=== PATIENT | female | born 1950 | race Caucasian/White ===

== ENCOUNTER → 2018-05-02 14:56 | Outpatient (CLI) | payer MEDICARE, OTHER, SELFPAY ==
--- NOTE | 2018-05-02 | OV.WND_ITS ---
Progress Note Details Patient Name: Jane Melchor Patient Number: [id number] PatientPatientDate: 05/02/2018 Clinician: Danielle Matt Physician / Ditch Rider: Gomez Villegas SUBJECTIVE Chief Complaint This information was obtained from the patient Ulcers on right lateral ankle and calf. Allergies codeine (Reaction: Breathing slows), Bactrim (Reaction: Pancreatitis), scallops (Reaction: vomiting ), cat dander (Reaction: itchy eyes) HPI This information was obtained from the patient 05/02/18. Seen by Dr. Villegas. The patient's new to our clinic and presents with a chronic and recurrent right lateral lower leg non-pressure ulcer that's been deteriorating over the past 2 weeks and is moderately painful. She had one at this site previously that took a year to heal and responded to compression therapy at the time. She also has a non-healing, non-pressure ulcer over the proximal left lower leg. She has a history of PAD with stenting to the right leg but was seen by Dr. Anedrson recently who felt intervention to the left leg was unnecessary. She also has not been on antibiotics recently and does not have a history of diabetes. 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, Tobacco Use - Former smoker Past Medical History This information was obtained from the patient Patient has a medical history of: Breast cancer Hypertension Peripheral Vascular Disease High Cholesterol Surgical History This information was obtained from the patient Patient has a surgical history of: Breast mastectomy (Right side) Stent Placement (Left lower extremity) Complaints and Symptoms This information was obtained from the patient Patient complains of: General Notes: I have reviewed and concur with the Review of Systems and Past Family Social History documents completed by the clinician, I have reviewed and concur with the Wound Assessment document completed by the clinician Cardiovascular (Central/Peripheral): Lower extremity (leg) swelling Integumentary (Hair/Skin/Nails): Hemosiderin Staining, Open Sore Prior Wound History: Drainage, Erythema, Pain Patient denies complaints or symptoms related to: Cardiovascular (Central/Peripheral): Intermittent Claudication, Lower extremity (leg) resting pain Constitutional Symptoms (General Health): Chills, Fever Ear/Nose/Mouth/Throat: Hearing Loss / Aid Hematologic/Lymphatic: Bleeding / Clotting Disorders, Bleeding Tendency Neurological: Loss of Protective Sensation Psychiatric: Memory Loss Respiratory: Shortness of Breath General Notes: Up to date. Medications Children's Tylenol 160 mg/5 mL oral suspension oral 3 3 suspension oral every 4- 6 hours as needed (patient uses liquid - has difficulty swallowing pills) atenolol 25 mg tablet oral 1 1 tablet oral once daily Viactiv 500 mg-500 unit-40 mcg chewable tablet oral 1 1 tablet,chewable oral twice daily Tricor 48 mg tablet oral 3 3 tablet oral once daily multivitamin tablet oral 1 1 tablet oral once daily Plavix 75 mg tablet oral 1 1 tablet oral once daily potassium chloride ER 10 mEq capsule,extended release oral 1 1 capsule, extended release oral once daily Prilosec 10 mg oral suspension,delayed release oral 2 2 susp,delayed release for recon oral once daily doxycycline hyclate 100 mg capsule oral capsule oral twice daily for 7 days for infected ulcer doxycycline hyclate 100 mg capsule oral capsule oral twice daily for 7 days for infected ulcer gentamicin 0.1 % topical ointment topical ointment topical once daily for 7 days for infected ulcer gentamicin 0.1 % topical ointment topical ointment topical once daily for 7 days for infected ulcer Vitamin C 1,000 mg tablet oral 1 1 tablet oral once daily OBJECTIVE Constitutional BP elevated; Afebrile; Alert and in no distress. Well developed. Alert. Clean appearing.. Height/Length: 63 in (160.02 cm), Weight: 155.2 lbs (70.55 kgs), BMI: 27.5, Temperature: 98.1 ?F (36.72 ?C), Pulse: 66 bpm, Respiratory Rate: 18 breaths/min, Blood Pressure: 150/90 mmHg, Pulse Oximetry: 97 %. Ears, Nose, Mouth, and Throat: No clinically significant hearing loss on informal examination. Respiratory: No respiratory distress. Even respirations and without use of accessory muscles.. Cardiovascular: monophasic pedal pulses on the right. 1+ right lower extremity edema. Integumentary (Hair, Skin) Mild periwound erythema with warmth. Refer to appropriate clinician wound documentation for this visit; right lower leg ulcers extend to subcut with bases minimally covered with pink granulation, remainder fibrin and wet slough. Wound #1 Right, Lateral Ankle is an acute Venous Ulcer and has received a status of Not Healed. Initial wound encounter measurements are 2.5cm length x 1.3cm width x 0.3cm depth, with an area of 3.25 sq cm and a volume of 0.975 cubic cm. No tunneling has been noted. No sinus tract has been noted. No undermining has been noted. There is a moderate amount of sero-sanguineous drainage noted which has no odor. The patient reports a wound pain of level 4/10. The wound margin is attached. Wound bed has No epithelialization, No eschar, Yes slough, No granulation. The periwound skin moisture is normal. The periwound skin exhibited: Edema, Atrophie [place], Erythema, Hemosiderosis. The periwound skin did not exhibit: Brawny Induration, Excoriation, Induration, Callus, Crepitus, Fluctuance, Friable, Rash, Cyanosis, Ecchymosis, Pallor, Rubor. The temperature of the periwound skin is Warm. Periwound skin does not exhibit signs or symptoms of infection. Local Pulse is Doppler. Wound #2 Right, Lateral Calf is a chronic Venous Ulcer and has received a status of Not Healed. Initial wound encounter measurements are 0.8cm length x 0.5cm width x 0.3cm depth, with an area of 0.4 sq cm and a volume of 0.12 cubic cm. No tunneling has been noted. No sinus tract has been noted. No undermining has been noted. There is a moderate amount of sero-sanguineous drainage noted which has no odor. The patient reports a wound pain of level 4/10. The wound margin is attached. Wound bed has No epithelialization, No eschar, Yes slough, No granulation. The periwound skin moisture is normal. The periwound skin exhibited: Edema, Induration, Erythema, Hemosiderosis. The periwound skin did not exhibit: Brawny Induration, Excoriation, Callus, Crepitus, Fluctuance, Friable, Rash, Atrophie [place], Cyanosis, Ecchymosis, Pallor, Rubor. The temperature of the periwound skin is Warm. Periwound skin presents with s/s of infection. Confirmation Description and Treatment Plan is: Signs and Symptoms Present. Local Pulse is Doppler. Neurological: Cranial nerves grossly intact with symmetric function normal by informal observation.. ASSESSMENT Active Problems ICD-10 (Encounter Diagnosis) L97.812 - Non-pressure chronic ulcer of other part of right lower leg with fat layer exposed (Encounter Diagnosis) I87.311 - Chronic venous hypertension (idiopathic) with ulcer of right lower extremity (Encounter Diagnosis) I70.238 - Atherosclerosis of [place] arteries of right leg with ulceration of other part of lower right leg (Encounter Diagnosis) L03.115 - Cellulitis of right lower limb PROCEDURES Wound #1 Wound #1 (Vascular) is located on the right, lateral ankle. A skin/subcutaneous tissue level surgical debridement with a total area debrided of 3.25 sq cm was performed by Gomez Villegas MD. Subcutaneous was removed along with devitalized tissue: exudate and slough. The following instrument(s) were used: curette and forceps. Pain control was achieved using 4% Lido. A time out was conducted prior to the start of the procedure. A minimal amount of bleeding was controlled with pressure. The procedure was tolerated well with a pain level of 3 throughout and a pain level of 0 following the procedure. Post Debridement Measurements: 2.5cm length x 1.3cm width x 0.4cm depth; with an area of 3.25 sq cm and a volume of 1.3 cubic cm; Wound #2 Wound #2 (Vascular) is located on the right, lateral calf. A skin/subcutaneous tissue level surgical debridement with a total area debrided of 0.4 sq cm was performed by Gomez Villegas MD. Adipose and Subcutaneous were removed along with devitalized tissue: exudate and slough. The following instrument(s) were used: curette and forceps. Pain control was achieved using 4% Lido. A time out was conducted prior to the start of the procedure. A minimal amount of bleeding was controlled with pressure. The procedure was tolerated well with a pain level of 3 throughout and a pain level of 0 following the procedure. Post Debridement Measurements: 0.8cm length x 0.5cm width x 0.4cm depth; with an area of 0.4 sq cm and a volume of 0.16 cubic cm; Additional Information Muscle fascia or bone removed and sent to pathology?: No Muscle fascia or bone removed and sent to pathology?: No PLAN Wound Orders: Wound #1 Right, Lateral Ankle Anesthetic Topical Xylocaine to wound bed. - In clinic only. Cleanser Cleanse Wound: - Normal saline and gauze, may use distilled water at home. May Shower. - Please cover with cast protector when showering. Topical Treatments Antibiotic/Antimicrobial Ointment/Cream. - Gentamicin ointment to wound bed. Dressings Cover and secure with: - Foam secured with tape. Change Dressing: - Daily. Wound #2 Right, Lateral Calf Anesthetic Topical Xylocaine to wound bed. - In clinic only. Cleanser Cleanse Wound: - Normal saline and gauze, may use distilled water at home. May Shower. - Please cover with cast protector when showering. Topical Treatments Antibiotic/Antimicrobial Ointment/Cream. - Gentamicin ointment to wound bed. Dressings Cover and secure with: - Foam secured with tape. Change Dressing: - Daily. Additional Orders: Follow-Up Appointments Return Appointment: - - One week. Other information: If you develop fever, chills, increased pain, drainage, redness or swelling please call our office. If after hours, respond to the ER. Should you experience any significant changes in your wound(s) or have any questions regarding your home care instructions please contact the wound center @ [phone]. If after hours, contact your primary care physician or go to the hospital emergency room. Scribing Attestation I attest, as the nurse, that I scribed these orders for the physician. Laboratory: Bacteria identified in Wound by Culture - #1, Bacteria identified in Wound by Culture - #2 General Notes: Please vegetable picker prescriptions for gentamicin ointment and oral doxycycline. Will call with culture results if any changes in antibiotics are needed. I've reviewed the clinician's documentation and agree with the evaluation and plan as written. In addition the patient's ulcers demonstrate evidence of non-viable devitalized tissue and they will continue to benefit from sharp debridement to help promote granulation and expedite healing. Also, I've taken wound cultures and started the patient empirically on doxycycline to treat cellulitis associated with the right lower leg ulcers. If they deteriorate despite appropriate treatment we'll need to refer back to Dr. Anderson for consideration of intervention to treat the right leg PAD. Electronic Signature(s) Signed By: Date: Gomez Villegas MD 05/04/2018 08:46:21 Entered By: Gomez Villegas on 05/04/2018 08:36:12
== END ==
PROVIDERS: Visit Provider Internal Medicine
DX: I87.311 Chronic venous hypertension (idiopathic) with ulcer of right lower extremity (principal); L97.312 Non-pressure chronic ulcer of right ankle with fat layer exposed; L97.212 Non-pressure chronic ulcer of right calf with fat layer exposed; L03.115 Cellulitis of right lower limb; I70.238 Atherosclerosis of native arteries of right leg with ulceration of other part of lower leg
CPT/HCPCS: 11042; 87070; 87075; 87077; 87147; 87186; 87205; 99214

== ENCOUNTER → 2018-05-09 09:09 | Outpatient (CLI) | payer MEDICARE, OTHER, SELFPAY ==
--- NOTE | 2018-05-09 | OV.WND_ITS ---
Progress Note Details Patient Name: Jane Melchor Patient Number: [id number] PatientPatientDate: 05/09/2018 Clinician: Danielle Matt Clinician Cosigner: Corrie Diaz Physician / Assistant Womens Volleyball Coach: Gomez Villegas SUBJECTIVE Chief Complaint This information was obtained from the patient Ulcers on right lateral ankle and calf. Allergies codeine (Reaction: Breathing slows), Bactrim (Reaction: Pancreatitis), scallops (Reaction: vomiting ), cat dander (Reaction: itchy eyes) HPI This information was obtained from the patient 05/09/18. Seen by Dr. Villegas. The patient continues to report some pain associated with the right lower leg venous ulcers despite taking doxycycline for the recent MRSA and E. coli positive wound culture. She does not report fevers or adverse side effects and is applying topical gentamicin to the ulcers as well. 05/02/18. Seen by Dr. Villegas. The patient's new to our clinic and presents with a chronic and recurrent right lateral lower leg non-pressure ulcer that's been deteriorating over the past 2 weeks and is moderately painful. She had one at this site previously that took a year to heal and responded to compression therapy at the time. She also has a non-healing, non-pressure ulcer over the proximal left lower leg. She has a history of PAD with stenting to the right leg but was seen by Dr. Anderson recently who felt intervention to the left leg was unnecessary. She also has not been on antibiotics recently and does not have a history of diabetes. Past Medical History This information was obtained from the patient Patient has a medical history of: Breast cancer Hypertension Peripheral Vascular Disease High Cholesterol Complaints and Symptoms This information was obtained from the patient Patient complains of: General Notes: I have reviewed and concur with the Review of Systems and Past Family Social History documents completed by the clinician, I have reviewed and concur with the Wound Assessment document completed by the clinician Cardiovascular (Central/Peripheral): Lower extremity (leg) swelling Integumentary (Hair/Skin/Nails): Hemosiderin Staining, Open Sore Prior Wound History: Drainage, Erythema, Pain Patient denies complaints or symptoms related to: Cardiovascular (Central/Peripheral): Intermittent Claudication, Lower extremity (leg) resting pain Constitutional Symptoms (General Health): Chills, Fever Ear/Nose/Mouth/Throat: Hearing Loss / Aid Hematologic/Lymphatic: Bleeding / Clotting Disorders, Bleeding Tendency Neurological: Loss of Protective Sensation Psychiatric: Memory Loss Respiratory: Shortness of Breath OBJECTIVE Constitutional Vital signs reviewed and noted. Well developed. Alert. Clean appearing.. Height/ Length: 63 in (160.02 cm), Weight: 155.5 lbs (70.68 kgs), BMI: 27.5, Temperature: 98.3 ?F ( 36.83 ?C), Pulse: 64 bpm, Respiratory Rate: 18 breaths/min, Pulse Oximetry: 95 %. Ears, Nose, Mouth, and Throat: No clinically significant hearing loss on informal examination. Respiratory: No respiratory distress. Even respirations and without use of accessory muscles.. Cardiovascular: 1+ right lower extremity edema. Integumentary (Hair, Skin) Mild periwound erythema without warmth. Refer to appropriate clinician wound documentation for this visit; right lower leg ulcers extend to subcut with bases partially covered with pink granulation, remainder fibrin and slough; tender to debridement. Wound #1 Right, Lateral Ankle is an acute Full Thickness Venous Ulcer and has received a status of Not Healed. Subsequent wound encounter measurements are 2.2cm length x 1.4cm width x 0.4cm depth, with an area of 3.08 sq cm and a volume of 1.232 cubic cm. No tunneling has been noted. No sinus tract has been noted. No undermining has been noted. There is a moderate amount of sero-sanguineous drainage noted which has no odor. The patient reports a wound pain of level 4/10. The wound margin is attached. Wound bed has No epithelialization, No eschar, Yes slough, No granulation. The periwound skin moisture is normal. The periwound skin exhibited: Edema, Induration, Atrophie [place], Erythema, Hemosiderosis. The periwound skin did not exhibit: Brawny Induration, Excoriation, Callus, Crepitus, Fluctuance, Friable, Rash, Cyanosis, Ecchymosis, Pallor, Rubor. The temperature of the periwound skin is Warm. Periwound skin does not exhibit signs or symptoms of infection. Local Pulse is Doppler. Wound #2 Right, Lateral Calf is a chronic Full Thickness Venous Ulcer and has received a status of Not Healed. Subsequent wound encounter measurements are 0.7cm length x 0.6cm width x 0.2cm depth, with an area of 0.42 sq cm and a volume of 0.084 cubic cm. No tunneling has been noted. No sinus tract has been noted. Undermining has been noted at 8:00 and ends at 6:00 with a maximum distance of 0.3cm. There is a moderate amount of sero- sanguineous drainage noted which has no odor. The patient reports a wound pain of level 4/10. The wound margin is attached. Wound bed has No epithelialization, No eschar, Yes slough, Yes bright red, pink, firm granulation. The periwound skin moisture is normal. The periwound skin exhibited: Edema, Induration, Erythema, Hemosiderosis. The periwound skin did not exhibit: Brawny Induration, Excoriation, Callus, Crepitus, Fluctuance, Friable, Rash, Atrophie [place], Cyanosis, Ecchymosis, Pallor, Rubor. The temperature of the periwound skin is Warm. Periwound skin presents with s/s of infection. Confirmation Description and Treatment Plan is: Signs and Symptoms Present, Confirmed Local. Local Pulse is Doppler. Neurological: Cranial nerves grossly intact with symmetric function normal by informal observation.. ASSESSMENT Active Problems ICD-10 (Encounter Diagnosis) L97.812 - Non-pressure chronic ulcer of other part of right lower leg with fat layer exposed (Encounter Diagnosis) I87.311 - Chronic venous hypertension (idiopathic) with ulcer of right lower extremity (Encounter Diagnosis) B95.62 - Methicillin resistant Staphylococcus aureus infection as the cause of diseases classified elsewhere (Encounter Diagnosis) B96.29 - Other Escherichia coli [E. coli] as the cause of diseases classified elsewhere PROCEDURES Wound #1 Wound #1 (Venous Ulcer) is located on the right, lateral ankle. A skin/ subcutaneous tissue level surgical debridement with a total area debrided of 3.08 sq cm was performed by Gomez Villegas MD. Subcutaneous was removed along with devitalized tissue: exudate and slough. The following instrument(s) were used: curette. Pain control was achieved using 4% Lido. A time out was conducted prior to the start of the procedure. A minimal amount of bleeding was controlled with n/a. The procedure was tolerated well with a pain level of 4 throughout and a pain level of 2 following the procedure. Post Debridement Measurements: 2.2cm length x 1.4cm width x 0.5cm depth; with an area of 3.08 sq cm and a volume of 1.54 cubic cm; Wound #2 Wound #2 (Venous Ulcer) is located on the right, lateral calf. A skin/ subcutaneous tissue level surgical debridement with a total area debrided of 0.42 sq cm was performed by Gomez Villegas MD. Subcutaneous was removed along with devitalized tissue: exudate and slough. The following instrument(s) were used: curette. Pain control was achieved using 4% Lido. A time out was conducted prior to the start of the procedure. A minimal amount of bleeding was controlled with n/a. The procedure was tolerated well with a pain level of 4 throughout and a pain level of 2 following the procedure. Post Debridement Measurements: 0.7cm length x 0.6cm width x 0.3cm depth; with an area of 0.42 sq cm and a volume of 0.126 cubic cm; Additional Information Muscle fascia or bone removed and sent to pathology?: No Muscle fascia or bone removed and sent to pathology?: No PLAN Wound Orders: Wound #1 Right, Lateral Ankle Anesthetic Topical Xylocaine to wound bed. - In clinic only. Cleanser Cleanse Wound: - Normal saline and gauze, may use distilled water at home. May Shower. - Please cover with cast protector when showering. Topical Treatments Antibiotic/Antimicrobial Ointment/Cream. - Gentamicin ointment to wound bed. Dressings Cover and secure with: - Foam secured with tape. Change Dressing: - Daily. Wound #2 Right, Lateral Calf Anesthetic Topical Xylocaine to wound bed. - In clinic only. Cleanser Cleanse Wound: - Normal saline and gauze, may use distilled water at home. May Shower. - Please cover with cast protector when showering. Topical Treatments Antibiotic/Antimicrobial Ointment/Cream. - Gentamicin ointment to wound bed. Dressings Cover and secure with: - Foam secured with tape. Change Dressing: - Daily. Additional Orders: Follow-Up Appointments Return Appointment: - - One week. Other information: If you develop fever, chills, increased pain, drainage, redness or swelling please call our office. If after hours, respond to the ER. Should you experience any significant changes in your wound(s) or have any questions regarding your home care instructions please contact the wound center @ [phone]. If after hours, contact your primary care physician or go to the hospital emergency room. Scribing Attestation I attest, as the nurse, that I scribed these orders for the physician. Medications prescribed: clindamycin HCl - oral 300 mg capsule three times daily for 7 days for infected ulcer starting 05/09/2018 General Notes: Please pickler helper new prescription for clindamycin, please continue taking doxycycline UNTIL you pickler helper the clindamycin prescription. Then you may discontinue the doxycycline. I've reviewed the clinician's documentation and agree with the evaluation and plan as written. In addition the patient's ulcers demonstrate evidence of non-viable devitalized tissue and they will continue to benefit from sharp debridement to help promote granulation and expedite healing. Also, I've changed the patient to clindamycin from doxycycline due to the continued pain and we'll consider placing a REYES wound vac early next week. Electronic Signature(s) Signed By: Date: Gomez Villegas MD 05/10/2018 06:43:39 Entered By: Gomez Villegas on 05/09/2018 15:54:35
== END ==
PROVIDERS: PCP Family Medicine; Visit Provider Internal Medicine
DX: I87.311 Chronic venous hypertension (idiopathic) with ulcer of right lower extremity (principal); L97.812 Non-pressure chronic ulcer of other part of right lower leg with fat layer exposed; B95.62 Methicillin resistant Staphylococcus aureus infection as the cause of diseases classified elsewhere; B96.29 Other Escherichia coli [E. coli] as the cause of diseases classified elsewhere
CPT/HCPCS: 11042

== ENCOUNTER → 2018-05-09 14:23 | Outpatient (CLI) | payer MEDICARE, OTHER, SELFPAY | PROVIDERS: PCP Family Medicine; Visit Provider Internal Medicine | DX: I87.311 Chronic venous hypertension (idiopathic) with ulcer of right lower extremity (principal); L97.812 Non-pressure chronic ulcer of other part of right lower leg with fat layer exposed; B95.62 Methicillin resistant Staphylococcus aureus infection as the cause of diseases classified elsewhere; B96.29 Other Escherichia coli [E. coli] as the cause of diseases classified elsewhere ==

== ENCOUNTER → 2018-05-16 13:22 | Outpatient (CLI) | payer MEDICARE, OTHER, SELFPAY ==
--- NOTE | 2018-05-16 | OV.WND_ITS ---
Progress Note Details Patient Name: Jane Melchor Patient Number: [id number] PatientPatientDate: 05/16/2018 Clinician: Danielle Matt Physician / Burnisher: Gomez Villegas SUBJECTIVE Chief Complaint This information was obtained from the patient Ulcers on right lateral ankle and calf. Allergies codeine (Reaction: Breathing slows), Bactrim (Reaction: Pancreatitis), scallops (Reaction: vomiting ), cat dander (Reaction: itchy eyes) HPI This information was obtained from the patient 05/16/18. Seen by Dr. Villegas. The patient continues to report some pain associated with the right lower leg venous ulcers however feels there's been modest improvement since starting on clindamycin for the recent MRSA and E. coli positive wound culture. She has a history of PAD in the right leg with a stent and states that at her last visit with Dr. Anderson it was felt repeat intervention was nor warranted at that time. 05/09/18. Seen by Dr. Villegas. The patient continues to report some pain associated with the right lower leg venous ulcers despite taking doxycycline for the recent MRSA and E. coli positive wound culture. She does not report fevers or adverse side effects and is applying topical gentamicin to the ulcers as well. 05/02/18. Seen by Dr. Villegas. The patient's new to our clinic and presents with a chronic and recurrent right lateral lower leg non-pressure ulcer that's been deteriorating over the past 2 weeks and is moderately painful. She had one at this site previously that took a year to heal and responded to compression therapy at the time. She also has a non-healing, non-pressure ulcer over the proximal left lower leg. She has a history of PAD with stenting to the right leg but was seen by Dr. Anderson recently who felt intervention to the left leg was unnecessary. She also has not been on antibiotics recently and does not have a history of diabetes. Past Medical History This information was obtained from the patient Patient has a medical history of: Breast cancer Hypertension Peripheral Vascular Disease (right leg stent) High Cholesterol Complaints and Symptoms This information was obtained from the patient Patient complains of: General Notes: I have reviewed and concur with the Review of Systems and Past Family Social History documents completed by the clinician, I have reviewed and concur with the Wound Assessment document completed by the clinician Cardiovascular (Central/Peripheral): Lower extremity (leg) swelling Integumentary (Hair/Skin/Nails): Hemosiderin Staining, Open Sore Prior Wound History: Drainage, Erythema, Pain Patient denies complaints or symptoms related to: Cardiovascular (Central/Peripheral): Intermittent Claudication, Lower extremity (leg) resting pain Constitutional Symptoms (General Health): Chills, Fever Ear/Nose/Mouth/Throat: Hearing Loss / Aid Hematologic/Lymphatic: Bleeding / Clotting Disorders, Bleeding Tendency Neurological: Loss of Protective Sensation Psychiatric: Memory Loss Respiratory: Shortness of Breath OBJECTIVE Constitutional BP elevated; Afebrile; Alert and in no distress. Well developed. Alert. Clean appearing.. Height/Length: 63 in (160.02 cm), Weight: 155.5 lbs (70.68 kgs), BMI: 27.5, Temperature: 97.1 ?F (36.17 ?C), Pulse: 61 bpm, Respiratory Rate: 16 breaths/min, Blood Pressure: 172/77 mmHg, Pulse Oximetry: 99 %. Ears, Nose, Mouth, and Throat: No clinically significant hearing loss on informal examination. Respiratory: No respiratory distress. Even respirations and without use of accessory muscles.. Cardiovascular: 1+ dorsalis pedis and posterior tibial on the right. Affected extremity exhibits no peripheral edema or cyanosis, is warm, and is well perfused. Capillary refill is less than 2 seconds. Integumentary (Hair, Skin) Moderate periwound erythema without warmth. Refer to appropriate clinician wound documentation for this visit; right lower leg ulcers extend to subcut with bases partially covered with pink granulation, remainder fibrin and slough; minimal bleeding upon debridement. Wound #1 Right, Lateral Ankle is an acute Full Thickness Venous Ulcer and has received a status of Not Healed. Subsequent wound encounter measurements are 2.8cm length x 1.2cm width x 0.3cm depth, with an area of 3.36 sq cm and a volume of 1.008 cubic cm. No tunneling has been noted. No sinus tract has been noted. No undermining has been noted. There is a moderate amount of sero-sanguineous drainage noted which has no odor. The patient reports a wound pain of level 4/10. The wound margin is attached. Wound bed has No epithelialization, No eschar, Yes slough, Yes bright red, firm granulation. The periwound skin moisture is normal. The periwound skin exhibited: Edema, Induration, Atrophie Inga, Erythema, Hemosiderosis. The periwound skin did not exhibit: Brawny Induration, Excoriation, Callus, Crepitus, Fluctuance, Friable, Rash, Cyanosis, Ecchymosis, Pallor, Rubor. The temperature of the periwound skin is Warm. Periwound skin does not exhibit signs or symptoms of infection. Local Pulse is Doppler. Wound #2 Right, Lateral Calf is a chronic Full Thickness Venous Ulcer and has received a status of Not Healed. Subsequent wound encounter measurements are 0.7cm length x 0.5cm width x 0.2cm depth, with an area of 0.35 sq cm and a volume of 0.07 cubic cm. No tunneling has been noted. No sinus tract has been noted. No undermining has been noted. There is a moderate amount of sero-sanguineous drainage noted which has no odor. The patient reports a wound pain of level 4/10. The wound margin is attached. Wound bed has Yes epithelialization, No eschar, Yes slough, Yes pink, firm granulation. The periwound skin moisture is normal. The periwound skin exhibited: Edema, Induration, Erythema, Hemosiderosis. The periwound skin did not exhibit: Brawny Induration, Excoriation, Callus, Crepitus, Fluctuance, Friable, Rash, Atrophie [place], Cyanosis, Ecchymosis, Pallor, Rubor. The temperature of the periwound skin is Warm. Periwound skin does not exhibit signs or symptoms of infection. Local Pulse is Doppler. Neurological: Cranial nerves grossly intact with symmetric function normal by informal observation.. ASSESSMENT Active Problems ICD-10 (Encounter Diagnosis) L97.812 - Non-pressure chronic ulcer of other part of right lower leg with fat layer exposed (Encounter Diagnosis) I87.311 - Chronic venous hypertension (idiopathic) with ulcer of right lower extremity (Encounter Diagnosis) B95.62 - Methicillin resistant Staphylococcus aureus infection as the cause of diseases classified elsewhere (Encounter Diagnosis) B96.29 - Other Escherichia coli [E. coli] as the cause of diseases classified elsewhere (Encounter Diagnosis) I70.238 - Atherosclerosis of [place] arteries of right leg with ulceration of other part of lower right leg PROCEDURES Wound #1 Wound #1 (Venous Ulcer) is located on the right, lateral ankle. A skin/ subcutaneous tissue level surgical debridement with a total area debrided of 3.36 sq cm was performed by Gomez Villegas MD. Subcutaneous was removed along with devitalized tissue: slough. The following instrument(s) were used: curette. Pain control was achieved using 4% Lido. A time out was conducted prior to the start of the procedure. A minimal amount of bleeding was controlled with pressure. The procedure was tolerated well with a pain level of 0 throughout and a pain level of 0 following the procedure. Post Debridement Measurements: 2.8cm length x 1.2cm width x 0.4cm depth; with an area of 3.36 sq cm and a volume of 1.344 cubic cm; Wound #2 Wound #2 (Venous Ulcer) is located on the right, lateral calf. A skin/ subcutaneous tissue level surgical debridement with a total area debrided of 0.35 sq cm was performed by Gomez Villegas MD. Subcutaneous was removed along with devitalized tissue: slough. The following instrument(s) were used: curette. Pain control was achieved using 4% Lido. A time out was conducted prior to the start of the procedure. A minimal amount of bleeding was controlled with pressure. The procedure was tolerated well with a pain level of 0 throughout and a pain level of 0 following the procedure. Post Debridement Measurements: 0.7cm length x 0.5cm width x 0.3cm depth; with an area of 0.35 sq cm and a volume of 0.105 cubic cm; Additional Information Muscle fascia or bone removed and sent to pathology?: No Muscle fascia or bone removed and sent to pathology?: No PLAN Wound Orders: Wound #1 Right, Lateral Ankle Anesthetic Topical Xylocaine to wound bed. - In clinic only. Cleanser Cleanse Wound: - Normal saline and gauze, may use distilled water at home. May Shower. - Please cover with cast protector when showering. Topical Treatments Moisturizing lotion to surround skin. - Clobetasol to red skin surrounding wound , triamcinolone cream used in clinic. Dressings Cover and secure with: - Foam secured with tape. Change Dressing: - Every other day. Wound #2 Right, Lateral Calf Anesthetic Topical Xylocaine to wound bed. - In clinic only. Cleanser Cleanse Wound: - Normal saline and gauze, may use distilled water at home. May Shower. - Please cover with cast protector when showering. Dressings Cover and secure with: - Foam secured with tape. Change Dressing: - Every other day. Additional Orders: Follow-Up Appointments Return Appointment: - - One week. Other information: If you develop fever, chills, increased pain, drainage, redness or swelling please call our office. If after hours, respond to the ER. Should you experience any significant changes in your wound(s) or have any questions regarding your home care instructions please contact the wound center @ [phone]. If after hours, contact your primary care physician or go to the hospital emergency room. Scribing Attestation I attest, as the nurse, that I scribed these orders for the physician. Medications prescribed: clindamycin HCl - oral 300 mg capsule three times daily for 7 days for cellulitis starting 05/16/2018 General Notes: Please pharmacy picking technician refill of clindamycin and continue as prescribed. Referral being made to a vascular surgeon to evaluate need for intervention. I've reviewed the clinician's documentation and agree with the evaluation and plan as written. In addition the patient's ulcers demonstrate evidence of non-viable devitalized tissue and they will continue to benefit from sharp debridement to help promote granulation and expedite healing. Also, I've continued the patient on another week of clindamycin and will consider placing a REYES wound vac over the distal ulcer at her next visit. I'm also going to ask Dr. Anderson to review the patient's PAD again and consider below the knee intervention if possible as I'm concerned there's a clinically significant degree of PAD affecting this distal ulcer specifically. Electronic Signature(s) Signed By: Date: Gomez Villegas MD 05/17/2018 07:05:31 Entered By: Gomez Villegas on 05/17/2018 06:52:52
== END ==
PROVIDERS: Family Provider Physician Assistant Medical; PCP Family Medicine; Visit Provider Internal Medicine
DX: L97.812 Non-pressure chronic ulcer of other part of right lower leg with fat layer exposed (principal); I87.311 Chronic venous hypertension (idiopathic) with ulcer of right lower extremity; B95.62 Methicillin resistant Staphylococcus aureus infection as the cause of diseases classified elsewhere; B96.29 Other Escherichia coli [E. coli] as the cause of diseases classified elsewhere; I70.238 Atherosclerosis of native arteries of right leg with ulceration of other part of lower leg
CPT/HCPCS: 11042

== ENCOUNTER → 2018-05-23 10:42 | Outpatient (CLI) | payer MEDICARE, OTHER, SELFPAY | PROVIDERS: Family Provider Physician Assistant Medical; PCP Family Medicine; Visit Provider Internal Medicine | DX: I87.311 Chronic venous hypertension (idiopathic) with ulcer of right lower extremity (principal); L97.312 Non-pressure chronic ulcer of right ankle with fat layer exposed; L97.212 Non-pressure chronic ulcer of right calf with fat layer exposed; B95.62 Methicillin resistant Staphylococcus aureus infection as the cause of diseases classified elsewhere; B96.29 Other Escherichia coli [E. coli] as the cause of diseases classified elsewhere | CPT/HCPCS: 11042 ==

== ENCOUNTER → 2018-05-30 14:27 | Outpatient (CLI) | payer MEDICARE, OTHER, SELFPAY | PROVIDERS: Family Provider Physician Assistant Medical; PCP Family Medicine; Visit Provider Internal Medicine | DX: I87.311 Chronic venous hypertension (idiopathic) with ulcer of right lower extremity (principal); L97.312 Non-pressure chronic ulcer of right ankle with fat layer exposed; L97.212 Non-pressure chronic ulcer of right calf with fat layer exposed; I70.238 Atherosclerosis of native arteries of right leg with ulceration of other part of lower leg; L03.115 Cellulitis of right lower limb | CPT/HCPCS: 11042; 87070; 87075; 87205; 97605 ==

== ENCOUNTER → 2018-06-06 14:37 | Outpatient (CLI) | payer MEDICARE, OTHER, SELFPAY ==
--- NOTE | 2018-06-06 | OV.WND_ITS ---
Progress Note Details Patient Name: Jane Melchor Patient Number: [id number] PatientPatientDate: 06/06/2018 Clinician: Shi Fuentes Clinician Cosigner: Balbina Hernandez Physician / Semi Conductor Assembler: Gomez Villegas SUBJECTIVE Chief Complaint This information was obtained from the patient Ulcers on right lateral ankle and calf. Allergies codeine (Reaction: Breathing slows), Bactrim (Reaction: Pancreatitis), scallops (Reaction: vomiting ), cat dander (Reaction: itchy eyes) HPI This information was obtained from the patient 06/06/18. Seen by Dr. Villegas. The patient does not report significant pain or drainage associated with the proximal or distal right lower leg venous ulcers since her last visit and she states her vascular doctor does not feel there's clinically significant PAD in the right leg. She also tolerated NPWT without difficulty and will complete her course of clindamycin tomorrow that's been treating the recurrent MRSA positive wound culture. 05/30/18. Seen by Dr. Villegas. The patient continues to report pain associated with the distal right lower leg venous ulcer however she does not report pain or drainage associated with the proximal right lower leg venous ulcer. She has an appointment next Tuesday with Dr. Anderson's office to evaluate her right leg PAD for possible intervention noting the refractory nature of the ulcers. She feels there's increased redness in the distal periulcer area which is new compared to yesterday. 05/23/18. Seen by Dr. Villegas. The patient continues to report pain associated with the right lower leg venous ulcers and she continues on clindamycin for the recent MRSA and E. coli positive wound culture without reporting adverse side effects. 05/16/18. Seen by Dr. Villegas. The patient continues to report some pain associated with the right lower leg venous ulcers however feels there's been modest improvement since starting on clindamycin for the recent MRSA and E. coli positive wound culture. She has a history of PAD in the right leg with a stent and states that at her last visit with Dr. Anderson it was felt repeat intervention was nor warranted at that time. 05/09/18. Seen by Dr. Villegas. The patient continues to report some pain associated with the right lower leg venous ulcers despite taking doxycycline for the recent MRSA and E. coli positive wound culture. She does not report fevers or adverse side effects and is applying topical gentamicin to the ulcers as well. 05/02/18. Seen by Dr. Villegas. The patient's new to our clinic and presents with a chronic and recurrent right lateral lower leg non-pressure ulcer that's been deteriorating over the past 2 weeks and is moderately painful. She had one at this site previously that took a year to heal and responded to compression therapy at the time. She also has a non-healing, non-pressure ulcer over the proximal left lower leg. She has a history of PAD with stenting to the right leg but was seen by Dr. Anderson recently who felt intervention to the left leg was unnecessary. She also has not been on antibiotics recently and does not have a history of diabetes. Past Medical History This information was obtained from the patient Patient has a medical history of: Breast cancer Hypertension Peripheral Vascular Disease (right leg stent) High Cholesterol Complaints and Symptoms This information was obtained from the patient Patient complains of: General Notes: I have reviewed and concur with the Review of Systems and Past Family Social History documents completed by the clinician, I have reviewed and concur with the Wound Assessment document completed by the clinician Cardiovascular (Central/Peripheral): Lower extremity (leg) swelling Integumentary (Hair/Skin/Nails): Hemosiderin Staining, Open Sore Prior Wound History: Drainage, Erythema, Pain Patient denies complaints or symptoms related to: Cardiovascular (Central/Peripheral): Intermittent Claudication, Lower extremity (leg) resting pain Constitutional Symptoms (General Health): Chills, Fever Ear/Nose/Mouth/Throat: Hearing Loss / Aid Hematologic/Lymphatic: Bleeding / Clotting Disorders, Bleeding Tendency Neurological: Loss of Protective Sensation Psychiatric: Memory Loss Respiratory: Shortness of Breath OBJECTIVE Constitutional BP elevated; Afebrile; Alert and in no distress. Well developed. Alert. Clean appearing.. Height/Length: 63 in (160.02 cm), Weight: 155.9 lbs (70.86 kgs), BMI: 27.6, Temperature: 98.6 ?F (37 ?C), Pulse: 61 bpm, Respiratory Rate: 18 breaths/min, Blood Pressure : 142/70 mmHg, Pulse Oximetry: 98 %. Ears, Nose, Mouth, and Throat: No clinically significant hearing loss on informal examination. Neck: Normal range of motion.. Cardiovascular: Affected extremity exhibits no peripheral edema or cyanosis, is warm, and is well perfused. Capillary refill is less than 2 seconds. Integumentary (Hair, Skin) Mild distal right lower leg periwound erythema without warmth. Refer to appropriate clinician wound documentation for this visit; right lower leg ulcers extend to subcut with bases partially covered with pink granulation, remainder fibrin and slough. Wound #1 Right, Lateral Ankle is an acute Full Thickness Venous Ulcer and has received a status of Not Healed. Subsequent wound encounter measurements are 3cm length x 1.4cm width x 0.3cm depth, with an area of 4.2 sq cm and a volume of 1.26 cubic cm. No tunneling has been noted. No sinus tract has been noted. No undermining has been noted. There is a moderate amount of sero-sanguineous drainage noted which has no odor. The patient reports a wound pain of level 4/10. The wound margin is attached. Wound bed has No epithelialization, No eschar, Yes slough, No granulation. The periwound skin moisture is normal. The periwound skin exhibited: Edema, Induration, Atrophie Inga, Erythema, Hemosiderosis. The periwound skin did not exhibit: Brawny Induration, Excoriation, Callus, Crepitus, Fluctuance, Friable, Rash, Cyanosis, Ecchymosis, Pallor, Rubor. The temperature of the periwound skin is Warm. Periwound skin does not exhibit signs or symptoms of infection. Local Pulse is Doppler. Wound #2 Right, Lateral Calf is a chronic Full Thickness Venous Ulcer and has received a status of Not Healed. Subsequent wound encounter measurements are 0.5cm length x 0.4cm width x 0.1cm depth, with an area of 0.2 sq cm and a volume of 0.02 cubic cm. No tunneling has been noted. No sinus tract has been noted. No undermining has been noted. There is a moderate amount of sero-sanguineous drainage noted which has no odor. The patient reports a wound pain of level 4/10. The wound margin is attached. Wound bed has No epithelialization, No eschar, No slough, Yes pink, firm granulation. The periwound skin moisture is normal. The periwound skin exhibited: Edema, Induration, Erythema, Hemosiderosis. The periwound skin did not exhibit: Brawny Induration, Excoriation, Callus, Crepitus, Fluctuance, Friable, Rash, Atrophie [place], Cyanosis, Ecchymosis, Pallor, Rubor. The temperature of the periwound skin is Warm. Periwound skin does not exhibit signs or symptoms of infection. Local Pulse is Doppler. Neurological: Cranial nerves grossly intact with symmetric function normal by informal observation.. ASSESSMENT Active Problems ICD-10 (Encounter Diagnosis) L97.812 - Non-pressure chronic ulcer of other part of right lower leg with fat layer exposed (Encounter Diagnosis) I87.311 - Chronic venous hypertension (idiopathic) with ulcer of right lower extremity (Encounter Diagnosis) B95.62 - Methicillin resistant Staphylococcus aureus infection as the cause of diseases classified elsewhere PROCEDURES Wound #1 Wound #1 (Venous Ulcer) is located on the right, lateral ankle. A skin/ subcutaneous tissue level surgical debridement with a total area debrided of 4.2 sq cm was performed by Gomez Villegas MD. to remove devitalized tissue: exudate and slough. The following instrument(s) were used: curette. Pain control was achieved using 4% Lido. A time out was conducted prior to the start of the procedure. A minimal amount of bleeding was controlled with pressure. The procedure was tolerated well with a pain level of 0 throughout and a pain level of 0 following the procedure. Post Debridement Measurements: 3cm length x 1.4cm width x 0.3cm depth; with an area of 4.2 sq cm and a volume of 1.26 cubic cm; Wound #1 (Venous Ulcer) is located on the right, lateral ankle. A Disposable Wound Vac Application < 50 Sq Cm procedure was performed by Gomez Villegas MD. A time out was conducted prior to the start of the procedure. The procedure was tolerated well. General Notes: Luz Maria 4x8 to Right Ankle wound. Wound #2 Wound #2 (Venous Ulcer) is located on the right, lateral calf. A skin/ subcutaneous tissue level surgical debridement with a total area debrided of 0.2 sq cm was performed by Gomez Villegas MD. Subcutaneous was removed along with devitalized tissue: exudate. The following instrument(s) were used: curette. Pain control was achieved using 4% Lido. A time out was conducted prior to the start of the procedure. No bleeding occurred. The procedure was tolerated well with a pain level of 0 throughout and a pain level of 0 following the procedure. Post Debridement Measurements: 0.5cm length x 0.4cm width x 0.1cm depth; with an area of 0.2 sq cm and a volume of 0.02 cubic cm; Additional Information Muscle fascia or bone removed and sent to pathology?: No Muscle fascia or bone removed and sent to pathology?: No PLAN Wound Orders: Wound #1 Right, Lateral Ankle Cleanser Cleanse Wound: - IN clinic normal saline. May Shower With Negative Pressure - Wear shower boot to keep dressing dry and Luz Maria tucked into boot to keep dry. Dressings Negative Pressure Wound Therapy - Luz Maria 4x8 Follow-Up Appointments Return Appointment: - - In one week Other information: If you develop fever, chills, increased pain, drainage, redness or swelling please call our office. If after hours, respond to the ER. Should you experience any significant changes in your wound(s) or have any questions regarding your home care instructions please contact the wound center @ [phone]. If after hours, contact your primary care physician or go to the hospital emergency room. Scribing Attestation I attest, as the nurse, that I scribed these orders for the physician. Wound #2 Right, Lateral Calf Topical Treatments Antibiotic/Antimicrobial Ointment/Cream. - Gentamicin to wound bed Follow-Up Appointments Return Appointment: - - In one week Other information: If you develop fever, chills, increased pain, drainage, redness or swelling please call our office. If after hours, respond to the ER. Should you experience any significant changes in your wound(s) or have any questions regarding your home care instructions please contact the wound center @ [phone]. If after hours, contact your primary care physician or go to the hospital emergency room. Scribing Attestation I attest, as the nurse, that I scribed these orders for the physician. I've reviewed the clinician's documentation and agree with the evaluation and plan as written. In addition the patient's ulcers demonstrate evidence of non-viable devitalized tissue and they will continue to benefit from sharp debridement to help promote granulation and expedite healing. Negative pressure wound therapy will be utilized to facilitate granulation and removal of exudate and infectious material with the goal of expediting wound healing. Also, we'll defer additional oral antibiotics once she's completed her current course of clindamycin while monitoring for signs of recurrence. Electronic Signature(s) Signed By: Date: Gomez Villegas MD 06/07/2018 08:37:45 Entered By: Gomez Villegas on 06/07/2018 08:18:26
== END ==
PROVIDERS: Family Provider Physician Assistant Medical; PCP Family Medicine; Visit Provider Internal Medicine
DX: I87.311 Chronic venous hypertension (idiopathic) with ulcer of right lower extremity (principal); L97.312 Non-pressure chronic ulcer of right ankle with fat layer exposed; L97.212 Non-pressure chronic ulcer of right calf with fat layer exposed; B95.62 Methicillin resistant Staphylococcus aureus infection as the cause of diseases classified elsewhere; I70.238 Atherosclerosis of native arteries of right leg with ulceration of other part of lower leg
CPT/HCPCS: 11042; 97607

== ENCOUNTER → 2018-06-13 14:49 | Outpatient (CLI) | payer MEDICARE, OTHER, SELFPAY ==
--- NOTE | 2018-06-13 | OV.WND_ITS ---
Progress Note Details Patient Name: Jane Melchor Patient Number: [id number] PatientPatientDate: 06/13/2018 Clinician: Shi Fuentes Physician / Wedding Designer: Gomez Villegas SUBJECTIVE Chief Complaint This information was obtained from the patient Ulcers on right lateral ankle and calf. Allergies codeine (Reaction: Breathing slows), Bactrim (Reaction: Pancreatitis), scallops (Reaction: vomiting ), cat dander (Reaction: itchy eyes) HPI This information was obtained from the patient 06/13/18. Seen by Dr. Villegas. The patient does not report significant pain or drainage associated with the proximal or distal right lower leg venous ulcers since her last visit and she's tolerating NPWT without difficulty. 06/06/18. Seen by Dr. Villegas. The patient does not report significant pain or drainage associated with the proximal or distal right lower leg venous ulcers since her last visit and she states her vascular doctor does not feel there's clinically significant PAD in the right leg. She also tolerated NPWT without difficulty and will complete her course of clindamycin tomorrow that's been treating the recurrent MRSA positive wound culture. 05/30/18. Seen by Dr. Villegas. The patient continues to report pain associated with the distal right lower leg venous ulcer however she does not report pain or drainage associated with the proximal right lower leg venous ulcer. She has an appointment next Tuesday with Dr. Anderson's office to evaluate her right leg PAD for possible intervention noting the refractory nature of the ulcers. She feels there's increased redness in the distal periulcer area which is new compared to yesterday. 05/23/18. Seen by Dr. Villegas. The patient continues to report pain associated with the right lower leg venous ulcers and she continues on clindamycin for the recent MRSA and E. coli positive wound culture without reporting adverse side effects. 05/16/18. Seen by Dr. Villegas. The patient continues to report some pain associated with the right lower leg venous ulcers however feels there's been modest improvement since starting on clindamycin for the recent MRSA and E. coli positive wound culture. She has a history of PAD in the right leg with a stent and states that at her last visit with Dr. Anderson it was felt repeat intervention was nor warranted at that time. 05/09/18. Seen by Dr. Villegas. The patient continues to report some pain associated with the right lower leg venous ulcers despite taking doxycycline for the recent MRSA and E. coli positive wound culture. She does not report fevers or adverse side effects and is applying topical gentamicin to the ulcers as well. 05/02/18. Seen by Dr. Villegas. The patient's new to our clinic and presents with a chronic and recurrent right lateral lower leg non-pressure ulcer that's been deteriorating over the past 2 weeks and is moderately painful. She had one at this site previously that took a year to heal and responded to compression therapy at the time. She also has a non-healing, non-pressure ulcer over the proximal left lower leg. She has a history of PAD with stenting to the right leg but was seen by Dr. Anderson recently who felt intervention to the left leg was unnecessary. She also has not been on antibiotics recently and does not have a history of diabetes. 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, Tobacco Use (deprecated) - Former smoker Past Medical History This information was obtained from the patient Patient has a medical history of: Breast cancer Hypertension Peripheral Vascular Disease (right leg stent) High Cholesterol Surgical History This information was obtained from the patient Patient has a surgical history of: Breast mastectomy (Right side) Stent Placement (Left lower extremity) Complaints and Symptoms This information was obtained from the patient Patient complains of: General Notes: I have reviewed and concur with the Review of Systems and Past Family Social History documents completed by the clinician, I have reviewed and concur with the Wound Assessment document completed by the clinician Cardiovascular (Central/Peripheral): Lower extremity (leg) swelling Integumentary (Hair/Skin/Nails): Hemosiderin Staining, Open Sore Prior Wound History: Drainage, Erythema, Pain Patient denies complaints or symptoms related to: Cardiovascular (Central/Peripheral): Intermittent Claudication, Lower extremity (leg) resting pain Constitutional Symptoms (General Health): Chills, Fever Ear/Nose/Mouth/Throat: Hearing Loss / Aid Hematologic/Lymphatic: Bleeding / Clotting Disorders, Bleeding Tendency Neurological: Loss of Protective Sensation Psychiatric: Memory Loss Respiratory: Shortness of Breath OBJECTIVE Constitutional Vital signs reviewed and noted. Well developed. Alert. Clean appearing.. Height/ Length: 63 in (160.02 cm), Weight: 155.9 lbs (70.86 kgs), BMI: 27.6, Temperature: 98.8 ?F ( 37.11 ?C), Pulse: 62 bpm, Respiratory Rate: 18 breaths/min, Blood Pressure: 134/84 mmHg, Pulse Oximetry: 98 %. Respiratory: No respiratory distress. Even respirations and without use of accessory muscles.. Cardiovascular: Affected extremity exhibits no peripheral edema or cyanosis, is warm, and is well perfused. Capillary refill is less than 2 seconds. Integumentary (Hair, Skin) Mild periwound erythema without warmth. Refer to appropriate clinician wound documentation for this visit; right lower leg ulcers extend to subcut with bases partially covered with pink granulation, remainder fibrin and slough. Wound #1 Right, Lateral Ankle is an acute Full Thickness Venous Ulcer and has received a status of Not Healed. Subsequent wound encounter measurements are 3.5cm length x 1.2cm width x 0.3cm depth, with an area of 4.2 sq cm and a volume of 1.26 cubic cm. No tunneling has been noted. No sinus tract has been noted. No undermining has been noted. There is a moderate amount of sero-sanguineous drainage noted which has no odor. The patient reports a wound pain of level 4/10. The wound margin is attached. Wound bed has No epithelialization, No eschar, Yes slough, Yes pink, firm granulation. The periwound skin moisture is normal. The periwound skin exhibited: Edema, Induration, Atrophie [place], Erythema, Hemosiderosis. The periwound skin did not exhibit: Brawny Induration, Excoriation, Callus, Crepitus, Fluctuance, Friable, Rash, Cyanosis, Ecchymosis, Pallor, Rubor. The temperature of the periwound skin is Warm. Periwound skin does not exhibit signs or symptoms of infection. Local Pulse is Doppler. Wound #2 Right, Lateral Calf is a chronic Full Thickness Venous Ulcer and has received a status of Not Healed. Subsequent wound encounter measurements are 0.3cm length x 0.3cm width x 0.1cm depth, with an area of 0.09 sq cm and a volume of 0.009 cubic cm. No tunneling has been noted. No sinus tract has been noted. No undermining has been noted. There is a moderate amount of sero-sanguineous drainage noted which has no odor. The patient reports a wound pain of level 4/10. The wound margin is attached. Wound bed has No epithelialization, No eschar, No slough, Yes pink, firm granulation. The periwound skin moisture is normal. The periwound skin exhibited: Edema, Induration, Erythema, Hemosiderosis. The periwound skin did not exhibit: Brawny Induration, Excoriation, Callus, Crepitus, Fluctuance, Friable, Rash, Atrophie [place], Cyanosis, Ecchymosis, Pallor, Rubor. The temperature of the periwound skin is Warm. Periwound skin does not exhibit signs or symptoms of infection. Local Pulse is Doppler. Neurological: Cranial nerves grossly intact with symmetric function normal by informal observation.. ASSESSMENT Active Problems ICD-10 (Encounter Diagnosis) L97.812 - Non-pressure chronic ulcer of other part of right lower leg with fat layer exposed (Encounter Diagnosis) I87.311 - Chronic venous hypertension (idiopathic) with ulcer of right lower extremity PROCEDURES Wound #1 Wound #1 (Venous Ulcer) is located on the right, lateral ankle. A skin/ subcutaneous tissue level surgical debridement with a total area debrided of 4.2 sq cm was performed by Gomez Villegas MD. Subcutaneous was removed along with devitalized tissue: slough. The following instrument(s) were used: curette. Pain control was achieved using 4% Lido. A time out was conducted prior to the start of the procedure. A minimal amount of bleeding was controlled with pressure. The procedure was tolerated well with a pain level of 0 throughout and a pain level of 0 following the procedure. Post Debridement Measurements: 3.5cm length x 1.2cm width x 0.3cm depth; with an area of 4.2 sq cm and a volume of 1.26 cubic cm; Wound #2 Wound #2 (Venous Ulcer) is located on the right, lateral calf. A skin/ subcutaneous tissue level surgical debridement with a total area debrided of 0.09 sq cm was performed by Gomez Villegas MD. Subcutaneous was removed along with devitalized tissue: slough. The following instrument(s) were used: curette. Pain control was achieved using 4% Lido. A time out was conducted prior to the start of the procedure. A minimal amount of bleeding was controlled with pressure. The procedure was tolerated well with a pain level of 0 throughout and a pain level of 0 following the procedure. Post Debridement Measurements: 0.3cm length x 0.3cm width x 0.1cm depth; with an area of 0.09 sq cm and a volume of 0.009 cubic cm; Additional Information Muscle fascia or bone removed and sent to pathology?: No Muscle fascia or bone removed and sent to pathology?: No PLAN Wound Orders: Wound #1 Right, Lateral Ankle Cleanser Cleanse Wound: - IN clinic normal saline. May Shower With Negative Pressure - Wear shower boot to keep dressing dry and Luz Maria tucked into boot to keep dry. Dressings Negative Pressure Wound Therapy - Luz Maria 4x8 Follow-Up Appointments Return Appointment: - - In one week Other information: If you develop fever, chills, increased pain, drainage, redness or swelling please call our office. If after hours, respond to the ER. Should you experience any significant changes in your wound(s) or have any questions regarding your home care instructions please contact the wound center @ [phone]. If after hours, contact your primary care physician or go to the hospital emergency room. Scribing Attestation I attest, as the nurse, that I scribed these orders for the physician. Wound #2 Right, Lateral Calf Dressings Primary dressing: - Border foam Follow-Up Appointments Return Appointment: - - In one week Other information: If you develop fever, chills, increased pain, drainage, redness or swelling please call our office. If after hours, respond to the ER. Should you experience any significant changes in your wound(s) or have any questions regarding your home care instructions please contact the wound center @ [phone]. If after hours, contact your primary care physician or go to the hospital emergency room. Scribing Attestation I attest, as the nurse, that I scribed these orders for the physician. I've reviewed the clinician's documentation and agree with the evaluation and plan as written. In addition the patient's ulcers demonstrate evidence of non-viable devitalized tissue and they will continue to benefit from sharp debridement to help promote granulation and expedite healing. Negative pressure wound therapy will be utilized to facilitate granulation and removal of exudate and infectious material with the goal of expediting wound healing. Electronic Signature(s) Signed By: Date: Gomez Villegas MD 06/13/2018 16:47:11 Entered By: Gomez Villegas on 06/13/2018 16:29:58
== END ==
PROVIDERS: Family Provider Physician Assistant Medical; PCP Family Medicine; Visit Provider Internal Medicine
DX: I87.311 Chronic venous hypertension (idiopathic) with ulcer of right lower extremity (principal); L97.812 Non-pressure chronic ulcer of other part of right lower leg with fat layer exposed
CPT/HCPCS: 11042; 97607

== ENCOUNTER → 2018-06-20 13:43 | Outpatient (CLI) | payer MEDICARE, OTHER, SELFPAY | PROVIDERS: Family Provider Physician Assistant Medical; PCP Family Medicine; Visit Provider Internal Medicine | DX: I87.311 Chronic venous hypertension (idiopathic) with ulcer of right lower extremity (principal); L97.311 Non-pressure chronic ulcer of right ankle limited to breakdown of skin; L97.211 Non-pressure chronic ulcer of right calf limited to breakdown of skin | CPT/HCPCS: 11042 ==

== ENCOUNTER → 2018-06-27 14:02 | Outpatient (CLI) | payer MEDICARE, OTHER, SELFPAY ==
--- NOTE | 2018-06-27 | OV.WND_ITS ---
Progress Note Details Patient Name: Jane Melchor Patient Number: [id number] PatientPatientDate: 06/27/2018 Clinician: Danielle Matt Clinician Cosigner: Balbina Hernandez Physician / Batter Scaler: Gomez Villegas SUBJECTIVE Chief Complaint This information was obtained from the patient Ulcers on right lateral ankle and calf. Allergies codeine (Reaction: Breathing slows), Bactrim (Reaction: Pancreatitis), scallops (Reaction: vomiting ), cat dander (Reaction: itchy eyes) HPI This information was obtained from the patient 06/27/18. Seen by Dr. Villegas. The patient reports increased pain and drainage associated with the chronic distal right lower leg radha ulcer starting over the weekend. She's not report fevers or feeling unwell otherwise nor any acute changes with the more proximal right lower leg [place] ulcer. She also does not report any problems with her wound VAC and left it in place until ravel today. 06/20/18. Seen by Dr. Villegas. The patient does not report significant pain or drainage associated with the proximal or distal right lower leg venous ulcers since her last visit and she's tolerating NPWT without difficulty. 06/13/18. Seen by Dr. Villegas. The patient does not report significant pain or drainage associated with the proximal or distal right lower leg venous ulcers since her last visit and she's tolerating NPWT without difficulty. 06/06/18. Seen by Dr. Villegas. The patient does not report significant pain or drainage associated with the proximal or distal right lower leg venous ulcers since her last visit and she states her vascular doctor does not feel there's clinically significant PAD in the right leg. She also tolerated NPWT without difficulty and will complete her course of clindamycin tomorrow that's been treating the recurrent MRSA positive wound culture. 05/30/18. Seen by Dr. Villegas. The patient continues to report pain associated with the distal right lower leg venous ulcer however she does not report pain or drainage associated with the proximal right lower leg venous ulcer. She has an appointment next Tuesday with Dr. Anderson's office to evaluate her right leg PAD for possible intervention noting the refractory nature of the ulcers. She feels there's increased redness in the distal periulcer area which is new compared to yesterday. 05/23/18. Seen by Dr. Villegas. The patient continues to report pain associated with the right lower leg venous ulcers and she continues on clindamycin for the recent MRSA and E. coli positive wound culture without reporting adverse side effects. 05/16/18. Seen by Dr. Villegas. The patient continues to report some pain associated with the right lower leg venous ulcers however feels there's been modest improvement since starting on clindamycin for the recent MRSA and E. coli positive wound culture. She has a history of PAD in the right leg with a stent and states that at her last visit with Dr. Anderson it was felt repeat intervention was nor warranted at that time. 05/09/18. Seen by Dr. Villegas. The patient continues to report some pain associated with the right lower leg venous ulcers despite taking doxycycline for the recent MRSA and E. coli positive wound culture. She does not report fevers or adverse side effects and is applying topical gentamicin to the ulcers as well. 05/02/18. Seen by Dr. Villegas. The patient's new to our clinic and presents with a chronic and recurrent right lateral lower leg non-pressure ulcer that's been deteriorating over the past 2 weeks and is moderately painful. She had one at this site previously that took a year to heal and responded to compression therapy at the time. She also has a non-healing, non-pressure ulcer over the proximal left lower leg. She has a history of PAD with stenting to the right leg but was seen by Dr. Anderson recently who felt intervention to the left leg was unnecessary. She also has not been on antibiotics recently and does not have a history of diabetes. Past Medical History This information was obtained from the patient Patient has a medical history of: Breast cancer Hypertension Peripheral Vascular Disease (right leg stent) High Cholesterol Complaints and Symptoms This information was obtained from the patient Patient complains of: General Notes: I have reviewed and concur with the Review of Systems and Past Family Social History documents completed by the clinician, I have reviewed and concur with the Wound Assessment document completed by the clinician Cardiovascular (Central/Peripheral): Lower extremity (leg) swelling Integumentary (Hair/Skin/Nails): Hemosiderin Staining, Open Sore Prior Wound History: Drainage, Erythema, Pain Patient denies complaints or symptoms related to: Cardiovascular (Central/Peripheral): Intermittent Claudication, Lower extremity (leg) resting pain Constitutional Symptoms (General Health): Chills, Fever Ear/Nose/Mouth/Throat: Hearing Loss / Aid Hematologic/Lymphatic: Bleeding / Clotting Disorders, Bleeding Tendency Neurological: Loss of Protective Sensation Psychiatric: Memory Loss Respiratory: Shortness of Breath OBJECTIVE Constitutional BP elevated; Afebrile; Alert and in no distress. Well developed. Alert. Clean appearing.. Height/Length: 63 in (160.02 cm), Weight: 153.2 lbs (69.64 kgs), BMI: 27.1, Temperature: 98.6 ?F (37 ?C), Pulse: 69 bpm, Respiratory Rate: 18 breaths/min, Blood Pressure : 154/82 mmHg, Pulse Oximetry: 98 %. Ears, Nose, Mouth, and Throat: Uses hearing aids. Respiratory: No respiratory distress. Even respirations and without use of accessory muscles.. Cardiovascular: 1+ right lower extremity edema. Integumentary (Hair, Skin) Moderate distal right lower leg periwound erythema with warmth. Refer to appropriate clinician wound documentation for this visit; right lower leg ulcers extend to subcut with bases partially covered with pink granulation, remainder fibrin and slough. Wound #1 Right, Lateral Ankle is an acute Full Thickness Venous Ulcer and has received a status of Not Healed. Subsequent wound encounter measurements are 2.8cm length x 1.5cm width x 0.4cm depth, with an area of 4.2 sq cm and a volume of 1.68 cubic cm. No tunneling has been noted. No sinus tract has been noted. No undermining has been noted. There is a large amount of purlulent drainage noted which has no odor. The patient reports a wound pain of level 4/10. The wound margin is attached. Wound bed has No epithelialization , No eschar, Yes slough, Yes bright red, pink, firm granulation. The periwound skin moisture is normal. The periwound skin exhibited: Edema, Induration, Rash, Atrophie Ponder, Erythema, Hemosiderosis. The periwound skin did not exhibit: Brawny Induration, Excoriation, Callus, Crepitus, Fluctuance, Friable, Cyanosis, Ecchymosis, Pallor, Rubor. The temperature of the periwound skin is Warm. Periwound skin does not exhibit signs or symptoms of infection. Local Pulse is Doppler. Wound #2 Right, Lateral Calf is a chronic Full Thickness Venous Ulcer and has received a status of Not Healed. Subsequent wound encounter measurements are 0.5cm length x 0.4cm width x 0.1cm depth, with an area of 0.2 sq cm and a volume of 0.02 cubic cm. No tunneling has been noted. No sinus tract has been noted. No undermining has been noted. There is a scant amount of serosanguineous drainage noted which has no odor. The patient reports a wound pain of level 4/10. The wound margin is attached. Wound bed has No epithelialization, No eschar, Yes slough, No granulation. The periwound skin moisture is normal. The periwound skin exhibited: Edema, Induration, Erythema, Hemosiderosis. The periwound skin did not exhibit: Brawny Induration, Excoriation, Callus, Crepitus, Fluctuance, Friable, Rash, Atrophie Ponder, Cyanosis, Ecchymosis, Pallor, Rubor. The temperature of the periwound skin is Warm. Periwound skin does not exhibit signs or symptoms of infection. Local Pulse is Doppler. Neurological: Cranial nerves grossly intact with symmetric function normal by informal observation.. ASSESSMENT Active Problems ICD-10 (Encounter Diagnosis) L97.812 - Non-pressure chronic ulcer of other part of right lower leg with fat layer exposed (Encounter Diagnosis) I87.311 - Chronic venous hypertension (idiopathic) with ulcer of right lower extremity (Encounter Diagnosis) L03.115 - Cellulitis of right lower limb PROCEDURES Wound #1 Wound #1 (Venous Ulcer) is located on the right, lateral ankle. A skin/ subcutaneous tissue level surgical debridement with a total area debrided of 4.2 sq cm was performed by Gomez Villegas MD. Subcutaneous was removed along with devitalized tissue: exudate and slough. The following instrument(s) were used: curette. Pain control was achieved using 4% Lido. A time out was conducted prior to the start of the procedure. A minimal amount of bleeding was controlled with pressure. The procedure was tolerated well with a pain level of 0 throughout and a pain level of 0 following the procedure. Post Debridement Measurements: 2.8cm length x 1.5cm width x 0.5cm depth; with an area of 4.2 sq cm and a volume of 2.1 cubic cm; Wound #2 Wound #2 (Venous Ulcer) is located on the right, lateral calf. A skin/ subcutaneous tissue level surgical debridement with a total area debrided of 0.2 sq cm was performed by Gomez Villegas MD. Subcutaneous was removed along with devitalized tissue: exudate and slough. The following instrument(s) were used: curette. Pain control was achieved using 4% Lido. A time out was conducted prior to the start of the procedure. A minimal amount of bleeding was controlled with pressure. The procedure was tolerated well with a pain level of 0 throughout and a pain level of 0 following the procedure. Post Debridement Measurements: 0.5cm length x 0.4cm width x 0.2cm depth; with an area of 0.2 sq cm and a volume of 0.04 cubic cm; Additional Information Muscle fascia or bone removed and sent to pathology?: No Muscle fascia or bone removed and sent to pathology?: No PLAN Wound Orders: Wound #1 Right, Lateral Ankle Anesthetic Topical Xylocaine to wound bed. - In clinic only. Cleanser Cleanse Wound: - Normal saline and gauze in clinic, may use distilled water at home. May Shower. - Use cast protector when showering. Topical Treatments Antibiotic/Antimicrobial Ointment/Cream. - Gentamicin ointment. Dressings Cover and secure with: - Foam cut to cover, secured with hypafix tape. Change Dressing: - Daily. Wound #2 Right, Lateral Calf Anesthetic Topical Xylocaine to wound bed. - In clinic only. Cleanser Cleanse Wound: - Normal saline and gauze in clinic, may use distilled water at home. May Shower. - Use cast protector when showering. Topical Treatments Antibiotic/Antimicrobial Ointment/Cream. - Gentamicin ointment. Dressings Cover and secure with: - Foam cut to cover, secured with hypafix tape. Change Dressing: - Every other day. Additional Orders: Compression/Edema Control Elevation of leg(s) above the level of the heart when sitting. Single Layer Compression Hose - Tetragrip F to right leg, on in the morning, remove at night. Follow-Up Appointments Return Appointment: - - One week. Other information: If you develop fever, chills, increased pain, drainage, redness or swelling please call our office. If after hours, respond to the ER. Should you experience any significant changes in your wound(s) or have any questions regarding your home care instructions please contact the wound center @ [phone]. If after hours, contact your primary care physician or go to the hospital emergency room. Scribing Attestation I attest, as the nurse, that I scribed these orders for the physician. 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 Medications prescribed: clindamycin HCl - oral 300 mg capsule three times daily for 7 days for cellulitis starting 06/27/2018 gentamicin - topical 0.1 % ointment once daily for 7 days for infected ulcer starting 06/27/2018 I've reviewed the clinician's documentation and agree with the evaluation and plan as written. In addition the patient's ulcers demonstrate evidence of non-viable devitalized tissue and they will continue to benefit from sharp debridement to help promote granulation and expedite healing. Also, I have started the patient on clindamycin which was effective in the recent past. At treating her recurrent and refractory cellulitis of the right lower leg. I will adjust antibiotics based on her culture results. I have also held negative pressure wound therapy today. Electronic Signature(s) Signed By: Date: Gomez Villegas MD 06/28/2018 07:48:36 Entered By: Gomez Villegas on 06/28/2018 07:34:08
== END ==
PROVIDERS: Family Provider Physician Assistant Medical; PCP Family Medicine; Visit Provider Internal Medicine
DX: I87.311 Chronic venous hypertension (idiopathic) with ulcer of right lower extremity (principal); L97.212 Non-pressure chronic ulcer of right calf with fat layer exposed; L97.312 Non-pressure chronic ulcer of right ankle with fat layer exposed; L03.115 Cellulitis of right lower limb
CPT/HCPCS: 11042; 87070; 87075; 87077; 87147; 87186; 87205

== ENCOUNTER → 2018-07-04 13:54 | Outpatient (CLI) | payer MEDICARE, OTHER, SELFPAY ==
--- NOTE | 2018-07-04 | OV.WND_ITS ---
Progress Note Details Patient Name: Jane Melchor Patient Number: [id number] PatientPatientDate: 07/04/2018 Clinician: Corrie Diaz Physician / [employer] Machine Tender: Gomez Villegas SUBJECTIVE Chief Complaint This information was obtained from the patient Ulcers on right lateral ankle and calf. Allergies codeine (Reaction: Breathing slows), Bactrim (Reaction: Pancreatitis), scallops (Reaction: vomiting ), cat dander (Reaction: itchy eyes) HPI This information was obtained from the patient 07/04/18. Seen by Dr. Villegas. The patient report continued drainage and pain associated with the chronic distal right lower leg venous ulcer since her last visit. She's completed her course of clindamycin which was treating the recurrent MRSA wound infection without reporting adverse side effects, fevers, or other acute issues. 06/27/18. Seen by Dr. Villegas. The patient reports increased pain and drainage associated with the chronic distal right lower leg radha ulcer starting over the weekend. She's not report fevers or feeling unwell otherwise nor any acute changes with the more proximal right lower leg Bertrand ulcer. She also does not report any problems with her wound VAC and left it in place until ravel today. 06/20/18. Seen by Dr. Villegas. The patient does not report significant pain or drainage associated with the proximal or distal right lower leg venous ulcers since her last visit and she's tolerating NPWT without difficulty. 06/13/18. Seen by Dr. Villegas. The patient does not report significant pain or drainage associated with the proximal or distal right lower leg venous ulcers since her last visit and she's tolerating NPWT without difficulty. 06/06/18. Seen by Dr. Villegas. The patient does not report significant pain or drainage associated with the proximal or distal right lower leg venous ulcers since her last visit and she states her vascular doctor does not feel there's clinically significant PAD in the right leg. She also tolerated NPWT without difficulty and will complete her course of clindamycin tomorrow that's been treating the recurrent MRSA positive wound culture. 05/30/18. Seen by Dr. Villegas. The patient continues to report pain associated with the distal right lower leg venous ulcer however she does not report pain or drainage associated with the proximal right lower leg venous ulcer. She has an appointment next Tuesday with Dr. Anderson's office to evaluate her right leg PAD for possible intervention noting the refractory nature of the ulcers. She feels there's increased redness in the distal periulcer area which is new compared to yesterday. 05/23/18. Seen by Dr. Villegas. The patient continues to report pain associated with the right lower leg venous ulcers and she continues on clindamycin for the recent MRSA and E. coli positive wound culture without reporting adverse side effects. 05/16/18. Seen by Dr. Villegas. The patient continues to report some pain associated with the right lower leg venous ulcers however feels there's been modest improvement since starting on clindamycin for the recent MRSA and E. coli positive wound culture. She has a history of PAD in the right leg with a stent and states that at her last visit with Dr. Anderson it was felt repeat intervention was nor warranted at that time. 05/09/18. Seen by Dr. Villegas. The patient continues to report some pain associated with the right lower leg venous ulcers despite taking doxycycline for the recent MRSA and E. coli positive wound culture. She does not report fevers or adverse side effects and is applying topical gentamicin to the ulcers as well. 05/02/18. Seen by Dr. Villegas. The patient's new to our clinic and presents with a chronic and recurrent right lateral lower leg non-pressure ulcer that's been deteriorating over the past 2 weeks and is moderately painful. She had one at this site previously that took a year to heal and responded to compression therapy at the time. She also has a non-healing, non-pressure ulcer over the proximal left lower leg. She has a history of PAD with stenting to the right leg but was seen by Dr. Anderson recently who felt intervention to the left leg was unnecessary. She also has not been on antibiotics recently and does not have a history of diabetes. Past Medical History This information was obtained from the patient Patient has a medical history of: Breast cancer Hypertension Peripheral Vascular Disease (right leg stent) High Cholesterol Complaints and Symptoms This information was obtained from the patient Patient complains of: General Notes: I have reviewed and concur with the Review of Systems and Past Family Social History documents completed by the clinician, I have reviewed and concur with the Wound Assessment document completed by the clinician Cardiovascular (Central/Peripheral): Lower extremity (leg) swelling Integumentary (Hair/Skin/Nails): Hemosiderin Staining, Open Sore Prior Wound History: Drainage, Erythema, Pain Patient denies complaints or symptoms related to: Cardiovascular (Central/Peripheral): Intermittent Claudication, Lower extremity (leg) resting pain Constitutional Symptoms (General Health): Chills, Fever Ear/Nose/Mouth/Throat: Hearing Loss / Aid Hematologic/Lymphatic: Bleeding / Clotting Disorders, Bleeding Tendency Neurological: Loss of Protective Sensation Psychiatric: Memory Loss Respiratory: Shortness of Breath OBJECTIVE Constitutional BP elevated; Afebrile; Alert and in no distress. Well developed. Alert. Clean appearing.. Height/Length: 63 in (160.02 cm), Weight: 153.5 lbs (69.77 kgs), BMI: 27.2, Temperature: 98.3 ?F (36.83 ?C), Pulse: 72 bpm, Respiratory Rate: 18 breaths/min, Blood Pressure: 148/72 mmHg, Pulse Oximetry: 97 %. Ears, Nose, Mouth, and Throat: Uses hearing aids. Respiratory: No respiratory distress. Even respirations and without use of accessory muscles.. Cardiovascular: 1+ right lower extremity edema. Integumentary (Hair, Skin) Moderate periwound erythema in the disribution of the dressing without warmth. Refer to appropriate clinician wound documentation for this visit; right lower leg ulcer extends to subcut with base partially covered with pink granulation, remainder fibrin and slough, improved in terms of granulation and depth. Wound #1 Right, Lateral Ankle is an acute Full Thickness Venous Ulcer and has received a status of Not Healed. Subsequent wound encounter measurements are 2.5cm length x 1.5cm width x 0.3cm depth, with an area of 3.75 sq cm and a volume of 1.125 cubic cm. No tunneling has been noted. No sinus tract has been noted. No undermining has been noted. There is a large amount of serous drainage noted which has no odor. The patient reports a wound pain of level 4/10. The wound margin is attached. Wound bed has No epithelialization, No eschar, Yes slough, Yes bright red, pink, firm granulation. The periwound skin moisture is normal. The periwound skin exhibited: Edema, Induration, Rash, Atrophie [place], Erythema, Hemosiderosis. The periwound skin did not exhibit: Brawny Induration, Excoriation, Callus, Crepitus, Fluctuance, Friable, Cyanosis, Ecchymosis, Pallor, Rubor. The temperature of the periwound skin is Warm. Periwound skin presents with s/s of infection. Confirmation Description and Treatment Plan is: Signs and Symptoms Present. Local Pulse is Doppler. Wound #2 Right, Lateral Calf is a chronic Full Thickness Venous Ulcer and has received a status of Not Healed. Subsequent wound encounter measurements are 0.1cm length x 0.1cm width x 0.1cm depth, with an area of 0.01 sq cm and a volume of 0.001 cubic cm. No tunneling has been noted. No sinus tract has been noted. No undermining has been noted. There is a moderate amount of serosanguineous drainage noted which has no odor. The patient reports a wound pain of level 4/10. The wound margin is attached. Wound bed has No epithelialization, No eschar, Yes slough, No granulation. The periwound skin moisture is normal. The periwound skin exhibited: Edema, Induration, Erythema, Hemosiderosis. The periwound skin did not exhibit: Brawny Induration, Excoriation, Callus, Crepitus, Fluctuance, Friable, Rash, Atrophie [place], Cyanosis, Ecchymosis, Pallor, Rubor. The temperature of the periwound skin is Warm. Periwound skin does not exhibit signs or symptoms of infection. Local Pulse is Doppler. Neurological: Cranial nerves grossly intact with symmetric function normal by informal observation.. ASSESSMENT Active Problems ICD-10 (Encounter Diagnosis) L97.812 - Non-pressure chronic ulcer of other part of right lower leg with fat layer exposed (Encounter Diagnosis) I87.311 - Chronic venous hypertension (idiopathic) with ulcer of right lower extremity (Encounter Diagnosis) B95.62 - Methicillin resistant Staphylococcus aureus infection as the cause of diseases classified elsewhere PROCEDURES Wound #1 Wound #1 (Venous Ulcer) is located on the right, lateral ankle. A skin/ subcutaneous tissue level surgical debridement with a total area debrided of 3.75 sq cm was performed by Gomez Villegas MD. Subcutaneous was removed along with devitalized tissue: slough. The following instrument(s) were used: curette. Pain control was achieved using EMLA lidocaine /prilocaine 2.5%/2.5%. A time out was conducted prior to the start of the procedure. A minimal amount of bleeding was controlled with n/a. The procedure was tolerated well with a pain level of 0 throughout and a pain level of 0 following the procedure. Post Debridement Measurements: 2.5cm length x 1.5cm width x 0.4cm depth; with an area of 3.75 sq cm and a volume of 1.5 cubic cm; Wound #2 Wound #2 (Venous Ulcer) is located on the right, lateral calf. A skin/ subcutaneous tissue level surgical debridement with a total area debrided of 0.01 sq cm was performed by Gomez Villegas MD. Subcutaneous was removed along with devitalized tissue: slough. The following instrument(s) were used: curette. Pain control was achieved using EMLA lidocaine /prilocaine 2.5%/2.5%. A time out was conducted prior to the start of the procedure. A minimal amount of bleeding was controlled with n/a. The procedure was tolerated well with a pain level of 0 throughout and a pain level of 0 following the procedure. Post Debridement Measurements: 0.1cm length x 0.1cm width x 0.2cm depth; with an area of 0.01 sq cm and a volume of 0.002 cubic cm; Additional Information Muscle fascia or bone removed and sent to pathology?: No Muscle fascia or bone removed and sent to pathology?: No PLAN Wound Orders: Wound #1 Right, Lateral Ankle Anesthetic Topical Xylocaine to wound bed. - In clinic only. Cleanser Cleanse Wound: - Normal saline and gauze in clinic, may use distilled water at home. May Shower. - Use cast protector when showering. Topical Treatments Moisturizing lotion to surround skin. - Triamcinolone. May use Clobetasol Dressings Cover and secure with: - Exudry, conform and tape Change Dressing: - Daily. More if saturated. Wound #2 Right, Lateral Calf Anesthetic Topical Xylocaine to wound bed. - In clinic only. Cleanser Cleanse Wound: - Normal saline and gauze in clinic, may use distilled water at home. May Shower. - Use cast protector when showering. Dressings Cover and secure with: - Foam cut to cover, secured with hypafix tape. Change Dressing: - Every other day. Additional Orders: Compression/Edema Control Elevation of leg(s) above the level of the heart when sitting. Single Layer Compression Hose - Tetragrip F to right leg, on in the morning, may wear at night. Follow-Up Appointments Return Appointment: - - One week. Other information: If you develop fever, chills, increased pain, drainage, redness or swelling please call our office. If after hours, respond to the ER. Should you experience any significant changes in your wound(s) or have any questions regarding your home care instructions please contact the wound center @ [phone]. If after hours, contact your primary care physician or go to the hospital emergency room. Scribing Attestation I attest, as the nurse, that I scribed these orders for the physician. General Notes: Please pickler helper and continue taking clindamycin. I've reviewed the clinician's documentation and agree with the evaluation and plan as written. In addition the patient's ulcers demonstrate evidence of non-viable devitalized tissue and they will continue to benefit from sharp debridement to help promote granulation and expedite healing. Also, the patient will continue on another course of clindamycin and we'll continue to defer NPWT due to the ulcer pain. She'll also apply topical clobetasol daily to the periulcer rash. Electronic Signature(s) Signed By: Date: Gomez Villegas MD 07/05/2018 06:50:35 Entered By: Gomez Villegas on 07/05/2018 06:24:52
== END ==
PROVIDERS: Family Provider Physician Assistant Medical; PCP Family Medicine; Visit Provider Internal Medicine
DX: I87.311 Chronic venous hypertension (idiopathic) with ulcer of right lower extremity (principal); L97.312 Non-pressure chronic ulcer of right ankle with fat layer exposed; L97.212 Non-pressure chronic ulcer of right calf with fat layer exposed; B95.62 Methicillin resistant Staphylococcus aureus infection as the cause of diseases classified elsewhere
CPT/HCPCS: 11042

== ENCOUNTER → 2018-07-11 13:58 | Outpatient (CLI) | payer MEDICARE, OTHER, SELFPAY ==
--- NOTE | 2018-07-11 | OV.WND_ITS ---
Progress Note Details Patient Name: Jane Melchor Patient Number: [id number] PatientPatientDate: 07/11/2018 Clinician: Shi Fuentes Clinician Cosigner: Balbina Hernandez Physician / Saw Runner: Gomez Villegas SUBJECTIVE Chief Complaint This information was obtained from the patient Ulcers on right lateral ankle and calf. Allergies codeine (Reaction: Breathing slows), Bactrim (Reaction: Pancreatitis), scallops (Reaction: vomiting ), cat dander (Reaction: itchy eyes) HPI This information was obtained from the patient 07/11/18. Seen by Dr. Villegas. The patient does not report pain or significant drainage associated with the chronic right lower leg venous ulcers since her last visit and she completes her course of clindamycin today that's been treating the recurrent MRSA wound infection. She does not report adverse side effects or other acute issues today. 07/04/18. Seen by Dr. Villegas. The patient report continued drainage and pain associated with the chronic distal right lower leg venous ulcer since her last visit. She's completed her course of clindamycin which was treating the recurrent MRSA wound infection without reporting adverse side effects, fevers, or other acute issues. 06/27/18. Seen by Dr. Villegas. The patient reports increased pain and drainage associated with the chronic distal right lower leg radha ulcer starting over the weekend. She's not report fevers or feeling unwell otherwise nor any acute changes with the more proximal right lower leg [place] ulcer. She also does not report any problems with her wound VAC and left it in place until ravel today. 06/20/18. Seen by Dr. Villegas. The patient does not report significant pain or drainage associated with the proximal or distal right lower leg venous ulcers since her last visit and she's tolerating NPWT without difficulty. 06/13/18. Seen by Dr. Villegas. The patient does not report significant pain or drainage associated with the proximal or distal right lower leg venous ulcers since her last visit and she's tolerating NPWT without difficulty. 06/06/18. Seen by Dr. Villegas. The patient does not report significant pain or drainage associated with the proximal or distal right lower leg venous ulcers since her last visit and she states her vascular doctor does not feel there's clinically significant PAD in the right leg. She also tolerated NPWT without difficulty and will complete her course of clindamycin tomorrow that's been treating the recurrent MRSA positive wound culture. 05/30/18. Seen by Dr. Villegas. The patient continues to report pain associated with the distal right lower leg venous ulcer however she does not report pain or drainage associated with the proximal right lower leg venous ulcer. She has an appointment next Tuesday with Dr. Anderson's office to evaluate her right leg PAD for possible intervention noting the refractory nature of the ulcers. She feels there's increased redness in the distal periulcer area which is new compared to yesterday. 05/23/18. Seen by Dr. Villegas. The patient continues to report pain associated with the right lower leg venous ulcers and she continues on clindamycin for the recent MRSA and E. coli positive wound culture without reporting adverse side effects. 05/16/18. Seen by Dr. Villegas. The patient continues to report some pain associated with the right lower leg venous ulcers however feels there's been modest improvement since starting on clindamycin for the recent MRSA and E. coli positive wound culture. She has a history of PAD in the right leg with a stent and states that at her last visit with Dr. Anderson it was felt repeat intervention was nor warranted at that time. 05/09/18. Seen by Dr. Villegas. The patient continues to report some pain associated with the right lower leg venous ulcers despite taking doxycycline for the recent MRSA and E. coli positive wound culture. She does not report fevers or adverse side effects and is applying topical gentamicin to the ulcers as well. 05/02/18. Seen by Dr. Villegas. The patient's new to our clinic and presents with a chronic and recurrent right lateral lower leg non-pressure ulcer that's been deteriorating over the past 2 weeks and is moderately painful. She had one at this site previously that took a year to heal and responded to compression therapy at the time. She also has a non-healing, non-pressure ulcer over the proximal left lower leg. She has a history of PAD with stenting to the right leg but was seen by Dr. Anderson recently who felt intervention to the left leg was unnecessary. She also has not been on antibiotics recently and does not have a history of diabetes. Past Medical History This information was obtained from the patient Patient has a medical history of: Breast cancer Hypertension Peripheral Vascular Disease (right leg stent) High Cholesterol Complaints and Symptoms This information was obtained from the patient Patient complains of: General Notes: I have reviewed and concur with the Review of Systems and Past Family Social History documents completed by the clinician, I have reviewed and concur with the Wound Assessment document completed by the clinician Cardiovascular (Central/Peripheral): Lower extremity (leg) swelling Integumentary (Hair/Skin/Nails): Hemosiderin Staining, Open Sore Prior Wound History: Drainage, Erythema, Pain Patient denies complaints or symptoms related to: Cardiovascular (Central/Peripheral): Intermittent Claudication, Lower extremity (leg) resting pain Constitutional Symptoms (General Health): Chills, Fever Ear/Nose/Mouth/Throat: Hearing Loss / Aid Hematologic/Lymphatic: Bleeding / Clotting Disorders, Bleeding Tendency Neurological: Loss of Protective Sensation Psychiatric: Memory Loss Respiratory: Shortness of Breath OBJECTIVE Constitutional BP elevated; Afebrile; Alert and in no distress. Height/Length: 63 in (160.02 cm ), Weight: 153.5 lbs (69.77 kgs), BMI: 27.2, Temperature: 98.3 ?F (36.83 ?C), Pulse: 66 bpm , Respiratory Rate: 18 breaths/min, Blood Pressure: 160/70 mmHg, Pulse Oximetry: 99 %. Ears, Nose, Mouth, and Throat: No clinically significant hearing loss on informal examination. Cardiovascular: 1+ left lower extremity edema. Integumentary (Hair, Skin) No periwound erythema, warmth, or significant drainage. No periwound rashes appreciated or noted otherwise.. Refer to appropriate clinician wound documentation for this visit; right lower leg ulcers extend to subcut with bases partially covered with pink granulation, remainder fibrin and slough. Wound #1 Right, Lateral Ankle is an acute Full Thickness Venous Ulcer and has received a status of Not Healed. Subsequent wound encounter measurements are 3cm length x 1.4cm width x 0.3cm depth, with an area of 4.2 sq cm and a volume of 1.26 cubic cm. No tunneling has been noted. No sinus tract has been noted. No undermining has been noted. There is a large amount of serous drainage noted which has no odor. The patient reports a wound pain of level 4/10. The wound margin is attached. Wound bed has No epithelialization, No eschar, Yes slough, Yes bright red, pink, firm granulation. The periwound skin moisture is normal. The periwound skin exhibited: Rash, Atrophie [place], Hemosiderosis. The periwound skin did not exhibit: Brawny Induration, Edema, Excoriation, Induration, Callus, Crepitus, Fluctuance, Friable, Cyanosis, Ecchymosis, Erythema, Pallor, Rubor. The temperature of the periwound skin is Warm. Periwound skin does not exhibit signs or symptoms of infection. Local Pulse is Doppler. Wound #2 Right, Lateral Calf is a chronic Full Thickness Venous Ulcer and has received a status of Not Healed. Subsequent wound encounter measurements are 0.5cm length x 0.5cm width x 0.1cm depth, with an area of 0.25 sq cm and a volume of 0.025 cubic cm. No tunneling has been noted. No sinus tract has been noted. No undermining has been noted. There is a moderate amount of serosanguineous drainage noted which has no odor. The patient reports a wound pain of level 4/10. The wound margin is attached. Wound bed has No epithelialization, Yes eschar, No slough, No granulation. The periwound skin moisture is normal. The periwound skin exhibited: Hemosiderosis. The periwound skin did not exhibit: Brawny Induration, Edema, Excoriation, Induration, Callus, Crepitus, Fluctuance, Friable, Rash, Atrophie Inga, Cyanosis, Ecchymosis, Erythema, Pallor, Rubor. The temperature of the periwound skin is Warm. Periwound skin does not exhibit signs or symptoms of infection. Local Pulse is Doppler. Neurological: Cranial nerves grossly intact with symmetric function normal by informal observation.. ASSESSMENT Active Problems ICD-10 (Encounter Diagnosis) L97.812 - Non-pressure chronic ulcer of other part of right lower leg with fat layer exposed (Encounter Diagnosis) I87.311 - Chronic venous hypertension (idiopathic) with ulcer of right lower extremity (Encounter Diagnosis) B95.62 - Methicillin resistant Staphylococcus aureus infection as the cause of diseases classified elsewhere PROCEDURES Wound #1 Wound #1 (Venous Ulcer) is located on the right, lateral ankle. A skin/ subcutaneous tissue level surgical debridement with a total area debrided of 4.2 sq cm was performed by Gomez Villegas MD. Subcutaneous was removed along with devitalized tissue: slough. The following instrument(s) were used: curette. Pain control was achieved using 4% Lido. A time out was conducted prior to the start of the procedure. A minimal amount of bleeding was controlled with pressure. The procedure was tolerated well with a pain level of 0 throughout and a pain level of 0 following the procedure. Post Debridement Measurements: 3cm length x 1.4cm width x 0.3cm depth; with an area of 4.2 sq cm and a volume of 1.26 cubic cm; Wound #1 (Venous Ulcer) is located on the right, lateral ankle. A skin substitute procedure was performed using Grafix Core by Gomez Villegas MD with an application area of 3 sq cm. The product was not fenestrated. 0 sq cm of product was wasted. 3 sq cm of product was utilized and was secured with Steri-Strips. Post application, a dressing was applied: Adaptic then REYES 4x8. A time out was conducted prior to the start of the procedure. The procedure was tolerated well with a pain level of 0 throughout and a pain level of 0 following the procedure. General Notes: Patient smokes, she states she will cut back. She has had vascular studies done before placement. Wound #1 (Venous Ulcer) is located on the right, lateral ankle. A Disposable Wound Vac Application < 50 Sq Cm procedure was performed for the lower right extremity by Gomez Villegas MD. A time out was conducted prior to the start of the procedure. The procedure was tolerated well. General Notes: Reyes 4x8 Right Ankle wound Wound #2 Wound #2 (Venous Ulcer) is located on the right, lateral calf. A skin/ subcutaneous tissue level surgical debridement with a total area debrided of 0.25 sq cm was performed by Gomez Villegas MD. Pain control was achieved using 4% Lido. A time out was conducted prior to the start of the procedure. Post Debridement Measurements: 0.5cm length x 0.5cm width x 0.1cm depth; with an area of 0.25 sq cm and a volume of 0.025 cubic cm; Additional Information Muscle fascia or bone removed and sent to pathology?: No Normal Saline Expiration Date: 2019 Application number:: 1 Is meal miller's serial number and exp date recorded?: Yes Is wound free of infection and necrosis?: Yes Exposed bone?: No Date of onset and previous therapies documented?: Yes Documentation of ulcer being present for 4 weeks or more?: Yes Does wound measure greater than 1.0cm2?: Yes Are measurements at baseline, following cessation of conservative therapy and prior to application of skin substitute documented? (see wound analysis): Yes Has the patient stopped smoking or have they had documented tobacco use/smoking cessation counseling?: No Is there documentations of concurrent medical management of patient's underlying medical conditions?: Yes PLAN Wound Orders: Wound #1 Right, Lateral Ankle Anesthetic Topical Xylocaine to wound bed. - In clinic only. Cleanser Cleanse Wound: - Normal saline and gauze in clinic, may use distilled water at home. May Shower. - Use cast protector when showering. Dressings Cover and secure with: - Reyes 4x6. Leave in place, Do not change. Wound #2 Right, Lateral Calf Anesthetic Topical Xylocaine to wound bed. - In clinic only. Cleanser Cleanse Wound: - Normal saline and gauze in clinic, may use distilled water at home. May Shower. - Use cast protector when showering. Dressings Pack wound: - Gentamicin Cover and secure with: - Foam cut to cover, secured with hypafix tape. Change Dressing: - Every other day. Additional Orders: Compression/Edema Control Elevation of leg(s) above the level of the heart when sitting. Single Layer Compression Hose - Tetragrip F to right leg, on in the morning, may wear at night. Follow-Up Appointments Return Appointment: - - One week. Other information: If you develop fever, chills, increased pain, drainage, redness or swelling please call our office. If after hours, respond to the ER. Should you experience any significant changes in your wound(s) or have any questions regarding your home care instructions please contact the wound center @ [phone]. If after hours, contact your primary care physician or go to the hospital emergency room. Scribing Attestation I attest, as the nurse, that I scribed these orders for the physician. I've reviewed the clinician's documentation and agree with the evaluation and plan as written. In addition the patient's ulcers demonstrate evidence of non-viable devitalized tissue and they will continue to benefit from sharp debridement to help promote granulation and expedite healing. Negative pressure wound therapy will be utilized to facilitate granulation and removal of exudate and infectious material with the goal of expediting wound healing. I've placed an intial application of a Grafix biologic skin substitute today to help facilitate granulation and expedite healing of this very refractory ulcer. Also, I've deferred additional antibiotics for now and will monitor for signs of recurrent infection. Electronic Signature(s) Signed By: Date: Gomez Villegas MD 07/12/2018 08:39:26 Entered By: Gomez Villegas on 07/12/2018 06:37:29
== END ==
PROVIDERS: Family Provider Physician Assistant Medical; PCP Family Medicine; Visit Provider Internal Medicine
DX: I87.311 Chronic venous hypertension (idiopathic) with ulcer of right lower extremity (principal); L97.312 Non-pressure chronic ulcer of right ankle with fat layer exposed; L97.212 Non-pressure chronic ulcer of right calf with fat layer exposed
CPT/HCPCS: 11042; 15271; 97607; Q4132

== ENCOUNTER → 2018-07-18 13:56 | Outpatient (CLI) | payer MEDICARE, OTHER, SELFPAY ==
--- NOTE | 2018-07-18 | OV.WND_ITS ---
Progress Note Details Patient Name: Jane Melchor Patient Number: [id number] PatientPatientDate: 07/18/2018 Clinician: Shi Fuentes Clinician Cosigner: Balbina Hernandez Physician / Film Flat Inspector: Gomez Villegas SUBJECTIVE Chief Complaint This information was obtained from the patient Ulcers on right lateral ankle and calf. Allergies codeine (Reaction: Breathing slows), Bactrim (Reaction: Pancreatitis), scallops (Reaction: vomiting ), cat dander (Reaction: itchy eyes) HPI This information was obtained from the patient 07/18/18. Seen by Dr. Villegas. The patient does not report pain or significant drainage associated with the chronic right lower leg venous ulcers since her last visit. 07/11/18. Seen by Dr. Villegas. The patient does not report pain or significant drainage associated with the chronic right lower leg venous ulcers since her last visit and she completes her course of clindamycin today that's been treating the recurrent MRSA wound infection. She does not report adverse side effects or other acute issues today. 07/04/18. Seen by Dr. Villegas. The patient report continued drainage and pain associated with the chronic distal right lower leg venous ulcer since her last visit. She's completed her course of clindamycin which was treating the recurrent MRSA wound infection without reporting adverse side effects, fevers, or other acute issues. 06/27/18. Seen by Dr. Villegas. The patient reports increased pain and drainage associated with the chronic distal right lower leg karina ulcer starting over the weekend. She's not report fevers or feeling unwell otherwise nor any acute changes with the more proximal right lower leg Karina ulcer. She also does not report any problems with her wound VAC and left it in place until ravel today. 06/20/18. Seen by Dr. Villegas. The patient does not report significant pain or drainage associated with the proximal or distal right lower leg venous ulcers since her last visit and she's tolerating NPWT without difficulty. 06/13/18. Seen by Dr. Villegas. The patient does not report significant pain or drainage associated with the proximal or distal right lower leg venous ulcers since her last visit and she's tolerating NPWT without difficulty. 06/06/18. Seen by Dr. Villegas. The patient does not report significant pain or drainage associated with the proximal or distal right lower leg venous ulcers since her last visit and she states her vascular doctor does not feel there's clinically significant PAD in the right leg. She also tolerated NPWT without difficulty and will complete her course of clindamycin tomorrow that's been treating the recurrent MRSA positive wound culture. 05/30/18. Seen by Dr. Villegas. The patient continues to report pain associated with the distal right lower leg venous ulcer however she does not report pain or drainage associated with the proximal right lower leg venous ulcer. She has an appointment next Tuesday with Dr. Anderson's office to evaluate her right leg PAD for possible intervention noting the refractory nature of the ulcers. She feels there's increased redness in the distal periulcer area which is new compared to yesterday. 05/23/18. Seen by Dr. Villegas. The patient continues to report pain associated with the right lower leg venous ulcers and she continues on clindamycin for the recent MRSA and E. coli positive wound culture without reporting adverse side effects. 05/16/18. Seen by Dr. Villegas. The patient continues to report some pain associated with the right lower leg venous ulcers however feels there's been modest improvement since starting on clindamycin for the recent MRSA and E. coli positive wound culture. She has a history of PAD in the right leg with a stent and states that at her last visit with Dr. Anderson it was felt repeat intervention was nor warranted at that time. 05/09/18. Seen by Dr. Villegas. The patient continues to report some pain associated with the right lower leg venous ulcers despite taking doxycycline for the recent MRSA and E. coli positive wound culture. She does not report fevers or adverse side effects and is applying topical gentamicin to the ulcers as well. 05/02/18. Seen by Dr. Villegas. The patient's new to our clinic and presents with a chronic and recurrent right lateral lower leg non-pressure ulcer that's been deteriorating over the past 2 weeks and is moderately painful. She had one at this site previously that took a year to heal and responded to compression therapy at the time. She also has a non-healing, non-pressure ulcer over the proximal left lower leg. She has a history of PAD with stenting to the right leg but was seen by Dr. Anderson recently who felt intervention to the left leg was unnecessary. She also has not been on antibiotics recently and does not have a history of diabetes. Past Medical History This information was obtained from the patient Patient has a medical history of: Breast cancer Hypertension Peripheral Vascular Disease (right leg stent) High Cholesterol Complaints and Symptoms This information was obtained from the patient Patient complains of: General Notes: I have reviewed and concur with the Review of Systems and Past Family Social History documents completed by the clinician, I have reviewed and concur with the Wound Assessment document completed by the clinician Cardiovascular (Central/Peripheral): Lower extremity (leg) swelling Integumentary (Hair/Skin/Nails): Hemosiderin Staining, Open Sore Prior Wound History: Drainage, Erythema, Pain Patient denies complaints or symptoms related to: Cardiovascular (Central/Peripheral): Intermittent Claudication, Lower extremity (leg) resting pain Constitutional Symptoms (General Health): Chills, Fever Ear/Nose/Mouth/Throat: Hearing Loss / Aid Hematologic/Lymphatic: Bleeding / Clotting Disorders, Bleeding Tendency Neurological: Loss of Protective Sensation Psychiatric: Memory Loss Respiratory: Shortness of Breath OBJECTIVE Constitutional BP elevated; Afebrile; Alert and in no distress. Well developed. Alert. Clean appearing.. Height/Length: 63 in (160.02 cm), Weight: 153.5 lbs (69.77 kgs), BMI: 27.2, Temperature: 98.3 ?F (36.83 ?C), Pulse: 66 bpm, Respiratory Rate: 18 breaths/min, Blood Pressure: 158/82 mmHg, Pulse Oximetry: 99 %. Ears, Nose, Mouth, and Throat: Mild hearing deficit. Respiratory: No respiratory distress. Even respirations and without use of accessory muscles.. Cardiovascular: Affected extremity exhibits no peripheral edema or cyanosis, is warm, and is well perfused. Capillary refill is less than 2 seconds. Integumentary (Hair, Skin) No periwound erythema, warmth, or significant drainage. No periwound rashes appreciated or noted otherwise.. Refer to appropriate clinician wound documentation for this visit; right lower leg ulcers extend to subcut with bases partially covered with pink granulation, remainder fibrin and slough. Wound #1 Right, Lateral Ankle is an acute Full Thickness Venous Ulcer and has received a status of Not Healed. Subsequent wound encounter measurements are 2.5cm length x 1cm width x 0.3cm depth, with an area of 2.5 sq cm and a volume of 0.75 cubic cm. No tunneling has been noted. No sinus tract has been noted. No undermining has been noted. There is a moderate amount of serous drainage noted which has no odor. The patient reports a wound pain of level 4/10. The wound margin is attached. Wound bed has No epithelialization, No eschar, Yes slough, Yes bright red, pink, firm granulation. The periwound skin moisture is normal. The periwound skin exhibited: Rash, Atrophie [place], Hemosiderosis. The periwound skin did not exhibit: Brawny Induration, Edema, Excoriation, Induration, Callus, Crepitus, Fluctuance, Friable, Cyanosis, Ecchymosis, Erythema, Pallor, Rubor. The temperature of the periwound skin is Warm. Periwound skin does not exhibit signs or symptoms of infection. Local Pulse is Doppler. Wound #2 Right, Lateral Calf is a chronic Full Thickness Venous Ulcer and has received a status of Not Healed. Subsequent wound encounter measurements are 0.1cm length x 0.1cm width x 0.1cm depth, with an area of 0.01 sq cm and a volume of 0.001 cubic cm. No tunneling has been noted. No sinus tract has been noted. No undermining has been noted. There is a scant amount of serosanguineous drainage noted which has no odor. The patient reports a wound pain of level 4/10. The wound margin is attached. Wound bed has No epithelialization, Yes eschar, No slough, No granulation. The periwound skin texture is normal. The periwound skin moisture is normal. The periwound skin exhibited: Hemosiderosis. The periwound skin did not exhibit: Atrophie [place], Cyanosis, Ecchymosis, Erythema, Pallor, Rubor. The temperature of the periwound skin is Warm. Periwound skin does not exhibit signs or symptoms of infection. Local Pulse is Doppler. Neurological: Cranial nerves grossly intact with symmetric function normal by informal observation.. ASSESSMENT Active Problems ICD-10 (Encounter Diagnosis) L97.812 - Non-pressure chronic ulcer of other part of right lower leg with fat layer exposed (Encounter Diagnosis) I87.311 - Chronic venous hypertension (idiopathic) with ulcer of right lower extremity PROCEDURES Wound #1 Wound #1 (Venous Ulcer) is located on the right, lateral ankle. A skin/ subcutaneous tissue level surgical debridement with a total area debrided of 2.5 sq cm was performed by Gomez Villegas MD. Subcutaneous was removed along with devitalized tissue: exudate and slough. The following instrument(s) were used: curette. Pain control was achieved using 4% Lido. A time out was conducted prior to the start of the procedure. A minimal amount of bleeding was controlled with pressure. The procedure was tolerated well with a pain level of 0 throughout and a pain level of 0 following the procedure. Post Debridement Measurements: 2.5cm length x 1cm width x 0.3cm depth; with an area of 2.5 sq cm and a volume of 0.75 cubic cm; General Notes: No post debridement photo. Wound #1 (Venous Ulcer) is located on the right, lateral ankle. A Disposable Wound Vac Application < 50 Sq Cm procedure was performed for the lower right extremity by Gomez Villegas MD. A time out was conducted prior to the start of the procedure. The procedure was tolerated well. General Notes: Luz Maria 4x8 to ankle wound. Wound #2 Wound #2 (Venous Ulcer) is located on the right, lateral calf. A skin/ subcutaneous tissue level surgical debridement with a total area debrided of 0.02 sq cm was performed by Gomez Villegas MD. Subcutaneous was removed along with devitalized tissue: exudate. The following instrument(s) were used: curette. Pain control was achieved using 4% Lido. A time out was conducted prior to the start of the procedure. No bleeding occurred. The procedure was tolerated well with a pain level of 0 throughout and a pain level of 0 following the procedure. Post Debridement Measurements: 0.2cm length x 0.1cm width x 0.1cm depth; with an area of 0.02 sq cm and a volume of 0.002 cubic cm; Additional Information Muscle fascia or bone removed and sent to pathology?: No Muscle fascia or bone removed and sent to pathology?: No PLAN Wound Orders: Wound #1 Right, Lateral Ankle Anesthetic Topical Xylocaine to wound bed. - In clinic only. Cleanser Cleanse Wound: - Normal saline and gauze in clinic, may use distilled water at home. May Shower. - Use cast protector when showering. Dressings Cover and secure with: - Luz Maria 4x6. Leave in place, Do not change. Compression/Edema Control Elevation of leg(s) above the level of the heart when sitting. Wound #2 Right, Lateral Calf Anesthetic Topical Xylocaine to wound bed. - In clinic only. Cleanser Cleanse Wound: - Normal saline and gauze in clinic, may use distilled water at home. May Shower. - Use cast protector when showering. Dressings Cover and secure with: - Border foam. Change Dressing: - Every other day. Additional Orders: Follow-Up Appointments Return Appointment: - - One week. Other information: If you develop fever, chills, increased pain, drainage, redness or swelling please call our office. If after hours, respond to the ER. Should you experience any significant changes in your wound(s) or have any questions regarding your home care instructions please contact the wound center @ [phone]. If after hours, contact your primary care physician or go to the hospital emergency room. Scribing Attestation I attest, as the nurse, that I scribed these orders for the physician. General Notes: Next week plan on Grafix placement. I've reviewed the clinician's documentation and agree with the evaluation and plan as written. In addition, the patient's ulcer demonstrates evidence of non-viable devitalized tissue which will continue to benefit from sharp debridement to help promote granulation and expedite healing. Negative pressure wound therapy will be utilized to facilitate granulation and removal of exudate and infectious material with the goal of expediting wound healing. Electronic Signature(s) Signed By: Date: Gomez Villegas MD 08/08/2018 08:43:34 Entered By: Gomez Villegas on 07/18/2018 16:27:16
== END ==
PROVIDERS: Family Provider Physician Assistant Medical; PCP Family Medicine; Visit Provider Internal Medicine
DX: I87.311 Chronic venous hypertension (idiopathic) with ulcer of right lower extremity (principal); L97.311 Non-pressure chronic ulcer of right ankle limited to breakdown of skin; L97.211 Non-pressure chronic ulcer of right calf limited to breakdown of skin
CPT/HCPCS: 11042; 97607

== ENCOUNTER → 2018-07-25 13:55 | Outpatient (CLI) | payer MEDICARE, OTHER, SELFPAY ==
--- NOTE | 2018-07-25 | OV.WND_ITS ---
Progress Note Details Patient Name: Jane Melchor Patient Number: [id number] PatientPatientDate: 07/25/2018 Clinician: Corrie Diaz Clinician Cosigner: Balbina Hernandez Physician / Maintenance Construction Helper: Gomez Villegas SUBJECTIVE Chief Complaint This information was obtained from the patient Ulcers on right lateral ankle and calf. Allergies codeine (Reaction: Breathing slows), Bactrim (Reaction: Pancreatitis), scallops (Reaction: vomiting ), cat dander (Reaction: itchy eyes) HPI This information was obtained from the patient 07/25/18. Seen by Dr. Villegas. The patient does not report pain or significant drainage associated with the chronic right lower leg venous ulcers since her last visit however there's increased redness and some drainage overlying the proximal ulcer that was nearly healed last week. She's been off of clindamycin for 2 weeks following recurrent MRSA positive wound cultures from both ulcers. 07/18/18. Seen by Dr. Villegas. The patient does not report pain or significant drainage associated with the chronic right lower leg venous ulcers since her last visit. 07/11/18. Seen by Dr. Villegas. The patient does not report pain or significant drainage associated with the chronic right lower leg venous ulcers since her last visit and she completes her course of clindamycin today that's been treating the recurrent MRSA wound infection. She does not report adverse side effects or other acute issues today. 07/04/18. Seen by Dr. Villegas. The patient report continued drainage and pain associated with the chronic distal right lower leg venous ulcer since her last visit. She's completed her course of clindamycin which was treating the recurrent MRSA wound infection without reporting adverse side effects, fevers, or other acute issues. 06/27/18. Seen by Dr. Villegas. The patient reports increased pain and drainage associated with the chronic distal right lower leg karina ulcer starting over the weekend. She's not report fevers or feeling unwell otherwise nor any acute changes with the more proximal right lower leg Karina ulcer. She also does not report any problems with her wound VAC and left it in place until ravel today. 06/20/18. Seen by Dr. Villegas. The patient does not report significant pain or drainage associated with the proximal or distal right lower leg venous ulcers since her last visit and she's tolerating NPWT without difficulty. 06/13/18. Seen by Dr. Villegas. The patient does not report significant pain or drainage associated with the proximal or distal right lower leg venous ulcers since her last visit and she's tolerating NPWT without difficulty. 06/06/18. Seen by Dr. Villegas. The patient does not report significant pain or drainage associated with the proximal or distal right lower leg venous ulcers since her last visit and she states her vascular doctor does not feel there's clinically significant PAD in the right leg. She also tolerated NPWT without difficulty and will complete her course of clindamycin tomorrow that's been treating the recurrent MRSA positive wound culture. 05/30/18. Seen by Dr. Villegas. The patient continues to report pain associated with the distal right lower leg venous ulcer however she does not report pain or drainage associated with the proximal right lower leg venous ulcer. She has an appointment next Tuesday with Dr. Anderson's office to evaluate her right leg PAD for possible intervention noting the refractory nature of the ulcers. She feels there's increased redness in the distal periulcer area which is new compared to yesterday. 05/23/18. Seen by Dr. Villegas. The patient continues to report pain associated with the right lower leg venous ulcers and she continues on clindamycin for the recent MRSA and E. coli positive wound culture without reporting adverse side effects. 05/16/18. Seen by Dr. Villegas. The patient continues to report some pain associated with the right lower leg venous ulcers however feels there's been modest improvement since starting on clindamycin for the recent MRSA and E. coli positive wound culture. She has a history of PAD in the right leg with a stent and states that at her last visit with Dr. Anderson it was felt repeat intervention was nor warranted at that time. 05/09/18. Seen by Dr. Villegas. The patient continues to report some pain associated with the right lower leg venous ulcers despite taking doxycycline for the recent MRSA and E. coli positive wound culture. She does not report fevers or adverse side effects and is applying topical gentamicin to the ulcers as well. 05/02/18. Seen by Dr. Villegas. The patient's new to our clinic and presents with a chronic and recurrent right lateral lower leg non-pressure ulcer that's been deteriorating over the past 2 weeks and is moderately painful. She had one at this site previously that took a year to heal and responded to compression therapy at the time. She also has a non-healing, non-pressure ulcer over the proximal left lower leg. She has a history of PAD with stenting to the right leg but was seen by Dr. Anderson recently who felt intervention to the left leg was unnecessary. She also has not been on antibiotics recently and does not have a history of diabetes. Past Medical History This information was obtained from the patient Patient has a medical history of: Breast cancer Hypertension Peripheral Vascular Disease (right leg stent) High Cholesterol Complaints and Symptoms This information was obtained from the patient Patient complains of: General Notes: I have reviewed and concur with the Review of Systems and Past Family Social History documents completed by the clinician, I have reviewed and concur with the Wound Assessment document completed by the clinician Allergic/Immunologic: Frequent Rashes Cardiovascular (Central/Peripheral): Lower extremity (leg) swelling Integumentary (Hair/Skin/Nails): Hemosiderin Staining, Open Sore Prior Wound History: Drainage, Erythema, Pain Patient denies complaints or symptoms related to: Cardiovascular (Central/Peripheral): Intermittent Claudication, Lower extremity (leg) resting pain Constitutional Symptoms (General Health): Chills, Fever Ear/Nose/Mouth/Throat: Hearing Loss / Aid Hematologic/Lymphatic: Bleeding / Clotting Disorders, Bleeding Tendency Neurological: Loss of Protective Sensation Psychiatric: Memory Loss Respiratory: Shortness of Breath OBJECTIVE Constitutional BP elevated; Low grade fever; Alert and in no distress. Well developed. Alert. Clean appearing.. Height/Length: 63 in (160.02 cm), Weight: 158.7 lbs (72.14 kgs), BMI : 28.1, Temperature: 99.3 ?F (37.39 ?C), Pulse: 67 bpm, Respiratory Rate: 18 breaths/min , Blood Pressure: 165/88 mmHg, Pulse Oximetry: 98 %. Ears, Nose, Mouth, and Throat: Uses hearing aids. Respiratory: No respiratory distress. Even respirations and without use of accessory muscles.. Cardiovascular: Affected extremity exhibits no peripheral edema or cyanosis, is warm, and is well perfused. Capillary refill is less than 2 seconds. Integumentary (Hair, Skin) Mild proximal right lower leg periwound erythema with warmth; green drainage overlying base. Refer to appropriate clinician wound documentation for this visit; right lower leg ulcers extends to subcut with base partially covered with pink granulation, remainder fibrin and slough. Wound #1 Right, Lateral Ankle is an acute Full Thickness Venous Ulcer and has received a status of Not Healed. Subsequent wound encounter measurements are 2.8cm length x 1cm width x 0.2cm depth, with an area of 2.8 sq cm and a volume of 0.56 cubic cm. No tunneling has been noted. No sinus tract has been noted. No undermining has been noted. There is a moderate amount of serous drainage noted which has no odor. The patient reports a wound pain of level 4/10. The wound margin is attached. Wound bed has No epithelialization, No eschar, Yes slough, Yes bright red, pink, firm granulation. The periwound skin moisture is normal. The periwound skin exhibited: Rash, Atrophie [place], Hemosiderosis. The periwound skin did not exhibit: Brawny Induration, Edema, Excoriation, Induration, Callus, Crepitus, Fluctuance, Friable, Cyanosis, Ecchymosis, Erythema, Pallor, Rubor. The temperature of the periwound skin is Warm. Periwound skin does not exhibit signs or symptoms of infection. Local Pulse is Doppler. Wound #2 Right, Lateral Calf is a chronic Full Thickness Venous Ulcer and has received a status of Not Healed. Subsequent wound encounter measurements are 0.1cm length x 0.1cm width x 0.1cm depth, with an area of 0.01 sq cm and a volume of 0.001 cubic cm. No tunneling has been noted. No sinus tract has been noted. No undermining has been noted. There is a scant amount of serosanguineous drainage noted which has no odor. The patient reports a wound pain of level 4/10. The wound margin is attached. Wound bed has Yes epithelialization, No eschar, No slough, No granulation. The periwound skin texture is normal. The periwound skin moisture is normal. The periwound skin exhibited: Hemosiderosis. The periwound skin did not exhibit: Atrophie [place], Cyanosis, Ecchymosis, Erythema, Pallor, Rubor. The temperature of the periwound skin is Warm. Periwound skin does not exhibit signs or symptoms of infection. Local Pulse is Doppler. Neurological: Cranial nerves grossly intact with symmetric function normal by informal observation.. ASSESSMENT Active Problems ICD-10 (Encounter Diagnosis) L97.812 - Non-pressure chronic ulcer of other part of right lower leg with fat layer exposed (Encounter Diagnosis) I87.311 - Chronic venous hypertension (idiopathic) with ulcer of right lower extremity (Encounter Diagnosis) L08.9 - Local infection of the skin and subcutaneous tissue, unspecified PROCEDURES Wound #1 Wound #1 (Venous Ulcer) is located on the right, lateral ankle. A skin/ subcutaneous tissue level surgical debridement with a total area debrided of 2.8 sq cm was performed by Gomez Villegas MD. Subcutaneous was removed along with devitalized tissue: slough. The following instrument(s) were used: curette. Pain control was achieved using 4% Lido. A time out was conducted prior to the start of the procedure. A minimal amount of bleeding was controlled with n/a. The procedure was tolerated well with a pain level of 0 throughout and a pain level of 0 following the procedure. Post Debridement Measurements: 2.8cm length x 1cm width x 0.3cm depth; with an area of 2.8 sq cm and a volume of 0.84 cubic cm; Wound #1 (Venous Ulcer) is located on the right, lateral ankle. A skin substitute procedure was performed using Grafix Core 2x3 by Gomez Villegas MD with an application area of 6 sq cm. The product was not fenestrated. sq cm of product was wasted. with Steri- Strips. Post application, a dressing was applied: REYES. A time out was conducted prior to the start of the procedure. The procedure was tolerated well with a pain level of 0 throughout and a pain level of 0 following the procedure. Wound #1 (Venous Ulcer) is located on the right, lateral ankle. A Disposable Wound Vac Application < 50 Sq Cm procedure was performed for the lower right extremity by Gomez Villegas MD. A time out was conducted prior to the start of the procedure. The procedure was tolerated well. General Notes: Reyes 4x8 to ankle wound. Wound #2 Wound #2 (Venous Ulcer) is located on the right, lateral calf. A skin/ subcutaneous tissue level surgical debridement with a total area debrided of 0.04 sq cm was performed by Gomez Villegas MD. Subcutaneous was removed along with devitalized tissue: exudate and slough. The following instrument(s) were used: curette. Pain control was achieved using 4% Lido. A time out was conducted prior to the start of the procedure. A minimal amount of bleeding was controlled with n/a. The procedure was tolerated well with a pain level of 0 throughout and a pain level of 0 following the procedure. Post Debridement Measurements: 0.2cm length x 0.2cm width x 0.2cm depth; with an area of 0.04 sq cm and a volume of 0.008 cubic cm; Additional Information Muscle fascia or bone removed and sent to pathology?: No Muscle fascia or bone removed and sent to pathology?: No Normal Saline Expiration Date: 03/31/2020 Positive response visible from previous application? : Yes Application Number: : 2 Is branch assistant's serial number and expiration date recorded on tissue log? : Yes Is wound free of infection and necrosis? : Yes Exposed bone? : No Date of onset and previous therapies documented? : Yes Documentation of ulcer being present for 4 weeks or more? : Yes Does wound measure greater than 1.0 sq. cm? : Yes Are the measurements at baseline, following cessation of conservative tx and prior to application of product documented? : Yes Is ZHENG greater than 0.60 documented? : No Has the patient stopped smoking or have they had documented tobacco use/smoking cessation counseling? : No Is there documentations of concurrent medical management of patient's underlying medical conditions? : Yes PLAN Wound Orders: Wound #1 Right, Lateral Ankle Anesthetic Topical Xylocaine to wound bed. - In clinic only. Cleanser Cleanse Wound: - Normal saline and gauze in clinic, may use distilled water at home. May Shower. - Use cast protector when showering. Dressings Primary dressing: - Grafix core Cover and secure with: - Reyes 4x6. Leave in place, Do not change. Compression/Edema Control Elevation of leg(s) above the level of the heart when sitting. Wound #2 Right, Lateral Calf Anesthetic Topical Xylocaine to wound bed. - In clinic only. Cleanser Cleanse Wound: - Normal saline and gauze in clinic, may use distilled water at home. May Shower. - Use cast protector when showering. Topical Treatments Antibiotic/Antimicrobial Ointment/Cream. - Gentamicin ointment Dressings Cover and secure with: - Border foam. Change Dressing: - Every other day. Additional Orders: Follow-Up Appointments Return Appointment: - - One week. Other information: If you develop fever, chills, increased pain, drainage, redness or swelling please call our office. If after hours, respond to the ER. Should you experience any significant changes in your wound(s) or have any questions regarding your home care instructions please contact the wound center @ [phone]. If after hours, contact your primary care physician or go to the hospital emergency room. Scribing Attestation I attest, as the nurse, that I scribed these orders for the physician. Laboratory: Culture Wound I've reviewed the clinician's documentation and agree with the evaluation and plan as written. In addition the patient's ulcers demonstrate evidence of non-viable devitalized tissue and they will continue to benefit from sharp debridement to help promote granulation and expedite healing. Negative pressure wound therapy will be utilized to facilitate granulation and removal of exudate and infectious material with the goal of expediting wound healing. Also, I've placed another Grafix biologic skin substitute today to help facilitate granulation and expedite healing of the very refractory distal right lower leg ulcer. I've also cultured the drainage from the more proximal ulcer and started treating with topical gentamicin. Electronic Signature(s) Signed By: Date: Gomez Villegas MD 07/26/2018 13:52:56 Entered By: Gomez Villegas on 07/26/2018 12:27:04
== END ==
PROVIDERS: Family Provider Physician Assistant Medical; PCP Family Medicine; Visit Provider Internal Medicine
DX: I87.311 Chronic venous hypertension (idiopathic) with ulcer of right lower extremity (principal); L97.311 Non-pressure chronic ulcer of right ankle limited to breakdown of skin; L97.211 Non-pressure chronic ulcer of right calf limited to breakdown of skin
CPT/HCPCS: 11042; 15271; 87070; 87075; 87077; 87186; 87205; 97607; Q4132

== ENCOUNTER → 2018-08-01 13:54 | Outpatient (CLI) | payer MEDICARE, OTHER, SELFPAY ==
--- NOTE | 2018-08-01 | OV.WND_ITS ---
Progress Note Details Patient Name: Jane Melchor Patient Number: [id number] PatientPatientDate: 08/01/2018 Clinician: Corrie Diaz Clinician Cosigner: Balbina Hernandez Physician / Basketball Commentator: Gomez Villegas SUBJECTIVE Chief Complaint This information was obtained from the patient Ulcers on right lateral ankle and calf. Allergies codeine (Reaction: Breathing slows), Bactrim (Reaction: Pancreatitis), scallops (Reaction: vomiting ), cat dander (Reaction: itchy eyes) HPI This information was obtained from the patient 08/01/18. Seen by Dr. Villegas. The patient does not report pain or significant drainage associated with the chronic right lower leg venous ulcers since her last visit however she states her wound vac again stopped working on Tuesday and the dressing was left intact since then. Her proximal wound culture grew a coag negative Staph and she's applying topical gentamicin to the base to treat this. 07/25/18. Seen by Dr. Villegas. The patient does not report pain or significant drainage associated with the chronic right lower leg venous ulcers since her last visit however there's increased redness and some drainage overlying the proximal ulcer that was nearly healed last week. She's been off of clindamycin for 2 weeks following recurrent MRSA positive wound cultures from both ulcers. 07/18/18. Seen by Dr. Villegas. The patient does not report pain or significant drainage associated with the chronic right lower leg venous ulcers since her last visit. 07/11/18. Seen by Dr. Villegas. The patient does not report pain or significant drainage associated with the chronic right lower leg venous ulcers since her last visit and she completes her course of clindamycin today that's been treating the recurrent MRSA wound infection. She does not report adverse side effects or other acute issues today. 07/04/18. Seen by Dr. Villegas. The patient report continued drainage and pain associated with the chronic distal right lower leg venous ulcer since her last visit. She's completed her course of clindamycin which was treating the recurrent MRSA wound infection without reporting adverse side effects, fevers, or other acute issues. 06/27/18. Seen by Dr. Villegas. The patient reports increased pain and drainage associated with the chronic distal right lower leg radha ulcer starting over the weekend. She's not report fevers or feeling unwell otherwise nor any acute changes with the more proximal right lower leg [place] ulcer. She also does not report any problems with her wound VAC and left it in place until ravel today. 06/20/18. Seen by Dr. Villegas. The patient does not report significant pain or drainage associated with the proximal or distal right lower leg venous ulcers since her last visit and she's tolerating NPWT without difficulty. 06/13/18. Seen by Dr. Villegas. The patient does not report significant pain or drainage associated with the proximal or distal right lower leg venous ulcers since her last visit and she's tolerating NPWT without difficulty. 06/06/18. Seen by Dr. Villegas. The patient does not report significant pain or drainage associated with the proximal or distal right lower leg venous ulcers since her last visit and she states her vascular doctor does not feel there's clinically significant PAD in the right leg. She also tolerated NPWT without difficulty and will complete her course of clindamycin tomorrow that's been treating the recurrent MRSA positive wound culture. 05/30/18. Seen by Dr. Villegas. The patient continues to report pain associated with the distal right lower leg venous ulcer however she does not report pain or drainage associated with the proximal right lower leg venous ulcer. She has an appointment next Tuesday with Dr. Anderson's office to evaluate her right leg PAD for possible intervention noting the refractory nature of the ulcers. She feels there's increased redness in the distal periulcer area which is new compared to yesterday. 05/23/18. Seen by Dr. Villegas. The patient continues to report pain associated with the right lower leg venous ulcers and she continues on clindamycin for the recent MRSA and E. coli positive wound culture without reporting adverse side effects. 05/16/18. Seen by Dr. Villegas. The patient continues to report some pain associated with the right lower leg venous ulcers however feels there's been modest improvement since starting on clindamycin for the recent MRSA and E. coli positive wound culture. She has a history of PAD in the right leg with a stent and states that at her last visit with Dr. Anderson it was felt repeat intervention was nor warranted at that time. 05/09/18. Seen by Dr. Villegas. The patient continues to report some pain associated with the right lower leg venous ulcers despite taking doxycycline for the recent MRSA and E. coli positive wound culture. She does not report fevers or adverse side effects and is applying topical gentamicin to the ulcers as well. 05/02/18. Seen by Dr. Villegas. The patient's new to our clinic and presents with a chronic and recurrent right lateral lower leg non-pressure ulcer that's been deteriorating over the past 2 weeks and is moderately painful. She had one at this site previously that took a year to heal and responded to compression therapy at the time. She also has a non-healing, non-pressure ulcer over the proximal left lower leg. She has a history of PAD with stenting to the right leg but was seen by Dr. Anderson recently who felt intervention to the left leg was unnecessary. She also has not been on antibiotics recently and does not have a history of diabetes. Past Medical History This information was obtained from the patient Patient has a medical history of: Breast cancer Hypertension Peripheral Vascular Disease (right leg stent) High Cholesterol Complaints and Symptoms This information was obtained from the patient Patient complains of: General Notes: I have reviewed and concur with the Review of Systems and Past Family Social History documents completed by the clinician, I have reviewed and concur with the Wound Assessment document completed by the clinician Allergic/Immunologic: Frequent Rashes Cardiovascular (Central/Peripheral): Lower extremity (leg) swelling Integumentary (Hair/Skin/Nails): Hemosiderin Staining, Open Sore Prior Wound History: Drainage, Erythema, Pain Patient denies complaints or symptoms related to: Cardiovascular (Central/Peripheral): Intermittent Claudication, Lower extremity (leg) resting pain Constitutional Symptoms (General Health): Chills, Fever Ear/Nose/Mouth/Throat: Hearing Loss / Aid Hematologic/Lymphatic: Bleeding / Clotting Disorders, Bleeding Tendency Neurological: Loss of Protective Sensation Psychiatric: Memory Loss Respiratory: Shortness of Breath OBJECTIVE Constitutional BP elevated; Afebrile; Alert and in no distress. Well developed. Alert. Clean appearing.. Height/Length: 63 in (160.02 cm), Weight: 156.4 lbs (71.09 kgs), BMI: 27.7, Temperature: 97.2 ?F (36.22 ?C), Pulse: 70 bpm, Respiratory Rate: 18 breaths/min, Blood Pressure: 170/82 mmHg, Pulse Oximetry: 98 %. Ears, Nose, Mouth, and Throat: Uses hearing aids. Respiratory: No respiratory distress. Even respirations and without use of accessory muscles.. Cardiovascular: Affected extremity exhibits no peripheral edema or cyanosis, is warm, and is well perfused. Capillary refill is less than 2 seconds. Integumentary (Hair, Skin) Refer to appropriate clinician wound documentation for this visit; right distal lower leg ulcer extends to subcut with base partially covered with pink granulation, remainder fibrin and slough, proximal ulcer extends to dermis. Moderate confluent, erythematous rash in the affected area without appreciable drainage. Wound #1 Right, Lateral Ankle is an acute Full Thickness Venous Ulcer and has received a status of Not Healed. Subsequent wound encounter measurements are 2.5cm length x 1cm width x 0.2cm depth, with an area of 2.5 sq cm and a volume of 0.5 cubic cm. No tunneling has been noted. No sinus tract has been noted. No undermining has been noted. There is a moderate amount of serous drainage noted which has no odor. The patient reports a wound pain of level 4/10. The wound margin is attached. Wound bed has No epithelialization, No eschar, Yes slough, Yes bright red, pink, firm granulation. The periwound skin exhibited: Rash, Moist, Maceration, Atrophie [place], Hemosiderosis. The periwound skin did not exhibit: Brawny Induration, Edema, Excoriation, Induration, Callus, Crepitus, Fluctuance, [place], Cyanosis, Ecchymosis, Erythema, Pallor, Rubor. The temperature of the periwound skin is Warm. Periwound skin presents with s/s of infection. Confirmation Description and Treatment Plan is: Signs and Symptoms Present. Local Pulse is Doppler. Wound #2 Right, Lateral Calf is a chronic Full Thickness Venous Ulcer and has received a status of Not Healed. Subsequent wound encounter measurements are 0.1cm length x 0.1cm width x 0.1cm depth, with an area of 0.01 sq cm and a volume of 0.001 cubic cm. No tunneling has been noted. No sinus tract has been noted. No undermining has been noted. There is a scant amount of serosanguineous drainage noted which has no odor. The patient reports a wound pain of level 4/10. The wound margin is attached. Wound bed has Yes epithelialization, No eschar, No slough, No granulation. The periwound skin texture is normal. The periwound skin moisture is normal. The periwound skin exhibited: Hemosiderosis. The periwound skin did not exhibit: Atrophie [place], Cyanosis, Ecchymosis, Erythema, Pallor, Rubor. The temperature of the periwound skin is Warm. Periwound skin does not exhibit signs or symptoms of infection. Local Pulse is Doppler. Neurological: Cranial nerves grossly intact with symmetric function normal by informal observation.. ASSESSMENT Active Problems ICD-10 (Encounter Diagnosis) L97.812 - Non-pressure chronic ulcer of other part of right lower leg with fat layer exposed (Encounter Diagnosis) I87.311 - Chronic venous hypertension (idiopathic) with ulcer of right lower extremity (Encounter Diagnosis) B95.7 - Other staphylococcus as the cause of diseases classified elsewhere PROCEDURES Wound #1 Wound #1 (Venous Ulcer) is located on the right, lateral ankle. A selective debridement with a total area debrided of 2.5 sq cm was performed by Gomez Villegas MD. to remove devitalized tissue: exudate and slough. The following instrument(s) were used: curette. Pain control was achieved using 4% [place]. A time out was conducted prior to the start of the procedure. No bleeding occurred. The procedure was tolerated well with a pain level of 0 throughout and a pain level of 0 following the procedure. Post Debridement Measurements: 2.5cm length x 1cm width x 0.3cm depth; with an area of 2.5 sq cm and a volume of 0.75 cubic cm; PLAN Wound Orders: Wound #1 Right, Lateral Ankle Anesthetic Topical Xylocaine to wound bed. - In clinic only. Cleanser Cleanse Wound: - Normal saline and gauze in clinic, may use distilled water at home. May Shower. - Use cast protector when showering. Topical Treatments Antibiotic/Antimicrobial Ointment/Cream. - Clobetasol to irritated skin surrounding wound Dressings Primary dressing: - Adaptic to wound base, secured with steri strips. Leave on. If adaptic comes off with dressing change replace with a small piece and secure with steri strips. Foam. May use exudry or poise pad. Cover and secure with: - Conform gauze and tape Change Dressing: - Daily Compression/Edema Control Elevation of leg(s) above the level of the heart when sitting. Wound #2 Right, Lateral Calf Anesthetic Topical Xylocaine to wound bed. - In clinic only. Cleanser Cleanse Wound: - Normal saline and gauze in clinic, may use distilled water at home. May Shower. - Use cast protector when showering. Topical Treatments Antibiotic/Antimicrobial Ointment/Cream. - Gentamicin ointment Dressings Cover and secure with: - Gauze and hypafix tape Change Dressing: - Every other day. Additional Orders: Follow-Up Appointments Return Appointment: - - One week. Other information: If you develop fever, chills, increased pain, drainage, redness or swelling please call our office. If after hours, respond to the ER. Should you experience any significant changes in your wound(s) or have any questions regarding your home care instructions please contact the wound center @ [phone]. If after hours, contact your primary care physician or go to the hospital emergency room. Scribing Attestation I attest, as the nurse, that I scribed these orders for the physician. I've reviewed the clinician's documentation and agree with the evaluation and plan as written. In addition, the patient's ulcer demonstrates evidence of non-viable devitalized tissue which will continue to benefit from sharp debridement to help promote granulation and expedite healing. Also, she'll continue applying gentamicin to the proximal ulcer base and use daily clobetasol to treat the distal right leg periulcer rash. I've also held NPWT for now. Electronic Signature(s) Signed By: Date: Gomez Villegas MD 08/02/2018 07:59:58 Entered By: Gomez Villegas on 08/02/2018 07:40:17
== END ==
PROVIDERS: Family Provider Physician Assistant Medical; PCP Family Medicine; Visit Provider Internal Medicine
DX: I87.311 Chronic venous hypertension (idiopathic) with ulcer of right lower extremity (principal); L97.311 Non-pressure chronic ulcer of right ankle limited to breakdown of skin; L97.211 Non-pressure chronic ulcer of right calf limited to breakdown of skin; B95.7 Other staphylococcus as the cause of diseases classified elsewhere; R21 Rash and other nonspecific skin eruption
CPT/HCPCS: 97597

== ENCOUNTER → 2018-08-10 13:53 | Outpatient (CLI) | payer MEDICARE, OTHER, SELFPAY | PROVIDERS: Family Provider Physician Assistant Medical; PCP Family Medicine; Visit Provider Family Medicine | DX: I87.311 Chronic venous hypertension (idiopathic) with ulcer of right lower extremity (principal); L97.311 Non-pressure chronic ulcer of right ankle limited to breakdown of skin; L97.211 Non-pressure chronic ulcer of right calf limited to breakdown of skin | CPT/HCPCS: 11042; 99213 ==

== ENCOUNTER → 2018-08-16 13:54 | Outpatient (CLI) | payer MEDICARE, OTHER, SELFPAY | PROVIDERS: Family Provider Physician Assistant Medical; PCP Family Medicine; Visit Provider Family Medicine | DX: I87.311 Chronic venous hypertension (idiopathic) with ulcer of right lower extremity (principal); L97.311 Non-pressure chronic ulcer of right ankle limited to breakdown of skin | CPT/HCPCS: 97597 ==

== ENCOUNTER → 2018-08-23 13:50 | Outpatient (CLI) | payer MEDICARE, OTHER, SELFPAY | PROVIDERS: Family Provider Physician Assistant Medical; PCP Family Medicine; Visit Provider Family Medicine | DX: I87.311 Chronic venous hypertension (idiopathic) with ulcer of right lower extremity (principal); L97.311 Non-pressure chronic ulcer of right ankle limited to breakdown of skin | CPT/HCPCS: 97597 ==

== ENCOUNTER → 2018-08-30 13:52 | Outpatient (CLI) | payer MEDICARE, OTHER, SELFPAY | PROVIDERS: Family Provider Physician Assistant Medical; PCP Family Medicine; Visit Provider Family Medicine | DX: I87.311 Chronic venous hypertension (idiopathic) with ulcer of right lower extremity (principal); L97.311 Non-pressure chronic ulcer of right ankle limited to breakdown of skin | CPT/HCPCS: 97597 ==

== ENCOUNTER → 2018-09-06 13:52 | Outpatient (CLI) | payer MEDICARE, OTHER, SELFPAY | PROVIDERS: Family Provider Physician Assistant Medical; PCP Family Medicine; Visit Provider Family Medicine | DX: I87.311 Chronic venous hypertension (idiopathic) with ulcer of right lower extremity (principal); L97.311 Non-pressure chronic ulcer of right ankle limited to breakdown of skin | CPT/HCPCS: 97597; 99213 ==

== ENCOUNTER → 2018-09-13 13:53 | Outpatient (CLI) | payer MEDICARE, OTHER, SELFPAY | PROVIDERS: Family Provider Physician Assistant Medical; PCP Family Medicine; Visit Provider Family Medicine | DX: I87.311 Chronic venous hypertension (idiopathic) with ulcer of right lower extremity (principal); L97.811 Non-pressure chronic ulcer of other part of right lower leg limited to breakdown of skin | CPT/HCPCS: 97597 ==

== ENCOUNTER → 2018-09-27 13:57 | Outpatient (CLI) | payer MEDICARE, OTHER, SELFPAY | PROVIDERS: Family Provider Physician Assistant Medical; PCP Family Medicine; Visit Provider Family Medicine | DX: L97.812 Non-pressure chronic ulcer of other part of right lower leg with fat layer exposed (principal); I87.311 Chronic venous hypertension (idiopathic) with ulcer of right lower extremity | CPT/HCPCS: 97597; 99212 ==

== ENCOUNTER → 2018-10-04 13:56 | Outpatient (CLI) | payer MEDICARE, OTHER, SELFPAY | PROVIDERS: Family Provider Physician Assistant Medical; PCP Family Medicine; Visit Provider Family Medicine | DX: I87.311 Chronic venous hypertension (idiopathic) with ulcer of right lower extremity (principal); L97.312 Non-pressure chronic ulcer of right ankle with fat layer exposed | CPT/HCPCS: 87070; 87075; 87077; 87147; 87186; 87205; 97597 ==

== ENCOUNTER → 2018-10-11 13:53 | Outpatient (CLI) | payer MEDICARE, OTHER, SELFPAY | PROVIDERS: Family Provider Physician Assistant Medical; PCP Family Medicine; Visit Provider Family Medicine | DX: I87.311 Chronic venous hypertension (idiopathic) with ulcer of right lower extremity (principal); L97.311 Non-pressure chronic ulcer of right ankle limited to breakdown of skin; B95.62 Methicillin resistant Staphylococcus aureus infection as the cause of diseases classified elsewhere | CPT/HCPCS: 97597; 99213 ==

== ENCOUNTER 2018-10-19 13:02 | Inpatient (IN) | payer MEDICARE, OTHER, SELFPAY ==
[2018-10-19 13:18] VITALS: BP 148/88; PULSE 76; RESP 16; TEMP 36.8; O2SAT 96; BMI 26.4
[2018-10-19 14:02] LABS: Add Manual Diff / Slide Review NO; Basophils Percent Auto 0.4 % (0-2); Eosinophils Percent Auto 0.1 % (2-4); Hematocrit 46.2 % (36-46); Hemoglobin 15.5 g/dL (12.0-16.0); Lymphocytes Percent Auto 5.5 % (25-40); Mean Corpuscular HGB Conc 33.6 % (30-36); Mean Corpuscular Hemoglobin 32.1 PG (26-34); Mean Corpuscular Volume 95.4 fL (80-100); Monocytes Percent Auto 7.2 % (3-14); Neutrophils Absolute Auto 13700 /uL (1500-7000); Neutrophils Percent Auto 86.8 % (50-75); Platelet Count 269 X10^3/uL (150-400); Red Blood Cell Count 4.84 X10^6/uL (4.0-5.2); Red Cell Distribution Width 13.2 % (11.6-14.8); White Blood Cell Count 15.8 X10^3/uL (4.5-11.0)
[2018-10-19 14:11] LABS: Alanine Aminotransferase 31 IU/L (9-52); Albumin 4.4 g/dL (3.5-5.0); Albumin Globulin Ratio 1.7 (1.0-2.8); Alkaline Phosphatase 71 U/L (38-126); Aspartate Aminotransferase 32 IU/L (14-36); Bilirubin Total 1.2 mg/dL (0.2-1.3); Blood Urea Nitrogen 14 mg/dL (7-17); Calcium 10.2 mg/dL (8.4-10.2); Carbon Dioxide 22 mmol/L (22-32); Chloride 99 mmol/L (98-107); Estimated Glomerular Filt Rate > 60.0 mL/min (>60); Globulin 2.6 g/dL (1.7-4.1); Glucose 125 mg/dL (80-110); HEMOLYSIS < 15 (0-50); Lipase 1772 U/L (23-300); Potassium 4.4 mmol/L (3.4-5.1); Sodium 135 mmol/L (137-145)
--- NOTE | 2018-10-19 15:47 | ED_ITS ---
HPI - Abdominal Pain <SHITAL Diaz - Last Filed: 10/19/18 20:56> General Chief Complaint: Abdominal Pain Stated Complaint: thinks pancreatitis Time Seen by Provider: 10/19/18 15:47 Source: patient Mode of arrival: ambulatory Limitations: no limitations History of Present Illness HPI narrative: 68-year-old female with history of pancreatitis is a nonsmoker here for complaint of epigastric pain over the past couple of days. She denies any trauma to the area. She has had some nausea. No vomiting. She also had decreased appetite. She states she is tolerating fluids. She denies any stressors or relievers of her discomfort. Denies any flank pain. No urinary symptoms. Last bowel movement was yesterday was unremarkable. She has been taking antibiotics for a ulcer to her right lower extremity and she believes that the antibiotics may have caused her pancreatitis. And she reports she is at antibiotics around the time that she has pancreatitis in the past. MD complaint: abdominal pain Related Data Home Medications Medication Instructions Recorded Confirmed ascorbic acid (vitamin C) [Vitamin 1,000 mg PO DAILY 10/19/18 10/19/18 C] atenolol 25 mg PO BID 10/19/18 10/19/18 clopidogrel [Plavix] 75 mg PO DAILY 10/19/18 10/19/18 doxycycline hyclate 100 mg PO DAILY 10/19/18 10/19/18 fenofibrate nanocrystallized 144 mg PO DAILY 10/19/18 10/19/18 multivitamin 1 tab PO DAILY 10/19/18 10/19/18 mupirocin 1 applic TOPICAL DAILY 10/19/18 10/19/18 omeprazole magnesium [Prilosec OTC] 20 mg PO DAILY 10/19/18 10/19/18 Allergies Allergy/AdvReac Type Severity Reaction Status Date / Time codeine Allergy Verified 10/19/18 13:18 sulfamethoxazole Allergy Verified 10/19/18 13:18 [From Bactrim] trimethoprim [From Bactrim] Allergy Verified 10/19/18 13:18 Review of Systems <SHITAL Diaz - Last Filed: 10/19/18 20:56> Review of Systems All systems reviewed & are unremarkable except as noted in HPI and below Constitutional Denies chills, Denies fever(s), Denies lethargy and Denies weakness Eyes Denies change in vision, Denies eye discharge, Denies irritation and Denies loss of vision ENT Ears, Nose, Mouth, and Throat: Denies change in voice, Denies neck pain and Denies sore throat Cardiovascular Denies chest pain, Denies irregular heart rhythm, Denies lightheadedness, Denies palpitations, Denies dyspnea, Denies dyspnea on exertion and Denies orthopnea Respiratory Denies cough, Denies dyspnea, Denies dyspnea on exertion and Denies wheezing Gastrointestinal Gastrointestinal: Reports abdominal pain and Reports nausea Genitourinary Denies hematuria, Denies flank pain, Denies urinary incontinence and Denies urinary urgency Musculoskeletal Denies neck pain Integumentary/Breasts Denies pruritus, Denies erythema, Denies rash and Denies wounds Neurologic Denies confusion, Denies loss of vision and Denies weakness Psychiatric Denies anxiety, Denies confusion, Denies depression, Denies homicidal ideation and Denies suicidal ideation Endocrine Denies palpitations Hematologic/Lymphatic Denies easy bruising Allergic/Immunologic Denies wheezing Exam <SHITAL Diaz - Last Filed: 10/19/18 20:56> Initial Vital Signs Initial Vital Signs: Vital Signs Temperature 98.2 F 10/19/18 13:18 Pulse Rate 76 10/19/18 13:18 Respiratory Rate 16 10/19/18 13:18 Blood Pressure 148/88 H 10/19/18 13:18 Pulse Oximetry 96 10/19/18 13:18 Const General: cooperative and well developed Nutritional Appearance: well nourished Orientation: alert, awake, oriented x3 and not confused [facility] Mouth: oral mucosae normal and moist mucous membranes Eyes General: appearance normal, both eyes and all related structures Conjunctivae: conjunctivae normal Sclera: sclerae normal Pupils: PERRL EOM: EOM intact bilaterally Resp Effort & Inspection: normal respiratory effort, able to speak in complete sentences, no respiratory distress and no use of accessory muscles Auscultation: clear to auscultation bilaterally, no rales, no rhonchi and no wheezes Cardio Rate: regular rate Rhythm: regular rhythm Heart Sounds: no click, no gallops, no murmurs and no rubs Pulses: normal peripheral pulses GI Inspection: non-distended Palpation: soft, no hepatosplenomegaly, No guarding, No pulsatile mass and tender Auscultation: normal bowel sounds Other: Tenderness on palpation to epigastric area. General: No CVA tenderness Skin General: no rashes or lesions noted, No jaundice and No petechiae Neuro General: alert, oriented x3, gait normal and no focal motor deficits Speech: speech normal <Stevan Mar DO - Last Filed: 10/19/18 21:54> Initial Vital Signs Initial Vital Signs: Vital Signs Temperature 98.2 F 10/19/18 13:18 Pulse Rate 76 10/19/18 13:18 Respiratory Rate 16 10/19/18 13:18 Blood Pressure 148/88 H 10/19/18 13:18 Pulse Oximetry 96 10/19/18 13:18 Course <SHITAL Diaz - Last Filed: 10/19/18 20:56> Orders Ordered: ED Orders 10/19/18 13:52 Complete Blood Count AUTO DIFF Stat Comprehensive Metabolic Panel Stat Lipase Stat Lipid Panel Stat 10/19/18 16:10 CT abdomen pelvis w con Stat 10/19/18 20:12 Education, smoking cessation ONGOING 10/20/18 05:00 Complete Blood Count AUTO DIFF Routine Comprehensive Metabolic Panel Routine Lipase DAILY Atenolol (Tenormin) 25 mg PO BID [facility] Last Admin: 10/19/18 21:14 Dose: 25 mg Clopidogrel Bisulfate (Plavix) 75 mg PO DAILY [facility] Enoxaparin Sodium (Lovenox) 40 mg SUBCUT DAILY [facility] Hydromorphone HCl (Dilaudid) 0.5 mg IV Q6HR PRN PRN Reason: Pain, Moderate (4-6) Last Admin: 10/19/18 21:24 Dose: 0.5 mg Sodium Chloride (Normal Saline 0.9%) 1,000 mls @ 150 mls/hr IV CONT [facility] Last Admin: 10/19/18 16:20 Dose: Ondansetron HCl (Zofran) 4 mg IV Q8HR PRN PRN Reason: Nausea And Vomiting Pantoprazole Sodium (Protonix) 40 mg PO 0700 [facility] Discontinued Medications Sodium Chloride (Normal Saline 0.9%) 1,000 mls @ 1,000 mls/hr IV [facility] ONE Stop: 10/19/18 17:14 Last Infusion: 10/19/18 17:00 Dose: 0 mls/hr Admin: 10/19/18 16:21 Dose: 1,000 mls/hr Sodium Chloride (Normal Saline 0.9%) 1,000 mls @ 125 mls/hr IV CONT [facility] Last Admin: 10/19/18 16:20 Dose: Influenza Virus Vaccine (Flu Vaccine) 0.5 ml IM .ONCE ONE Stop: 10/19/18 19:34 Ondansetron HCl (Zofran) 4 mg IV NOW ONE Stop: 10/19/18 16:16 Last Admin: 10/19/18 16:21 Dose: 4 mg Vital Signs - 8 hr 10/19/18 16:12 10/19/18 16:43 10/19/18 17:00 Temperature Pulse Rate 76 72 73 Respiratory Rate 17 20 13 Blood Pressure 117/75 Blood Pressure [Left Arm] Blood Pressure [Left Calf] 143/97 H 115/71 Pulse Oximetry 95 94 98 10/19/18 18:48 10/19/18 19:20 Temperature 97.8 F Pulse Rate 78 105 H Respiratory Rate 16 18 Blood Pressure 152/92 H Blood Pressure [Left Arm] 172/78 H Blood Pressure [Left Calf] Pulse Oximetry 98 94 <Stevan Mar, DO - Last Filed: 10/19/18 21:54> Orders Ordered: ED Orders 10/19/18 13:52 Complete Blood Count AUTO DIFF Stat Comprehensive Metabolic Panel Stat Lipase Stat Lipid Panel Stat 10/19/18 16:10 CT abdomen pelvis w con Stat 10/19/18 20:12 Education, smoking cessation ONGOING 10/20/18 05:00 Complete Blood Count AUTO DIFF Routine Comprehensive Metabolic Panel Routine Lipase DAILY Atenolol (Tenormin) 25 mg PO BID [facility] Last Admin: 10/19/18 21:14 Dose: 25 mg Clopidogrel Bisulfate (Plavix) 75 mg PO DAILY [facility] Enoxaparin Sodium (Lovenox) 40 mg SUBCUT DAILY [facility] Hydromorphone HCl (Dilaudid) 0.5 mg IV Q6HR PRN PRN Reason: Pain, Moderate (4-6) Last Admin: 10/19/18 21:24 Dose: 0.5 mg Sodium Chloride (Normal Saline 0.9%) 1,000 mls @ 150 mls/hr IV CONT [facility] Last Admin: 10/19/18 16:20 Dose: Ondansetron HCl (Zofran) 4 mg IV Q8HR PRN PRN Reason: Nausea And Vomiting Pantoprazole Sodium (Protonix) 40 mg PO 0700 [facility] Discontinued Medications Sodium Chloride (Normal Saline 0.9%) 1,000 mls @ 1,000 mls/hr IV BOLUS ONE Stop: 10/19/18 17:14 Last Infusion: 10/19/18 17:00 Dose: 0 mls/hr Admin: 10/19/18 16:21 Dose: 1,000 mls/hr Sodium Chloride (Normal Saline 0.9%) 1,000 mls @ 125 mls/hr IV CONT [facility] Last Admin: 10/19/18 16:20 Dose: Influenza Virus Vaccine (Flu Vaccine) 0.5 ml IM .ONCE ONE Stop: 10/19/18 19:34 Ondansetron HCl (Zofran) 4 mg IV NOW ONE Stop: 10/19/18 16:16 Last Admin: 10/19/18 16:21 Dose: 4 mg Vital Signs - 8 hr 10/19/18 16:12 10/19/18 16:43 10/19/18 17:00 Temperature Pulse Rate 76 72 73 Respiratory Rate 17 20 13 Blood Pressure 117/75 Blood Pressure [Left Arm] Blood Pressure [Left Calf] 143/97 H 115/71 Pulse Oximetry 95 94 98 10/19/18 18:48 10/19/18 19:20 Temperature 97.8 F Pulse Rate 78 105 H Respiratory Rate 16 18 Blood Pressure 152/92 H Blood Pressure [Left Arm] 172/78 H Blood Pressure [Left Calf] Pulse Oximetry 98 94 MDM - Abdominal Pain <SHITAL Diaz - Last Filed: 10/19/18 20:56> Lab Data Result diagrams: 10/19/18 13:52 10/19/18 13:52 Lab Results 10/19/18 10/19/18 Range/Units 13:52 13:52 WBC 15.8 H (4.5-11.0) X10^3/uL RBC 4.84 (4.0-5.2) X10^6/uL Hgb 15.5 (12.0-16.0) g/dL Hct 46.2 H (36-46) % MCV 95.4 (80-100) fL MCH 32.1 (26-34) PG MCHC 33.6 (30-36) % RDW 13.2 (11.6-14.8) % Plt Count 269 (150-400) X10^3/uL Neut % (Auto) 86.8 H (50-75) % Lymph % (Auto) 5.5 L (25-40) % [place] % (Auto) 7.2 (3-14) % Eos % (Auto) 0.1 L (2-4) % Baso % (Auto) 0.4 (0-2) % Neut # (Auto) 77329 H (9903-0500) /uL Sodium 135 L (137-145) mmol/L Potassium 4.4 (3.4-5.1) mmol/L Chloride 99 (98-107) mmol/L Carbon Dioxide 22 (22-32) mmol/L BUN 14 (7-17) mg/dL Creatinine 0.70 (0.52-1.04) mg/dL Estimated GFR > 60.0 (>60) mL/min BUN/Creatinine Ratio 20.0 (6-22) Glucose 125 H (80-110) mg/dL Calcium 10.2 (8.4-10.2) mg/dL Total Bilirubin 1.2 (0.2-1.3) mg/dL AST 32 (14-36) IU/L ALT 31 (9-52) IU/L Alkaline Phosphatase 71 (38-126) U/L Total Protein 7.0 (6.3-8.2) g/dL Albumin 4.4 (3.5-5.0) g/dL Globulin 2.6 (1.7-4.1) g/dL Albumin/Globulin Ratio 1.7 (1.0-2.8) Triglycerides 70 (35-150) mg/dL Cholesterol 155 (140-199) mg/dL LDL Cholesterol, Calc 78 (<100) mg/dL HDL Cholesterol 63 H (40-60) mg/dL Lipase 1772 H (23-300) U/L Point of care testing: Urine Dip Bedside Urine Glucose Negative Bedside Urine Bilirubin - Negative Bedside Urine Ketone - Negative Urine Specific Protivin 1.010 Bedside Urine Occult Blood - Negative Bedside Urine pH 6.5 Bedside Urine Protein - Negative Bedside Urine Urobilinogen - Negative Bedside Urine Nitrite - Negative Bedside Urine Leukocytes - Negative Esterase Imaging Data CT scan - abdomen: Radiologist's impression: View Report History [address] [address] [address] Scan Report Signed Patient: Jane Melchor MR#: [id number] : 1950 Acct:[id number] Age/Sex: 68 / F Date of Service: 10/19/18 Loc: Accession Number: [id number] Procedure: CT abdomen pelvis w con Ordering Provider: Alejandro Zhong PROCEDURE: CT ABDOMEN PELVIS W CON INDICATIONS: Epigastric pain radiating to back TECHNIQUE: After the administration of intravenous contrast, 5 mm thick sections acquired from the diaphragm to the symphysis. 5 mm coronal and sagittal reformats were acquired. For radiation dose reduction, the following was used: automated exposure control, adjustment of mA and/or kV according to patient size. COMPARISON: None. FINDINGS: Image quality: Excellent. ABDOMEN: Lung bases: Bibasilar atelectasis. Heart size is normal. Solid organs: Liver is normal in size and enhancement. Gallbladder is unremarkable. Biliary system is non dilated. Pancreas enhances normally. There is increased peripancreatic inflammatory fat stranding and fluid. No peripancreatic fluid collections to suggest abscess or pseudocyst are identified. Spleen is normal in size and enhancement. No adrenal nodules. Kidneys demonstrate normal size and enhancement, without hydronephrosis. Peritoneum and bowel: Bowel loops demonstrate normal wall thickness and caliber. No free fluid or air. Normal appendix best seen on axial image 59 of series 2. There is colonic diverticulosis without evidence of acute diverticulitis. Nodes and vessels: No retroperitoneal or mesenteric adenopathy by size criteria. Aorta and inferior vena cava are normal in size. Severe calcified and calcified plaque of the abdominal aorta and branch vessels. Miscellaneous: No ventral hernias. PELVIS: Genitourinary: Bladder wall thickness is normal. Miscellaneous: No inguinal hernias or adenopathy. Bones: Mild to moderate multilevel degenerative changes of the lumbar spine. Schmorl's nodes noted at the inferior endplate of L3 and at the superior and inferior endplates of L2. Degenerative disc disease is most prominent at L5-S1. IMPRESSION: Findings consistent with acute pancreatitis. No peripancreatic fluid collections to suggest abscess or pseudocyst. Dictated by: Guillermo Shah M.D. on 10/19/2018 at 18:53 Approved by: Guillermo Shah M.D. on 10/19/2018 at 19:00 [facility] Narrative Medical decision making narrative: CBC shows elevated white count of 15.8. Neutrophils are also elevated. Lipase was also obtained and was elevated at 1772. Urine POC was negative for urinary tract infection. CT of the abdomen shows some findings consistent with pancreatitis. She is admitted to the floor in p.o. for fluid hydration and for pain control. Discussed case with Dr. Lara hospitalist who accepted patient. <Stevan Mar, DO - Last Filed: 10/19/18 21:54> Lab Data Lab Results 10/19/18 10/19/18 Range/Units 13:52 13:52 WBC 15.8 H (4.5-11.0) X10^3/uL RBC 4.84 (4.0-5.2) X10^6/uL Hgb 15.5 (12.0-16.0) g/dL Hct 46.2 H (36-46) % MCV 95.4 (80-100) fL MCH 32.1 (26-34) PG MCHC 33.6 (30-36) % RDW 13.2 (11.6-14.8) % Plt Count 269 (150-400) X10^3/uL Neut % (Auto) 86.8 H (50-75) % Lymph % (Auto) 5.5 L (25-40) % [place] % (Auto) 7.2 (3-14) % Eos % (Auto) 0.1 L (2-4) % Baso % (Auto) 0.4 (0-2) % Neut # (Auto) 92942 H (8150-5862) /uL Sodium 135 L (137-145) mmol/L Potassium 4.4 (3.4-5.1) mmol/L Chloride 99 (98-107) mmol/L Carbon Dioxide 22 (22-32) mmol/L BUN 14 (7-17) mg/dL Creatinine 0.70 (0.52-1.04) mg/dL Estimated GFR > 60.0 (>60) mL/min BUN/Creatinine Ratio 20.0 (6-22) Glucose 125 H (80-110) mg/dL Calcium 10.2 (8.4-10.2) mg/dL Total Bilirubin 1.2 (0.2-1.3) mg/dL AST 32 (14-36) IU/L ALT 31 (9-52) IU/L Alkaline Phosphatase 71 (38-126) U/L Total Protein 7.0 (6.3-8.2) g/dL Albumin 4.4 (3.5-5.0) g/dL Globulin 2.6 (1.7-4.1) g/dL Albumin/Globulin Ratio 1.7 (1.0-2.8) Triglycerides 70 (35-150) mg/dL Cholesterol 155 (140-199) mg/dL LDL Cholesterol, Calc 78 (<100) mg/dL HDL Cholesterol 63 H (40-60) mg/dL Lipase 1772 H (23-300) U/L Point of care testing: Urine Dip Bedside Urine Glucose Negative Bedside Urine Bilirubin - Negative Bedside Urine Ketone - Negative Urine Specific Protivin 1.010 Bedside Urine Occult Blood - Negative Bedside Urine pH 6.5 Bedside Urine Protein - Negative Bedside Urine Urobilinogen - Negative Bedside Urine Nitrite - Negative Bedside Urine Leukocytes - Negative Esterase Discharge Plan Departure Patient Disposition: Admitted As Inpatient Clinical Impression: Pancreatitis Discharge Date/Time: 10/19/18 19:16 Interventions: ED Discharge Assessment Last Done: 10/19/18 18:10 Admit Date/Time: 10/19/18 19:08 Admit Provider: Allison Lara <Stevan Mar DO - Last Filed: 10/19/18 21:54> Cosign ED Attending Cosignature Attestation: I was available for consultation during this patient's emergency department encounter
--- NOTE | 2018-10-19 16:10 | DI.CT.S_ITS ---
PROCEDURE: CT ABDOMEN PELVIS W CON INDICATIONS: Epigastric pain radiating to back TECHNIQUE: After the administration of intravenous contrast, 5 mm thick sections acquired from the diaphragm to the symphysis. 5 mm coronal and sagittal reformats were acquired. For radiation dose reduction, the following was used: automated exposure control, adjustment of mA and/or kV according to patient size. COMPARISON: None. FINDINGS: Image quality: Excellent. ABDOMEN: Lung bases: Bibasilar atelectasis. Heart size is normal. Solid organs: Liver is normal in size and enhancement. Gallbladder is unremarkable. Biliary system is non dilated. Pancreas enhances normally. There is increased peripancreatic inflammatory fat stranding and fluid. No peripancreatic fluid collections to suggest abscess or pseudocyst are identified. Spleen is normal in size and enhancement. No adrenal nodules. Kidneys demonstrate normal size and enhancement, without hydronephrosis. Peritoneum and bowel: Bowel loops demonstrate normal wall thickness and caliber. No free fluid or air. Normal appendix best seen on axial image 59 of series 2. There is colonic diverticulosis without evidence of acute diverticulitis. Nodes and vessels: No retroperitoneal or mesenteric adenopathy by size criteria. Aorta and inferior vena cava are normal in size. Severe calcified and calcified plaque of the abdominal aorta and branch vessels. Miscellaneous: No ventral hernias. PELVIS: Genitourinary: Bladder wall thickness is normal. Miscellaneous: No inguinal hernias or adenopathy. Bones: Mild to moderate multilevel degenerative changes of the lumbar spine. Schmorl's nodes noted at the inferior endplate of L3 and at the superior and inferior endplates of L2. Degenerative disc disease is most prominent at L5-S1. IMPRESSION: Findings consistent with acute pancreatitis. No peripancreatic fluid collections to suggest abscess or pseudocyst. Dictated by: Guillermo Shah M.D. on 10/19/2018 at 18:53 Approved by: Guillermo Shah M.D. on 10/19/2018 at 19:00
[2018-10-19 16:12] VITALS: BP 143/97; PULSE 76; RESP 17; O2SAT 95
[2018-10-19] MEDS: SODIUM CHLORIDE 0.9% 1,000 ML 1000 ML IV (16:21)
[2018-10-19] MEDS: ONDANSETRON 4 MG/2 ML INJ IV (16:21)
--- NOTE | 2018-10-19 16:31 | PC.NURSE ---
Pt has wound to bottom of right foot, seen by PCP for wound. Provider at bedside and aware at this time.
[2018-10-19 16:43] VITALS: BP 117/75; PULSE 72; RESP 20; O2SAT 94
[2018-10-19 17:00] VITALS: BP 115/71; PULSE 73; RESP 13; O2SAT 98
[2018-10-19 18:48] VITALS: BP 172/78; PULSE 78; RESP 16; O2SAT 98
[2018-10-19 19:12] VITALS: BMI 26.4
[2018-10-19 19:20] VITALS: BP 152/92; PULSE 105; RESP 18; TEMP 36.6; O2SAT 94
--- NOTE | 2018-10-19 20:18 | PM.HP.1 ---
History of Present Illness Date Patient Seen: 10/19/18 Chief complaint: thinks pancreatitis Narrative: Patient is a 68-year-old female who has a history of pancreatitis going back to 2014. Patient states that in 2014 she was on Bactrim for an infection and 3 days after discontinuing it developed acute pancreatitis. Her symptoms resolved. She took Bactrim again and following therapy again developed pancreatitis. Nine days ago she was started on doxycycline for nonhealing right ankle ulcer. She developed nausea vomiting, dry heaves and abdominal pain yesterday. She thought her symptoms were similar to her prior episodes of pancreatitis. Her pain was quite severe last evening. She has not vomited up blood. She has had no blood from her bottom. She has had no fever or chills. She reports a poor appetite. Pain is quite intense. She presented to the emergency department for evaluation. In the emergency department a lipase was elevated at 1700. CT scan of the abdomen and pelvis was consistent with pancreatitis. There was no evidence of pancreatic pseudocyst or abscesses. Patient does report having a abdominal ultrasound in 2014. She does have her gallbladder. She had no particular pathology. She does have a history of hypertension and hyperlipidemia. She takes her medicines as prescribed. Patient is admitted to the hospital at this time for treatment of acute pancreatitis. Patient History Medical History Breast cancer (Acute) Hypertension (Acute) Pancreatitis (Acute) Peripheral vascular disease of extremity with claudication (Acute) Pressure ulcer of ankle (Acute) Stomach ulcer (Acute) Family & Social History Social History: household members spouse Safety & Behavioral: Feels Safe in Current Yes Environment Been Physically Hurt or No Threatened By a Person Suicidal Ideation Description None Suicide Plan Description No Plan Tobacco & Substance use: Smoking Status Former smoker alcohol intake current alcohol intake frequency 0-2 drinks per day Substance Use Type does not use Meds Home Medications Medication Instructions Recorded Confirmed Type ascorbic acid (vitamin C) [Vitamin 1,000 mg PO DAILY 10/19/18 10/19/18 History C] atenolol 25 mg PO BID 10/19/18 10/19/18 History clopidogrel [Plavix] 75 mg PO DAILY 10/19/18 10/19/18 History doxycycline hyclate 100 mg PO DAILY 10/19/18 10/19/18 History fenofibrate nanocrystallized 144 mg PO DAILY 10/19/18 10/19/18 History multivitamin 1 tab PO DAILY 10/19/18 10/19/18 History mupirocin 1 applic TOPICAL DAILY 10/19/18 10/19/18 History omeprazole magnesium [Prilosec OTC] 20 mg PO DAILY 10/19/18 10/19/18 History Allergies Allergy/AdvReac Type Severity Reaction Status Date / Time codeine Allergy Verified 10/19/18 13:18 sulfamethoxazole Allergy Verified 10/19/18 13:18 [From Bactrim] trimethoprim [From Bactrim] Allergy Verified 10/19/18 13:18 Review of Systems Review of Systems All systems reviewed & are unremarkable except as noted in HPI and below Exam Vital Signs (past 8 hours): - 10/19/18 13:18 10/19/18 16:12 10/19/18 16:43 Temperature 98.2 F Pulse Rate 76 76 72 Respiratory Rate 16 17 20 Blood Pressure 148/88 H 117/75 Blood Pressure [Left Arm] Blood Pressure [Left Calf] 143/97 H Pulse Oximetry 96 95 94 10/19/18 17:00 10/19/18 18:48 Temperature Pulse Rate 73 78 Respiratory Rate 13 16 Blood Pressure Blood Pressure [Left Arm] 172/78 H Blood Pressure [Left Calf] 115/71 Pulse Oximetry 98 98 Oxygen Delivery Method Room Air Narrative Exam Narrative: Pleasant female resting comfortably in no obvious distress HEENT: Normocephalic atraumatic, extraocular muscles are intact, oropharynx is clear, neck is supple Lungs: Clear to auscultation, without crackles or wheezes or rhonchi Cardiac exam: Regular rate and rhythm normal S1 and S2 no murmurs rubs or gallops Abdomen: Distended soft with hypoactive bowel tones, no palpable masses tender in the midepigastric area Extremity: No edema right ankle with a well-healed dime-sized open ulceration, no redness or exudate noted Neuro exam: Cranial nerves are intact, strength is symmetric and equal, sensation is grossly intact, reflexes are equal Psych exam: Normal mentation, no hallucinations, no tics, Objective Labs Result Diagrams: 10/19/18 13:52 10/19/18 13:52 Labs: Laboratory Results - last 24 hr 10/19/18 10/19/18 13:52 13:52 WBC 15.8 H RBC 4.84 Hgb 15.5 Hct 46.2 H MCV 95.4 MCH 32.1 MCHC 33.6 RDW 13.2 Plt Count 269 Neut % (Auto) 86.8 H Lymph % (Auto) 5.5 L [place] % (Auto) 7.2 Eos % (Auto) 0.1 L Baso % (Auto) 0.4 Neut # (Auto) 90752 H Sodium 135 L Potassium 4.4 Chloride 99 Carbon Dioxide 22 BUN 14 Creatinine 0.70 Estimated GFR > 60.0 BUN/Creatinine Ratio 20.0 Glucose 125 H Calcium 10.2 Total Bilirubin 1.2 AST 32 ALT 31 Alkaline Phosphatase 71 Total Protein 7.0 Albumin 4.4 Globulin 2.6 Albumin/Globulin Ratio 1.7 Lipase 1772 H Assessment & Plan (1) Hypertension: Problem details: Continue her atenolol Current visit: Yes Status: Acute (2) Peripheral vascular disease: Problem details: Patient to continue Plavix Current visit: Yes Status: Acute (3) History of breast cancer: Problem details: No further treatment indicated Current visit: Yes Status: Acute (4) Hyperlipidemia: Problem details: Will check lipid status in the morning Current visit: Yes Status: Acute (5) Pancreatitis: Problem details: Patient will be made NPO, given IV hydration, antiemetics, will obtain abdominal ultrasound to rule out choledocholithiasis although LFTs are normal. Will repeat lipase in the morning. Given her multiple recurring episodes of pancreatitis would consider a GI referral at discharge for possible ERCP. Patient will be placed on DVT prophylaxis. Continue her proton pump inhibitor. Qualifiers: Acute pancreatitis complication: Chronicity: Pancreatitis type: Current visit: Yes Status: Acute Plan: Assessment/Plan Narrative: Patient is a full code will note that in her record accordingly. Quality VTE Deep Vein Thrombosis/Pulmonary Embolism Present on Admission: No
[2018-10-19 20:31] LABS: Cholesterol 155 mg/dL (140-199); HDL Cholesterol 63 mg/dL (40-60); LDL Cholesterol Calculated 78 mg/dL (<100); Triglycerides 70 mg/dL (35-150)
[2018-10-19] MEDS: ATENOLOL 25 MG TABLET PO (21:14)
[2018-10-19] MEDS: HYDROMORPHONE 1 MG INJ 0.5 MG IV (21:24)
--- NOTE | 2018-10-19 22:42 | PC.NURSE ---
evening shift/admission note- patient arrived to room via stretcher from ER. patient walked on her own with steady gait from stretcher to bed. admission questions completed, home medications reviewed, and physical assessment completed. patient alert and oriented and able to make needs known to staff. patient oriented to bed and bed controls, room, bathroom, lights, phone, and call curtis/tv remote. safety measures in place. call curtis and phone within reach. will continue to monitor.
[2018-10-20] VITALS (11 sets, daily range): BP systolic 131–155; BP diastolic 67–96; PULSE 60–77; RESP 16–18; TEMP 36.5–37.3; O2SAT 92–99
--- NOTE | 2018-10-20 | DI.US.S_ITS ---
PROCEDURE: US ABDOMEN LIMITED INDICATIONS: r/o choledocholithiasis TECHNIQUE: Real-time focused scanning was performed of the abdomen, with image documentation. COMPARISON: Merged With [facility], CT, CT ABDOMEN PELVIS W CON, 10/19/2018, 17:17. FINDINGS: Solitary 1.4 cm gallstone and there is no gallbladder wall thickening. No biliary dilatation. IMPRESSION: Cholelithiasis and no biliary dilatation. Dictated by: Yon MCKEON Interpreted: Emilia Tam MD on 10/20/2018 at 10:47 Approved by: Emilia Tam M.D. on 10/20/2018 at 15:52
[2018-10-20] MEDS: SODIUM CHLORIDE 0.9% 1,000 ML 150 ML IV ×4 (02:43→18:09)
[2018-10-20] MEDS: HYDROMORPHONE 1 MG INJ 0.5 MG IV ×4 (04:04→23:58)
[2018-10-20] MEDS: PANTOPRAZOLE 40 MG TABLET PO (06:39)
--- NOTE | 2018-10-20 06:48 | P.PN_ITS ---
Subjective Date Patient Seen: 10/20/18 Interval history: Rashmi Colmenares is a 68-year-old female with a past medical history significant for peripheral vascular disease, hypertension, hyperlipidemia, and recurring pancreatitis since 2014 who was admitted for another episode of recurring (third episode) pancreatitis of unclear etiology. The patient is resting in bed comfortably and in no acute distress. She denies headache, shortness of breath, chest pain, nausea, vomiting, fever, chills, dysuria, diarrhea or constipation. She reports her abdominal pain has somewhat dissipated and is very mild. She is voiding and eliminating without difficulty. She is on ice chips and tolerating this well. She is up ambulating without assistance. A 10 system comprehensive review of systems was conducted with the patient and found to be negative except as above in the History of Present Illness. Exam Vital Signs (past 8 hours): - 10/20/18 00:12 10/20/18 02:26 10/20/18 04:00 Temperature 97.9 F 97.7 F Pulse Rate 67 74 Respiratory Rate 18 18 Blood Pressure 141/76 H 148/87 H Pulse Oximetry 95 95 95 Oxygen Delivery Method Room Air Oxygen Flow Rate 0 Narrative Exam Narrative: General: Elderly female lying in bed and in no acute distress, well-developed, well-nourished, appropriately interactive. HEENT: Normocephalic, atraumatic. External ears without defect. Pupils equal, round, and reactive to light and accommodation. Anicteric sclerae, moist conjunctivae, and no lid lag. Oropharynx free of erythema and cobble stoning with moist mucosa. Neck: Supple with full range of motion. No lymphadenopathy or thyromegaly. Cardiovascular: Regular rate and rhythm without murmurs, rubs, or gallops appreciated. Pulmonary: Clear to auscultation bilaterally without crackles, wheezes, or rhonchi. Normal respiratory effort with no use of accessory muscles. Abdomen: Bowel tones present. Soft, protuberant, and non-tender. No hepatosplenomegaly or masses appreciated. No fluid wave. No kika sign. Extremities: No clubbing, cyanosis, or edema. Right lateral malleoli with surrounding slight erythema that is bandaged and is clean and dry. Skin: Normal temperature, turgor, and texture; no rash, ulcers, or subcutaneous nodules appreciated. Neurological: Cranial nerves grossly intact. Psychiatric: Normal mood and affect. Alert and oriented to person, place, and time. Objective Labs Result Diagrams: 10/20/18 06:35 10/20/18 06:35 Labs: Laboratory Results - last 24 hr 10/19/18 10/19/18 13:52 13:52 WBC 15.8 H RBC 4.84 Hgb 15.5 Hct 46.2 H MCV 95.4 MCH 32.1 MCHC 33.6 RDW 13.2 Plt Count 269 Neut % (Auto) 86.8 H Lymph % (Auto) 5.5 L [place] % (Auto) 7.2 Eos % (Auto) 0.1 L Baso % (Auto) 0.4 Neut # (Auto) 31474 H Sodium 135 L Potassium 4.4 Chloride 99 Carbon Dioxide 22 BUN 14 Creatinine 0.70 Estimated GFR > 60.0 BUN/Creatinine Ratio 20.0 Glucose 125 H Calcium 10.2 Total Bilirubin 1.2 AST 32 ALT 31 Alkaline Phosphatase 71 Total Protein 7.0 Albumin 4.4 Globulin 2.6 Albumin/Globulin Ratio 1.7 Triglycerides 70 Cholesterol 155 LDL Cholesterol, Calc 78 HDL Cholesterol 63 H Lipase 1772 H Assessment & Plan Plan: Assessment/Plan Narrative: 1. Acute recurring pancreatitis of unclear etiology, present on admission. Active. -Continue IV fluids, antiemetics and as needed pain medication. -Abdominal ultrasound ordered to rule out choledocholithiasis, pending. -Continue to trend lipase daily. -CT abdomen and pelvis demonstrated acute pancreatitis without pseudocyst, abscess, or signs of necrotizing pancreatitis. -Lipid panel unremarkable. 2. Peripheral vascular disease, chronic, present on admission. Presume stable. -Continue clopidogrel 75 mg daily. 3. Hyperlipidemia, chronic, present on admission. Stable. -Lipid panel unremarkable. Will continue fenofibrate at discharge. 4. Hypertension, chronic, present on admission. Stable. -Continue atenolol 25 mg twice daily. 5. Chronic right foot wound, likely secondary to peripheral vascular disease but unclear, present on admission. Stable. -Patient is followed by wound care in the outpatient setting. Continue wound care recommendations with Bactroban applied to wound -Patient's wound is infected with MRSA and MRSA precautions in place. DVT prophylaxis: Enoxaparin GI prophylaxis: PPI Disposition: Depending upon resolution of pancreatitis and advancement in diet the patient will likely be in 1-2 days home. Plan for outpatient GI referral for possible ERCP to delineate cause of recurring pancreatitis. Quality VTE Deep Vein Thrombosis/Pulmonary Embolism Present on Admission: No
[2018-10-20 06:49] LABS: Add Manual Diff / Slide Review NO; Basophils Percent Auto 0.2 % (0-2); Eosinophils Percent Auto 0.9 % (2-4); Hematocrit 40.3 % (36-46); Hemoglobin 13.4 g/dL (12.0-16.0); Lymphocytes Percent Auto 9.3 % (25-40); Mean Corpuscular HGB Conc 33.3 % (30-36); Mean Corpuscular Hemoglobin 32.2 PG (26-34); Mean Corpuscular Volume 96.8 fL (80-100); Monocytes Percent Auto 9.2 % (3-14); Neutrophils Absolute Auto 9500 /uL (1500-7000); Neutrophils Percent Auto 80.4 % (50-75); Platelet Count 219 X10^3/uL (150-400); Red Blood Cell Count 4.16 X10^6/uL (4.0-5.2); Red Cell Distribution Width 12.9 % (11.6-14.8); White Blood Cell Count 11.8 X10^3/uL (4.5-11.0)
[2018-10-20 06:55] LABS: Alanine Aminotransferase 24 IU/L (9-52); Albumin 3.3 g/dL (3.5-5.0); Albumin Globulin Ratio 1.4 (1.0-2.8); Alkaline Phosphatase 50 U/L (38-126); Aspartate Aminotransferase 28 IU/L (14-36); Blood Urea Nitrogen 11 mg/dL (7-17); Calcium 8.9 mg/dL (8.4-10.2); Carbon Dioxide 23 mmol/L (22-32); Chloride 105 mmol/L (98-107); Estimated Glomerular Filt Rate > 60.0 mL/min (>60); Globulin 2.3 g/dL (1.7-4.1); Glucose 87 mg/dL (80-110); HEMOLYSIS < 15 (0-50); Lipase 1346 U/L (23-300); Potassium 3.8 mmol/L (3.4-5.1); Sodium 137 mmol/L (137-145); Total Protein 5.6 g/dL (6.3-8.2)
[2018-10-20] MEDS: CLOPIDOGREL 75 MG TABLET PO (10:30)
[2018-10-20] MEDS: ATENOLOL 25 MG TABLET PO ×2 (10:30→21:06)
--- NOTE | 2018-10-20 11:52 | PC.NURSE ---
Addendum entered by Janeth Raza R.N. 10/20/18 13:43: Wound consult submitted. Patient missed appointment in clinic today, so consult placed to continue wound care. Spoke to clinic and the MD will come up after clinic. Original Note: Addendum entered by Janeth Raza R.N. 10/20/18 11:55: pt reports passing flatulents. Original Note: AM Shift pt AOx4, pleasant, and receptive to care. IND in room and with ADL's. Family at bedside. Voiding, not passing gas, hypobowel tones, reporting 5-10 pain, administered 0.5 Dilaudid IV, tolerated well and reporting decreased pain since. NS infusing 150/hr. Denying nausea and abdominal pain. Abdominal US taken this AM and tech reporting bile ducts are patent.
--- NOTE | 2018-10-20 16:38 | PC.NURSE ---
Addendum entered by Reba Anthony R.N. 10/20/18 22:19: Unable to palpate or doppler pulses to feet BL. Pt reports h/o stent placement LLE. Pt reports this is not a new challenge/situation. Equally warm and pink LE's with multiple varicosities. Discussed pt's blood sugar reading of [address] Myrick who is in house. Orders entered for iv fluids with dextrose per MD. Original Note: Addendum entered by Reba Anthony R.N. 10/20/18 22:03: Pt up ad kellee in room to toilet. Denies complaints other than back pain improved with iv dilaudid and position changes. As pt npo, blood sugar checked for 68. Asymptomatic. Clear liquids in a.m. Original Note: Addendum entered by Reba Anthony R.N. 10/20/18 19:45: Clear liquid diet per Dr. Myrick for a.m. Order entered. Pt denies nausea and admits to abdominal pain 02/07. Requests dilaudid and this was given. Per wound physician's orders, right lateral ankle wound cleansed with normal saline and dried. No active drainage or weeping. Wound edges closely approximately with deep red wound bed. Applied layer of bactroban ointment as ordered and covered with foam dressing and kerlix per pt request and instruction. Pt gowned and out in hallway per request. Original Note: Wound care physician present in pt's room addressing right ankle wound.
--- NOTE | 2018-10-20 17:07 | CM.DANOTE ---
Discharge Planning/Care Management DCP: assessment: case received, EMR reviewed and discussed case in Team Rounds this morning with Dr. Myrick. Pt is a 68 year old female who admitted last night to care of the hospitalist team. PCP: Dr. Nahomy Caldera Payer: Medicare and [employer]. Admission status: INPT: confirmed by UR BETTY Lay. Dr. Myrick notes that pt was in treatment for pancreatitis and an outpt GI referral and ERCP might be needed. P: Caseload triage dictates need to hand off further assessment and check in with pt until later. DCP team will follow prn as POC unfolds and d/c needs are clearer. CM Discharge Assessment Start: 10/20/18 17:06 Freq: Status: Active Protocol: Document 10/20/18 17:06 ITV (Rec: 10/20/18 17:07 ITV [id number]) Discharge Planning Assessment Advance Directives? No History Provided By Medical Record Household Members spouse Review Status In Process Next Review Type Continued Stay Review
[2018-10-20] MEDS: MUPIROCIN CREAM 15 GM 1 APPLIC TOP (18:12)
[2018-10-20] MEDS: DEXTROSE 5%-0.9% NS 1,000 ML 150 ML IV (22:37)
[2018-10-21 03:05] VITALS: BP 134/61; PULSE 62; RESP 17; TEMP 36.9; O2SAT 93
[2018-10-21] MEDS: DEXTROSE 5%-0.9% NS 1,000 ML 150 ML IV (05:13)
[2018-10-21] MEDS: ONDANSETRON 4 MG/2 ML INJ IV (05:13)
--- NOTE | 2018-10-21 06:24 | P.PN_ITS ---
Subjective Date Patient Seen: 10/21/18 Interval history: Rashmi Colmenares is a 68-year-old female with a past medical history significant for peripheral vascular disease, hypertension, hyperlipidemia, and recurring pancreatitis since 2014 who was admitted for another episode of recurring (third episode) pancreatitis of unclear etiology. The patient is resting in bed comfortably and in no acute distress. She denies headache, shortness of breath, chest pain, nausea, vomiting, fever, chills, dysuria, diarrhea or constipation. She reports her abdominal pain has resolved. She is voiding and eliminating without difficulty. She is on ice chips and tolerating this well. She is up ambulating without assistance. A 10 system comprehensive review of systems was conducted with the patient and found to be negative except as above in the History of Present Illness. Exam Vital Signs (past 8 hours): - 10/20/18 23:35 10/20/18 23:40 10/21/18 03:05 Temperature 98.9 F 98.5 F Pulse Rate 61 62 Respiratory Rate 18 17 Blood Pressure 141/71 H 134/61 Pulse Oximetry 94 94 93 Oxygen Delivery Method Room Air Oxygen Flow Rate 0 Narrative Exam Narrative: General: Elderly female lying in bed and in no acute distress, well-developed, well-nourished, appropriately interactive. HEENT: Normocephalic, atraumatic. External ears without defect. Pupils equal, round, and reactive to light and accommodation. Anicteric sclerae, moist conjunctivae, and no lid lag. Oropharynx free of erythema and cobble stoning with moist mucosa. Neck: Supple with full range of motion. No lymphadenopathy or thyromegaly. Cardiovascular: Regular rate and rhythm without murmurs, rubs, or gallops appreciated. Pulmonary: Clear to auscultation bilaterally without crackles, wheezes, or rhonchi. Normal respiratory effort with no use of accessory muscles. Abdomen: Soft, protuberant, bowel tones present. and non-tender. No hepatosplenomegaly or masses appreciated. No fluid wave. No kika sign. Extremities: No clubbing, cyanosis, or edema. Right lateral malleoli with surrounding slight erythema that is bandaged and is clean and dry. Skin: Normal temperature, turgor, and texture; no rash, ulcers, or subcutaneous nodules appreciated. Neurological: Cranial nerves grossly intact. Psychiatric: Normal mood and affect. Alert and oriented to person, place, and time. Objective Labs Result Diagrams: 10/21/18 06:30 10/21/18 06:30 Labs: Laboratory Results - last 24 hr 10/20/18 10/20/18 06:35 06:35 WBC 11.8 H RBC 4.16 Hgb 13.4 Hct 40.3 MCV 96.8 MCH 32.2 MCHC 33.3 RDW 12.9 Plt Count 219 Neut % (Auto) 80.4 H Lymph % (Auto) 9.3 L [place] % (Auto) 9.2 Eos % (Auto) 0.9 L Baso % (Auto) 0.2 Neut # (Auto) 9500 H Sodium 137 Potassium 3.8 Chloride 105 Carbon Dioxide 23 BUN 11 Creatinine 0.50 L Estimated GFR > 60.0 BUN/Creatinine Ratio 22.0 Glucose 87 Calcium 8.9 Total Bilirubin 1.0 AST 28 ALT 24 Alkaline Phosphatase 50 Total Protein 5.6 L Albumin 3.3 L Globulin 2.3 Albumin/Globulin Ratio 1.4 Lipase 1346 H Assessment & Plan Plan: Assessment/Plan Narrative: Rashmi Colmenares is a 68-year-old female with a past medical history significant for peripheral vascular disease, hypertension, hyperlipidemia, and recurring pancreatitis since 2014 who was admitted for another episode of recurring ( third episode) pancreatitis of unclear etiology. 1. Acute recurring pancreatitis of unclear etiology, present on admission. Active. -Continue IV fluids, antiemetics and as needed pain medication. -Abdominal ultrasound ordered to rule out choledocholithiasis, pending. -Continue to trend lipase daily. -CT abdomen and pelvis demonstrated acute pancreatitis without pseudocyst, abscess, or signs of necrotizing pancreatitis. -Lipid panel unremarkable. -Will advance diet today from ice chips to clear liquids and observe whether it was tolerated. 2. Peripheral vascular disease, chronic, present on admission. Presume stable. -Continue clopidogrel 75 mg daily. 3. Hyperlipidemia, chronic, present on admission. Stable. -Lipid panel unremarkable. Will continue fenofibrate at discharge. 4. Hypertension, chronic, present on admission. Stable. -Continue atenolol 25 mg twice daily. 5. Chronic right foot wound, likely secondary to peripheral vascular disease but unclear, present on admission. Stable. -Patient is followed by wound care in the outpatient setting. Continue wound care recommendations with Bactroban applied to wound -Patient's wound is infected with MRSA and MRSA precautions in place. DVT prophylaxis: Enoxaparin GI prophylaxis: PPI Disposition: Depending upon resolution of pancreatitis and advancement in diet the patient will likely be in 1-2 days home. Plan for outpatient GI referral for possible ERCP to delineate cause of recurring pancreatitis. Quality VTE Deep Vein Thrombosis/Pulmonary Embolism Present on Admission: No
[2018-10-21] MEDS: PANTOPRAZOLE 40 MG TABLET PO (06:26)
--- NOTE | 2018-10-21 06:34 | PC.NURSE ---
pt has some nausea around 0500, administered zofran per orders.
[2018-10-21 07:22] LABS: Add Manual Diff / Slide Review NO; Basophils Percent Auto 0.7 % (0-2); Eosinophils Percent Auto 2.9 % (2-4); Hematocrit 40.4 % (36-46); Hemoglobin 13.3 g/dL (12.0-16.0); Lymphocytes Percent Auto 9.9 % (25-40); Mean Corpuscular Hemoglobin 32.1 PG (26-34); Mean Corpuscular Volume 97.5 fL (80-100); Monocytes Percent Auto 9.8 % (3-14); Neutrophils Absolute Auto 7800 /uL (1500-7000); Neutrophils Percent Auto 76.7 % (50-75); Platelet Count 204 X10^3/uL (150-400); Red Blood Cell Count 4.15 X10^6/uL (4.0-5.2); Red Cell Distribution Width 13.1 % (11.6-14.8); White Blood Cell Count 10.2 X10^3/uL (4.5-11.0)
[2018-10-21 07:26] LABS: Alanine Aminotransferase 29 IU/L (9-52); Albumin 3.4 g/dL (3.5-5.0); Albumin Globulin Ratio 1.4 (1.0-2.8); Alkaline Phosphatase 57 U/L (38-126); Aspartate Aminotransferase 27 IU/L (14-36); Blood Urea Nitrogen 6 mg/dL (7-17); Carbon Dioxide 23 mmol/L (22-32); Chloride 104 mmol/L (98-107); Estimated Glomerular Filt Rate > 60.0 mL/min (>60); Globulin 2.4 g/dL (1.7-4.1); Glucose 125 mg/dL (80-110); HEMOLYSIS < 15 (0-50); Lipase 290 U/L (23-300); Potassium 3.4 mmol/L (3.4-5.1); Sodium 138 mmol/L (137-145); Total Protein 5.8 g/dL (6.3-8.2)
[2018-10-21 07:30] VITALS: BP 159/88; PULSE 89; RESP 16; TEMP 37.3; O2SAT 90
[2018-10-21] MEDS: ATENOLOL 25 MG TABLET PO (09:25)
[2018-10-21] MEDS: CLOPIDOGREL 75 MG TABLET PO (09:26)
--- NOTE | 2018-10-21 10:00 | PC.NURSE ---
Addendum entered by David Miner R.N. 10/21/18 14:23: Pt d/c'd to care of family. Pt states understanding of instructions as does and brother. Iv d/c'd intact. Pt escorted to car by JV Pineda Pt home by private car. Original Note: Pt a&o independent in room, expecting to go home today although power is still out at home. looking for hotel that will accomodate needs as Pt wants to go home today.
[2018-10-21 11:00] VITALS: BP 138/69; PULSE 63; RESP 16; TEMP 36.9; O2SAT 95
--- NOTE | 2018-10-21 12:37 | P.DS_ITS ---
History of Present Illness Chief complaint: pancreatitis Narrative: See narrative below. Discharge Providers Date of admission: 10/19/18 19:08 Primary care physician: Renzo Caldera MD Consults: 10/20/18 12:23 Consult to Wound Care Urgent Comment: chronic wound RLE Consulting Provider: [facility] Discharge provider: Arlene Emily Myrick Discharge Date: 10/21/18 Summary Discharge Diagnosis: 1. Acute recurring pancreatitis of unclear etiology, present on admission. Active. 2. Peripheral vascular disease, chronic, present on admission. Presumed stable. 3. Hyperlipidemia, chronic, present on admission. Stable. 4. Hypertension, chronic, present on admission. Stable. 5. Chronic right foot wound, likely secondary to peripheral vascular disease but unclear, present on admission. Stable. Hospital Course: Rashmi Colmenares is a 68-year-old female with a past medical history significant for peripheral vascular disease, hypertension, hyperlipidemia, and recurring pancreatitis since 2014 who was admitted for another episode of recurring (third episode) pancreatitis of unclear etiology. The patient reports that every time she has had pancreatitis is related to antibiotic use. CT abdomen and pelvis demonstrated findings consistent with acute pancreatitis. An abdominal ultrasound was performed and did reveal gallstones, however, no choledocholithiasis or ductal dilatation. She has never had an ERCP to explore her pancreatic and biliary anatomy. The patient was started on IV fluids, antiemetics, and as needed pain medication to treat her acute pancreatitis. Her lipase was initially 1700 and quickly decreased to 200 today. The patient's abdominal pain quickly resolved. She was started on ice chips initially and was advanced to clear liquid diet today and has been tolerating this well. The patient is being discharged home in stable condition with instructions to slowly advance her diet after 1-2 days from clear liquids to bland food. The patient was provided a prescription for Zofran 4 mg to 3 times per day as needed for nausea quantity #20. Follow up with PCP recommended in 1-2 weeks with recommendation for GI referral. Status at Discharge Functional status at discharge: independent ambulation Overall status at discharge: patient is back to baseline Exam Vital Signs (past 8 hours): - 10/21/18 07:30 10/21/18 11:00 Temperature 99.1 F 98.4 F Pulse Rate 89 63 Respiratory Rate 16 16 Blood Pressure 159/88 H 138/69 Pulse Oximetry 90 L 95 Oxygen Delivery Method Room Air Oxygen Flow Rate 0 Narrative Exam Narrative: General: Elderly female lying in bed and in no acute distress, well-developed, well-nourished, appropriately interactive. HEENT: Normocephalic, atraumatic. External ears without defect. Pupils equal, round, and reactive to light. Anicteric sclerae, moist conjunctivae, and no lid lag. Oropharynx free of erythema and cobble stoning with moist mucosa. Neck: Supple with full range of motion. No lymphadenopathy or thyromegaly. Cardiovascular: Regular rate and rhythm without murmurs, rubs, or gallops appreciated. Double masectomy present. Pulmonary: Clear to auscultation bilaterally without crackles, wheezes, or rhonchi. Normal respiratory effort with no use of accessory muscles. Abdomen: Soft, protuberant, bowel tones present and non-tender. No hepatosplenomegaly or masses appreciated. No fluid wave. No kika sign. Extremities: No clubbing, cyanosis, or edema. Right lateral malleoli with slight surrounding erythema that is bandaged and is clean and dry. Skin: Normal temperature, turgor, and texture; no rash, ulcers, or subcutaneous nodules appreciated. Neurological: Cranial nerves grossly intact. Psychiatric: Normal mood and affect. Alert and oriented to person, place, and time. Objective Labs Result Diagrams: 10/21/18 06:30 10/21/18 06:30 Labs: Laboratory Results - last 24 hr 10/21/18 10/21/18 06:30 06:30 WBC 10.2 RBC 4.15 Hgb 13.3 Hct 40.4 MCV 97.5 MCH 32.1 MCHC 33.0 RDW 13.1 Plt Count 204 Neut % (Auto) 76.7 H Lymph % (Auto) 9.9 L [place] % (Auto) 9.8 Eos % (Auto) 2.9 Baso % (Auto) 0.7 Neut # (Auto) 7800 H Sodium 138 Potassium 3.4 Chloride 104 Carbon Dioxide 23 BUN 6 L Creatinine 0.40 L Estimated GFR > 60.0 BUN/Creatinine Ratio 15.0 Glucose 125 H Calcium 9.0 Total Bilirubin 1.0 AST 27 ALT 29 Alkaline Phosphatase 57 Total Protein 5.8 L Albumin 3.4 L Globulin 2.4 Albumin/Globulin Ratio 1.4 Lipase 290 D Discharge Plan Discharge Plan Patient Disposition: Home Discharge comment: Please continue to consume clear liquid diet for the next 1- 2 days. You may then slowly advance her diet as tolerated. Try to consume a bland foods initially. You should follow up with your PCP Dr. Cladera, and the next 1-2 weeks. You should have a GI referral in the near future for possible elective ERCP to explore your pancreatic anatomy. You were discharged with a new medication called Zofran to take as needed 2-3 times a day for nausea. Discharge Med Rec/Prescriptions Prescriptions: New ondansetron HCl [Zofran] 4 mg tablet 4 mg PO BID-TID PRN (Reason: nausea and vomiting) Qty: 20 RF: 0 Continue atenolol 25 mg Tablet 25 mg PO BID RF: 0 clopidogrel [Plavix] 75 mg Tablet 75 mg PO DAILY RF: 0 ascorbic acid (vitamin C) [Vitamin C] 500 mg Tablet,Chewable 1,000 mg PO DAILY RF: 0 omeprazole magnesium [Prilosec OTC] 20 mg Tablet,Delayed Release (Dr/Ec) 20 mg PO DAILY RF: 0 multivitamin Tablet,Chewable 1 tab PO DAILY RF: 0 fenofibrate nanocrystallized 48 mg Tablet 144 mg PO DAILY RF: 0 mupirocin 2 % Ointment 1 applic TOPICAL DAILY RF: 0 potassium chloride 10 mEq capsule, extended release RF: 0 Discontinued doxycycline hyclate 100 mg Tablet 100 mg PO DAILY RF: 0 Follow up/Referrals: Renzo Caldera MD [Primary Care Provider] - 1 Week (The patient should be referred to GI for elective ERCP to explore pancreatic anatomy for recurring pancreatitis.) Provider Discharge Instructions Diet comment: Clear liquid diet for 1-2 days and slowly advanced as tolerated Activity: Activity as tolerated. Skin/Wound/Dressing Care Report to your healthcare provider any signs of infection, such as:: chills, fever and night sweats Visit Report/Discharge Packet Instructions: Acute Pancreatitis Visit Report Forms: Congestive Heart Failure, Stroke Signs & Symptoms Discharge Data Primary Care Provider: Renzo Caldera Attending Provider: Allison Lara Admit Date/Time: 10/19/18 19:08 Quality VTE Deep Vein Thrombosis/Pulmonary Embolism Present on Admission: No
== END 2018-10-21 13:30 | disposition home or self-care (01) | DRG 439 ==
LOC: ED 15:47 → AC 18:19 → ED 18:25 → AC 19:08
PROVIDERS: Emergency Medicine; Internal Medicine; Admitting Provider Internal Medicine; Emergency Provider Nurse Practitioner Family; Family Provider Physician Assistant Medical; PCP Family Medicine; Visit Provider Internal Medicine
DX: K85.90 Acute pancreatitis without necrosis or infection, unspecified (principal); L97.319 Non-pressure chronic ulcer of right ankle with unspecified severity; I73.9 Peripheral vascular disease, unspecified; B95.62 Methicillin resistant Staphylococcus aureus infection as the cause of diseases classified elsewhere; I10 Essential (primary) hypertension; Z87.891 Personal history of nicotine dependence; E78.5 Hyperlipidemia, unspecified
CPT/HCPCS: 36415; 36591; 74177; 76705; 80053; 80061; 81003; 82962; 83690; 85025; 96361; 96374; 99284; 99285; J1170; J1650; J2405; Q9967

== ENCOUNTER → 2018-10-27 14:19 | Outpatient (CLI) | payer MEDICARE, OTHER, SELFPAY ==
[2018-10-19 19:12] VITALS: BMI 26.4
== END ==
PROVIDERS: Family Provider Physician Assistant Medical; PCP Family Medicine; Visit Provider Family Medicine
DX: I87.311 Chronic venous hypertension (idiopathic) with ulcer of right lower extremity (principal); L97.312 Non-pressure chronic ulcer of right ankle with fat layer exposed; B95.62 Methicillin resistant Staphylococcus aureus infection as the cause of diseases classified elsewhere; L08.9 Local infection of the skin and subcutaneous tissue, unspecified
CPT/HCPCS: 87070; 87075; 87205; 97597

== ENCOUNTER → 2018-11-10 13:58 | Outpatient (CLI) | payer MEDICARE, OTHER, SELFPAY ==
[2018-10-19 19:12] VITALS: BMI 26.4
== END ==
PROVIDERS: Family Provider Physician Assistant Medical; PCP Family Medicine; Visit Provider Family Medicine
DX: Z48.817 Encounter for surgical aftercare following surgery on the skin and subcutaneous tissue (principal)
CPT/HCPCS: 99212

== ENCOUNTER → 2024-04-19 09:23 | Outpatient (CLI) | payer MEDICARE, OTHER, SELFPAY | PROVIDERS: Family Provider Physician Assistant Medical; PCP Family Medicine; Referring Provider Family Medicine; Visit Provider Surgery | DX: L97.322 Non-pressure chronic ulcer of left ankle with fat layer exposed (principal); I73.9 Peripheral vascular disease, unspecified; I87.2 Venous insufficiency (chronic) (peripheral); L53.9 Erythematous condition, unspecified; I10 Essential (primary) hypertension | CPT/HCPCS: 11042; 11045; 99204; 99213 ==

== ENCOUNTER → 2024-04-19 10:59 | Outpatient (CLI) | payer MEDICARE, OTHER, SELFPAY ==
--- NOTE | 2024-04-19 11:02 | DI.RAD.S_ITS ---
PROCEDURE: XR ANKLE LT MIN 3V INDICATIONS: eval for osteo TECHNIQUE: 3 views of the ankle were acquired. COMPARISON: None. FINDINGS: Bones: No fractures or dislocations. Ankle mortise is normally aligned. No suspicious bony lesions. The bones are somewhat diffusely osteopenic. Soft tissues: No tibiotalar joint effusion. Achilles tendon appears normal. No soft tissue gas. IMPRESSION: Diffuse osteopenia. No plain film evidence of osteomyelitis. Dictated by: Cesario Stanton M.D. on 04/19/2024 at 14:46 Approved by: Cesario Stanton M.D. on 04/19/2024 at 14:46
--- NOTE | 2024-04-19 11:02 | DI.RAD.S_ITS ---
PROCEDURE: XR KNEE LT 3V INDICATIONS: eval for osteo TECHNIQUE: 3 views of the knee were acquired. COMPARISON: [facility], CT, CT KNEE LEFT WITH CONTRAST, 01/03/2024, 16:07. FINDINGS: Bones: Remote ORIF of a distal tibial fracture. Vague fracture lines still present. No evidence of hardware failure or loosening. No plain film evidence of osteomyelitis. 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 No acute fracture or dislocation. No suspicious bony lesions. Soft tissues: No joint effusion. No suspicious soft tissue calcifications. Popliteal arterial vascular stent. IMPRESSION: Expected appearance of orthopedic surgical hardware. No acute bony abnormality. No plain film evidence of osteomyelitis. Dictated by: Cesario Stanton M.D. on 04/19/2024 at 14:47 Approved by: Cesario Stanton M.D. on 04/19/2024 at 14:49
== END ==
PROVIDERS: Family Provider Physician Assistant Medical; PCP Physician Assistant Medical; Referring Provider Surgery; Visit Provider Surgery
DX: L97.929 Non-pressure chronic ulcer of unspecified part of left lower leg with unspecified severity (principal); M85.872 Other specified disorders of bone density and structure, left ankle and foot; S82.302S Unspecified fracture of lower end of left tibia, sequela; L97.322 Non-pressure chronic ulcer of left ankle with fat layer exposed; I73.9 Peripheral vascular disease, unspecified; I87.2 Venous insufficiency (chronic) (peripheral); L53.9 Erythematous condition, unspecified; I10 Essential (primary) hypertension
CPT/HCPCS: 11042; 11045; 73562; 73610; 99213

== ENCOUNTER → 2024-04-25 14:57 | Outpatient (CLI) | payer MEDICARE, OTHER, SELFPAY | LOC: WC 14:58 | PROVIDERS: Family Provider Physician Assistant Medical; PCP Physician Assistant Medical; Referring Provider Family Medicine; Visit Provider Surgery | DX: L97.322 Non-pressure chronic ulcer of left ankle with fat layer exposed (principal); L97.828 Non-pressure chronic ulcer of other part of left lower leg with other specified severity; I73.9 Peripheral vascular disease, unspecified; I87.2 Venous insufficiency (chronic) (peripheral); L53.9 Erythematous condition, unspecified; I10 Essential (primary) hypertension | CPT/HCPCS: 11042; 11045 ==

== ENCOUNTER → 2024-05-02 14:57 | Outpatient (CLI) | payer MEDICARE, OTHER, SELFPAY | LOC: WC 14:58 | PROVIDERS: Family Provider Physician Assistant Medical; PCP Physician Assistant Medical; Referring Provider Family Medicine; Visit Provider Surgery | DX: L97.322 Non-pressure chronic ulcer of left ankle with fat layer exposed (principal); L97.822 Non-pressure chronic ulcer of other part of left lower leg with fat layer exposed; I73.9 Peripheral vascular disease, unspecified; I87.2 Venous insufficiency (chronic) (peripheral); L53.9 Erythematous condition, unspecified | CPT/HCPCS: 11042; 11045 ==

== ENCOUNTER → 2024-06-13 14:32 | Outpatient (CLI) | payer MEDICARE, OTHER, SELFPAY | LOC: WC 14:33 | PROVIDERS: Family Provider Physician Assistant Medical; PCP Physician Assistant Medical; Referring Provider Family Medicine; Visit Provider Surgery | DX: I87.2 Venous insufficiency (chronic) (peripheral) (principal); L97.322 Non-pressure chronic ulcer of left ankle with fat layer exposed; T81.89XA Other complications of procedures, not elsewhere classified, initial encounter; S81.002A Unspecified open wound, left knee, initial encounter; L98.8 Other specified disorders of the skin and subcutaneous tissue; R60.0 Localized edema; R23.4 Changes in skin texture | CPT/HCPCS: 11042; 11045; 99213 ==

== ENCOUNTER → 2024-06-20 14:26 | Outpatient (CLI) | payer MEDICARE, OTHER, SELFPAY | LOC: WC 14:27 | PROVIDERS: Family Provider Physician Assistant Medical; PCP Physician Assistant Medical; Referring Provider Family Medicine; Visit Provider Surgery | DX: L97.322 Non-pressure chronic ulcer of left ankle with fat layer exposed (principal); L97.822 Non-pressure chronic ulcer of other part of left lower leg with fat layer exposed; I73.9 Peripheral vascular disease, unspecified; I87.2 Venous insufficiency (chronic) (peripheral); R60.0 Localized edema; L53.9 Erythematous condition, unspecified; R21 Rash and other nonspecific skin eruption | CPT/HCPCS: 11042; 11045 ==

== ENCOUNTER → 2024-07-04 15:18 | Outpatient (CLI) | payer MEDICARE, OTHER, SELFPAY | PROVIDERS: Family Provider Physician Assistant Medical; PCP Physician Assistant Medical; Referring Provider Family Medicine; Visit Provider Surgery | DX: L97.322 Non-pressure chronic ulcer of left ankle with fat layer exposed (principal); L97.822 Non-pressure chronic ulcer of other part of left lower leg with fat layer exposed; I73.9 Peripheral vascular disease, unspecified; I87.2 Venous insufficiency (chronic) (peripheral); R60.0 Localized edema; L53.9 Erythematous condition, unspecified; R21 Rash and other nonspecific skin eruption | CPT/HCPCS: 11042; 11045 ==

== ENCOUNTER → 2024-07-18 15:07 | Outpatient (CLI) | payer MEDICARE, OTHER, SELFPAY | LOC: WC 15:08 | PROVIDERS: Family Provider Physician Assistant Medical; PCP Physician Assistant Medical; Referring Provider Family Medicine; Visit Provider Surgery | DX: L97.322 Non-pressure chronic ulcer of left ankle with fat layer exposed (principal); L97.822 Non-pressure chronic ulcer of other part of left lower leg with fat layer exposed; I73.9 Peripheral vascular disease, unspecified; I87.2 Venous insufficiency (chronic) (peripheral); R60.0 Localized edema; L53.9 Erythematous condition, unspecified | CPT/HCPCS: 11042; 11045; 99213 ==

== ENCOUNTER → 2024-08-01 14:25 | Outpatient (CLI) | payer MEDICARE, OTHER, SELFPAY | PROVIDERS: Family Provider Physician Assistant Medical; PCP Physician Assistant Medical; Referring Provider Family Medicine; Visit Provider Surgery | DX: L97.322 Non-pressure chronic ulcer of left ankle with fat layer exposed (principal); L97.822 Non-pressure chronic ulcer of other part of left lower leg with fat layer exposed; I73.9 Peripheral vascular disease, unspecified; I87.2 Venous insufficiency (chronic) (peripheral); R60.0 Localized edema; L53.9 Erythematous condition, unspecified; R21 Rash and other nonspecific skin eruption | CPT/HCPCS: 11042; 11045 ==

== ENCOUNTER → 2024-08-08 15:03 | Outpatient (CLI) | payer MEDICARE, OTHER, SELFPAY | LOC: WC 15:06 | PROVIDERS: Family Provider Physician Assistant Medical; PCP Physician Assistant Medical; Referring Provider Family Medicine; Visit Provider Surgery | DX: L97.322 Non-pressure chronic ulcer of left ankle with fat layer exposed (principal); L97.822 Non-pressure chronic ulcer of other part of left lower leg with fat layer exposed; I73.9 Peripheral vascular disease, unspecified; I87.2 Venous insufficiency (chronic) (peripheral); T81.89XS Other complications of procedures, not elsewhere classified, sequela; R60.0 Localized edema; L53.9 Erythematous condition, unspecified | CPT/HCPCS: 11042; 15271; 15272; Q4160 ==

== ENCOUNTER → 2024-08-15 14:30 | Outpatient (CLI) | payer MEDICARE, OTHER, SELFPAY | LOC: WC 14:30 | PROVIDERS: Family Provider Physician Assistant Medical; PCP Physician Assistant Medical; Referring Provider Family Medicine; Visit Provider Surgery | DX: L97.322 Non-pressure chronic ulcer of left ankle with fat layer exposed (principal); L97.822 Non-pressure chronic ulcer of other part of left lower leg with fat layer exposed; I73.9 Peripheral vascular disease, unspecified; I87.2 Venous insufficiency (chronic) (peripheral); R60.0 Localized edema; L53.9 Erythematous condition, unspecified | CPT/HCPCS: 11042; 15271; 15272; Q4160 ==

== ENCOUNTER → 2024-08-22 14:40 | Outpatient (CLI) | payer MEDICARE, OTHER, SELFPAY | LOC: WC 14:41 | PROVIDERS: Family Provider Physician Assistant Medical; PCP Physician Assistant Medical; Referring Provider Family Medicine; Visit Provider Surgery | DX: L97.322 Non-pressure chronic ulcer of left ankle with fat layer exposed (principal); L97.822 Non-pressure chronic ulcer of other part of left lower leg with fat layer exposed; I73.9 Peripheral vascular disease, unspecified; I87.2 Venous insufficiency (chronic) (peripheral); L53.9 Erythematous condition, unspecified; R60.0 Localized edema; L08.89 Other specified local infections of the skin and subcutaneous tissue; Z79.2 Long term (current) use of antibiotics | CPT/HCPCS: 11042; 11045; 87070; 87075; 87205; 99213 ==

== ENCOUNTER → 2024-08-29 14:30 | Outpatient (CLI) | payer MEDICARE, OTHER, SELFPAY | PROVIDERS: Family Provider Physician Assistant Medical; PCP Physician Assistant Medical; Referring Provider Family Medicine; Visit Provider Physician Assistant | DX: L97.322 Non-pressure chronic ulcer of left ankle with fat layer exposed (principal); L97.822 Non-pressure chronic ulcer of other part of left lower leg with fat layer exposed; I73.9 Peripheral vascular disease, unspecified; L08.89 Other specified local infections of the skin and subcutaneous tissue; R60.0 Localized edema; L53.9 Erythematous condition, unspecified; R21 Rash and other nonspecific skin eruption; Z79.2 Long term (current) use of antibiotics | CPT/HCPCS: 11042; 11045; 99214 ==

== ENCOUNTER → 2024-09-05 14:49 | Outpatient (CLI) | payer MEDICARE, OTHER, SELFPAY | PROVIDERS: Family Provider Physician Assistant Medical; PCP Physician Assistant Medical; Referring Provider Family Medicine; Visit Provider Surgery | DX: L97.322 Non-pressure chronic ulcer of left ankle with fat layer exposed (principal); L97.822 Non-pressure chronic ulcer of other part of left lower leg with fat layer exposed; I73.9 Peripheral vascular disease, unspecified; I87.2 Venous insufficiency (chronic) (peripheral); R60.0 Localized edema; L53.9 Erythematous condition, unspecified; R21 Rash and other nonspecific skin eruption | CPT/HCPCS: 11042 ==

== ENCOUNTER → 2024-09-12 14:14 | Outpatient (CLI) | payer MEDICARE, OTHER, SELFPAY | PROVIDERS: Family Provider Physician Assistant Medical; PCP Physician Assistant Medical; Referring Provider Family Medicine; Visit Provider Surgery | DX: L97.322 Non-pressure chronic ulcer of left ankle with fat layer exposed (principal); T81.89XA Other complications of procedures, not elsewhere classified, initial encounter; L97.822 Non-pressure chronic ulcer of other part of left lower leg with fat layer exposed; I73.9 Peripheral vascular disease, unspecified; I87.2 Venous insufficiency (chronic) (peripheral); L53.9 Erythematous condition, unspecified; R60.0 Localized edema | CPT/HCPCS: 11042; 99213 ==

== ENCOUNTER → 2024-09-19 14:45 | Outpatient (CLI) | payer MEDICARE, OTHER, SELFPAY | PROVIDERS: Family Provider Physician Assistant Medical; PCP Physician Assistant Medical; Referring Provider Physician Assistant Medical; Visit Provider Surgery | DX: L97.322 Non-pressure chronic ulcer of left ankle with fat layer exposed (principal); L97.822 Non-pressure chronic ulcer of other part of left lower leg with fat layer exposed; I73.9 Peripheral vascular disease, unspecified; I87.2 Venous insufficiency (chronic) (peripheral); R60.0 Localized edema; L53.9 Erythematous condition, unspecified; Z79.01 Long term (current) use of anticoagulants | CPT/HCPCS: 11042; 99213 ==

== ENCOUNTER → 2024-10-03 15:21 | Outpatient (CLI) | payer MEDICARE, OTHER, SELFPAY | PROVIDERS: Family Provider Physician Assistant Medical; PCP Physician Assistant Medical; Referring Provider Family Medicine; Visit Provider Surgery | DX: L97.322 Non-pressure chronic ulcer of left ankle with fat layer exposed (principal); I73.9 Peripheral vascular disease, unspecified; I87.2 Venous insufficiency (chronic) (peripheral); R60.0 Localized edema; R23.4 Changes in skin texture; L97.822 Non-pressure chronic ulcer of other part of left lower leg with fat layer exposed | CPT/HCPCS: 11042 ==

== ENCOUNTER → 2024-10-10 14:11 | Outpatient (CLI) | payer MEDICARE, OTHER, SELFPAY | PROVIDERS: Family Provider Physician Assistant Medical; PCP Physician Assistant Medical; Referring Provider Family Medicine; Visit Provider Surgery | DX: L97.322 Non-pressure chronic ulcer of left ankle with fat layer exposed (principal); L97.822 Non-pressure chronic ulcer of other part of left lower leg with fat layer exposed; I73.9 Peripheral vascular disease, unspecified; I87.2 Venous insufficiency (chronic) (peripheral); R60.0 Localized edema; L53.9 Erythematous condition, unspecified; R21 Rash and other nonspecific skin eruption | CPT/HCPCS: 11042 ==

== ENCOUNTER → 2024-10-25 14:52 | Outpatient (CLI) | payer MEDICARE, OTHER, SELFPAY | PROVIDERS: Family Provider Physician Assistant Medical; PCP Physician Assistant Medical; Referring Provider Family Medicine; Visit Provider Physician Assistant | DX: L97.322 Non-pressure chronic ulcer of left ankle with fat layer exposed (principal); I73.9 Peripheral vascular disease, unspecified; L53.9 Erythematous condition, unspecified; R60.0 Localized edema; L98.8 Other specified disorders of the skin and subcutaneous tissue; L97.822 Non-pressure chronic ulcer of other part of left lower leg with fat layer exposed | CPT/HCPCS: 11042; 87070; 87075; 87077; 87205; 99214 ==

== ENCOUNTER → 2024-10-29 18:20 | Outpatient (ROUT) | payer MEDICARE, OTHER, SELFPAY ==
[2024-10-29 18:26] LABS: Add Manual Diff / Slide Review NO; Basophils Absolute Auto 100 /uL (0-100); Eosinophils Absolute Auto 200 /uL (0-450); Hematocrit 44.4 % (36-46); Hemoglobin 14.7 g/dL (12.0-16.0); Lymphocytes Absolute Auto 1200 /uL (1100-4500); Lymphocytes Percent Auto 18.1 % (25-40); Mean Corpuscular Hemoglobin 32.5 PG (26-34); Mean Corpuscular Volume 98.4 fL (80-100); Monocytes Absolute Auto 700 /uL (0-900); Monocytes Percent Auto 11.1 % (3-14); Neutrophils Absolute Auto 4300 /uL (1500-7000); Neutrophils Percent Auto 66.8 % (50-75); Platelet Count 211 X10^3/uL (150-400); Red Blood Cell Count 4.51 X10^6/uL (4.0-5.2); Red Cell Distribution Width 13.5 % (11.6-14.8); White Blood Cell Count 6.4 X10^3/uL (4.5-11.0)
== END ==
PROVIDERS: Family Provider Physician Assistant Medical; PCP Physician Assistant Medical; Visit Provider Surgery
DX: L08.9 Local infection of the skin and subcutaneous tissue, unspecified (principal)
CPT/HCPCS: 85025

== ENCOUNTER → 2024-11-07 14:21 | Outpatient (CLI) | payer MEDICARE, OTHER, SELFPAY | PROVIDERS: Family Provider Physician Assistant Medical; PCP Physician Assistant Medical; Referring Provider Family Medicine; Visit Provider Surgery | DX: L97.322 Non-pressure chronic ulcer of left ankle with fat layer exposed (principal); R60.0 Localized edema; I73.9 Peripheral vascular disease, unspecified; I87.2 Venous insufficiency (chronic) (peripheral); L53.9 Erythematous condition, unspecified | CPT/HCPCS: 11042 ==

== ENCOUNTER → 2024-11-14 21:31 | Outpatient (ROUT) | payer MEDICARE, OTHER, SELFPAY ==
[2024-11-14 21:40] LABS: Add Manual Diff / Slide Review NO; Basophils Absolute Auto 100 /uL (0-100); Basophils Percent Auto 1.2 % (0-2); Eosinophils Absolute Auto 200 /uL (0-450); Eosinophils Percent Auto 3.2 % (2-4); Hematocrit 39.3 % (36-46); Hemoglobin 12.9 g/dL (12.0-16.0); Lymphocytes Absolute Auto 1400 /uL (1100-4500); Mean Corpuscular HGB Conc 32.9 % (30-36); Mean Corpuscular Hemoglobin 32.4 PG (26-34); Mean Corpuscular Volume 98.7 fL (80-100); Monocytes Absolute Auto 1000 /uL (0-900); Monocytes Percent Auto 14.7 % (3-14); Neutrophils Absolute Auto 4200 /uL (1500-7000); Neutrophils Percent Auto 60.9 % (50-75); Platelet Count 188 X10^3/uL (150-400); Red Blood Cell Count 3.99 X10^6/uL (4.0-5.2); Red Cell Distribution Width 13.3 % (11.6-14.8); White Blood Cell Count 6.9 X10^3/uL (4.5-11.0)
== END ==
PROVIDERS: Family Provider Physician Assistant Medical; PCP Physician Assistant Medical; Visit Provider Surgery
DX: Z13.89 Encounter for screening for other disorder (principal)
CPT/HCPCS: 85025

== ENCOUNTER → 2024-11-21 14:44 | Outpatient (CLI) | payer MEDICARE, OTHER, SELFPAY | PROVIDERS: Family Provider Physician Assistant Medical; PCP Physician Assistant Medical; Referring Provider Physician Assistant Medical; Visit Provider Surgery | DX: L97.322 Non-pressure chronic ulcer of left ankle with fat layer exposed (principal); I73.9 Peripheral vascular disease, unspecified; L53.8 Other specified erythematous conditions; R60.0 Localized edema | CPT/HCPCS: 11042; 11045 ==

== ENCOUNTER → 2024-11-28 14:19 | Outpatient (CLI) | payer MEDICARE, OTHER, SELFPAY | PROVIDERS: Family Provider Physician Assistant Medical; PCP Physician Assistant Medical; Referring Provider Family Medicine; Visit Provider Surgery | DX: I87.2 Venous insufficiency (chronic) (peripheral) (principal); L97.322 Non-pressure chronic ulcer of left ankle with fat layer exposed; I73.9 Peripheral vascular disease, unspecified; R60.0 Localized edema; L53.8 Other specified erythematous conditions; I10 Essential (primary) hypertension | CPT/HCPCS: 11042; 99213 ==

== ENCOUNTER → 2024-12-05 14:45 | Outpatient (CLI) | payer MEDICARE, OTHER, SELFPAY | PROVIDERS: Family Provider Physician Assistant Medical; PCP Physician Assistant Medical; Referring Provider Family Medicine; Visit Provider Surgery | DX: I87.2 Venous insufficiency (chronic) (peripheral) (principal); L97.322 Non-pressure chronic ulcer of left ankle with fat layer exposed; I73.9 Peripheral vascular disease, unspecified; R60.0 Localized edema; L53.8 Other specified erythematous conditions | CPT/HCPCS: 11042 ==

== ENCOUNTER → 2024-12-12 13:56 | Outpatient (CLI) | payer MEDICARE, OTHER, SELFPAY | LOC: WC 13:57 | PROVIDERS: Family Provider Physician Assistant Medical; PCP Physician Assistant Medical; Referring Provider Family Medicine; Visit Provider Surgery | DX: I73.9 Peripheral vascular disease, unspecified (principal); L97.322 Non-pressure chronic ulcer of left ankle with fat layer exposed; I87.2 Venous insufficiency (chronic) (peripheral); L08.9 Local infection of the skin and subcutaneous tissue, unspecified; L53.8 Other specified erythematous conditions; R60.0 Localized edema; I10 Essential (primary) hypertension | CPT/HCPCS: 11042 ==

== ENCOUNTER → 2024-12-19 14:29 | Outpatient (CLI) | payer MEDICARE, OTHER, SELFPAY | LOC: WC 14:30 | PROVIDERS: Family Provider Physician Assistant Medical; PCP Physician Assistant Medical; Referring Provider Family Medicine; Visit Provider Surgery | DX: L97.322 Non-pressure chronic ulcer of left ankle with fat layer exposed (principal); L98.8 Other specified disorders of the skin and subcutaneous tissue; I73.9 Peripheral vascular disease, unspecified; I87.2 Venous insufficiency (chronic) (peripheral); L53.9 Erythematous condition, unspecified; R60.0 Localized edema | CPT/HCPCS: 11042 ==

== ENCOUNTER → 2024-12-26 15:00 | Outpatient (CLI) | payer MEDICARE, OTHER, SELFPAY | LOC: WC 15:01 | PROVIDERS: Family Provider Physician Assistant Medical; PCP Physician Assistant Medical; Referring Provider Family Medicine; Visit Provider Surgery | DX: I87.2 Venous insufficiency (chronic) (peripheral) (principal); I73.9 Peripheral vascular disease, unspecified; L97.322 Non-pressure chronic ulcer of left ankle with fat layer exposed; L08.9 Local infection of the skin and subcutaneous tissue, unspecified; L53.8 Other specified erythematous conditions | CPT/HCPCS: 11042; 11045; 99213 ==

== ENCOUNTER → 2025-01-02 15:36 | Outpatient (CLI) | payer MEDICARE, OTHER, SELFPAY | PROVIDERS: Family Provider Physician Assistant Medical; PCP Physician Assistant Medical; Referring Provider Family Medicine; Visit Provider Surgery | DX: I87.2 Venous insufficiency (chronic) (peripheral) (principal); L97.322 Non-pressure chronic ulcer of left ankle with fat layer exposed; I73.9 Peripheral vascular disease, unspecified; L08.9 Local infection of the skin and subcutaneous tissue, unspecified; L53.8 Other specified erythematous conditions; R60.0 Localized edema; I10 Essential (primary) hypertension | CPT/HCPCS: 11042 ==

== ENCOUNTER → 2025-01-09 14:07 | Outpatient (CLI) | payer MEDICARE, OTHER, SELFPAY | PROVIDERS: Family Provider Physician Assistant Medical; PCP Physician Assistant Medical; Referring Provider Family Medicine; Visit Provider Surgery | DX: L97.322 Non-pressure chronic ulcer of left ankle with fat layer exposed (principal); L53.9 Erythematous condition, unspecified; I73.9 Peripheral vascular disease, unspecified; I87.2 Venous insufficiency (chronic) (peripheral); R60.0 Localized edema; I10 Essential (primary) hypertension | CPT/HCPCS: 11042; 11045 ==

== ENCOUNTER → 2025-01-16 14:35 | Outpatient (CLI) | payer MEDICARE, OTHER, SELFPAY ==
--- NOTE | 2025-01-16 | OV.WND_ITS ---
PROGRESS NOTE DETAILS PATIENT NAME: YESI HEBERT PATIENT NUMBER: [id number] CLINICIAN: TAYLER OCAMPO PATIENT DATE OF : 1950 PHYSICIAN / BIOTECHNOLOGIST: RAMAKRISHNA GALEAS PATIENT SUBJECTIVE CHIEF COMPLAINT THIS INFORMATION WAS OBTAINED FROM THE PATIENT. TWEAKS ME EVERY NOW AND THEN WOUND RIGHT ANKLE ALLERGIES CODEINE (REACTION: BREATHING SLOWS), BACTRIM (REACTION: PANCREATITIS), SCALLOPS (REACTION: VOMITING ), CAT DANDER (REACTION: ITCHY EYES), DOXYCYCLINE (REACTION: PANCREATITIS) HPI THIS INFORMATION WAS OBTAINED FROM THE PATIENT. THE FOLLOWING HPI ELEMENTS WERE DOCUMENTED FOR THE PATIENT'S WOUND: LOCATION: L ANKLE DURATION: 05/2023 CONTEXT: ARTERIAL THE PATIENT IS A 74-YEAR-OLD FEMALE WITH HYPERTENSION AND PAD WHO RETURNS TODAY FOR FOLLOW UP OF ULCER OF MEDIAL LEFT ANKLE. THE PATIENT IS RECEIVING DRESSING CHANGES WITH URGO CLEAN WITH BARRIER CREAM TO THE PERIWOUND SKIN. THE PATIENT RECENTLY COMPLETED THE 3RD COURSE OF LINEZOLID. SHE REPORTS SLIGHT DRAINAGE AND DENIES HAVING ANY PAIN OR DISCOMFORT NOR HAS SHE HAD ANY FEVER OR CHILLS. THE PATIENT REPORTS A GOOD APPETITE AND DENIES HAVING ANY OTHER RECENT CHANGES IN OVERALL HEALTH. PERIWOUND SKIN LOOKS GOOD. THE PATIENT RECENTLY UNDERWENT ANGIOPLASTY AND STENT PLACEMENT OF THE LEFT LOWER EXTREMITY AND IS ON XARALTO AND PLAVIX. SHE IS TAKING PROTEIN SUPPLEMENTS. ON EXAM TODAY THE MEASUREMENTS ARE SLIGHTLY IMPROVED AND THERE IS LESS SLOUGH, NO SIGN OF INFECTION. THERE HAS BEEN A 62% DECREASE IN SIZE SINCE STARTING TREATMENT. LABS: 11/14/24: WBC 6.9, HEMOGLOBIN 12.9, HCT 39.3, PLT 188 10/29/24: WBC 6.4, HEMOGLOBIN 14.7, HCT 44.4, PLT 211 10/25/24: CULTURE GREW CORYNEBACTERIUM STRIATEM 10/21/24: WBC 10.2, HEMOGLOBIN 13.3, HCT 40.4, ELECTROLYTES UNREMARKABLE, GFR GREATER THAN 60, LFTS NORMAL 08/22/24: CULTURE NORMAL SKIN HERIBERTO. RX PRE-EMPTIVELY GIVEN FOR CLINDAMYCIN 04/19/24: X-RAYS LEFT LEG REVEALED EXPECTED APPEARANCE OF ORTHOPEDIC SURGICAL HARDWARE. NO ACUTE BONY ABNORMALITY. NO PLAIN FILM EVIDENCE OF OSTEOMYELITIS. 04/19/24: X-RAY LEFT ANKLE REVEALED DIFFUSE OSTEOPENIA. NO PLAIN FILM EVIDENCE OF OSTEOMYELITIS. 04/23: WBC 6.2, HEMOGLOBIN 12.1, HCT 37.3, ELECTROLYTES UNREMARKABLE, BUN 9, CREATININE 0.7, LFTS NORMAL MEDICAL HISTORY THIS INFORMATION WAS OBTAINED FROM THE PATIENT. YESI HEBERT [id number] 1950 PATIENT HAS A MEDICAL HISTORY OF: BREAST CANCER HYPERTENSION PERIPHERAL VASCULAR DISEASE (RIGHT LEG STENT) HIGH CHOLESTEROL HYPOTHYROIDISM GASTRIC ULCERS ADDITIONAL INFORMATION DOES PATIENT HAVE A HISTORY OF CANCER? YES? COMPLETE ALL QUESTIONS.: NO SURGICAL HISTORY THIS INFORMATION WAS OBTAINED FROM THE PATIENT. PATIENT HAS A SURGICAL HISTORY OF: BREAST MASTECTOMY- (RIGHT SIDE - 2006) STENT PLACEMENT- (LEFT LOWER EXTREMITY - 2010) RIGHT LEG FRACTURE- LEFT LEG STENTS PLACED- OBJECTIVE VITALS HEIGHT/LENGTH: 63 IN (160.02 CM), WEIGHT: 121.4 LBS (55.18 KGS), BMI: 21.5, TEMPERATURE: 98 ?F (36.67 ?C), PULSE: 61 BPM, RESPIRATORY RATE: 16 BREATHS/MIN, BLOOD PRESSURE: 157/84 MMHG, PULSE OXIMETRY: 96 %. PHYSICAL EXAM CONSTITUTIONAL: VITAL SIGNS REVIEWED AND NOTED. WELL DEVELOPED, WELL NOURISHED, AND IN NO ACUTE DISTRESS. ALERT AND ORIENTED X3. AMBULATES AND IS ABLE TO CHANGE POSITION WITHOUT ASSISTANCE. RESPIRATORY: EVEN RESPIRATIONS WITHOUT USE OF ACCESSORY MUSCLES. NO INTERCOASTAL RETRACTIONS NOTED. EVEN AND NON LABORED RESPIRATION. INTEGUMENTARY (HAIR, SKIN): SEE WOUND ASSESSMENT. NO RASHES. NEUROLOGICAL: SENSATION: SYMMETRIC FUNCTION BY INFORMAL OBSERVATION. PSYCHIATRIC: ORIENTATION TO TIME, PLACE AND PERSON: NORMAL AFFECT WITH NORMAL THOUGHT PATTERN. ADDITIONAL INFORMATION THE PATIENT'S POTENTIAL TO HEAL IS: FAIR. WOUND ASSESSMENT(S) WOUND #5 LEFT, MEDIAL ANKLE IS A CHRONIC FULL THICKNESS VASCULAR ACQUIRED ON 05/31/2023 AND HAS RECEIVED A STATUS OF NOT HEALED. INITIAL WOUND ENCOUNTER MEASUREMENTS ARE 4.6CM LENGTH X 4.2CM WIDTH X 0.2 CM DEPTH, WITH AN AREA OF 19.32 SQ CM AND A VOLUME OF 3.864 CUBIC CM.INITIAL WOUND ENCOUNTER PREVIOUS MEASUREMENTS FROM 01/09/2025 ARE 4.7CM LENGTH X 4.6CM WIDTH X 0.2CM DEPTH, WITH AN AREA OF 21.62 SQ CM AND A VOLUME OF 4.324 CUBIC CM. ADIPOSE IS EXPOSED. HYPERGRANULATION WAS NOTED. NO TUNNELING HAS BEEN NOTED. NO SINUS TRACT HAS BEEN NOTED. NO UNDERMINING HAS BEEN NOTED. THERE IS A MODERATE AMOUNT OF SEROSANGUINEOUS DRAINAGE NOTED WHICH HAS NO ODOR. THE PATIENT REPORTS A WOUND PAIN OF LEVEL 0/10. THE WOUND MARGIN IS ATTACHED WOUND BED HAS YES, BRIGHT RED, PINK, FIRM, GRANULATION, YES SLOUGH, NO ESCHAR, YES EPITHELIALIZATION. YESI HEBERT [id number] 1950 THE PERIWOUND SKIN EXHIBITED EDEMA, EXCORIATION AND ERYTHEMA. THE PERIWOUND SKIN DID NOT EXHIBIT MACERATION. THE PERIWOUND SKIN WAS MOIST. THE PERIWOUND SKIN WAS NOT FRIABLE AND DRY/SCALY. THE TEMPERATURE OF THE PERIWOUND SKIN IS WNL. PERIWOUND SKIN DOES NOT EXHIBIT SIGNS OR SYMPTOMS OF INFECTION. LOCAL PULSE IS DOPPLER. ADDITIONAL INFORMATION OTHER DEVITALIZED TISSUE PRESENT: BIOFILM DONE OUTSIDE OF CENTER (RESULTS SCANNED IN)?: REQUESTED RESULTS FROM [facility] [place]. ASSESSMENT ACTIVE PROBLEMS ICD-10 (ENCOUNTER DIAGNOSIS) L97.322 - NON-PRESSURE CHRONIC ULCER OF LEFT ANKLE WITH FAT LAYER EXPOSED (ENCOUNTER DIAGNOSIS) I73.9 - PERIPHERAL VASCULAR DISEASE, UNSPECIFIED (ENCOUNTER DIAGNOSIS) I87.2 - VENOUS INSUFFICIENCY (CHRONIC) (PERIPHERAL) (ENCOUNTER DIAGNOSIS) L08.9 - LOCAL INFECTION OF THE SKIN AND SUBCUTANEOUS TISSUE, UNSPECIFIED GENERAL NOTES ULCER MEDIAL LEFT ANKLE HAS SLIGHTLY IMPROVED MEASUREMENTS, GOOD TISSUE QUALITY THE FOLLOWING FACTORS HAVE BEEN IDENTIFIED THAT MAY AFFECT WOUND HEALING: DEVITALIZED TISSUE BIOFILM INFECTION PAD VENOUS INSUFFICIENCY GOALS: REMOVED DEVITALIZED TISSUE REMOVE AND PREVENT BIOFILM IDENTIFY AND TREAT INFECTION PROTEIN SUPPLEMENTATION ASSESS ARTERIAL CIRCULATION WOUND CLOSURE PLAN: DEBRIDEMENT, CONTINUE DRESSING CHANGES WITH URGO CLEAN TO LEFT ANKLE 3 TIMES A WEEK, CLEANSE ULCER WITH VASHE SOLUTION WITH EACH DRESSING CHANGE. APPLY BARRIER CREAM TO PERIWOUND SKIN. CONTINUE PROTEIN SUPPLEMENTATION, FOLLOW UP IN 1 WEEK FOR A RECHECK. PROCEDURES WOUND #5 WOUND #5 (VASCULAR) IS LOCATED ON THE LEFT, MEDIAL ANKLE. A SKIN/SUBCUTANEOUS TISSUE LEVEL SURGICAL DEBRIDEMENT WITH A TOTAL AREA DEBRIDED OF 19.32 SQ CM. WAS PERFORMED BY RAMAKRISHNA GALEAS MD. SUBCUTANEOUS WAS REMOVED ALONG WITH DEVITALIZED TISSUE: BIOFILM, EXUDATE AND SLOUGH. THE FOLLOWING INSTRUMENT(S) WERE USED: CURETTE. PAIN CONTROL WAS ACHIEVED USING EMLA LIDOCAINE/PRILOCAINE 2.5%/2.5%. A TIME OUT WAS CONDUCTED PRIOR TO THE START OF THE PROCEDURE. A MINIMAL AMOUNT OF BLEEDING WAS CONTROLLED WITH PRESSURE. THE PROCEDURE WAS TOLERATED WELL WITH A PAIN LEVEL OF 0 THROUGHOUT AND A PAIN LEVEL OF 0 FOLLOWING THE PROCEDURE. POST DEBRIDEMENT MEASUREMENTS: 4.6CM LENGTH X 4.2CM WIDTH X 0.3CM DEPTH; WITH AN AREA OF 19.32 SQ CM AND A VOLUME OF 5.796 CUBIC CM. ADDITIONAL INFORMATION YESI HEBERT [id number] 1950 MUSCLE FASCIA OR BONE REMOVED AND SENT TO PATHOLOGY?: NO PLAN WOUND ORDERS: WOUND #5 LEFT, MEDIAL ANKLE HAND HYGIENE HAND HYGIENE - WASH HANDS BEFORE AND AFTER WOUND CARE. CALL THE WOUND CENTER AT [phone] IF YOU HAVE SIGNS OR SYMPTOMS OF INFECTION, FEVER CHILLS OR SHAKES, INCREASED DRAINAGE, INCREASED ODOR OR UNUSUAL REDNESS. AFTER WOUND CENTER HOURS PLEASE NOTIFY YOUR PCP OR GO TO THE EMERGENCY ROOM. CLEANSER CLEANSE WOUND WITH NORMAL SALINE CLEANSE WOUND WITH HYPOCHLOROUS ACID (VASHE OR SIMILAR) THEN APPLY HYPOCHLOROUS ACID SOAKED 4X4 GAUZE TO WOUND BED FOR 5-10 MINUTES AFTER WOUND ASSESSMENT COMPLETED. - IF AVAILABLE .. MAKE SURE YOU WASH THE VASHE OFF AFTER THE SOAK WITH NORMAL SALINE. MAY SHOWER, LEAVE WOUND DRESSING INTACT. COVER WOUND DRESSING WITH A WATERPROOF BARRIER. KEEP DRESSING DRY. NO BATHS PLEASE. PROCEDURE / ANESTHETIC 4% TOPICAL LIDOCAINE TO WOUND BED PRIOR TO PROCEDURE, IN CLINIC ONLY. DRESSING ORDERS APPLY DRESSING(S) AND SECURE WITH: - URGOCLEAN AG TO WOUND BED, MEXTRA AND ROLL GAUZE BARRIER CREAM ALAN-WOUND DRESSING CHANGE FREQUENCY CHANGE DRESSING 3 TIMES PER WEEK. ADDITIONAL ORDERS: DIETARY TAKE VITAMIN C 1000MG BY MOUTH DAILY. TAKE ZINC 25MG BY MOUTH DAILY. INCREASE THE PROTEIN IN YOUR DIET. HOME HEALTH HOME HEALTH CARE: IF YOU HAVE ANY QUESTIONS OR CONCERNS PLEASE CONTACT THE WOUND CENTER. - SIGNATURE HH PLEASE SEE PATIENT EVERY TUESDAY AND TUESDAY. WOUND CARE TO SEE WEDNESDAYS. FOLLOW-UP APPOINTMENTS RETURN APPOINTMENT 1 WEEK OTHER ORDERS: - PLEASE CALL TO SCHEDULE PODIATRY APPOINTMENT WITH DR. JENNINGS OF [facility]: SCRIBING ATTESTATION I ATTEST, THE NURSE, THAT I SCRIBED THESE ORDERS FOR THE WOUND CARE PROVIDER. PROVIDER REVIEW AND ATTESTATION: REVIEWED AND EVALUATED LABS. REVIEWED HOSPITAL RECORDS. DISCUSSED THE PLAN OF CARE @ BEDSIDE WITH - THE PATIENT I AGREE AND ATTEST TO THE ABOVE INFORMATION PROVIDED FROM OTHER LICENSED PROFESSIONALS. PLAN OF CARE: 01. ENSURE/ESTABLISH OPTIMAL BLOOD FLOW : - COMPLETE LOWER EXTREMITY ASSESSMENT STATUS: CONTINUED DATE: 11/28/2024 - ORDER VASCULAR CONSULT FOR EVALUATION/TREATMENT AND/OR NON-INVASIVE VASCULAR TESTING. - VASCULAR PROCEDURE DONE. STATUS: COMPLETED DATE: 12/12/2024 02. ASSESS FOR/TREAT INFECTION : - EVALUATE FOR SIGNS AND SYMPTOMS OF INFECTION AND DOCUMENT FINDINGS. YESI HEBERT [id number] 1950 STATUS: CONTINUED DATE: 11/28/2024 03. DEBRIDE WEEKLY OR MORE OFTEN PRN : - EVALUATE PATIENT IN CENTER WEEKLY TO ASSESS WOUND BED AND MARGINS FOR NEED FOR DEBRIDEMENT. STATUS: CONTINUED DATE: 12/19/2024 - DEBRIDEMENT BY ANY METHOD TO REMOVE DEVITALIZED/NECROTIC TISSUE TO PROMOTE HEALING AND PREVENT FURTHER COMPLICATIONS. GOAL IS TO STIMULATE AND/OR MAINTAIN ACUTE PHASE OF WOUND HEALING BY REDUCING BACTERIAL BURDEN AND DEVITALIZED/NON-VIABLE TISSUE. STATUS: CONTINUED DATE: 12/19/2024 04. OPTIMIZE GLUCOSE CONTROL AND NUTRITION : - ORDER/REVIEW PERTINENT LABS TO EVALUATE RENAL FUNCTION, GLUCOSE CONTROL, AND NUTRITIONAL STATUS. STATUS: CONTINUED DATE: 12/12/2024 - COMPLETE A NUTRITION RISK ASSESSMENT. STATUS: COMPLETED DATE: 04/19/2024 05. OFFLOADING PLAN : - REVIEWED, NOT APPLICABLE 06. OPTIMIZE HOST FACTORS: - ASSESS AND REVIEW PATIENT HISTORY FOR WOUND ETIOLOGY, CO-MORBID CONDITIONS, MEDICATION REGIME, AND SMOKING HISTORY. STATUS: CONTINUED DATE: 12/12/2024 - ASSESS LIFESTYLE FACTORS SUCH SMOKING, ALCOHOL/DRUG ABUSE, EATING HABITS/MALNUTRITION AND ACTIVITY LEVEL. STATUS: CONTINUED DATE: 12/12/2024 07. DRESSING SELECTION : - EVALUATE FOR DRESSING-RELATED FACTORS, SUCH AVAILABILITY, WEAR TIME, ADAPTABILITY AND USE TO BETTER OPTIMIZE WOUND HEALING AND PATIENT COMPLIANCE. STATUS: CONTINUED DATE: 12/12/2024 - CHOOSE TOPICAL TREATMENTS AND/OR DRESSING BASED ON WOUND TYPE AND APPEARANCE, PERIWOUND SKIN CONDITION, WOUND SIZE AND DEPTH, ANATOMIC LOCATION, VOLUME OF EXUDATE, EDEMA IN THE LOWER EXTREMITIES, AND RISK OR PRESENCE OF INFECTION. STATUS: CONTINUED DATE: 12/12/2024 08. ADVANCED MODALITIES : - SET TREATMENT GOALS ACCORDING TO PATIENT AND/OR CAREGIVER?S ABILITY/ COMPLIANCE. STATUS: CONTINUED DATE: 12/12/2024 - RE-EVALUATE PLAN OF CARE IF NO EVIDENCE OF HEALING (40% IN 4 WEEKS). STATUS: CONTINUED DATE: 12/12/2024 09. FALL PREVENTION : - COMPLETE FALL ASSESSMENT. STATUS: COMPLETED DATE: 10/25/2024 - PROVIDE EDUCATION MATERIALS/DISCUSS PREVENTION STRATEGIES APPROPRIATE. STATUS: CONTINUED DATE: 12/12/2024 10. PAIN MANAGEMENT : - COMPLETE PAIN ASSESSMENT STATUS: COMPLETED DATE: 11/28/2024 - INSTRUCT THE PATIENT TO CALL ?TIME-OUT? IF PAIN IS TOO INTENSE DURING PROCEDURE. STATUS: CONTINUED DATE: 12/12/2024 11. MEASURABLE GOALS FOR WOUND HEALING AND/OR HYPERBARIC OXYGEN THERAPY : - IMPLEMENT PROTOCOLS TO PROMOTE HEALING AND IMPEDE FURTHER INJURY STATUS: CONTINUED DATE: 12/12/2024 - IMPROVE/PROMOTE TISSUE VIABILITY AND PERFUSION STATUS: COMPLETED DATE: 10/01/2024 YESI HEBERT [id number] 1950 12. DURATION/FREQUENCY OF WOUND CARE VISITS : - 1X WEEKLY FOR 30 DAYS STATUS: CONTINUED DATE: 12/12/2024 ELECTRONIC SIGNATURE(S) SIGNED BY: DATE: RAMAKRISHNA GALEAS MD 01/16/2025 16:20:37 (PT) ENTERED BY: RAMAKRISHNA GALEAS MD ON 01/16/2025 16:03:26 (PT) YESI HEBERT [id number] 1950
== END ==
PROVIDERS: Family Provider Physician Assistant Medical; PCP Physician Assistant Medical; Referring Provider Family Medicine; Visit Provider Surgery
DX: L97.322 Non-pressure chronic ulcer of left ankle with fat layer exposed (principal); I73.9 Peripheral vascular disease, unspecified; I87.2 Venous insufficiency (chronic) (peripheral); L08.9 Local infection of the skin and subcutaneous tissue, unspecified; R60.0 Localized edema; L53.8 Other specified erythematous conditions; I10 Essential (primary) hypertension
CPT/HCPCS: 11042

== ENCOUNTER → 2025-01-23 14:40 | Outpatient (CLI) | payer MEDICARE, OTHER, SELFPAY ==
--- NOTE | 2025-01-23 | OV.WND_ITS ---
PROGRESS NOTE DETAILS PATIENT NAME: YESI HEBERT PATIENT NUMBER: [id number] CLINICIAN: RENATA CHAVES RN PATIENT DATE OF : 1950 PHYSICIAN / NUCLEAR TECHNOLOGIST: RAMAKRISHNA GALEAS PATIENT SUBJECTIVE CHIEF COMPLAINT THIS INFORMATION WAS OBTAINED FROM THE PATIENT. MY WOUND IS PROGRESSING GENERAL NOTES LEFT ANKLE ULCER ALLERGIES CODEINE (REACTION: BREATHING SLOWS), BACTRIM (REACTION: PANCREATITIS), SCALLOPS (REACTION: VOMITING ), CAT DANDER (REACTION: ITCHY EYES), DOXYCYCLINE (REACTION: PANCREATITIS) HPI THIS INFORMATION WAS OBTAINED FROM THE PATIENT. THE FOLLOWING HPI ELEMENTS WERE DOCUMENTED FOR THE PATIENT'S WOUND: LOCATION: L ANKLE DURATION: 05/2023 CONTEXT: ARTERIAL THE PATIENT IS A 74-YEAR-OLD FEMALE WITH HYPERTENSION AND PAD WHO RETURNS TODAY FOR FOLLOW UP OF ULCER OF MEDIAL LEFT ANKLE. THE PATIENT IS RECEIVING DRESSING CHANGES WITH URGO CLEAN WITH BARRIER CREAM TO THE PERIWOUND SKIN. THE PATIENT RECENTLY COMPLETED THE 3RD COURSE OF LINEZOLID. SHE REPORTS SLIGHT DRAINAGE AND DENIES HAVING ANY PAIN OR DISCOMFORT NOR HAS SHE HAD ANY FEVER OR CHILLS. THE PATIENT REPORTS A GOOD APPETITE AND DENIES HAVING ANY OTHER RECENT CHANGES IN OVERALL HEALTH. PERIWOUND SKIN LOOKS GOOD. THE PATIENT RECENTLY UNDERWENT ANGIOPLASTY AND STENT PLACEMENT OF THE LEFT LOWER EXTREMITY AND IS ON XARALTO AND PLAVIX. SHE IS TAKING PROTEIN SUPPLEMENTS. ON EXAM TODAY THE MEASUREMENTS ARE ABOUT THE SAME AND THERE SOME SLOUGH, NO SIGN OF INFECTION. THERE HAS BEEN A 55% DECREASE IN SIZE SINCE STARTING TREATMENT. THE PATIENT HAS A FOLLOW UP APPOINTMENT WITH VASCULAR SURGERY IN 3 WEEKS. LABS: 11/14/24: WBC 6.9, HEMOGLOBIN 12.9, HCT 39.3, PLT 188 10/29/24: WBC 6.4, HEMOGLOBIN 14.7, HCT 44.4, PLT 211 10/25/24: CULTURE GREW CORYNEBACTERIUM STRIATEM 10/21/24: WBC 10.2, HEMOGLOBIN 13.3, HCT 40.4, ELECTROLYTES UNREMARKABLE, GFR GREATER THAN 60, LFTS NORMAL 08/22/24: CULTURE NORMAL SKIN HERIBERTO. RX PRE-EMPTIVELY GIVEN FOR CLINDAMYCIN 04/19/24: X-RAYS LEFT LEG REVEALED EXPECTED APPEARANCE OF ORTHOPEDIC SURGICAL HARDWARE. NO ACUTE BONY ABNORMALITY. NO PLAIN FILM EVIDENCE OF OSTEOMYELITIS. 04/19/24: X-RAY LEFT ANKLE REVEALED DIFFUSE OSTEOPENIA. NO PLAIN FILM EVIDENCE OF OSTEOMYELITIS. 04/23: WBC 6.2, HEMOGLOBIN 12.1, HCT 37.3, ELECTROLYTES UNREMARKABLE, BUN 9, CREATININE 0.7, LFTS NORMAL FAMILY HISTORY YESI HEBERT [id number] 1950 THIS INFORMATION WAS OBTAINED FROM THE PATIENT. CANCER- MOTHER HEART DISEASE- FATHER HYPERTENSION- FATHER LUNG DISEASE- MATERNAL GRANDPARENTS, [place] SOCIAL HISTORY THIS INFORMATION WAS OBTAINED FROM THE PATIENT. 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 PATIENT HAS A MEDICAL HISTORY OF: BREAST CANCER HYPERTENSION PERIPHERAL VASCULAR DISEASE (RIGHT LEG STENT) HIGH CHOLESTEROL HYPOTHYROIDISM GASTRIC ULCERS ADDITIONAL INFORMATION DOES PATIENT HAVE A HISTORY OF CANCER? YES? COMPLETE ALL QUESTIONS.: NO SURGICAL HISTORY THIS INFORMATION WAS OBTAINED FROM THE PATIENT. PATIENT HAS A SURGICAL HISTORY OF: BREAST MASTECTOMY- (RIGHT SIDE - 2006) STENT PLACEMENT- (LEFT LOWER EXTREMITY - 2010) RIGHT LEG FRACTURE- LEFT LEG STENTS PLACED- REVIEW OF SYSTEMS (ROS) THIS INFORMATION WAS OBTAINED FROM THE PATIENT. COMPLAINTS AND SYMPTOMS PATIENT COM PLAINS OF: GENERAL NOTES: I HAVE REVIEWED AND CONCUR WITH THE REVIEW OF SYSTEMS AND PAST FAMILY SOCIAL HISTORY DOCUMENTS COMPLETED BY THE CLINICIAN, I HAVE REVIEWED AND CONCUR WITH THE WOUND ASSESSMENT DOCUMENT COMPLETED BY THE CLINICIAN ALLERGIC/IMMUNOLOGIC: FREQUENT RASHES CARDIOVASCULAR (CENTRAL): DYSPNEA ON EXERTION CARDIOVASCULAR (CENTRAL/PERIPHERAL): LOWER EXTREMITY (LEG) SWELLING CO-MORBID CONDITIONS: PERIPHERAL ARTERIAL DISEASE, VENOUS INSUFFIENCY YESI HEBERT [id number] 1950 INTEGUMENTARY (HAIR/SKIN/NAILS): HEMOSIDERIN STAINING, OPEN SORE PRIOR WOUND HISTORY: DRAINAGE, ERYTHEMA, PAIN PATIENT DENIES COM PLAINTS OR SY M PTOM S RELATED TO: CARDIOVASCULAR (CENTRAL): CHEST PAIN CARDIOVASCULAR (CENTRAL/PERIPHERAL): INTERMITTENT CLAUDICATION, LOWER EXTREMITY (LEG) RESTING PAIN CONSTITUTIONAL SYMPTOMS (GENERAL HEALTH): CHILLS, FEVER EAR/NOSE/MOUTH/THROAT: HEARING LOSS / AID HEMATOLOGIC/LYMPHATIC: BLEEDING / CLOTTING DISORDERS, BLEEDING TENDENCY NEUROLOGICAL: LOSS OF PROTECTIVE SENSATION PRIOR WOUND HISTORY: BLEEDING PSYCHIATRIC: MEMORY LOSS RESPIRATORY: COUGH, SHORTNESS OF BREATH OBJECTIVE VITALS HEIGHT/LENGTH: 63 IN (160.02 CM), WEIGHT: 121.4 LBS (55.18 KGS), BMI: 21.5, TEMPERATURE: 98.2 ?F (36.78 ?C), PULSE: 64 BPM, RESPIRATORY RATE: 16 BREATHS/MIN, BLOOD PRESSURE: 160/77 MMHG, PULSE OXIMETRY: 98 %. PHYSICAL EXAM CONSTITUTIONAL: VITAL SIGNS REVIEWED AND NOTED. WELL DEVELOPED, WELL NOURISHED, AND IN NO ACUTE DISTRESS. ALERT AND ORIENTED X3. RESPIRATORY: EVEN RESPIRATIONS WITHOUT USE OF ACCESSORY MUSCLES. NO INTERCOASTAL RETRACTIONS NOTED. EVEN AND NON LABORED RESPIRATION. INTEGUMENTARY (HAIR, SKIN): SEE WOUND ASSESSMENT. SKIN WARM AND DRY . NO RASHES. NEUROLOGICAL: SENSATION: SYMMETRIC FUNCTION BY INFORMAL OBSERVATION. PSYCHIATRIC: ORIENTATION TO TIME, PLACE AND PERSON: NORMAL AFFECT WITH NORMAL THOUGHT PATTERN. ADDITIONAL INFORMATION THE PATIENT'S POTENTIAL TO HEAL IS: FAIR. LOWER EXTREMITY ASSESSMENT EDEMA ASSESSMENT: LEFT EXTREMITY: EDEMA IS NOT PRESENT COMPRESSION DEVICE IN USE: NO CALF MEASUREMENT 32 CM FROM WITH LEFT MEASUREMENT OF 28 CM ANKLE MEASUREMENT 5 CM FROM HEEL WITH LEFT MEASUREMENT OF 19 CM FOOT MEASUREMENT CM FROM FOOT WITH LEFT MEASUREMENT OF 20 CM RIGHT EXTREMITY: EDEMA IS NOT PRESENT COMPRESSION DEVICE IN USE: NO VASCULAR ASSESSMENT LEFT EXTREMITY COLORS, HAIR GROWTH, AND CONDITIONS: EXTREMITY COLOR: RED HAIR GROWTH ON EXTREMITY: YES TEMPERATURE OF EXTREMITY: WARM CAPILARY REFILL: < 3 SECONDS ERYTHEMA: YES YESI HEBERT [id number] 1950 DEPENDENT RUBOR: NO HYPERPIGMENTATION: NO LIPODERMATOSCLEROSIS: NO OFF-LOADING: LEFT OFF-LOADING DEVICE IN USE: NO RIGHT OFF-LOADING DEVICE IN USE: NO WOUND ASSESSMENT(S) WOUND #5 LEFT, MEDIAL ANKLE IS A CHRONIC FULL THICKNESS VASCULAR ACQUIRED ON 05/31/2023 AND HAS RECEIVED A STATUS OF NOT HEALED. INITIAL WOUND ENCOUNTER MEASUREMENTS ARE 4.6CM LENGTH X 5CM WIDTH X 0.2 CM DEPTH, WITH AN AREA OF 23 SQ CM AND A VOLUME OF 4.6 CUBIC CM.INITIAL WOUND ENCOUNTER PREVIOUS MEASUREMENTS FROM 01/16/2025 ARE 4.6CM LENGTH X 4.2CM WIDTH X 0.2CM DEPTH, WITH AN AREA OF 19.32 SQ CM AND A VOLUME OF 3.864 CUBIC CM. ADIPOSE IS EXPOSED. HYPERGRANULATION WAS NOTED. NO TUNNELING HAS BEEN NOTED. NO SINUS TRACT HAS BEEN NOTED. NO UNDERMINING HAS BEEN NOTED. THERE IS A MODERATE AMOUNT OF SEROSANGUINEOUS DRAINAGE NOTED WHICH HAS NO ODOR. THE PATIENT REPORTS A WOUND PAIN OF LEVEL 0/10. THE WOUND MARGIN IS ATTACHED WOUND BED HAS YES, BRIGHT RED, PINK, FIRM, GRANULATION, YES SLOUGH, NO ESCHAR, YES EPITHELIALIZATION. THE PERIWOUND SKIN EXHIBITED EDEMA, EXCORIATION AND ERYTHEMA. THE PERIWOUND SKIN DID NOT EXHIBIT MACERATION. THE PERIWOUND SKIN WAS MOIST. THE PERIWOUND SKIN WAS NOT FRIABLE AND DRY/SCALY. THE TEMPERATURE OF THE PERIWOUND SKIN IS WNL. PERIWOUND SKIN DOES NOT EXHIBIT SIGNS OR SYMPTOMS OF INFECTION. LOCAL PULSE IS DOPPLER. ADDITIONAL INFORMATION DONE OUTSIDE OF CENTER (RESULTS SCANNED IN)?: REQUESTED RESULTS FROM [facility] IN [place]. ASSESSMENT ACTIVE PROBLEMS ICD-10 (ENCOUNTER DIAGNOSIS) L97.322 - NON-PRESSURE CHRONIC ULCER OF LEFT ANKLE WITH FAT LAYER EXPOSED (ENCOUNTER DIAGNOSIS) I73.9 - PERIPHERAL VASCULAR DISEASE, UNSPECIFIED (ENCOUNTER DIAGNOSIS) I87.2 - VENOUS INSUFFICIENCY (CHRONIC) (PERIPHERAL) (ENCOUNTER DIAGNOSIS) L08.9 - LOCAL INFECTION OF THE SKIN AND SUBCUTANEOUS TISSUE, UNSPECIFIED GENERAL NOTES ULCER MEDIAL LEFT ANKLE WITH STABLE MEASUREMENTS, GOOD TISSUE QUALITY THE FOLLOWING FACTORS HAVE BEEN IDENTIFIED THAT MAY AFFECT WOUND HEALING: DEVITALIZED TISSUE BIOFILM INFECTION PAD VENOUS INSUFFICIENCY GOALS: REMOVED DEVITALIZED TISSUE REMOVE AND PREVENT BIOFILM IDENTIFY AND TREAT INFECTION PROTEIN SUPPLEMENTATION ASSESS ARTERIAL CIRCULATION WOUND CLOSURE PLAN: DEBRIDEMENT, CONTINUE DRESSING CHANGES WITH URGO CLEAN TO LEFT ANKLE 3 TIMES A WEEK, CLEANSE ULCER WITH VASHE SOLUTION WITH EACH DRESSING CHANGE. APPLY BARRIER CREAM TO PERIWOUND SKIN. CONTINUE HEBERTNERYA Wilber [id number] 1950 PROTEIN SUPPLEMENTATION, FOLLOW UP IN 1 WEEK FOR A RECHECK. PROCEDURES WOUND #5 WOUND #5 (VASCULAR) IS LOCATED ON THE LEFT, MEDIAL ANKLE. A SKIN/SUBCUTANEOUS TISSUE LEVEL SURGICAL DEBRIDEMENT WITH A TOTAL AREA DEBRIDED OF 23.5 SQ CM. WAS PERFORMED BY RAMAKRISHNA GALEAS MD. SUBCUTANEOUS WAS REMOVED ALONG WITH DEVITALIZED TISSUE: BIOFILM, FIBRIN AND SLOUGH. THE FOLLOWING INSTRUMENT(S) WERE USED: BLADE AND CURETTE. PAIN CONTROL WAS ACHIEVED USING 4% LIDO. A TIME OUT WAS CONDUCTED PRIOR TO THE START OF THE PROCEDURE. A MINIMAL AMOUNT OF BLEEDING WAS CONTROLLED WITH PRESSURE. THE PROCEDURE WAS TOLERATED WELL WITH A PAIN LEVEL OF 0 THROUGHOUT AND A PAIN LEVEL OF 0 FOLLOWING THE PROCEDURE. POST DEBRIDEMENT MEASUREMENTS: 4.7CM LENGTH X 5CM WIDTH X 0.2CM DEPTH; WITH AN AREA OF 23.5 SQ CM AND A VOLUME OF 4.7 CUBIC CM. ADDITIONAL INFORMATION MUSCLE FASCIA OR BONE REMOVED AND SENT TO PATHOLOGY?: NO PLAN WOUND ORDERS: WOUND #5 LEFT, MEDIAL ANKLE HAND HYGIENE HAND HYGIENE - WASH HANDS BEFORE AND AFTER WOUND CARE. CALL THE WOUND CENTER AT [phone] IF YOU HAVE SIGNS OR SYMPTOMS OF INFECTION, FEVER CHILLS OR SHAKES, INCREASED DRAINAGE, INCREASED ODOR OR UNUSUAL REDNESS. AFTER WOUND CENTER HOURS PLEASE NOTIFY YOUR PCP OR GO TO THE EMERGENCY ROOM. CLEANSER CLEANSE WOUND WITH NORMAL SALINE CLEANSE WOUND WITH HYPOCHLOROUS ACID (VASHE OR SIMILAR) THEN APPLY HYPOCHLOROUS ACID SOAKED 4X4 GAUZE TO WOUND BED FOR 5-10 MINUTES AFTER WOUND ASSESSMENT COMPLETED. - IF AVAILABLE .. MAKE SURE YOU WASH THE VASHE OFF AFTER THE SOAK WITH NORMAL SALINE. MAY SHOWER, LEAVE WOUND DRESSING INTACT. COVER WOUND DRESSING WITH A WATERPROOF BARRIER. KEEP DRESSING DRY. NO BATHS PLEASE. PROCEDURE / ANESTHETIC 4% TOPICAL LIDOCAINE TO WOUND BED PRIOR TO PROCEDURE, IN CLINIC ONLY. DRESSING ORDERS APPLY DRESSING(S) AND SECURE WITH: - URGOCLEAN AG TO WOUND BED, MEXTRA AND ROLL GAUZE BARRIER CREAM ALAN-WOUND DRESSING CHANGE FREQUENCY CHANGE DRESSING 3 TIMES PER WEEK. ADDITIONAL ORDERS: DIETARY TAKE VITAMIN C 1000MG BY MOUTH DAILY. TAKE ZINC 25MG BY MOUTH DAILY. INCREASE THE PROTEIN IN YOUR DIET. HOME HEALTH HOME HEALTH CARE: IF YOU HAVE ANY QUESTIONS OR CONCERNS PLEASE CONTACT THE WOUND CENTER. - [facility]LEASE SEE PATIENT EVERY TUESDAY AND TUESDAY. [facility] PLEASE SEE PATIENT ON FEBRUARY 06 AND January IN ADDITION TO TUESDAY AND TUESDAY THESE WEEKS. FOLLOW-UP APPOINTMENTS RETURN APPOINTMENT 1 WEEK OTHER ORDERS: - PLEASE CALL TO SCHEDULE PODIATRY APPOINTMENT WITH DR. JENNINGS [facility]: YESI HEBERT [id number] 1950 SCRIBING ATTESTATION I ATTEST, THE NURSE, THAT I SCRIBED THESE ORDERS FOR THE WOUND CARE PROVIDER. PROVIDER REVIEW AND ATTESTATION: REVIEWED AND EVALUATED LABS. REVIEWED HOSPITAL RECORDS. DISCUSSED THE PLAN OF CARE @ BEDSIDE WITH - THE PATIENT I AGREE AND ATTEST TO THE ABOVE INFORMATION PROVIDED FROM OTHER LICENSED PROFESSIONALS. PLAN OF CARE: 01. ENSURE/ESTABLISH OPTIMAL BLOOD FLOW : - COMPLETE LOWER EXTREMITY ASSESSMENT STATUS: CONTINUED DATE: 01/23/2025 - PERFORM NON-INVASIVE VASCULAR TESTING (I.E. ZHENG) AND DOCUMENT FINDINGS. CONSIDER REPEATING WHEN WOUND HEALING <40% AFTER 30 DAYS OF WOUND CARE. - ORDER VASCULAR CONSULT FOR EVALUATION/TREATMENT AND/OR NON-INVASIVE VASCULAR TESTING. - VASCULAR PROCEDURE DONE. STATUS: COMPLETED DATE: 12/12/2024 02. ASSESS FOR/TREAT INFECTION : - EVALUATE FOR SIGNS AND SYMPTOMS OF INFECTION AND DOCUMENT FINDINGS. STATUS: CONTINUED DATE: 01/23/2025 03. DEBRIDE WEEKLY OR MORE OFTEN PRN : - EVALUATE PATIENT IN CENTER WEEKLY TO ASSESS WOUND BED AND MARGINS FOR NEED FOR DEBRIDEMENT. STATUS: CONTINUED DATE: 01/23/2025 - DEBRIDEMENT BY ANY METHOD TO REMOVE DEVITALIZED/NECROTIC TISSUE TO PROMOTE HEALING AND PREVENT FURTHER COMPLICATIONS. GOAL IS TO STIMULATE AND/OR MAINTAIN ACUTE PHASE OF WOUND HEALING BY REDUCING BACTERIAL BURDEN AND DEVITALIZED/NON-VIABLE TISSUE. STATUS: CONTINUED DATE: 01/23/2025 04. OPTIMIZE GLUCOSE CONTROL AND NUTRITION : - ORDER/REVIEW PERTINENT LABS TO EVALUATE RENAL FUNCTION, GLUCOSE CONTROL, AND NUTRITIONAL STATUS. STATUS: CONTINUED DATE: 01/23/2025 - COMPLETE A NUTRITION RISK ASSESSMENT. STATUS: COMPLETED DATE: 04/19/2024 05. OFFLOADING PLAN : - REVIEWED, NOT APPLICABLE 06. OPTIMIZE HOST FACTORS: - ASSESS AND REVIEW PATIENT HISTORY FOR WOUND ETIOLOGY, CO-MORBID CONDITIONS, MEDICATION REGIME, AND SMOKING HISTORY. STATUS: CONTINUED DATE: 01/23/2025 - ASSESS LIFESTYLE FACTORS SUCH SMOKING, ALCOHOL/DRUG ABUSE, EATING HABITS/MALNUTRITION AND ACTIVITY LEVEL. STATUS: CONTINUED DATE: 01/23/2025 07. DRESSING SELECTION : - EVALUATE FOR DRESSING-RELATED FACTORS, SUCH AVAILABILITY, WEAR TIME, ADAPTABILITY AND USE TO BETTER OPTIMIZE WOUND HEALING AND PATIENT COMPLIANCE. STATUS: CONTINUED DATE: 01/23/2025 - CHOOSE TOPICAL TREATMENTS AND/OR DRESSING BASED ON WOUND TYPE AND APPEARANCE, PERIWOUND SKIN CONDITION, WOUND SIZE AND DEPTH, ANATOMIC LOCATION, VOLUME OF EXUDATE, EDEMA IN THE LOWER EXTREMITIES, AND RISK OR PRESENCE OF INFECTION. STATUS: CONTINUED DATE: 01/23/2025 08. ADVANCED MODALITIES : - SET TREATMENT GOALS ACCORDING TO PATIENT AND/OR CAREGIVER?S ABILITY/ COMPLIANCE. STATUS: CONTINUED DATE: 01/23/2025 YESI HEBERT [id number] 1950 - RE-EVALUATE PLAN OF CARE IF NO EVIDENCE OF HEALING (40% IN 4 WEEKS). STATUS: CONTINUED DATE: 01/23/2025 09. FALL PREVENTION : - COMPLETE FALL ASSESSMENT. STATUS: COMPLETED DATE: 10/25/2024 - PROVIDE EDUCATION MATERIALS/DISCUSS PREVENTION STRATEGIES APPROPRIATE. STATUS: CONTINUED DATE: 01/23/2025 10. PAIN MANAGEMENT : - COMPLETE PAIN ASSESSMENT STATUS: COMPLETED DATE: 11/28/2024 - INSTRUCT THE PATIENT TO CALL ?TIME-OUT? IF PAIN IS TOO INTENSE DURING PROCEDURE. STATUS: CONTINUED DATE: 01/23/2025 11. MEASURABLE GOALS FOR WOUND HEALING AND/OR HYPERBARIC OXYGEN THERAPY : - IMPLEMENT PROTOCOLS TO PROMOTE HEALING AND IMPEDE FURTHER INJURY STATUS: CONTINUED DATE: 12/12/2024 - IMPROVE/PROMOTE TISSUE VIABILITY AND PERFUSION STATUS: COMPLETED DATE: 10/01/2024 12. DURATION/FREQUENCY OF WOUND CARE VISITS : - 1X WEEKLY FOR 30 DAYS STATUS: CONTINUED DATE: 01/23/2025 ELECTRONIC SIGNATURE(S) SIGNED BY: DATE: RAMAKRISHNA GALEAS MD 01/23/2025 15:50:59 (PT) ENTERED BY: RAMAKRISHNA GALEAS MD ON 01/23/2025 15:45:33 (PT) YESI HEBERT [id number] 1950
== END ==
PROVIDERS: Family Provider Physician Assistant Medical; PCP Physician Assistant Medical; Referring Provider Physician Assistant Medical; Visit Provider Surgery
DX: I73.9 Peripheral vascular disease, unspecified (principal); I87.2 Venous insufficiency (chronic) (peripheral); L97.322 Non-pressure chronic ulcer of left ankle with fat layer exposed; R60.0 Localized edema
CPT/HCPCS: 11042; 11045; 99213

== ENCOUNTER → 2025-02-27 14:54 | Outpatient (CLI) | payer MEDICARE, OTHER, SELFPAY | LOC: WC 14:55 | PROVIDERS: Family Provider Physician Assistant Medical; PCP Physician Assistant Medical; Referring Provider Physician Assistant Medical; Visit Provider Surgery | DX: I87.2 Venous insufficiency (chronic) (peripheral) (principal); I73.9 Peripheral vascular disease, unspecified; L97.322 Non-pressure chronic ulcer of left ankle with fat layer exposed; L08.9 Local infection of the skin and subcutaneous tissue, unspecified; L53.8 Other specified erythematous conditions | CPT/HCPCS: 11042; 11045; 87070; 87075; 87077; 87186; 87205; 99213 ==

== ENCOUNTER → 2025-03-06 16:00 | Outpatient (CLI) | payer MEDICARE, OTHER, SELFPAY | LOC: WC 16:01 | PROVIDERS: Family Provider Physician Assistant Medical; PCP Physician Assistant Medical; Referring Provider Physician Assistant Medical; Visit Provider Surgery | DX: I87.2 Venous insufficiency (chronic) (peripheral) (principal); L97.322 Non-pressure chronic ulcer of left ankle with fat layer exposed; I73.9 Peripheral vascular disease, unspecified; L08.9 Local infection of the skin and subcutaneous tissue, unspecified | CPT/HCPCS: 11042; 11045 ==

== ENCOUNTER → 2025-03-13 15:33 | Outpatient (CLI) | payer MEDICARE, OTHER, SELFPAY | LOC: WC 15:35 | PROVIDERS: Family Provider Physician Assistant Medical; PCP Physician Assistant Medical; Referring Provider Physician Assistant Medical; Visit Provider Surgery | DX: I87.2 Venous insufficiency (chronic) (peripheral) (principal); L97.322 Non-pressure chronic ulcer of left ankle with fat layer exposed; I73.9 Peripheral vascular disease, unspecified; L08.9 Local infection of the skin and subcutaneous tissue, unspecified | CPT/HCPCS: 11042; 11045 ==

== ENCOUNTER → 2025-03-20 16:16 | Outpatient (CLI) | payer MEDICARE, OTHER, SELFPAY | PROVIDERS: Family Provider Physician Assistant Medical; PCP Physician Assistant Medical; Referring Provider Physician Assistant Medical; Visit Provider Surgery | DX: I87.2 Venous insufficiency (chronic) (peripheral) (principal); L97.322 Non-pressure chronic ulcer of left ankle with fat layer exposed; I73.9 Peripheral vascular disease, unspecified; L08.9 Local infection of the skin and subcutaneous tissue, unspecified | CPT/HCPCS: 11042; 11045 ==

== ENCOUNTER → 2025-03-27 14:24 | Outpatient (CLI) | payer MEDICARE, OTHER, SELFPAY | PROVIDERS: Family Provider Physician Assistant Medical; PCP Physician Assistant Medical; Referring Provider Physician Assistant Medical; Visit Provider Surgery | DX: I87.2 Venous insufficiency (chronic) (peripheral) (principal); L97.322 Non-pressure chronic ulcer of left ankle with fat layer exposed; I73.9 Peripheral vascular disease, unspecified | CPT/HCPCS: 11042; 11045; 99213 ==

== ENCOUNTER → 2025-04-03 14:29 | Outpatient (CLI) | payer MEDICARE, OTHER, SELFPAY | LOC: WC 14:30 | PROVIDERS: Family Provider Physician Assistant Medical; PCP Physician Assistant Medical; Referring Provider Physician Assistant Medical; Visit Provider Surgery | DX: I87.2 Venous insufficiency (chronic) (peripheral) (principal); L97.322 Non-pressure chronic ulcer of left ankle with fat layer exposed; I73.9 Peripheral vascular disease, unspecified; L08.9 Local infection of the skin and subcutaneous tissue, unspecified | CPT/HCPCS: 11042; 11045 ==

== ENCOUNTER → 2025-04-10 14:28 | Outpatient (CLI) | payer MEDICARE, OTHER, SELFPAY | LOC: WC 14:53 | PROVIDERS: Family Provider Physician Assistant Medical; PCP Physician Assistant Medical; Referring Provider Physician Assistant Medical; Visit Provider Surgery | DX: I87.2 Venous insufficiency (chronic) (peripheral) (principal); L97.322 Non-pressure chronic ulcer of left ankle with fat layer exposed; I73.9 Peripheral vascular disease, unspecified; L53.9 Erythematous condition, unspecified | CPT/HCPCS: 11042; 11045 ==

== ENCOUNTER → 2025-04-17 16:28 | Outpatient (CLI) | payer MEDICARE, OTHER, SELFPAY | LOC: WC 16:31 | PROVIDERS: Family Provider Physician Assistant Medical; PCP Physician Assistant Medical; Referring Provider Physician Assistant Medical; Visit Provider Surgery | DX: I87.2 Venous insufficiency (chronic) (peripheral) (principal); L97.322 Non-pressure chronic ulcer of left ankle with fat layer exposed; I73.9 Peripheral vascular disease, unspecified; L08.9 Local infection of the skin and subcutaneous tissue, unspecified | CPT/HCPCS: 11042; 11045 ==

== ENCOUNTER → 2025-04-24 15:48 | Outpatient (CLI) | payer MEDICARE, OTHER, SELFPAY | PROVIDERS: Family Provider Physician Assistant Medical; PCP Physician Assistant Medical; Referring Provider Physician Assistant Medical; Visit Provider Surgery | DX: I87.2 Venous insufficiency (chronic) (peripheral) (principal); L97.322 Non-pressure chronic ulcer of left ankle with fat layer exposed; I73.9 Peripheral vascular disease, unspecified; L08.9 Local infection of the skin and subcutaneous tissue, unspecified | CPT/HCPCS: 11042; 11045; 99213 ==

== ENCOUNTER → 2025-05-01 14:47 | Outpatient (CLI) | payer MEDICARE, OTHER, SELFPAY | LOC: WC 14:49 | PROVIDERS: Family Provider Physician Assistant Medical; PCP Physician Assistant Medical; Referring Provider Physician Assistant Medical; Visit Provider Surgery | DX: I87.2 Venous insufficiency (chronic) (peripheral) (principal); L97.322 Non-pressure chronic ulcer of left ankle with fat layer exposed; I73.9 Peripheral vascular disease, unspecified; L08.9 Local infection of the skin and subcutaneous tissue, unspecified | CPT/HCPCS: 11042; 11045 ==

== ENCOUNTER → 2025-05-08 14:42 | Outpatient (CLI) | payer MEDICARE, OTHER, SELFPAY | PROVIDERS: Family Provider Physician Assistant Medical; PCP Physician Assistant Medical; Referring Provider Physician Assistant Medical; Visit Provider Surgery | DX: I87.2 Venous insufficiency (chronic) (peripheral) (principal); L97.322 Non-pressure chronic ulcer of left ankle with fat layer exposed; I73.9 Peripheral vascular disease, unspecified | CPT/HCPCS: 11042; 11045 ==

== ENCOUNTER → 2025-05-14 13:13 | Outpatient (CLI) | payer MEDICARE, OTHER, SELFPAY | LOC: WC 13:28 | PROVIDERS: Family Provider Physician Assistant Medical; PCP Physician Assistant Medical; Referring Provider Physician Assistant Medical; Visit Provider Surgery | DX: I87.2 Venous insufficiency (chronic) (peripheral) (principal); L97.322 Non-pressure chronic ulcer of left ankle with fat layer exposed; I73.9 Peripheral vascular disease, unspecified; Z86.14 Personal history of Methicillin resistant Staphylococcus aureus infection | CPT/HCPCS: 11042; 11045 ==

== ENCOUNTER → 2025-05-22 14:32 | Outpatient (CLI) | payer MEDICARE, OTHER, SELFPAY | LOC: WC 14:33 | PROVIDERS: Family Provider Physician Assistant Medical; PCP Physician Assistant Medical; Referring Provider Physician Assistant Medical; Visit Provider Surgery | DX: L97.322 Non-pressure chronic ulcer of left ankle with fat layer exposed (principal); I73.9 Peripheral vascular disease, unspecified; I87.2 Venous insufficiency (chronic) (peripheral); I10 Essential (primary) hypertension | CPT/HCPCS: 11042; 11045; 99213 ==

== ENCOUNTER → 2025-05-29 14:44 | Outpatient (CLI) | payer MEDICARE, OTHER, SELFPAY | LOC: WC 15:20 | PROVIDERS: Family Provider Physician Assistant Medical; PCP Physician Assistant Medical; Referring Provider Physician Assistant Medical; Visit Provider Surgery | DX: L97.322 Non-pressure chronic ulcer of left ankle with fat layer exposed (principal); I73.9 Peripheral vascular disease, unspecified; I87.2 Venous insufficiency (chronic) (peripheral); L92.9 Granulomatous disorder of the skin and subcutaneous tissue, unspecified; I10 Essential (primary) hypertension; Z79.01 Long term (current) use of anticoagulants; Z85.3 Personal history of malignant neoplasm of breast; E03.9 Hypothyroidism, unspecified | CPT/HCPCS: 11042; 11045 ==

== ENCOUNTER → 2025-08-07 15:51 | Outpatient (CLI) | payer MEDICARE, OTHER, SELFPAY | LOC: WC 15:54 | PROVIDERS: Family Provider Physician Assistant Medical; PCP Physician Assistant Medical; Referring Provider Physician Assistant Medical; Visit Provider Surgery | DX: I87.2 Venous insufficiency (chronic) (peripheral) (principal); L97.322 Non-pressure chronic ulcer of left ankle with fat layer exposed; I73.9 Peripheral vascular disease, unspecified; L98.8 Other specified disorders of the skin and subcutaneous tissue; L81.8 Other specified disorders of pigmentation; I10 Essential (primary) hypertension; Z86.14 Personal history of Methicillin resistant Staphylococcus aureus infection; Z95.820 Peripheral vascular angioplasty status with implants and grafts; Z88.1 Allergy status to other antibiotic agents; Z88.6 Allergy status to analgesic agent | CPT/HCPCS: 11042; 99213 ==

== ENCOUNTER → 2025-08-21 14:11 | Outpatient (CLI) | payer MEDICARE, OTHER, SELFPAY | LOC: WC 14:12 | PROVIDERS: Family Provider Physician Assistant Medical; PCP Physician Assistant Medical; Referring Provider Physician Assistant Medical; Visit Provider Surgery | DX: I87.2 Venous insufficiency (chronic) (peripheral) (principal); L97.322 Non-pressure chronic ulcer of left ankle with fat layer exposed; I73.9 Peripheral vascular disease, unspecified | CPT/HCPCS: 11042 ==

== ENCOUNTER → 2025-08-28 14:44 | Outpatient (CLI) | payer MEDICARE, OTHER, SELFPAY | LOC: WC 14:56 | PROVIDERS: Family Provider Physician Assistant Medical; PCP Physician Assistant Medical; Referring Provider Physician Assistant Medical; Visit Provider Surgery | DX: I87.2 Venous insufficiency (chronic) (peripheral) (principal); L97.322 Non-pressure chronic ulcer of left ankle with fat layer exposed; I73.9 Peripheral vascular disease, unspecified; I10 Essential (primary) hypertension; Z86.14 Personal history of Methicillin resistant Staphylococcus aureus infection; Z79.01 Long term (current) use of anticoagulants; Z98.62 Peripheral vascular angioplasty status; Z88.1 Allergy status to other antibiotic agents; Z88.5 Allergy status to narcotic agent | CPT/HCPCS: 11042; 11045 ==

== ENCOUNTER → 2025-09-04 14:50 | Outpatient (CLI) | payer MEDICARE, OTHER, SELFPAY | LOC: WC 14:52 | PROVIDERS: Family Provider Physician Assistant Medical; PCP Physician Assistant Medical; Referring Provider Physician Assistant Medical; Visit Provider Surgery | DX: L97.322 Non-pressure chronic ulcer of left ankle with fat layer exposed (principal); I73.9 Peripheral vascular disease, unspecified; I87.2 Venous insufficiency (chronic) (peripheral); L53.9 Erythematous condition, unspecified; R60.0 Localized edema | CPT/HCPCS: 11042; 11045 ==

== ENCOUNTER → 2025-09-04 14:56 | Outpatient (CLI) | payer MEDICARE, OTHER, SELFPAY | LOC: WC 09-05 14:58 | PROVIDERS: Family Provider Physician Assistant Medical; PCP Physician Assistant Medical; Referring Provider Physician Assistant Medical; Visit Provider Surgery | DX: I87.2 Venous insufficiency (chronic) (peripheral) (principal); L97.322 Non-pressure chronic ulcer of left ankle with fat layer exposed; I73.9 Peripheral vascular disease, unspecified; L53.8 Other specified erythematous conditions; R20.8 Other disturbances of skin sensation | CPT/HCPCS: 11042; 11045; 99213 ==

== ENCOUNTER → 2025-09-11 14:27 | Outpatient (CLI) | payer MEDICARE, OTHER, SELFPAY | LOC: WC 14:30 | PROVIDERS: Family Provider Physician Assistant Medical; PCP Physician Assistant Medical; Referring Provider Physician Assistant Medical; Visit Provider Surgery | DX: I87.2 Venous insufficiency (chronic) (peripheral) (principal); L97.322 Non-pressure chronic ulcer of left ankle with fat layer exposed; I73.9 Peripheral vascular disease, unspecified; L53.8 Other specified erythematous conditions; Z79.01 Long term (current) use of anticoagulants | CPT/HCPCS: 11042; 11045; 87070; 87075; 87077; 87147; 87186; 87205; 99213 ==

== ENCOUNTER → 2025-09-12 16:26 | Outpatient (CLI) | payer MEDICARE, OTHER, SELFPAY ==
--- NOTE | 2025-09-12 16:31 | DI.US.S_ITS ---
PROCEDURE: US ARTERIAL DUPLEX LE LT INDICATIONS: eval arterial status, hx stents TECHNIQUE: Color and pulse Doppler interrogation was performed of the left lower extremity arterial system, with image documentation. COMPARISON: None. FINDINGS: Common femoral artery: 98 cm/sec, with triphasic flow. Deep femoral artery: 120 cm/sec, with triphasic flow. Proximal superficial femoral artery: 30 cm/sec, with triphasic flow. Mid superficial femoral artery: 16 cm/sec, with triphasic flow. Pre occlusive thumb Distal superficial femoral artery: Occluded Popliteal artery: 13 cm/sec, with monophasic flow. Posterior tibial artery: 25 cm/sec, with monophasic flow. Anterior tibial artery/dorsalis pedis: 7 cm/sec, with monophasic flow. IMPRESSION: Occluded distal superficial femoral artery. Trace flow is seen distally, with dampened waveforms. Dictated by: Chan Dorado M.D. on 09/12/2025 at 18:14 Approved by: Chan Dorado M.D. on 09/12/2025 at 18:16
== END ==
PROVIDERS: Family Provider Physician Assistant Medical; PCP Physician Assistant Medical; Referring Provider Surgery; Visit Provider Surgery
DX: L97.322 Non-pressure chronic ulcer of left ankle with fat layer exposed (principal); I70.202 Unspecified atherosclerosis of native arteries of extremities, left leg
CPT/HCPCS: 93926

== ENCOUNTER 2025-10-10 12:02 | Inpatient (IN) | payer MEDICARE, OTHER, SELFPAY ==
[2025-10-10] VITALS (35 sets, daily range): BP systolic 91–135; BP diastolic 6–72; PULSE 40–91; RESP 10–25; TEMP 36.2–36.8; O2SAT 90–100; BMI 18.8; BMI 19.3
--- NOTE | 2025-10-10 12:13 | DI.RAD.S_ITS ---
PROCEDURE: XR CHEST 1V INDICATIONS: Shortness of breath TECHNIQUE: One view of the chest was acquired. COMPARISON: [facility], CR, XR CHEST 1 VIEW, 01/15/2024, 12:20. FINDINGS: Surgical changes and devices: Surgical clips project over the left breast. Lungs and pleura: Small left pleural effusion and left basilar atelectasis. Right lung is clear. No pneumothorax. Mediastinum: Mediastinal contours appear normal. Heart size is borderline. Bones and chest wall: Suspected remote prior healed rib fractures. Bones are osteopenic. No suspicious bony lesions. Overlying soft tissues appear unremarkable. IMPRESSION: Small left pleural effusion with left basilar atelectasis. Approved by: Maxx Mason M.D. on 10/10/2025 at 13:06
--- NOTE | 2025-10-10 12:13 | EKG_ITS ---
[facility] [id number] [place] [id number] Test Date: 2025-10-10 Pat Name: Jane Melchor Department: Room: Gender: Female Internal Control Consultant: LEIGH ANN : 1950 Requested By: Order Number: [id number] Reading MD: Randy Casey MD Measurements Intervals [place] Rate: 54 P: 58 LA: 176 QRS: 5 QRSD: 74 T: 227 QT: 424 QTc: 402 Interpretive Statements Sinus bradycardia Possible Anterior infarct , age undetermined ST & T wave abnormality, consider inferolateral ischemia Electronically Signed On 10-10-2025 17:18:39 PST by Randy Casey MD
[2025-10-10 12:42] LABS: Hematocrit 32.2 % (36-46); Hemoglobin 10.7 g/dL (12.0-16.0); Lymphocytes Absolute Auto 1400 /uL (1100-4500); Mean Corpuscular HGB Conc 33.2 % (30-36); Mean Corpuscular Hemoglobin 34.5 PG (26-34); Mean Corpuscular Volume 103.8 fL (80-100); Platelet Count 106 X10^3/uL (150-400)
[2025-10-10 12:44] LABS: Add Manual Diff / Slide Review SLIDE REVIEW
[2025-10-10 12:51] LABS: Alanine Aminotransferase 48 IU/L (<35); Albumin 2.3 g/dL (3.5-5.0); Albumin Globulin Ratio 1.0 (1.0-2.8); Alkaline Phosphatase 81 U/L (38-126); Blood Urea Nitrogen 26 mg/dL (7-17); Calcium 8.3 mg/dL (8.4-10.2); Carbon Dioxide 23 mmol/L (22-32); Chloride 107 mmol/L (98-107); Estimated Glomerular Filt Rate 42 mL/min (>60); Globulin 2.4 g/dL (1.7-4.1); Glucose 79 mg/dL (70-99); HEMOLYSIS < 15 (0-50); Potassium 4.1 mmol/L (3.4-5.1); Sodium 135 mmol/L (137-145); Total Protein 4.7 g/dL (6.3-8.2)
[2025-10-10 13:03] LABS: NT-proBNP (BNP-Adult 18+) 5640 pg/mL (<450); Troponin I 0.037 ng/mL (0.01-0.034)
[2025-10-10 13:26] LABS: Anisocytosis 2+; Macrocytosis 1+; Target Cells 1+
[2025-10-10 15:14] LABS: INR 2.3 (0.9-1.3); Prothrombin Time 25.9 SECONDS (9.4-12.5)
[2025-10-10 15:27] LABS: Lactate (Lactic Acid) 1.7 mmol/L (0.7-2.1)
[2025-10-10 15:41] LABS: Troponin I 0.034 ng/mL (0.01-0.034)
--- NOTE | 2025-10-10 15:52 | ED.WEAKNESS ---
HPI - Weakness General Chief complaint: Weakness Stated complaint: Weakness Time Seen by Provider: 10/10/25 15:29 Source: EMS, RN notes reviewed and old records reviewed Mode of arrival: EMS Limitations: no limitations History of Present Illness HPI Narrative: 68-year-old female history of pancreatitis, hypertension, peripheral vascular disease with prior stent in her left lower extremity on Xarelto, atenolol and pantoprazole. Patient states for the past 2 weeks she has felt increasingly short of breath she states it has been just with exertion at rest she does not feel short of breath she denies any chest pain or pressure. No fevers, no cold cough or congestion. She has had some mild nausea but no vomiting, no issues with bowel movements no black or bloody stools. She states she has a wound on her ankle that has been following with the Wound Care. She states that she did have our left lower extremity cleaned out because there some narrowing with her vascular surgeon Dr. Carrera out of belly him states it has been cleaned out 3 times in the past year. They switched her from Plavix to prasugel at that time she has been taking Xarelto persistently. Patient states no other daily medication changes there was difficulty getting her medication and so she has not been taking any aspirin or prasugel. Patient states only other prior surgery was a right mastectomy she took oral medication for 5 years afterwards but no chemo or radiation. She notes a stent in her left lower extremity. Reports allergies to codeine, scallops and does not tolerate sulfa well. No tobacco, alcohol or recreational drugs. REZA Bonilla is her primary care physician. Related Data Home Medications ?Medication ?Instructions ?Recorded ?Confirmed ascorbic acid (vitamin C) 500 mg 1,000 mg PO DAILY 10/19/18 10/19/18 chewable tablet (Vitamin C) atenolol 25 mg tablet 25 mg PO BID 10/19/18 10/19/18 clopidogrel 75 mg tablet (Plavix) 75 mg PO DAILY 10/19/18 10/19/18 fenofibrate nanocrystallized 48 mg 144 mg PO DAILY 10/19/18 10/19/18 tablet multivitamin 1 tab PO DAILY 10/19/18 10/19/18 mupirocin 2 % topical ointment 1 applic topical DAILY 10/19/18 10/19/18 omeprazole magnesium 20 mg 20 mg PO DAILY 10/19/18 10/19/18 tablet,delayed release (Prilosec OTC) potassium chloride 10 mEq 10/20/18 capsule,extended release Previous Rx's ?Medication ?Instructions ?Recorded ondansetron HCl 4 mg tablet 4 mg PO BID-TID PRN nausea and 10/21/18 (Zofran) vomiting #20 tabs linezolid 600 mg tablet 600 mg PO Q12H #14 tabs 10/30/24 Allergies Allergy/AdvReac Type Severity Reaction Status Date / Time codeine Allergy Verified 10/10/25 12:09 sulfamethoxazole (From Allergy Verified 10/10/25 12:09 Bactrim) trimethoprim (From Bactrim) Allergy Verified 10/10/25 12:09 Review of Systems Review of Systems ROS Unobtainable: All systems reviewed & are unremarkable except as noted in HPI and below Patient History Medical History Peripheral vascular disease of extremity with claudication Breast cancer Pressure ulcer of ankle Stomach ulcer Hypertension Pancreatitis Family History Mother Cancer Social History household members: spouse Smoking Status: Never smoker alcohol intake: current Smoking Status: Never smoker alcohol intake frequency: 0-2 drinks per day Exam Narrative Exam Narrative: GENERAL: Alert and oriented x three, elderly female in mild distress HEENT: Head normocephalic, atraumatic, EOMI, pupils reactive, face symmetric, moist mucous membranes NECK: Supple, full range of motion CARDIOVASCULAR: Regular rate and rhythm without murmurs, rubs or gallops. No JVD. No edema bilateral lower extremities. RESPIRATORY: Breath sounds equal bilaterally, no wheezes rales or rhonchi. No tachypnea accessory muscle use. ABDOMEN: Soft, nontender. Normoactive bowel sounds all 4 quadrants. No guarding or rebound, rigidity, no mass : No CVA tenderness EXTREMITIES: Normal range of motion, no clubbing. Patient appears to have a wound on her right inner ankle/calf. Some trace edema pedal no warmth or erythema of the toes or calf. Patient has cap refill less than 2 seconds in all 5 toes. Neurovascularly intact. NEUROLOGICAL: Cranial nerves II through XII grossly intact. Moving all extremities SKIN: Warm, dry, no petechiae, no rashes or lesions. Initial Vital Signs Initial Vital Signs: Vital Signs Temperature 98.2 F 10/10/25 12:09 Pulse Rate 56 L 10/10/25 12:09 Respiratory Rate 16 10/10/25 12:09 Blood Pressure 107/55 L 10/10/25 12:09 Pulse Oximetry 96 10/10/25 12:09 Oxygen Delivery Method Room Air 10/10/25 12:09 Course Orders Ordered: ED Orders 10/10/25 12:13 XR chest 1V Stat EKG-12 Lead Stat Measure peak expiratory flow STAT RT Consult Eval and Treat STAT 10/10/25 12:30 Complete Blood Count AUTO DIFF Stat Comprehensive Metabolic Panel Stat NT-proBNP (BNP-Adult 18+) Stat Troponin I Stat 10/10/25 14:45 Lactate (Lactic Acid) Stat Prothrombin Time INR Stat Troponin I Stat 10/10/25 16:54 Blood Culture Stat Lactate (Lactic Acid) Stat Procalcitonin Stat 10/10/25 16:55 Wound Culture and Gram Stain Stat Discontinued Medications Sodium Chloride (Normal Saline 0.9%) 1,000 mls @ 1,000 mls/hr IV BOLUS ONE Stop: 10/10/25 16:50 Last Infusion: 10/10/25 16:04 Dose: 0 mls/hr Documented By: Admin: 10/10/25 16:04 Dose: 1,000 mls/hr Documented By: VINCENT Lidocaine HCl (Lidocaine Viscous 2% 15 Ml Solution) 15 ml PO NOW ONE Stop: 10/10/25 16:51 Vital Signs Vital signs: Vital Signs - 8 hr 10/10/25 12:09 10/10/25 12:09 10/10/25 12:30 Temperature 98.2 F Pulse Rate 56 L 57 L 40 L Respiratory Rate 16 Blood Pressure 107/55 L Pulse Oximetry 96 91 90 L Oxygen Delivery Method Room Air 10/10/25 13:00 10/10/25 13:10 10/10/25 13:10 Temperature Pulse Rate 71 53 L Respiratory Rate 22 10 L Blood Pressure 100/54 L Pulse Oximetry 92 92 Oxygen Delivery Method 10/10/25 13:15 10/10/25 13:15 10/10/25 13:30 Temperature Pulse Rate 52 L Respiratory Rate 12 Blood Pressure 99/58 L 106/58 L Pulse Oximetry 92 Oxygen Delivery Method 10/10/25 13:30 10/10/25 13:45 10/10/25 13:45 Temperature Pulse Rate 52 L 54 L Respiratory Rate 19 20 Blood Pressure 95/59 L Pulse Oximetry 91 92 Oxygen Delivery Method 10/10/25 14:00 10/10/25 14:30 10/10/25 15:00 Temperature Pulse Rate 63 52 L 52 L Respiratory Rate 18 15 18 Blood Pressure Pulse Oximetry 93 97 Oxygen Delivery Method 10/10/25 15:04 10/10/25 15:04 10/10/25 15:10 Temperature Pulse Rate 55 L Respiratory Rate 15 Blood Pressure 104/52 L 95/54 L Pulse Oximetry 92 Oxygen Delivery Method 10/10/25 15:10 10/10/25 15:20 10/10/25 15:20 Temperature Pulse Rate 54 L 54 L Respiratory Rate 16 16 Blood Pressure 97/54 L Pulse Oximetry 100 96 Oxygen Delivery Method 10/10/25 15:30 10/10/25 15:30 Temperature Pulse Rate 55 L Respiratory Rate 15 Blood Pressure 95/53 L Pulse Oximetry 98 Oxygen Delivery Method MDM - Weakness Lab Data 10/10/25 12:30 10/10/25 12:30 Labs: Lab Results 10/10/25 10/10/25 Range/Units 12:30 14:45 WBC 5.3 (4.5-11.0) X10^3/uL RBC 3.11 L (4.0-5.2) X10^6/uL Hgb 10.7 L (12.0-16.0) g/dL Hct 32.2 L (36-46) % MCV 103.8 H (80-100) fL MCH 34.5 H (26-34) PG MCHC 33.2 (30-36) % RDW 21.6 H (11.6-14.8) % Plt Count 106 L (150-400) X10^3/uL Neut % (Auto) 63.3 (50-75) % Lymph % (Auto) 26.3 (25-40) % [place] % (Auto) 8.4 (3-14) % Eos % (Auto) 1.1 L (2-4) % Baso % (Auto) 0.9 (0-2) % Neut # (Auto) 3400 (4468-6336) /uL Lymph # (Auto) 1400 (1702-0193) /uL [place] # (Auto) 400 (0-900) /uL Eos # (Auto) 100 (0-450) /uL Baso # (Auto) 0 (0-100) /uL RBC Morphology See below Anisocytosis 2+ H Macrocytosis 1+ H Target Cells 1+ H PT 25.9 H (9.4-12.5) SECONDS INR 2.3 H (0.9-1.3) Sodium 135 L (137-145) mmol/L Potassium 4.1 (3.4-5.1) mmol/L Chloride 107 (98-107) mmol/L Carbon Dioxide 23 (22-32) mmol/L BUN 26 H (7-17) mg/dL Creatinine 1.31 H (0.52-1.04) mg/dL Estimated GFR 42 L (>60) mL/min BUN/Creatinine Ratio 19.8 (6-22) Glucose 79 (70-99) mg/dL Lactate 1.7 (0.7-2.1) mmol/L Calcium 8.3 L (8.4-10.2) mg/dL Total Bilirubin 2.5 H (0.2-1.3) mg/dL AST 91 H (14-36) IU/L ALT 48 H (<35) IU/L Alkaline Phosphatase 81 (38-126) U/L Troponin I 0.037 H 0.034 (0.01-0.034) ng/mL NT-Pro-B Natriuret Pep 5640 H (<450) pg/mL Total Protein 4.7 L (6.3-8.2) g/dL Albumin 2.3 L (3.5-5.0) g/dL Globulin 2.4 (1.7-4.1) g/dL Albumin/Globulin Ratio 1.0 (1.0-2.8) MDM Narrative Medical decision making narrative: Sinus bradycardia rate of 54 NV 176 QRS is 74 QTC of 402, no acute ST-elevation patient has T-wave inversion V4 5. As well as 2 3 AVF. So present in 1 and aVL. She does not have a prior for comparison. Labs show white count of 5.3 hemoglobin is 10.7 was 12.9 in October of 2024 has macrocytosis with MCV and MCH platelets are 106 was 188 on 11/14/2024 as well. INR is 2.3. Chemistries show sodium 135 BUN 26 creatinine 1.31 was 0.4 in 2018 for her creatinine I do not have any labs available in the interim. Electrolytes are otherwise appropriate glucose is 79 with a lactate of 1.7 AST is 91 with a ALT of 48 bilirubin 2.5, troponin 0.037 with a repeat of 0.034 and a BNP of 5640. Chest x-ray shows small left pleural effusion with left basilar atelectasis. Right lung is clear, no pneumothorax. Suspected remote prior healed rib fractures. Patient received fluids Patient is noted to be bradycardic little bit hypotensive, she states her blood pressure is normally 110s. Notes her only recent medication change was that she was switched from Plavix to process gel but had difficulty obtaining the medication so is currently taking atenolol, pantoprazole in her usual Xarelto but without any other antiplatelet agents. Spoke with Dr. Washburn, hospitalist who accepts for observation we did discuss adding on lactate, procalcitonin and blood cultures we will hold off on any 30 cc/kilos fluid bolus as patient appears to be in CHF. Culture was obtained. Suspect patient's hypotension is more related to congestive heart failure we will hold off on antibiotics at this time Dr. Washburn we will see patient here in the department @ [id number]. Discharge Plan Departure Patient Disposition: Admitted as Observation Clinical Impression: Congestive heart failure (CHF), Open wound of left ankle
[2025-10-10] MEDS: SODIUM CHLORIDE 0.9% 1,000 ML 1000 ML IV (16:04)
--- NOTE | 2025-10-10 16:07 | PC.NURSE ---
Patient reports pain with her LEFT forearm IV when this RN flushes it with normal saline. No blood return when drawing back on IV. Provider Ricardo made aware.
--- NOTE | 2025-10-10 16:41 | PC.NURSE ---
Provider Ricardo wants to see patients wound on LEFT leg. Provider Ricardo asks about wound care dressings and states patient seen at [facility]. This RN calls [facility] at [phone] and speaks with BETTY Santos, and asks what dressings are used for patient and they report they will walk dressings over to ED. Primary RN Georgiana made aware.
[2025-10-10] MEDS: LIDOCAINE VISCOUS 2% 15 ML SOLUTION PO (17:15)
--- NOTE | 2025-10-10 18:23 | PM.HP.IH.1 ---
History of Present Illness History of Present Illness Date Patient Seen: 10/10/25 Time Patient Seen: 17:30 Chief complaint: Weakness Narrative: 74-year-old woman with peripheral artery disease and a large chronic left ankle ulcer with recent stenting last week in [place], managed with aspirin and Xarelto, as well as atenolol and pantoprazole, reports over the past 2 weeks she has had progressive shortness of breath with exertion and mild nausea, without vomiting, recent illnesses, or problems otherwise. In the emergency department she had variable T-wave inversions on her EKG, normal cardiac enzymes, and elevated BNP of 5640, and elevated creatinine of 1.3. She was given IV fluids given mild hypotension. She is admitted for further management and evaluation. Past medical history: Peripheral arterial disease, chronic nonhealing left ankle ulcer, hypertension, hyperlipidemia, GERD, history of breast cancer status post right mastectomy Allergies: Codeine, sulfa/TMP Social history: She lives with her Cooper in [place]. She quit smoking over 20 years ago, denies alcohol use. Family history: Her mother also had breast cancer EXAM: GENERAL: This is a pleasant female patient, in no apparent distress. EYES: Pupils equal round and reactive. Extraocular motions intact. No scleral icterus. No injection or drainage. ENT: Mucous membranes pink and moist. NECK: Trachea midline. No JVD, bruits or lymphadenopathy. Supple, nontender, no meningeal signs. CARDIOVASCULAR: Regular rate and rhythm without murmurs, gallops, or rubs. RESPIRATORY: Clear to auscultation. GASTROINTESTINAL: Abdomen soft, non-tender, nondistended. EXTREMITIES: No clubbing, cyanosis, or edema. NEUROLOGIC: Alert, oriented, speech fluent, full upper and lower motor strength, no focal deficits evident. DERMATOLOGIC: Large left medial ankle stage IV ulceration occupying most of the visible ankle EKG 12:17 p.m.: Sinus bradycardia at 54 beats per minute, diffuse T-wave inversions, Q-waves leads V1 through V3. No comparison available. Chest x-ray: Small left pleural effusion with left basilar atelectasis. Assessment: 1. Congestive heart failure. 2. Acute kidney injury. 3. Chronic nonhealing left ankle ulcer, status post recent revascularization 4. Peripheral arterial disease 5. Hypertension 6. Hyperlipidemia. 7. GERD Plan: -admit to observation -echocardiogram -hold on diuresis at this point given relative hypotension and elevated creatinine -check serum lactate and procalcitonin DVT prophylaxis: On Xarelto Code status: Full code. Her is her surrogate decision maker. [facility] Medical History Breast cancer Hypertension Pancreatitis Peripheral vascular disease of extremity with claudication Pressure ulcer of ankle Stomach ulcer Family History Mother Cancer Social History household members: spouse Smoking Status: Never smoker alcohol intake: current Meds Home Medications and Allergies Home Medications ?Medication ?Instructions ?Recorded ?Confirmed ?Type ascorbic acid (vitamin C) 500 mg 1,000 mg PO DAILY 10/19/18 10/19/18 History chewable tablet (Vitamin C) atenolol 25 mg tablet 25 mg PO BID 10/19/18 10/19/18 History clopidogrel 75 mg tablet (Plavix) 75 mg PO DAILY 10/19/18 10/19/18 History fenofibrate nanocrystallized 48 mg 144 mg PO DAILY 10/19/18 10/19/18 History tablet multivitamin 1 tab PO DAILY 10/19/18 10/19/18 History mupirocin 2 % topical ointment 1 applic topical DAILY 10/19/18 10/19/18 History omeprazole magnesium 20 mg 20 mg PO DAILY 10/19/18 10/19/18 History tablet,delayed release (Prilosec OTC) potassium chloride 10 mEq 10/20/18 History capsule,extended release ondansetron HCl 4 mg tablet 4 mg PO BID-TID PRN nausea and 10/21/18 Rx (Zofran) vomiting #20 tabs linezolid 600 mg tablet 600 mg PO Q12H #14 tabs 10/30/24 Rx Allergies Allergy/AdvReac Type Severity Reaction Status Date / Time codeine Allergy Verified 10/10/25 12:09 sulfamethoxazole (From Allergy Verified 10/10/25 12:09 Bactrim) trimethoprim (From Bactrim) Allergy Verified 10/10/25 12:09 Exam Vital Signs (past 8 hours): - 10/10/25 12:09 10/10/25 12:09 10/10/25 12:30 Temperature 98.2 F Pulse Rate 56 L 57 L 40 L Respiratory Rate 16 Blood Pressure 107/55 L Pulse Oximetry 96 91 90 L Oxygen Delivery Method Room Air 10/10/25 13:00 10/10/25 13:10 10/10/25 13:10 Temperature Pulse Rate 71 53 L Respiratory Rate 22 10 L Blood Pressure 100/54 L Pulse Oximetry 92 92 Oxygen Delivery Method 10/10/25 13:15 10/10/25 13:15 10/10/25 13:30 Temperature Pulse Rate 52 L Respiratory Rate 12 Blood Pressure 99/58 L 106/58 L Pulse Oximetry 92 Oxygen Delivery Method 10/10/25 13:30 10/10/25 13:45 10/10/25 13:45 Temperature Pulse Rate 52 L 54 L Respiratory Rate 19 20 Blood Pressure 95/59 L Pulse Oximetry 91 92 Oxygen Delivery Method 10/10/25 14:00 10/10/25 14:30 10/10/25 15:00 Temperature Pulse Rate 63 52 L 52 L Respiratory Rate 18 15 18 Blood Pressure Pulse Oximetry 93 97 Oxygen Delivery Method 10/10/25 15:04 10/10/25 15:04 10/10/25 15:10 Temperature Pulse Rate 55 L Respiratory Rate 15 Blood Pressure 104/52 L 95/54 L Pulse Oximetry 92 Oxygen Delivery Method 10/10/25 15:10 10/10/25 15:20 10/10/25 15:20 Temperature Pulse Rate 54 L 54 L Respiratory Rate 16 16 Blood Pressure 97/54 L Pulse Oximetry 100 96 Oxygen Delivery Method 10/10/25 15:30 10/10/25 15:30 10/10/25 15:40 Temperature Pulse Rate 55 L Respiratory Rate 15 Blood Pressure 95/53 L 99/54 L Pulse Oximetry 98 Oxygen Delivery Method 10/10/25 15:40 10/10/25 15:50 10/10/25 15:50 Temperature Pulse Rate 53 L 55 L Respiratory Rate 16 18 Blood Pressure 105/54 L Pulse Oximetry 97 92 Oxygen Delivery Method 10/10/25 16:00 10/10/25 16:00 10/10/25 16:11 Temperature Pulse Rate 60 62 Respiratory Rate 16 18 Blood Pressure 102/58 L Pulse Oximetry 93 97 Oxygen Delivery Method 10/10/25 16:11 10/10/25 16:12 10/10/25 16:12 Temperature Pulse Rate 61 Respiratory Rate 18 Blood Pressure 105/6 L 107/50 L Pulse Oximetry 97 Oxygen Delivery Method Room Air 10/10/25 16:21 10/10/25 16:21 10/10/25 16:30 Temperature Pulse Rate 65 57 L Respiratory Rate 18 20 Blood Pressure 121/59 L Pulse Oximetry 92 94 Oxygen Delivery Method 10/10/25 17:00 10/10/25 17:30 10/10/25 17:31 Temperature Pulse Rate 57 L 55 L Respiratory Rate 17 20 Blood Pressure 113/58 L Pulse Oximetry 97 98 Oxygen Delivery Method 10/10/25 17:31 10/10/25 17:40 10/10/25 17:40 Temperature Pulse Rate 52 L 60 Respiratory Rate 19 21 Blood Pressure 135/72 Pulse Oximetry 96 97 Oxygen Delivery Method 10/10/25 18:00 Temperature Pulse Rate 62 Respiratory Rate 25 H Blood Pressure Pulse Oximetry 96 Oxygen Delivery Method Room Air Oxygen Delivery Method Room Air Objective Labs 10/10/25 12:30 10/10/25 12:30 Labs: Laboratory Results - last 24 hr 10/10/25 10/10/25 12:30 14:45 WBC 5.3 RBC 3.11 L Hgb 10.7 L Hct 32.2 L MCV 103.8 H MCH 34.5 H MCHC 33.2 RDW 21.6 H Plt Count 106 L Neut % (Auto) 63.3 Lymph % (Auto) 26.3 [place] % (Auto) 8.4 Eos % (Auto) 1.1 L Baso % (Auto) 0.9 Neut # (Auto) 3400 Lymph # (Auto) 1400 [place] # (Auto) 400 Eos # (Auto) 100 Baso # (Auto) 0 RBC Morphology See below Anisocytosis 2+ H Macrocytosis 1+ H Target Cells 1+ H PT 25.9 H INR 2.3 H Sodium 135 L Potassium 4.1 Chloride 107 Carbon Dioxide 23 BUN 26 H Creatinine 1.31 H Estimated GFR 42 L BUN/Creatinine Ratio 19.8 Glucose 79 Lactate 1.7 Calcium 8.3 L Total Bilirubin 2.5 H AST 91 H ALT 48 H Alkaline Phosphatase 81 Troponin I 0.037 H 0.034 NT-Pro-B Natriuret Pep 5640 H Total Protein 4.7 L Albumin 2.3 L Globulin 2.4 Albumin/Globulin Ratio 1.0 Quality MIPS - Admit I confirm the patient?s Advance Care Plan is present, Code status is documented, Surrogate decision maker is in patient?s record [If Yes, STOP here]: Yes [facility] - Meds 'Current medications' to include all prescriptions, [id number] products, herbals, cannabis/cannabidiol products, and vitamin/mineral/dietary (nutritional) supplements. I have utilized all available resources to obtain, update, or review the patient?s current medications. [If Yes, STOP here]: Yes [facility] [employer] Document charge(s): No Charge Codes Initial inpatient/observation care: [id number]
--- NOTE | 2025-10-10 18:45 | DI.ECHO.S_ITS ---
[place] +---------+ [facility] : : [address] : [address] : : [id number] : : Phone: [phone] Echocardiogram Report + + :Name: YESI HEBERT Study Date: 10/11/2025 Height: 64 in : :[facility] ReadingLocation: Weight: 110 lb : : Gender: Female BSA: 1.5 m2 : :: 1950 Age: 74 yrs BP: 104/60 mmHg: :Reason For Study: CONGESTIVE HEART FAILURE : :Ordering Physician: MARY, : :ELAN Performed By: Jeff Quiroga : :Referring: ELAN HERNANDEZ : + + Interpretation Summary The left ventricular cavity is small. The left ventricle is hyperdynamic. Left ventricular ejection fraction is estimated to be 75 +/- 5%. Suspect midcavity obstruction. MV E/A: 0.67 Med Peak E' Seven: 2.8 cm/sec E/E' med: 16.5 Present to previous study, LV function hyperdynamic. The right ventricle is grossly normal size. The right ventricular systolic function is normal. There is mild aortic regurgitation. There is mild tricuspid regurgitation. Compared to the prior echo exam, there has been no change in TR severity. The right ventricular systolic pressure is estimated to be at least 32 mmHg based on an estimated right atrial pressure of 3 mm Hg. The ascending aorta is mild-moderately enlarged. 4.2 cm in diameter. Previously 4.3 cm. There is a moderate left-sided pleural effusion. Unchanged from the previous study. Procedure: A two-dimensional transthoracic echocardiogram with color flow and Doppler was performed. The study quality was technically adequate. Comparison is made with the echocardiogram of 01/07/2024. The patient was in normal sinus rhythm during the exam. Left Ventricle: The left ventricular cavity is small. Left ventricular wall thickness is mildly increased. There is no ventricular septal defect visualized. The left ventricle is hyperdynamic. Left ventricular ejection fraction is estimated to be 75 +/- 5%. There are no focal wall motion abnormalities. MV E/A: 0.67 Med Peak E' Seven: 2.8 cm/sec E/E' med: 16.5. Right Ventricle: The right ventricle is grossly normal size. The right ventricular systolic function is normal. Atria: The left atrial size is normal. In apical views, there is lateral left atrium wall indentation due to prominent descending aorta. Right atrial size is normal. There is no Doppler evidence for an atrial septal defect. Mitral Valve: There is mild mitral annular calcification. There is trace mitral regurgitation. Aortic Valve: The aortic valve is grossly normal. The aortic valve is slightly calcified. There is no aortic valve stenosis. There is mild aortic regurgitation. Tricuspid Valve: The tricuspid valve is not well visualized, but is grossly normal. There is mild tricuspid regurgitation. Compared to the prior echo exam, there has been no change in TR severity. The right ventricular systolic pressure is estimated to be at least 32 mmHg based on an estimated right atrial pressure of 3 mm Hg. Pulmonic Valve: The pulmonic valve is not well seen, but is grossly normal. There is trace pulmonic regurgitation. Great Vessels: The aortic root is normal size. The ascending aorta is mild- moderately enlarged. The pulmonary artery is not well visualized, but is probably normal size. The IVC is of normal diameter and collapses greater than 50% with a sniff. This suggests a low right atrial pressure of 3 mm Hg. Pericardium/ Pleura There is an anterior echo-free space consistent with a fat pad. There has been no significant change since the previous study. There is a moderate left-sided pleural effusion. MMode/2D Measurements & Calculations LVIDd: 3.5 cm LVOT diam: 2.0 cm LVIDs: 2.2 cm Ao root diam: 3.5 cm FS: 36.4 % asc Aorta Diam: 4.2 cm EPSS: 1.1 cm IVSd: 1.1 cm LVPWd: 0.98 cm LV erickson. diameter/BSA (cm/m^2): 2.3 LV sys. diameter/BSA (cm/m^2): 1.5 LA A2 area: 7.6 cm2 RA long axis: 3.2 cm LA A4 area: 10.9 cm2 RA area: 7.6 cm2 LA length (vol): 3.8 cm RA vol: 15.4 ml LA vol: 18.8 ml RA : 10.2 ml/m2 LA vol index: 12.4 ml/m2 IVC diam: 1.4 cm RVD1 (basal): 3.0 cm RVD2 (mid): 2.0 cm TAPSE: 2.1 cm Doppler Measurements & Calculations Ao V2 max: 118.4 cm/sec LVOT Max Seven: 87.4 cm/sec Ao V2 mean: 78.9 cm/sec LV V1 max P.1 mmHg Ao max P.6 mmHg LV V1 VTI: 18.8 cm Ao mean P.9 mmHg ERI(I,D): 2.2 cm2 Ao V2 VTI: 27.0 cm ERI(V,D): 2.3 cm2 sev ratio: 0.70 ERI indexed to BSA (cm^2/m^2): 1.4 MV E max seven: 46.6 cm/sec TR max seven: 269.6 cm/sec MV A max seven: 69.1 cm/sec TR max P.1 mmHg MV E/A: 0.67 PA V2 max: 88.9 cm/sec Med Peak E' Seven: 2.8 cm/sec PA V2 mean: 64.7 cm/sec E/E' med: 16.5 PA mean P.8 mmHg Lat Peak E' Seven: 3.5 cm/sec PA pr(Accel): 36.2 mmHg E/E' lat: 13.2 E/e' average: 14.9 MV dec time: 0.26 sec SV(LVOT): 59.1 ml Reading Physician:01:01 PM
[2025-10-10 18:57] LABS: Lactate (Lactic Acid) 1.2 mmol/L (0.7-2.1)
[2025-10-10 19:15] LABS: Procalcitonin 0.137 ng/mL (<0.5)
--- NOTE | 2025-10-10 20:01 | PC.NURSE ---
Viscous lidocaine was administered topical per admitting provider.
[2025-10-10] MEDS: ACETAMINOPHEN 325 MG TABLET 650 MG PO (22:14)
[2025-10-10] MEDS: RIVAROXABAN 10 MG TABLET 2.5 MG PO (22:15)
[2025-10-11 03:45] VITALS: BP 104/60; PULSE 61; RESP 16; TEMP 36.1; O2SAT 98
[2025-10-11 07:54] LABS: Add Manual Diff / Slide Review NO; Hematocrit 28.8 % (36-46); Hemoglobin 9.7 g/dL (12.0-16.0); Lymphocytes Absolute Auto 1700 /uL (1100-4500); Mean Corpuscular HGB Conc 33.7 % (30-36); Mean Corpuscular Hemoglobin 34.3 PG (26-34); Mean Corpuscular Volume 101.9 fL (80-100); Platelet Count 126 X10^3/uL (150-400)
[2025-10-11 07:56] LABS: Alanine Aminotransferase 44 IU/L (<35); Albumin 2.0 g/dL (3.5-5.0); Albumin Globulin Ratio 0.9 (1.0-2.8); Alkaline Phosphatase 66 U/L (38-126); Blood Urea Nitrogen 24 mg/dL (7-17); Calcium 7.8 mg/dL (8.4-10.2); Carbon Dioxide 25 mmol/L (22-32); Chloride 109 mmol/L (98-107); Estimated Glomerular Filt Rate 46 mL/min (>60); Globulin 2.2 g/dL (1.7-4.1); Glucose 79 mg/dL (70-99); HEMOLYSIS < 15 (0-50); Potassium 4.0 mmol/L (3.4-5.1); Sodium 136 mmol/L (137-145); Total Protein 4.2 g/dL (6.3-8.2)
[2025-10-11 08:07] LABS: Troponin I 0.033 ng/mL (0.01-0.034)
--- NOTE | 2025-10-11 08:34 | P.PN_ITS ---
Subjective Subjective Date Patient Seen: 10/11/25 Time Patient Seen: 07:50 Interval history: Chief complaint: Weakness Narrative: 74-year-old woman with peripheral artery disease and a large chronic left ankle ulcer with recent stenting last week in [place], managed with aspirin and Xarelto, as well as atenolol and pantoprazole, reports over the past 2 weeks she has had progressive shortness of breath with exertion and mild nausea, without vomiting, recent illnesses, or problems otherwise. In the emergency department she had variable T-wave inversions on her EKG, normal cardiac enzymes, and elevated BNP of 5640, and elevated creatinine of 1.3. She was given IV fluids given mild hypotension. She is admitted for further management and evaluation. Interval history: 10/11: The patient reports she feels persistently weak. She denies chest pain. She feels shortness of breath with mild exertion. She states this has been going on for several weeks and she has difficulty getting around her home. Procalcitonin and lactate were normal admission. EXAM: GENERAL: This is a pleasant female patient, in no apparent distress. EYES: Pupils equal round and reactive. Extraocular motions intact. No scleral icterus. No injection or drainage. ENT: Mucous membranes pink and moist. NECK: Trachea midline. No JVD, bruits or lymphadenopathy. Supple, nontender, no meningeal signs. CARDIOVASCULAR: Regular rate and rhythm without murmurs, gallops, or rubs. RESPIRATORY: Clear to auscultation. GASTROINTESTINAL: Abdomen soft, non-tender, nondistended. EXTREMITIES: No clubbing, cyanosis, or edema. NEUROLOGIC: Alert, oriented, speech fluent, full upper and lower motor strength, no focal deficits evident. DERMATOLOGIC: Large left medial ankle stage IV ulceration occupying most of the visible ankle EKG 12:17 p.m.: Sinus bradycardia at 54 beats per minute, diffuse T-wave inversions, Q-waves leads V1 through V3. No comparison available. Chest x-ray: Small left pleural effusion with left basilar atelectasis. Assessment: 1. Congestive heart failure. 2. Acute kidney injury, improved overnight, cannot rule out underlying CKD 3. Chronic nonhealing left ankle ulcer, status post recent revascularization 4. Peripheral arterial disease 5. Hypertension 6. Hyperlipidemia. 7. GERD 8. Elevated LFTs, possibly due to congestive hepatopathy Plan: -admit to observation -echocardiogram -start furosemide 20 mg IV every 8 hours -consult PT -monitor renal function -possible discharge home tomorrow with outpatient follow-up if improved and ambulatory DVT prophylaxis: On Xarelto Code status: Full code. Her is her surrogate decision maker. Exam Vital Signs (past 8 hours): - 10/11/25 03:45 Temperature 97.0 F L Pulse Rate 61 Respiratory Rate 16 Blood Pressure 104/60 Pulse Oximetry 98 Oxygen Flow Rate 0 Oxygen Delivery Method Room Air Oxygen Flow Rate 0 Objective Labs 10/11/25 06:40 10/11/25 06:40 Labs: Laboratory Results - last 24 hr 10/10/25 10/10/25 10/10/25 12:30 14:45 18:35 WBC 5.3 RBC 3.11 L Hgb 10.7 L Hct 32.2 L MCV 103.8 H MCH 34.5 H MCHC 33.2 RDW 21.6 H Plt Count 106 L Neut % (Auto) 63.3 Lymph % (Auto) 26.3 [place] % (Auto) 8.4 Eos % (Auto) 1.1 L Baso % (Auto) 0.9 Neut # (Auto) 3400 Lymph # (Auto) 1400 [place] # (Auto) 400 Eos # (Auto) 100 Baso # (Auto) 0 RBC Morphology See below Anisocytosis 2+ H Macrocytosis 1+ H Target Cells 1+ H PT 25.9 H INR 2.3 H Sodium 135 L Potassium 4.1 Chloride 107 Carbon Dioxide 23 BUN 26 H Creatinine 1.31 H Estimated GFR 42 L BUN/Creatinine Ratio 19.8 Glucose 79 Lactate 1.7 1.2 Calcium 8.3 L Total Bilirubin 2.5 H AST 91 H ALT 48 H Alkaline Phosphatase 81 Troponin I 0.037 H 0.034 NT-Pro-B Natriuret Pep 5640 H Total Protein 4.7 L Albumin 2.3 L Globulin 2.4 Albumin/Globulin Ratio 1.0 Procalcitonin 0.137 10/11/25 06:40 WBC 5.3 RBC 2.83 L Hgb 9.7 L Hct 28.8 L MCV 101.9 H MCH 34.3 H MCHC 33.7 RDW 20.8 H Plt Count 126 L Neut % (Auto) 57.9 Lymph % (Auto) 31.1 [place] % (Auto) 8.5 Eos % (Auto) 1.3 L Baso % (Auto) 1.2 Neut # (Auto) 3100 Lymph # (Auto) 1700 [place] # (Auto) 500 Eos # (Auto) 100 Baso # (Auto) 100 RBC Morphology Anisocytosis Macrocytosis Target Cells PT INR Sodium 136 L Potassium 4.0 Chloride 109 H Carbon Dioxide 25 BUN 24 H Creatinine 1.23 H Estimated GFR 46 L BUN/Creatinine Ratio 19.5 Glucose 79 Lactate Calcium 7.8 L Total Bilirubin 2.3 H AST 76 H ALT 44 H Alkaline Phosphatase 66 Troponin I 0.033 NT-Pro-B Natriuret Pep Total Protein 4.2 L Albumin 2.0 L Globulin 2.2 Albumin/Globulin Ratio 0.9 L Procalcitonin PFSH Medical History Breast cancer Hypertension Pancreatitis Peripheral vascular disease of extremity with claudication Pressure ulcer of ankle Stomach ulcer Family History Mother Cancer Social History household members: spouse Smoking Status: Former smoker 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
[2025-10-11 09:08] VITALS: BP 110/65; PULSE 63; RESP 16; TEMP 36.1; O2SAT 95
[2025-10-11] MEDS: FENOFIBRATE, MICRONIZED 67 MG CAPSULE 134 MG PO (09:25)
[2025-10-11] MEDS: RIVAROXABAN 10 MG TABLET 2.5 MG PO ×2 (09:25→16:39)
[2025-10-11] MEDS: DOXYCYCLINE HYCLATE 100 MG TABLET PO (09:28)
[2025-10-11] MEDS: FUROSEMIDE 20 MG/2 ML VIAL IV ×2 (09:38→16:38)
[2025-10-11] MEDS: PANTOPRAZOLE DR 40 MG TABLET PO ×2 (09:39→21:16)
--- NOTE | 2025-10-11 13:39 | CM.DANOTE ---
Discharge Planning/Care Management CM Discharge Assessment Start: 10/10/25 19:22 Freq: Status: Active Protocol: Document 10/11/25 13:35 SM (Rec: 10/11/25 13:37 SM [id number]) Discharge Planning Assessment Assigned Discharge Blel Frazier RN CM Scout Sniper Provider REZA Bonilla, [place] Insurance Medicare Advance Directives? No History Provided By Patient,Medical Record Has Patient been No admitted in last 30 days? Prior Living House Arrangements Household Members spouse Type of Relies on Others transporation used prior to admit Independent with ADL Yes: with walker 's Is patient alert and Yes oriented? Needs Assistance Home Chores / Shopping With Caregiver for No Another Community Services Wound Care used prior to admission: Comment 3 times a week DME Already Rented / FWW / Walker Owned Comment TBD Barriers to No Discharge Transportation spouse Arrangement Additional Comment TBD Review Status In Process Please Provide Date 10/11/25 Initial DC Assessment Was Performed Next Review Type Continued Stay Review
[2025-10-11 13:43] VITALS: BP 110/68; PULSE 65; RESP 16; TEMP 36.1; O2SAT 94
--- NOTE | 2025-10-11 13:54 | CM.DANOTE ---
Initial DCP Assessment Note. Review EMR and PT Interview. Met with patient at bedside to discuss discharge needs.PT is alert x 4 sitting up in bed. No acute distress. Independent with walker. Lives with spouse. Payor:?[facility] PCP: REZA Bonilla Summary & Plan:?74 y/o female arrived to ED via EMS c/o Weakness. Admittede OBS. Dx. CHF. Plan: IV lasix, echo, PT eval. Discharge Planning/Care Management CM Discharge Assessment Start: 10/10/25 19:22 Freq: Status: Active Protocol: Document 10/11/25 13:35 SM (Rec: 10/11/25 13:37 SM [id number]) Discharge Planning Assessment Assigned Discharge Bell Frazier RN CM Brake Repair Mechanic Provider REZA Bonilla, [place] Insurance Medicare Advance Directives? No History Provided By Patient,Medical Record Has Patient been No admitted in last 30 days? Prior Living House Arrangements Household Members spouse Type of Relies on Others transporation used prior to admit Independent with ADL Yes: with walker 's Is patient alert and Yes oriented? Needs Assistance Home Chores / Shopping With Caregiver for No Another Community Services Wound Care used prior to admission: Comment 3 times a week DME Already Rented / FWW / Walker Owned Comment TBD Barriers to No Discharge Transportation spouse Arrangement Additional Comment TBD Review Status In Process Please Provide Date 10/11/25 Initial DC Assessment Was Performed Next Review Type Continued Stay Review
--- NOTE | 2025-10-11 14:01 | PT-IP ANOTE ---
Attempted Physical Therapy evaluation. Pt declined to get out of bed at this time. She ambulates independently with FWW at baseline. She has supportive Spouse at bedside today. Will continue to follow for evaluation when pt ready to mobilize.
--- NOTE | 2025-10-11 15:23 | DIET.CONS ---
Dietary Consultation Note Admission Date: 10/10/2025 17:54 Assessment: 74 y F admitted for CHF. Dietitian consulted for decreased appetite. Met with pt at bedside. Reports poor appetite for last 2 weeks r/t SOB and nausea. Slightly lower than normal appetite over the past 6 months as well. Has been trying to eat more gary, cheese, yogurt. Does note appetite is much improved today, ate breakfast and lunch. Open to protein supplements while here as needed. Used to do Ensures and recently started drinking them again. NFPE with no findings in temples and buccal and orbital fat pads. Ht: 162.56 cm Wt: 51 kg BMI: 19.3 UBW: 120 lb (54.54 kg) 6+ months ago (-6% weight loss in 6 months, non-severe) Last BM: 10/11/25 (10/11/25 09:00) MNA: 8 Dejon Score: 19 Diet: 10/10/25 Dinner Heart Healthy Diet Diet Modifications: Labs: RBC 2.83 X10^6/uL (4.0-5.2) L 10/11/25 06:40 Hgb 9.7 g/dL (12.0-16.0) L 10/11/25 06:40 Hct 28.8 % (36-46) L 10/11/25 06:40 Creatinine 1.23 mg/dL (0.52-1.04) H 10/11/25 06:40 Lactate 1.2 mmol/L (0.7-2.1) 10/10/25 18:35 NT-Pro-B Natriuret Pep 5640 pg/mL (<450) H 10/10/25 12:30 Nutrition Diagnosis: BMI underweight for age r/t inadequate oral intakes aeb 19.3 BMI with 8-10 lb weight loss in last 6+ months Interventions: Ensure daily, will assess PO intakes and increase as needed EER: [id number] kcals (30-35 kcals/kg per BMI) 50-60 g protein (1-1.2g/kg per ANTHONY with CHF w/ low BMI) Monitoring/Evaluations: po intakes Electronically Signed by: Bee Villegas 10/11/25 15:23 Clinical Dietitian [address] [id number]
--- NOTE | 2025-10-11 16:13 | PC.NURSE ---
Pt A/O. Arrived to RM 210 @ 1445 Denies any discomfort, Tele in place. ' Left ankle wrapped w/ gauze & angelica for previous wound. Call light w/in reach, bed alarm on for pt safety. Continue w/plan of care.
--- NOTE | 2025-10-11 16:53 | PT.IIE ---
Medical History (Last Reviewed 10/10/25 @ 18:39 by Go Washburn MD) Breast cancer Hypertension Pancreatitis Peripheral vascular disease of extremity with claudication Pressure ulcer of ankle Stomach ulcer Physical Therapy Inpatient Evaluation/Re-Eval M1 PT IP Prior Functional Status Start: 10/11/25 16:58 Freq: NEEDED Status: Active Protocol: Document 10/11/25 16:53 DLM (Rec: 10/11/25 17:12 DLM [id number]) Medical Review Prior Functional Status Medical History Yes Reviewed Diet/Fluid Regular Consistency Communication WNL Mobility and Gait Independent with FWW. Activities of Daily Independent with basic ADL's. Her helps her if Living and IADL's she asks. She sits on seat for her shower. Her does the cooking. Her helps with market editor. She has Visiting nurses for wound care with dressing changes and she attends out-pt wound care regularly. Social History Household Members spouse Living Arrangements House Number of Floors ( One Floor Floors) Number of Stairs To 3 steps with rail from garage, one step at front door Enter/Railing? Home Environment Standard Height Toilet,Walk in Shower Home Equipment Front Wheel Walker,Raised Toilet Seat w/Armrests,Shower Seat with Backrest,Grab Bars Near Toilet,Grab Bars In Shower Employment Status Retired M2 PT-IP Current Condition Start: 10/11/25 16:58 Freq: NEEDED Status: Active Protocol: Document 10/11/25 16:53 DLM (Rec: 10/11/25 17:12 DLM [id number]) Physical Therapy Current Condition Current Condition Evaluation Date 10/11/25 Treatment Diagnosis Weakness and decreased activity tolerance Onset Date 10/10/25 M3 PT-IP Subjective Start: 10/11/25 16:58 Freq: NEEDED Status: Active Protocol: Document 10/11/25 16:53 DLM (Rec: 10/11/25 17:12 DLM [id number]) Subjective Physical Therapy Visit Type Type Initial Evaluation Visit Start Time 16:20 Visit Stop Time 16:53 Notes 33 min Number of RIVETER Visits 0 Physical Therapy Visit Comments Patient Comments She reports her nausea is better this afternoon. She describes tightness in her chest with breathing with activity. She feels she is breathing through a straw. Patient Goals She wants to discharge home Therapy Pain Assessment Pain When Pain Assessed After Treatment Pain Present Pain Present Denied Pain M4 PT-IP Mobility and Gait Start: 10/11/25 16:58 Freq: NEEDED Status: Active Protocol: Document 10/11/25 16:53 DLM (Rec: 10/11/25 17:12 [facility] [id number]) PT-Bed Mobility Assessment Rolling Level of Assist Independent Supine to Sit Supine to Sit Independent Sit to Supine Sit to Supine Minimal Assistance Scooting Scooting to Edge of Independent Bed PT-Transfer Assessment Sit to and From Stand Sit to and from Standby Assistance,Use of Upper Extremities Stand Equipment Transfer Assistive Gait Belt,Front Wheeled Walker Device Transfers Transfer Destination Bed Transfer Technique Stand Step Pivot Transfer Ability Level of Assist Standby Assistance,Use of Upper Extremities Comments Mobility Comments she gets short of breath with light activity, due to poor circulation it is difficult to get O2 sat reading on her finger but when checked it shows 99-100%. Pt up to bedside commode to urinate then she requests back to bed to rest. Gait Assessment Gait Gait Assistance Standby Assistance,Contact Guard Assist Required: Distance (Feet) 10 Assistive Devices Assistive Device Gait Belt,Front Wheeled Walker Gait Deviations General Gait Pattern Antalgic,Wide Based Gait Factors Limiting Gait Function Factors Limiting Decreased Activity Tolerance,Respiratory Distress Gait Function Comments Gait Comments she gets short of breath and fatigued with short distances of gait in the room, she needs frequent sitting rest breaks to manage her symptoms, she wore her slips on her feet for support She ambulated 2 x 10 feet this visit with seated rest breaks between gait trials. Stair Climbing Assessment Comments Stair Climbing not tested due to fatigue Comments PT-Balance Assessment Sitting Balance and Reactions Static Sitting Normal Balance Ability Dynamic Sitting Normal Balance Ability Standing Balance and Reactions Static Standing Good Balance Ability Dynamic Standing Good Balance Ability Device Used FWW M5 PT-IP Objective Assessments Start: 10/11/25 16:58 Freq: NEEDED Status: Active Protocol: Document 10/11/25 16:53 DLM (Rec: 10/11/25 17:12 [facility] [id number]) Orientation Orientation/Cognition Level of Alertness Alert Orientation Name,Age,Birthday,Month,Date,Year,Day of Week,Place, Situation Language Function No Deficits Noted Ability Safety Awareness Understands Safety Issues Memory Description No Deficits Noted Gross Range of Motion Upper Extremity ROM Assessment Within Functional Limits Lower Extremity ROM Assessment Within Functional Limits Strength Upper Extremity Strength Assessment Within Functional Limits Lower Extremity Strength Assessment Bilaterally Impaired Hip needs assist to lift LE's onto bed Comments Strength Comments dressing on left ankle with chronic wound, full assessment not performed on ankle due to wound Pt holds left LE in external hip rotation in standing and during gait Coordination Assessment Gross Coordination Gross Coordination WNL Muscle Tone Muscle Tone WNL Yes M6 PT-IP Treatment Start: 10/11/25 16:58 Freq: NEEDED Status: Active Protocol: Document 10/11/25 16:53 DLM (Rec: 10/11/25 17:12 DLM [id number]) Physical Therapy Treatment Education Education Provided Safety M7 PT-IP Assessment and Plan Start: 10/11/25 16:58 Freq: NEEDED Status: Active Protocol: Document 10/11/25 16:53 DLM (Rec: 10/11/25 17:12 DLM [id number]) PT Summary Assessment and Plan Summary Impairments Strength,Bed Mobility,Transfers,Gait,Activity Tolerance Assessment Summary Jane is alert and resting in bed today. She reports her nausea has improved. She continues to get short of breath with activity. She tolerates short distance of gait in her room with FWW with shortness of breath and fatigue. No increase in nausea with activity this visit . She presents with functional weakness. She reports being energetic and active with the FWW at baseline. She is not at her baseline at this time and will need extra assist to safely return home at discharge. She reports her Spouse is very supportive and able to help her as needed. Plan for home with her and home health Physical Therapy when she discharges. Goals Bed Mobility Goal Independent Transfer Goal Independent,Front Wheeled Walker Gait Goal Independent,Front Wheel Walker Gait Distance 150 feet Other Goals Up/down 3 steps with rail and SBA Days to Meet Goals 4 Frequency of Treatment Frequency Of Once a Day Treatment Treatment Plan Physical Therapy Bed Mobility Training,Transfer Training,Gait Training, Treatment Plan Therapeutic Exercise,Balance Retraining,Discharge Planning Precautions Other Precautions chronic wound left ankle NO blood pressures right UE due to hx of breast surgery Recommendations To Nursing Amount of Assist 1 Person Assist Needed Discharge Recommendations PT Discharge Home with Assistance,Home Health Recommendations Other Discharge spouse is able to assist her Recommendations Transportation Needs Private Vehicle at Discharge - PT assist 1
[2025-10-11 17:00] VITALS: RESP 20
[2025-10-11 20:00] VITALS: BP 104/60; PULSE 37; RESP 16; TEMP 36.1; O2SAT 98
[2025-10-12] VITALS: BP 105/84; PULSE 63; RESP 16; TEMP 36; O2SAT 95
[2025-10-12] MEDS: FUROSEMIDE 20 MG/2 ML VIAL IV ×2 (00:43→12:42)
[2025-10-12 04:00] VITALS: BP 105/55; PULSE 65; RESP 15; TEMP 35.9; O2SAT 98
[2025-10-12 07:57] LABS: Add Manual Diff / Slide Review NO; Hematocrit 31.1 % (36-46); Hemoglobin 10.7 g/dL (12.0-16.0); Lymphocytes Absolute Auto 1600 /uL (1100-4500); Mean Corpuscular HGB Conc 34.3 % (30-36); Mean Corpuscular Hemoglobin 35.3 PG (26-34); Mean Corpuscular Volume 102.9 fL (80-100); Platelet Count 134 X10^3/uL (150-400)
[2025-10-12 08:00] VITALS: BP 108/66; PULSE 62; RESP 16; TEMP 36.2; O2SAT 97
[2025-10-12 08:08] LABS: Blood Urea Nitrogen 26 mg/dL (7-17); Calcium 7.8 mg/dL (8.4-10.2); Carbon Dioxide 22 mmol/L (22-32); Chloride 104 mmol/L (98-107); Estimated Glomerular Filt Rate 41 mL/min (>60); Glucose 79 mg/dL (70-99); HEMOLYSIS 40 (0-50); Potassium 3.9 mmol/L (3.4-5.1); Sodium 134 mmol/L (137-145)
[2025-10-12 11:35] VITALS: BP 118/56; PULSE 106; RESP 18; TEMP 36.6; O2SAT 99
[2025-10-12] MEDS: DOXYCYCLINE HYCLATE 100 MG TABLET PO (12:42)
[2025-10-12] MEDS: FENOFIBRATE, MICRONIZED 67 MG CAPSULE 134 MG PO (12:42)
[2025-10-12] MEDS: ASPIRIN EC 81 MG TABLET PO (12:42)
[2025-10-12] MEDS: RIVAROXABAN 10 MG TABLET 2.5 MG PO ×2 (12:54→19:00)
[2025-10-12] MEDS: PANTOPRAZOLE DR 40 MG TABLET PO ×2 (12:58→19:59)
--- NOTE | 2025-10-12 16:36 | PM.PN.1 ---
Subjective Subjective Interval history: 74-year-old female with history of peripheral artery disease status post stenting last week and [place], with history of chronic large left ankle ulcer. She also has a 2 week history of progressive shortness of breath with exertion. Additional medical history includes hyperlipidemia, GERD, history of breast cancer status post right mastectomy. She was admitted for acute congestive heart failure and acute kidney injury. Patient reports she is feeling better overall today. She states she did urinate quite a bit overnight. She is feeling quite weak however. PT assessed her yesterday and recommended that she discharge home with assist or home health. She is receiving furosemide 20 mg IV every 8 hours. Exam Vital Signs (past 8 hours): - 10/12/25 11:35 Temperature 97.9 F Pulse Rate 106 H Respiratory Rate 18 Blood Pressure 118/56 L Pulse Oximetry 99 Oxygen Delivery Method Room Air Oxygen Flow Rate 0 Narrative Exam Narrative: GEN: Elderly female, Alert and oriented x 3, NAD HEENT:NC, Face symmetric CHEST: Respiratory excursions symmetric, coarse but CTAB CV: RRR, no M/R/G ABD: Soft, NT/ND, BT present in all 4 quadrants, no organomegaly or masses EXTR: warm, well perfused, no C/C/E SKIN: warm and dry, no rash, there is erythema to the buttocks/coccyx that is blanching NEURO: Alert and oriented x 3, nonfocal Objective Labs 10/12/25 07:13 10/12/25 07:13 Labs: Laboratory Results - last 24 hr 10/12/25 07:13 WBC 5.9 RBC 3.03 L Hgb 10.7 L Hct 31.1 L MCV 102.9 H MCH 35.3 H MCHC 34.3 RDW 21.1 H Plt Count 134 L Neut % (Auto) 64.2 Lymph % (Auto) 27.0 [place] % (Auto) 6.6 Eos % (Auto) 1.1 L Baso % (Auto) 1.1 Neut # (Auto) 3800 Lymph # (Auto) 1600 [place] # (Auto) 400 Eos # (Auto) 100 Baso # (Auto) 100 Sodium 134 L Potassium 3.9 Chloride 104 Carbon Dioxide 22 BUN 26 H Creatinine 1.34 H Estimated GFR 41 L BUN/Creatinine Ratio 19.4 Glucose 79 Calcium 7.8 L [facility] Medical History Breast cancer Hypertension Pancreatitis Peripheral vascular disease of extremity with claudication Pressure ulcer of ankle Stomach ulcer Family History Mother Cancer Social History household members: spouse Smoking Status: Former smoker alcohol intake: former Assessment & Plan Assessment & Plan narrative: 1. Acute diastolic congestive heart failure Improving. Continues diuresis. Echocardiogram done on October 10 revealed a small left ventricle was hyperdynamic an EF of 75+/- 5% there is a suspected mid cavity obstruction. 2. Acute kidney injury Creatinine was 1.31 with a BUN of 26 on October 10. It was mildly improved at 24/1.23 yesterday. Today it is 26 and 1.34. There may be some component of chronic kidney disease. However, given the hyperdynamic findings on her echocardiogram and the fact that she appears euvolemic today. Will plan to discontinue IV furosemide and transitioned to oral furosemide today. 3. Chronic nonhealing left ankle ulcer status post recent revascularization procedure 4. Peripheral artery disease As above, she recently underwent stenting procedure. She continues on aspirin, prasugrel. 5. Hypertension Blood pressure is presently well controlled. Continues on atenolol. 6. Hyperlipidemia Continue fenofibrate. 7. GERD Continue pantoprazole b.i.d. 8. Transaminitis, likely secondary to congestive hepatopathy LFTs were improving with AST down 76 and ALT down 44 yesterday. Will plan to recheck a CMP tomorrow morning. Code status Full Prophylaxis On Xarelto Disposition Possibly home tomorrow Time-Based Coding :: [TOTAL MINUTES] spent with patient and on the chart (including review of chart, obtaining history, exam, reviewing outside data, placing orders, documenting exam and treatment plan, and counseling patient) on [DATE].
[2025-10-12 20:00] VITALS: BP 101/42; PULSE 58; RESP 16; TEMP 35.9; O2SAT 97
[2025-10-13 07:59] VITALS: BP 98/52; PULSE 61; RESP 16; TEMP 36.6; O2SAT 90
[2025-10-13 08:05] LABS: Alanine Aminotransferase 48 IU/L (<35); Albumin 2.2 g/dL (3.5-5.0); Albumin Globulin Ratio 0.9 (1.0-2.8); Alkaline Phosphatase 87 U/L (38-126); Blood Urea Nitrogen 26 mg/dL (7-17); Calcium 7.5 mg/dL (8.4-10.2); Carbon Dioxide 19 mmol/L (22-32); Chloride 106 mmol/L (98-107); Estimated Glomerular Filt Rate 42 mL/min (>60); Globulin 2.4 g/dL (1.7-4.1); Glucose 81 mg/dL (70-99); Potassium 4.0 mmol/L (3.4-5.1); Sodium 132 mmol/L (137-145); Total Protein 4.6 g/dL (6.3-8.2)
[2025-10-13 08:10] LABS: HEMOLYSIS 62 (0-50)
[2025-10-13 08:47] LABS: Add Manual Diff / Slide Review NO; Hematocrit 31.1 % (36-46); Hemoglobin 10.2 g/dL (12.0-16.0); Lymphocytes Absolute Auto 1800 /uL (1100-4500); Mean Corpuscular HGB Conc 32.9 % (30-36); Mean Corpuscular Hemoglobin 34.9 PG (26-34); Mean Corpuscular Volume 106.1 fL (80-100); Platelet Count 134 X10^3/uL (150-400)
[2025-10-13] MEDS: PANTOPRAZOLE DR 40 MG TABLET PO (09:14)
[2025-10-13] MEDS: RIVAROXABAN 10 MG TABLET 2.5 MG PO (09:14)
[2025-10-13] MEDS: ASPIRIN EC 81 MG TABLET PO (09:14)
[2025-10-13] MEDS: FUROSEMIDE 20 MG TABLET PO (09:20)
[2025-10-13] MEDS: DOXYCYCLINE HYCLATE 100 MG TABLET PO (09:22)
[2025-10-13] MEDS: FENOFIBRATE, MICRONIZED 67 MG CAPSULE 134 MG PO (09:24)
--- NOTE | 2025-10-13 16:51 | CM.DPC ---
Addendum entered by Bell Frazier RN 10/13/25 17:20: BLS home is a Patient Request not MD request, documented on [facility] BLS form. Patient and her declined the Free Lift Assist Support available on [facility]. Original Note: Patient requested BLS home. Patient and her made aware of possible share of cost. [facility] transporting at 6PM to [address] [place] [address].
--- NOTE | 2025-10-13 17:22 | PC.NURSE ---
Addendum entered by Génesis Ho RN 10/13/25 18:11: Continue on RA, sats 99%. VSS. Home via BLS [place] amb. Spouse will be awaiting home. Original Note: Dayshift/Discharge note: Patient awake and alert, up OOB to chair and BR, SBA. Voiding and good appetite. NO nausea and vomiting. States significant improvement in breathing effort. Dressed self with minimal assistance. Discharge instructions given to both patient and spouse. Discussed importance of F/U with Vascular in [place] on 10/16 and with REZA Bonilla. Discussed importance of continuing medications and Rx, and signs of worsening symptoms. Educated regarding new diagnosis of CHF and provided handout (AHA). Verbalized understanding of discharge instructions.
--- NOTE | 2025-10-13 17:39 | PM.DS.1 ---
History of Present Illness History of Present Illness Chief complaint: Weakness Narrative: Per H&P: 74-year-old woman with peripheral artery disease and a large chronic left ankle ulcer with recent stenting last week in [place], managed with aspirin and Xarelto, as well as atenolol and pantoprazole, reports over the past 2 weeks she has had progressive shortness of breath with exertion and mild nausea, without vomiting, recent illnesses, or problems otherwise. In the emergency department she had variable T-wave inversions on her EKG, normal cardiac enzymes, and elevated BNP of 5640, and elevated creatinine of 1.3. She was given IV fluids given mild hypotension. She is admitted for further management and evaluation. Discharge Providers Provider Date of admission: 10/10/25 17:54 Discharge Date: 10/13/25 Primary care physician: Autumn Bonilla PA-C Consults: 10/10/25 18:44 Consult to Discharge Planning Routine Comment: 10/10/25 21:03 Consult to Dietitian, Adult Routine Comment: Reason For Exam: decrease appetite 10/11/25 08:34 Consult to Physical Therapy Evaluate & Treat Comment: Physician Instructions: Evaluate and Treat Discharge provider: Amy Augustin MD Summary Hospital Course Discharge Diagnosis: 1. Acute diastolic congestive heart failure, resolved 2. Acute kidney injury versus CKD, stable 3. Peripheral artery disease, status post stenting, on Effient, stable 4. Chronic nonhealing left ankle ulcer status post recent revascularization procedure 5. Hypertension, chronic, stable 6. Hyperlipidemia, chronic, stable 7. GERD, chronic, stable 8. Transaminitis, felt likely to be secondary to congestive hepatopathy, persistent Hospital Course: Patient is a chronic nonhealing left ankle ulcer which has been followed by wound care. 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 She also recently developed a MRSA infection in a large nonhealing left ankle ulcer. That has been followed by wound care. While undergoing evaluation for her wound, she was found to have significant PID. She underwent iliac stenting at [facility]. She was subsequently placed on Effient. She presented to our hospital on October 10 complaining of shortness of breath with exertion, mild nausea without vomiting. She was found to have an elevated BNP of 5640, she also had an elevated creatinine of 1.3. She did have mild hypotension and was given some IV fluids. Blood cultures were drawn (they remained negative times 48 hours at discharge). Chest x-ray on admission revealed a small left pleural effusion with left basilar atelectasis. Echocardiogram revealed a small left ventricular cavity which appeared hyperdynamic with an EF estimated to be 75+/- 5%. There is suspected mid cavity obstruction. The right ventricle was grossly normal in size and function. There is mild aortic regurgitation, mild tricuspid regurgitation. On the day following admission, patient complained of feeling persistently weak but denied having any chest pain. She has some shortness of breath with mild exertion. She was initiated on IV diuresis. By October 12, she reported she was feeling better overall. She had diuresed well. She had been assessed by physical therapy who felt she could discharge home with assist or with home health. She felt she would prefer to discharge the following day. On the date of discharge, vital signs were stable. White blood cell count was stable and normal. Hemoglobin stable at 10.2. Platelets were stable at 134. Sodium was 132. Creatinine stable at 1.32. Bilirubin was 2.3, AST 96, ALT 48. Albumin remained low at 2.2. She felt comfortable with discharging home. Her biggest concern was the 3 steps she had to walk from her garage into her home. She notes that her is 78 and she did in fact her and 75 while she was here in the hospital. She expressed concern that her may have difficulty helping her into the house. We would discussed lift assist as an option for her when she got home and her could contact them to help get her safely back into the home. She had expressed a desire to use lift assist to help her get safely back into the house. She asked that I put that information in her discharge instructions. The phone number was placed in her discharge information. Patient is discharged in stable condition. She is encouraged to follow back up with her primary care provider within the next 1-2 weeks Status at Discharge Cognitive/behavioral status at discharge: at baseline, oriented Overall status at discharge: patient is progressing back to baseline Time Spent with Patient Time spent: Greater than 30 minutes Exam Vital Signs (past 8 hours): Oxygen Delivery Method Room Air Oxygen Flow Rate 0 Narrative Exam Narrative: GEN: Elderly female, Alert and oriented x 3, NAD HEENT:NC, Face symmetric CHEST: Respiratory excursions symmetric, coarse but CTAB CV: RRR, no M/R/G ABD: Soft, NT/ND, BT present in all 4 quadrants, no organomegaly or masses EXTR: warm, well perfused, no C/C/E SKIN: warm and dry, no rash NEURO: Alert and oriented x 3, nonfocal Objective Labs 10/13/25 08:35 10/13/25 07:18 Labs: Laboratory Results - last 24 hr 10/13/25 10/13/25 07:18 08:35 WBC 6.2 RBC 2.93 L Hgb 10.2 L Hct 31.1 L MCV 106.1 H D MCH 34.9 H MCHC 32.9 RDW 21.3 H Plt Count 134 L Neut % (Auto) 60.5 Lymph % (Auto) 28.8 Carver % (Auto) 8.6 Eos % (Auto) 1.4 L Baso % (Auto) 0.7 Neut # (Auto) 3700 Lymph # (Auto) 1800 Carver # (Auto) 500 Eos # (Auto) 100 Baso # (Auto) 0 Sodium 132 L Potassium 4.0 Chloride 106 Carbon Dioxide 19 L BUN 26 H Creatinine 1.32 H Estimated GFR 42 L BUN/Creatinine Ratio 19.7 Glucose 81 Calcium 7.5 L Total Bilirubin 2.3 H AST 96 H ALT 48 H Alkaline Phosphatase 87 Total Protein 4.6 L Albumin 2.2 L Globulin 2.4 Albumin/Globulin Ratio 0.9 L [facility] History Breast cancer Hypertension Pancreatitis Peripheral vascular disease of extremity with claudication Pressure ulcer of ankle Stomach ulcer Family History Mother Cancer Social History household members: spouse Smoking Status: Former smoker alcohol intake: former Discharge Plan Discharge Plan Patient Disposition: Home Provider Discharge Comment: You were admitted with mild congestive heart failure and received diuretics initially with good improvement in your symptoms. You also had mildly elevated kidney function on admission. As the last blood work we have available in our system was 7 years ago, we are unable to determine whether you may have some chronic kidney disease or had some acute kidney injury. Your labs remained stable during her time here in the hospital. Physical therapy did perform an assessment while you were here and recommended that you could return home with assistance versus home with home health. If you feel you would benefit from home health for physical therapy or occupational therapy, please contact REZA bonilla at [facility] for a referral for home health. Please continue the medications prescribed by your vascular team from [facility] in [place] (including Prasugrel daily). Upon your return home today, please contact lift assist as they can help your get you back into your home and up your steps. Their number is: [phone]. Return to the ED: Increased shortness of breath/chest pain. Inability to hold down food/fluids/medications. Fevers/chills. Discharge orders & Medications Prescriptions: Continued pantoprazole 40 mg tablet,delayed release (DR/EC) 40 mg PO BID rivaroxaban [Xarelto] 2.5 mg tablet 2.5 mg PO BID aspirin [Adult Aspirin Regimen] 81 mg tablet,delayed release (DR/EC) 81 mg PO DAILY doxycycline hyclate 50 mg capsule 100 mg PO DAILY atenolol 25 mg Tablet 75 mg PO BID fenofibrate nanocrystallized 48 mg Tablet 144 mg PO DAILY Follow up/Referrals: Autumn Bonilla PA-C [Primary Care Provider, Family Practice] Discharge Health Status Multidrug resistant organism: No MDRO Diet/Activity/Treatments Diet: Diet as Tolerated and Regular Activity: As tolerated Oxygen: N/A Visit Report/Discharge Packet Stand Alone Forms: Congestive Heart Failure, Patient Portal/API, Stroke Signs & Symptoms Discharge Data Primary Care Provider: uAtumn Bonilla Attending Provider: Go Washburn V Admit Date/Time: 10/10/25 17:54
[2025-10-13 18:00] VITALS: BP 108/62; PULSE 71; RESP 18; O2SAT 99
== END 2025-10-13 18:12 | disposition home or self-care (01) | DRG 291 ==
LOC: ED 17:16 → AC 17:55 → SSU 20:08 → AC 10-11 14:30
PROVIDERS: Family Medicine; Admitting Provider Internal Medicine; Emergency Provider Emergency Medicine; Family Provider Physician Assistant Medical; PCP Physician Assistant Medical; Referring Provider Emergency Medicine; Visit Provider Internal Medicine
DX: I13.0 Hypertensive heart and chronic kidney disease with heart failure and stage 1 through stage 4 chronic kidney disease, or unspecified chronic kidney disease (principal); I50.31 Acute diastolic (congestive) heart failure; N17.9 Acute kidney failure, unspecified; L97.329 Non-pressure chronic ulcer of left ankle with unspecified severity; N18.9 Chronic kidney disease, unspecified; I73.9 Peripheral vascular disease, unspecified; E78.5 Hyperlipidemia, unspecified; K21.9 Gastro-esophageal reflux disease without esophagitis; R79.89 Other specified abnormal findings of blood chemistry; I35.1 Nonrheumatic aortic (valve) insufficiency; I07.1 Rheumatic tricuspid insufficiency; B95.62 Methicillin resistant Staphylococcus aureus infection as the cause of diseases classified elsewhere; Z79.01 Long term (current) use of anticoagulants; Z90.11 Acquired absence of right breast and nipple; Z85.3 Personal history of malignant neoplasm of breast; Z87.891 Personal history of nicotine dependence; Z95.820 Peripheral vascular angioplasty status with implants and grafts
CPT/HCPCS: 36415; 71045; 80048; 80053; 83605; 83880; 84145; 84484; 85025; 85610; 87040; 87070; 87075; 87077; 87147; 87186; 87205; 93005; 93306; 97162; 97530; 99284; G0378; J1938; J7030

== ENCOUNTER 2025-10-19 12:14 | Inpatient (IN) | payer MEDICARE, OTHER, SELFPAY ==
[2025-10-10 20:56] VITALS: BMI 19.3
[2025-10-19] VITALS (58 sets, daily range): BP systolic 63–142; BP diastolic 36–74; PULSE 45–194; RESP 12–28; TEMP 36.6; O2SAT 87–100; BMI 20.1; BMI 20.2
--- NOTE | 2025-10-19 12:50 | DI.RAD.S_ITS ---
PROCEDURE: XR CHEST 1V INDICATIONS: suspected sepsis TECHNIQUE: One view of the chest was acquired. COMPARISON: [facility], CR, XR CHEST 1V, 10/10/2025, 12:07. FINDINGS: Surgical changes and devices: Surgical clips are noted in left breast. Lungs and pleura: Lungs are clear. No pleural effusions or pneumothorax. Mediastinum: Mediastinal contours appear normal. Heart size is enlarged. Bones and chest wall: No suspicious bony lesions. Overlying soft tissues appear unremarkable. IMPRESSION: No acute cardiopulmonary pathology. Dictated by: Georges Wallace M.D. on 10/19/2025 at 13:33 Approved by: Georges Wallace M.D. on 10/19/2025 at 13:33
--- NOTE | 2025-10-19 12:50 | EKG_ITS ---
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
[2025-10-19] MEDS: SODIUM CHLORIDE 0.9% 500 ML 1000 ML IV ×2 (13:00→15:07)
[2025-10-19 13:01] LABS: Add Manual Diff / Slide Review NO; Hematocrit 28.8 % (36-46); Hemoglobin 9.5 g/dL (12.0-16.0); Lymphocytes Absolute Auto 1100 /uL (1100-4500); Mean Corpuscular HGB Conc 32.9 % (30-36); Mean Corpuscular Hemoglobin 35.3 PG (26-34); Mean Corpuscular Volume 107.3 fL (80-100); Platelet Count 130 X10^3/uL (150-400)
[2025-10-19 13:04] LABS: INR 1.8 (0.9-1.3)
[2025-10-19 13:07] LABS: Lactate (Lactic Acid) 3.7 mmol/L (0.7-2.1); PTT Partial Thromboplastin Tim 32 SECONDS (25.1-36.5)
[2025-10-19 13:08] LABS: Alanine Aminotransferase 59 IU/L (<35); Albumin 2.3 g/dL (3.5-5.0); Albumin Globulin Ratio 1.0 (1.0-2.8); Alkaline Phosphatase 52 U/L (38-126); Blood Urea Nitrogen 30 mg/dL (7-17); Calcium 7.6 mg/dL (8.4-10.2); Carbon Dioxide 22 mmol/L (22-32); Chloride 105 mmol/L (98-107); Estimated Glomerular Filt Rate 35 mL/min (>60); Globulin 2.4 g/dL (1.7-4.1); Glucose 92 mg/dL (70-99); Lipase 42 U/L (23-300); Sodium 132 mmol/L (137-145); Total Protein 4.7 g/dL (6.3-8.2)
[2025-10-19 13:13] LABS: HEMOLYSIS 86 (0-50); Potassium 4.9 mmol/L (3.4-5.1)
[2025-10-19 13:19] LABS: Prothrombin Time 19.7 SECONDS (9.4-12.5)
[2025-10-19 13:25] LABS: Procalcitonin 0.218 ng/mL (<0.5)
--- NOTE | 2025-10-19 13:36 | ED_ITS ---
HPI - Weakness General Chief complaint: Weakness Stated complaint: Weakness Time Seen by Provider: 10/19/25 12:17 History of Present Illness HPI Narrative: Patient is a 75-year-old female who presents for weakness and back pain. 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 Patient states that she was in her usual state of health when she woke up this morning and was very weak and could not lift herself out of the bed. Back pain was started during patient's ride in the ambulance. She otherwise states no fevers, chills, nausea, vomiting. No dysuria, frequency, urgency. Patient states that she has a remote history of smoking. Related Data Home Medications ?Medication ?Instructions ?Recorded ?Confirmed atenolol 25 mg tablet 75 mg PO BID 10/19/18 fenofibrate nanocrystallized 48 mg 144 mg PO DAILY 10/10/25 tablet aspirin 81 mg tablet,delayed 81 mg PO DAILY 10/10/25 1 12/11/24 release (Adult Aspirin Regimen) doxycycline hyclate 50 mg capsule 100 mg PO DAILY infe ctious disease 10/10/25 10/10/25 pantoprazole 40 mg tablet,delayed 40 mg PO BID 5 10/10/25 release rivaroxaban 2.5 mg tablet (Xarelto) 2.5 mg PO BID 09/3010/10/25 Allergies Allergy/AdvReac Type Severity Reaction Status Date / Time codeine Allergy Verified 10/10/25 12:09 sulfamethoxazole (From Allergy Verified 10/10/25 12:09 Bactrim) trimethoprim (From Bactrim) Allergy Verified 10/10/25 12:09 Review of Systems Review of Systems Narrative: See HPI. Patient History Medical History Breast cancer Hypertension Pancreatitis Peripheral vascular disease of extremity with claudication Pressure ulcer of ankle Stomach ulcer Family History Mother Cancer Social History household members: spouse alcohol intake: former alcohol intake frequency: 0-2 drinks per day Exam Narrative Exam Narrative: Vitals: Vitals reviewed. Patient meets SIRS criteria for bradycardia, hypotension. Gen: Well-developed, well-nourished, [id number] acute distress secondary to back pain. Mouth: Dry mucus membranes Eyes: No scleral icterus, EOMI. Card: Bradycardic with no murmurs, rubs, or gallops. Pulm: Clear to auscultation bilaterally Abd: Soft, nondistended, nontender to palpation. CVA: Right CVA tenderness. Ext: No peripheral edema bilaterally. 2+ DP pulses. She has a chronic wound on the posterior aspect of her left ankle. The ulcer is shallow, the surrounding skin is not erythematous. Neuro: A&O x4, cranial nerves grossly intact. Psych: Appropriate Initial Vital Signs Initial Vital Signs: Vital Signs Pulse Rate 60 10/19/25 12:19 Respiratory Rate 16 10/19/25 12:19 Blood Pressure 88/52 L 10/19/25 12:19 Pulse Oximetry 97 10/19/25 12:19 Oxygen Delivery Method Room Air 10/19/25 12:19 Course Orders Ordered: ED Orders 10/19/25 12:35 Complete Blood Count AUTO DIFF Stat Comprehensive Metabolic Panel Stat Lactate (Lactic Acid) Stat Lipase Stat PTT Partial Thromboplastin Johnny Stat Procalcitonin Stat Prothrombin Time INR Stat 10/19/25 12:50 XR chest 1V Stat Blood Culture Stat EKG-12 Lead Stat RT Consult Eval and Treat NOW 10/19/25 12:57 EKG-12 Lead Stat 10/19/25 13:40 Ictotest Urine Stat Urinalysis and Microscopic Stat Urine Culture Stat 10/19/25 13:59 CT chest abd pel w con Stat 10/19/25 16:16 US abdomen limited Stat 10/19/25 17:33 Lipase Stat Acetaminophen (Acetaminophen 325 Mg Tablet) 650 mg PO Q6H PRN PRN Reason: Fever/Mild Pain (1-3) Aspirin (Aspirin Ec 81 Mg Tablet) 81 mg PO DAILY DIEGO Atenolol (Atenolol 25 Mg Tablet) 75 mg PO BID DIEGO Fenofibrate (Fenofibrate, Micronized 67 Mg Capsule) 67 mg PO DAILY [facility] Dextrose/Sodium Chloride (Dextrose 5%-0.45% Ns) 1,000 mls @ 100 mls/hr IV CONT DIEGO Last Admin: 10/19/25 20:07 Dose: 100 mls/hr Piperacillin Sod/Tazobactam (Sod 3.375 gm/ Sodium Chloride) 100 mls @ 25 mls/hr IV Q8H [facility] Last Admin: 10/19/25 20:06 Dose: 25 mls/hr Naloxone HCl (Naloxone 0.4 Mg/Ml Vial) 0.2 mg IV Q2MIN PRN PRN Reason: Opiate Reversal Ondansetron HCl (Ondansetron 4 Mg/2 Ml Inj) 4 mg IV NOW PRN PRN Reason: Nausea And Vomiting Ondansetron HCl (Ondansetron 4 Mg Odt) 4 mg PO NOW PRN PRN Reason: Nausea And Vomiting Pantoprazole Sodium (Pantoprazole Dr 40 Mg Tablet) 40 mg PO BID DIEGO Rivaroxaban (Rivaroxaban 10 Mg Tablet) 2.5 mg PO BID DIEGO Discontinued Medications Sodium Chloride (Normal Saline 0.9%) 1,000 mls @ 1,000 mls/hr IV BOLUS ONE Stop: 10/19/25 13:49 Last Admin: 10/19/25 13:11 Dose: Not Given Documented By: MURRAY Sodium Chloride (Normal Saline 0.9%) 500 mls @ 1,000 mls/hr IV BOLUS ONE Stop: 10/19/25 13:22 Last Infusion: 10/19/25 14:10 Dose: Infused Documented By: Admin: 10/19/25 13:00 Dose: 1,000 mls/hr Documented By: MURRAY Piperacillin Sod/Tazobactam (Sod 4.5 gm/ Sodium Chloride) 100 mls @ 200 mls/hr IV STAT ONE Stop: 10/19/25 13:59 Last Infusion: 10/19/25 15:51 Dose: Infused Documented By: Admin: 10/19/25 15:01 Dose: 200 mls/hr Documented By: MURRAY Sodium Chloride (Normal Saline 0.9%) 1,000 mls @ 500 mls/hr IV BOLUS ONE Stop: 10/19/25 16:41 Last Admin: 10/19/25 15:05 Dose: Not Given Documented By: MURRAY Sodium Chloride (Normal Saline 0.9%) 500 mls @ 1,000 mls/hr IV BOLUS ONE Stop: 10/19/25 15:35 Last Infusion: 10/19/25 15:52 Dose: Infused Documented By: Admin: 10/19/25 15:07 Dose: 1,000 mls/hr Documented By: MURRAY Morphine Sulfate (Morphine 2 Mg/Ml Inj) 2 mg IV NOW ONE Stop: 10/19/25 15:41 Last Admin: 10/19/25 15:56 Dose: 2 mg Documented By: ASHLEIGH Vital Signs Vital signs: Vital Signs - 8 hr 10/19/25 12:19 10/19/25 12:30 10/19/25 13:00 Pulse Rate 60 63 Respiratory Rate 16 Blood Pressure 88/52 L 88/52 L 73/49 L Pulse Oximetry 97 Oxygen Delivery Method Room Air 10/19/25 13:30 10/19/25 13:46 10/19/25 13:46 Pulse Rate 67 Respiratory Rate 25 H Blood Pressure 83/51 L 81/55 L Pulse Oximetry 93 Oxygen Delivery Method 10/19/25 13:50 10/19/25 13:50 10/19/25 13:56 Pulse Rate 63 59 L Respiratory Rate 22 18 Blood Pressure 82/51 L Pulse Oximetry 97 Oxygen Delivery Method 10/19/25 13:56 10/19/25 14:00 10/19/25 14:00 Pulse Rate 92 H Respiratory Rate Blood Pressure 63/43 L 76/49 L Pulse Oximetry 100 Oxygen Delivery Method 10/19/25 14:05 10/19/25 14:05 10/19/25 14:10 Pulse Rate 68 Respiratory Rate 27 H Blood Pressure 80/52 L 77/49 L Pulse Oximetry Oxygen Delivery Method 10/19/25 14:10 10/19/25 14:16 10/19/25 14:16 Pulse Rate 63 60 Respiratory Rate 18 14 Blood Pressure 72/38 L Pulse Oximetry 91 Oxygen Delivery Method 10/19/25 14:20 10/19/25 14:20 10/19/25 14:25 Pulse Rate 76 Respiratory Rate Blood Pressure 78/50 L 73/48 L Pulse Oximetry 91 Oxygen Delivery Method 10/19/25 14:25 10/19/25 14:30 10/19/25 14:30 Pulse Rate 59 L 55 L Respiratory Rate 26 H 26 H Blood Pressure 73/47 L Pulse Oximetry 96 93 Oxygen Delivery Method 10/19/25 14:36 10/19/25 14:36 10/19/25 14:40 Pulse Rate 60 Respiratory Rate 28 H Blood Pressure 100/64 85/47 L Pulse Oximetry Oxygen Delivery Method 10/19/25 14:40 10/19/25 14:46 10/19/25 14:46 Pulse Rate 59 L 65 Respiratory Rate 24 26 H Blood Pressure 102/51 L Pulse Oximetry Oxygen Delivery Method 10/19/25 14:51 10/19/25 14:51 10/19/25 14:55 Pulse Rate 59 L 59 L Respiratory Rate 18 21 Blood Pressure 108/69 Pulse Oximetry Oxygen Delivery Method 10/19/25 14:55 10/19/25 15:00 10/19/25 15:00 Pulse Rate 61 Respiratory Rate 24 Blood Pressure 93/50 L 87/51 L Pulse Oximetry Oxygen Delivery Method 10/19/25 15:05 10/19/25 15:05 10/19/25 15:41 Pulse Rate 80 70 Respiratory Rate 25 H Blood Pressure 93/51 L Pulse Oximetry 96 Oxygen Delivery Method 10/19/25 15:44 10/19/25 15:44 10/19/25 15:45 Pulse Rate 71 Respiratory Rate Blood Pressure 104/57 L 113/61 Pulse Oximetry Oxygen Delivery Method 10/19/25 15:45 10/19/25 15:50 10/19/25 15:50 Pulse Rate 79 194 H Respiratory Rate 17 15 Blood Pressure 106/55 L Pulse Oximetry Oxygen Delivery Method 10/19/25 15:55 10/19/25 15:55 10/19/25 16:00 Pulse Rate 127 H 72 Respiratory Rate 15 14 Blood Pressure 119/57 L Pulse Oximetry Oxygen Delivery Method 10/19/25 16:00 10/19/25 16:05 10/19/25 16:05 Pulse Rate 70 Respiratory Rate 17 Blood Pressure 93/51 L 94/50 L Pulse Oximetry 95 Oxygen Delivery Method 10/19/25 16:10 10/19/25 16:10 10/19/25 16:15 Pulse Rate 72 Respiratory Rate 16 Blood Pressure 100/51 L 105/56 L Pulse Oximetry Oxygen Delivery Method 10/19/25 16:15 10/19/25 16:20 10/19/25 16:20 Pulse Rate 71 73 Respiratory Rate 14 13 Blood Pressure 103/59 L Pulse Oximetry Oxygen Delivery Method 10/19/25 16:25 10/19/25 16:25 10/19/25 16:30 Pulse Rate 70 71 Respiratory Rate 14 14 Blood Pressure 94/51 L Pulse Oximetry 87 L Oxygen Delivery Method 10/19/25 16:30 10/19/25 16:35 10/19/25 16:35 Pulse Rate 80 Respiratory Rate 18 Blood Pressure 101/57 L 105/57 L Pulse Oximetry 96 Oxygen Delivery Method Nasal Cannula 10/19/25 16:40 10/19/25 16:40 10/19/25 16:45 Pulse Rate 64 Respiratory Rate 14 Blood Pressure 101/56 L 113/55 L Pulse Oximetry Oxygen Delivery Method 10/19/25 16:45 10/19/25 16:50 10/19/25 16:50 Pulse Rate 98 H 69 Respiratory Rate 23 26 H Blood Pressure 109/54 L Pulse Oximetry Oxygen Delivery Method 10/19/25 16:55 10/19/25 16:55 10/19/25 17:00 Pulse Rate 85 Respiratory Rate 16 Blood Pressure 120/61 117/63 Pulse Oximetry Oxygen Delivery Method 10/19/25 17:00 10/19/25 17:05 10/19/25 17:05 Pulse Rate 82 65 Respiratory Rate 16 12 Blood Pressure 98/64 Pulse Oximetry Oxygen Delivery Method 10/19/25 17:10 10/19/25 17:10 10/19/25 17:15 Pulse Rate 88 71 Respiratory Rate 18 Blood Pressure 129/60 Pulse Oximetry Oxygen Delivery Method 10/19/25 17:15 10/19/25 17:20 10/19/25 17:20 Pulse Rate 63 Respiratory Rate 17 Blood Pressure 137/67 117/59 L Pulse Oximetry Oxygen Delivery Method 10/19/25 17:25 10/19/25 17:25 10/19/25 17:30 Pulse Rate 65 Respiratory Rate 18 Blood Pressure 131/59 L 142/74 H Pulse Oximetry Oxygen Delivery Method 10/19/25 17:30 10/19/25 17:35 10/19/25 17:35 Pulse Rate 87 93 H Respiratory Rate 17 Blood Pressure 142/68 H Pulse Oximetry Oxygen Delivery Method 10/19/25 17:37 10/19/25 17:40 10/19/25 17:40 Pulse Rate 83 79 Respiratory Rate 16 19 Blood Pressure 142/68 H 107/56 L Pulse Oximetry 96 Oxygen Delivery Method 10/19/25 17:45 10/19/25 17:45 10/19/25 17:50 Pulse Rate 119 H Respiratory Rate Blood Pressure 92/61 102/56 L Pulse Oximetry Oxygen Delivery Method 10/19/25 17:50 10/19/25 17:56 10/19/25 17:56 Pulse Rate 66 91 H Respiratory Rate 18 Blood Pressure 94/69 Pulse Oximetry Oxygen Delivery Method 10/19/25 18:00 10/19/25 18:00 10/19/25 18:05 Pulse Rate 86 Respiratory Rate 19 Blood Pressure 107/59 L 118/61 Pulse Oximetry Oxygen Delivery Method 10/19/25 18:05 10/19/25 18:10 10/19/25 18:10 Pulse Rate 96 H 102 H Respiratory Rate Blood Pressure 124/59 L Pulse Oximetry Oxygen Delivery Method MDM - Weakness Lab Data 10/19/25 12:35 10/19/25 12:35 Labs: Lab Results 10/19/25 10/19/25 10/19/25 Range/Units 12:35 13:40 15:20 WBC 9.3 (4.5-11.0) X10^3/uL RBC 2.68 L (4.0-5.2) X10^6/uL Hgb 9.5 L (12.0-16.0) g/dL Hct 28.8 L (36-46) % MCV 107.3 H (80-100) fL MCH 35.3 H (26-34) PG MCHC 32.9 (30-36) % RDW 19.6 H (11.6-14.8) % Plt Count 130 L (150-400) X10^3/uL Neut % (Auto) 77.9 H (50-75) % Lymph % (Auto) 12.2 L (25-40) % [place] % (Auto) 9.1 (3-14) % Eos % (Auto) 0.4 L (2-4) % Baso % (Auto) 0.4 (0-2) % Neut # (Auto) 7200 H (3356-3779) /uL Lymph # (Auto) 1100 (5078-7436) /uL [place] # (Auto) 800 (0-900) /uL Eos # (Auto) 0 (0-450) /uL Baso # (Auto) 0 (0-100) /uL PT 19.7 H D (9.4-12.5) SECONDS INR 1.8 H (0.9-1.3) APTT 32 (25.1-36.5) SECONDS Sodium 132 L (137-145) mmol/L Potassium 4.9 (3.4-5.1) mmol/L Chloride 105 (98-107) mmol/L Carbon Dioxide 22 (22-32) mmol/L BUN 30 H (7-17) mg/dL Creatinine 1.51 H (0.52-1.04) mg/dL Estimated GFR 35 L (>60) mL/min BUN/Creatinine Ratio 19.9 (6-22) Glucose 92 (70-99) mg/dL Lactate 3.7 H 2.4 H (0.7-2.1) mmol/L Calcium 7.6 L (8.4-10.2) mg/dL Total Bilirubin 2.7 H (0.2-1.3) mg/dL AST 108 H (14-36) IU/L ALT 59 H (<35) IU/L Alkaline Phosphatase 52 (38-126) U/L Total Protein 4.7 L (6.3-8.2) g/dL Albumin 2.3 L (3.5-5.0) g/dL Globulin 2.4 (1.7-4.1) g/dL Albumin/Globulin Ratio 1.0 (1.0-2.8) Lipase 42 (23-300) U/L Procalcitonin 0.218 (<0.5) ng/mL Urine Color [place] Urine Appearance Cloudy Urine pH 5.5 (4.5-8.0) Ur Specific [place] 1.015 (1.000-1.035) Urine Protein Negative (Negative) Urine Glucose (UA) Negative (Negative) g/dL Urine Ketones Negative (NEGATIVE) Urine Occult Blood 1+ H (Negative) Urine Nitrate Positive H (Negative) Urine Bilirubin 1+ H (NEGATIVE) Ur Bilirubin Confirm Negative (Negative) Urine Urobilinogen 0.2 (0.2) E.U./dL Ur Leukocyte Esterase 2+ H (NEGATIVE) Urine RBC 0-1/hpf (0-5/HPF) Urine WBC 30-100/hpf H (0-5/HPF) Ur Squamous Epith Cells None seen (0-5/HPF) Urine Bacteria Many (>30) H (None) Ur Culture Indicated? Specimen cultured Vol Urine Centrifuged 10ml (spun) Imaging Data Chest x-ray: Radiologist Impression: PROCEDURE: XR CHEST 1V INDICATIONS: suspected sepsis TECHNIQUE: One view of the chest was acquired. COMPARISON: [facility], CR, XR CHEST 1V, 10/10/2025, 12:07. FINDINGS: Surgical changes and devices: Surgical clips are noted in left breast. Lungs and pleura: Lungs are clear. No pleural effusions or pneumothorax. Mediastinum: Mediastinal contours appear normal. Heart size is enlarged. Bones and chest wall: No suspicious bony lesions. Overlying soft tissues appear unremarkable. IMPRESSION: No acute cardiopulmonary pathology. CT scan - abdomen/pelvis: Radiologist Impression: PROCEDURE: CT CHEST ABD PEL W CON INDICATIONS: sepsis TECHNIQUE: After the administration of intravenous contrast, 5 mm thick sections acquired from the lung apices to the symphysis. 5 mm coronal and sagittal reformats were performed, with additional 7 mm MIP reformats through the lungs. For radiation dose reduction, the following was used: automated exposure control, adjustment of mA and/or kV according to patient size. COMPARISON: [facility], CT, CT ANGIO ABDOMEN PELVIS, 01/02/2024, 13:58. [facility], CT, CT ABDOMEN PANCREATIC PROTOCOL, 01/06/2024, 14:17. [facility], CT, CT ABDOMEN PANCREATIC PROTOCOL, 01/12/2024, 14:27. [facility], CR, XR CHEST 1V, 10/19/2025, 13:00. FINDINGS: Image quality: Excellent. CHEST: Lower Neck: No enlarged lymph nodes. Thyroid: No thyroid nodules which require sonographic follow up, per consensus guidelines. Axillae: No enlarged lymph nodes. Chest Wall: Unremarkable. Lungs and Pleura: There is a small left-sided pleural effusion, with overlying atelectasis. There is a central disc osteophyte protrusion. No pneumothorax. No focal infiltrates are seen. Heart: Heart size is normal. No pericardial effusion. Moderate coronary calcification is seen. Thoracic Vessels: The aorta and pulmonary arteries demonstrate normal size. Mediastinum and [place]: No enlarged lymph nodes. Esophagus: No wall thickening. No hiatal hernia. ABDOMEN: Liver: No solid mass. Gallbladder: A gallstone is seen within the gallbladder. Biliary ducts: No biliary dilation. Pancreas: Mild pancreatic ductal dilatation is seen, as before. The tail the pancreas is diminutive. Spleen: Size is within normal limits. Adrenal Glands: No adrenal nodules. Kidneys and Ureters: No hydronephrosis. No solid mass. No complex renal cystic lesion which requires follow up. Stomach and Bowel: Normal colonic caliber, without significant wall thickening. No dilated loops of small bowel are seen. Colonic diverticulosis is seen, without findings of active diverticulitis. Peritoneum: Postoperative changes can be seen involving the right upper quadrant. No abnormal intraperitoneal fluid. No free air. Ventral Wall: No significant ventral hernia. Abdominal Nodes: No retroperitoneal or mesenteric adenopathy by size criteria. Vessels: Aorta and inferior vena cava are normal in size. Atherosclerotic calcification is noted. PELVIS: Pelvic Organs: No adnexal masses are seen on either side. Bladder: No bladder wall thickening, accounting for underdistention. Pelvic Nodes: No enlarged lymph nodes. Miscellaneous: No inguinal hernias are seen. Bones: No aggressive osseous abnormality. Degenerative changes are seen which are worst involving the lower lumbar spine. Left proximal femur hardware is partially seen. IMPRESSION: A source of sepsis is not identified. A small left-sided pleural effusion is seen. Right upper quadrant postoperative change is seen. Abnormal pancreas with biliary ductal dilatation and atrophy of the tail of the pancreas, as before. Additional findings: Gallstone US - abdomen: Radiologist Impression: PROCEDURE: US ABDOMEN LIMITED INDICATIONS: elevated LFTs/bili, stones on CT, r/o cholangitis TECHNIQUE: Real-time focused scanning was performed of the abdomen, with image documentation. COMPARISON: [facility], US, US ABDOMEN LIMITED, 10/20/2018, 10:09. [facility], CT, CT CHEST ABD PEL W CON, 10/19/2025, 14:20. FINDINGS: The liver is normal in size and demonstrates no suspicious lesions. Layering gallstones are seen. The gallbladder wall is not thickened, measuring 3 mm or less. No specific pericholecystic fluid is seen. The sonographic Fitzpatrick sign is negative. There is no biliary dilatation, the common bile duct measures 1 mm. Pancreatic ductal dilatation is again seen a 6 mm. IMPRESSION: Gallstones are seen, yet without additional sonographic signs of cholecystitis. Negative for biliary dilatation. Please correlate with physical examination findings, patient presentation, and laboratory values. No significant liver abnormality is seen on this ultrasound study. Pancreatic ductal dilatation is again seen. MDM Narrative Medical decision making narrative: 75 year old female who presents with fatigue and right lower back pain. Differential diagnosis: ACS, UTI, nephrolithiasis, AAA, aortic dissection, intra-abdominal pathology, electrolyte abnormality, other. EMR reviewed: Previous your visit on 10/10/2025 was reviewed along with labs and imaging. Multiple encounters were reviewed to determine patient's baseline blood pressure, and upon review, she was in fact hypotensive. Labs: CBC without leukocytosis, anemia (Hbg 9.5, 10.2 on 10/13/2025), MCV 107.3 consistent with microscopic anemia, thrombocytopenia (platelet 130), neutrophilia (neut 77.9), PT 19.7, INR 1.8. CMP with hyponatremia (Na 132), BUN 30, creatinine 1.51 (up from 132 on 10/13/2025), lactate 2.4, bili 2.7, AST 108, ALT 59 (liver enzymes elevated from previous hospitalization). Lipase 42, recalls 0.28. Urinalysis consistent with urinary tract infection to include positive nitrites, positive leuk esterase, pyuria, and bacteriuria. Imaging: CXR: Normal. US: Pancreatic ductal dilatation. CT a/s/p: Small left-sided pleural effusion. Abnormal pancreas with biliary ductal dilatation. No bladder wall thickening. Kidneys and ureters normal. EK EKG with sinus bradycardia and sinus arrhythmia. HR or 5 9, TN 162, QRS 76, QTC 407, globally low voltage EKG, ST wave abnormalities in anterior lateral leads. This was compared to EKG obtained on 10/10/2025 where T-wave abnormalities was seen in similar however now there are T-wave changes in V2. ER Course: Patient is a 75-year-old female who presents with fatigue and right lower back pain. She was recently seen on 10/10/2025 for weakness. On presentation, patient was hypotensive concerning for infection. Sepsis protocol was initiated, patient was given 500 mL IV boluses x 3, Zosyn administered, nursing staff was unable to obtain blood cultures x2. The 1 anaerobic bottle was sent to laboratory. Patient is a small statured female and I reviewed multiple EMR documentation stating that her systolic blood pressures typically in the 120s. She has a chronic wound on her left ankle, and the dressing was taken down to look for a source of infection. On workup, patient's urinalysis was consistent with urinary tract infection. CT chest abdomen and pelvis was originally ordered to determine source of infection and was unrevealing. In the setting of a dilated pancreatic duct, as well as mildly elevated liver function tests, right upper ultrasound was ordered. Cholelithiasis was noted however patient did not have cholecystitis. Given concerns for sepsis and pain, patient was admitted to the hospital for further care and management. Critical Care Time Critical Care Time Attestation: Total critical care time proximally to 35 minutes. Patient presented hypotensive, tachycardic, severe pain. Meeting sepsis criteria. Discharge Plan Departure Patient Disposition: Admitted As Inpatient Clinical Impression: Sepsis associated hypotension, Acute UTI (urinary tract infection), Dilated pancreatic duct Admit Date/Time: 10/19/25 18:42 Admit Provider: Go Washburn V Sepsis Evaluation (ED) Level 1 - Infection Sepsis Infection Criteria Present: Suspected New Infection (UTI, wound, other) Level 2 - SIRS Sepsis SIRS Criteria Present: Pulse > 90 bpm
--- NOTE | 2025-10-19 13:59 | DI.CT.S_ITS ---
PROCEDURE: CT CHEST ABD PEL W CON INDICATIONS: sepsis TECHNIQUE: After the administration of intravenous contrast, 5 mm thick sections acquired from the lung apices to the symphysis. 5 mm coronal and sagittal reformats were performed, with additional 7 mm MIP reformats through the lungs. For radiation dose reduction, the following was used: automated exposure control, adjustment of mA and/or kV according to patient size. COMPARISON: [facility], CT, CT ANGIO ABDOMEN PELVIS, 01/02/2024, 13:58. [facility], CT, CT ABDOMEN PANCREATIC PROTOCOL, 01/06/2024, 14:17. [facility], CT, CT ABDOMEN PANCREATIC PROTOCOL, 01/12/2024, 14:27. [facility], CR, XR CHEST 1V, 10/19/2025, 13:00. FINDINGS: Image quality: Excellent. CHEST: Lower Neck: No enlarged lymph nodes. Thyroid: No thyroid nodules which require sonographic follow up, per consensus guidelines. Axillae: No enlarged lymph nodes. Chest Wall: Unremarkable. Lungs and Pleura: There is a small left-sided pleural effusion, with overlying atelectasis. There is a central disc osteophyte protrusion. No pneumothorax. No focal infiltrates are seen. Heart: Heart size is normal. No pericardial effusion. Moderate coronary calcification is seen. Thoracic Vessels: The aorta and pulmonary arteries demonstrate normal size. Mediastinum and [place]: No enlarged lymph nodes. Esophagus: No wall thickening. No hiatal hernia. ABDOMEN: Liver: No solid mass. Gallbladder: A gallstone is seen within the gallbladder. Biliary ducts: No biliary dilation. Pancreas: Mild pancreatic ductal dilatation is seen, as before. The tail the pancreas is diminutive. Spleen: Size is within normal limits. Adrenal Glands: No adrenal nodules. Kidneys and Ureters: No hydronephrosis. No solid mass. No complex renal cystic lesion which requires follow up. Stomach and Bowel: Normal colonic caliber, without significant wall thickening. No dilated loops of small bowel are seen. Colonic diverticulosis is seen, without findings of active diverticulitis. Peritoneum: Postoperative changes can be seen involving the right upper quadrant. No abnormal intraperitoneal fluid. No free air. Ventral Wall: No significant ventral hernia. Abdominal Nodes: No retroperitoneal or mesenteric adenopathy by size criteria. Vessels: Aorta and inferior vena cava are normal in size. Atherosclerotic calcification is noted. PELVIS: Pelvic Organs: No adnexal masses are seen on either side. Bladder: No bladder wall thickening, accounting for underdistention. Pelvic Nodes: No enlarged lymph nodes. Miscellaneous: No inguinal hernias are seen. Bones: No aggressive osseous abnormality. Degenerative changes are seen which are worst involving the lower lumbar spine. Left proximal femur hardware is partially seen. IMPRESSION: A source of sepsis is not identified. A small left-sided pleural effusion is seen. Right upper quadrant postoperative change is seen. Abnormal pancreas with biliary ductal dilatation and atrophy of the tail of the pancreas, as before. Additional findings: Gallstone Dictated by: David Mccollum M.D. on 10/19/2025 at 15:04 Approved by: David Mccollum M.D. on 10/19/2025 at 15:10
[2025-10-19 14:17] LABS: Bilirubin Urine UA 1+ (NEGATIVE); Glucose Urine UA NEGATIVE (Negative); Ketones Urine UA NEGATIVE (NEGATIVE); Leukocyte Esterase Urine UA 2+ (NEGATIVE); Nitrite Urine UA POSITIVE (Negative); Occult Blood Urine UA 1+ (Negative); Protein Urine UA NEGATIVE (Negative); Specific Gravity Urine UA 1.015 (1.000-1.035); Urobilinogen Urine UA 0.2 E.U./dL (0.2)
[2025-10-19 14:18] LABS: Appearance Urine UA CLOUDY; Color Urine UA ORANGE; Ictotest Urine Negative (Negative); pH Urine UA 5.5 (4.5-8.0)
[2025-10-19 14:22] LABS: Culture Indicated Urine Specimen Cultured
[2025-10-19 14:33] LABS: Reflexed Lactate in 2 Hours Y
[2025-10-19] MEDS: PIPERACILLIN/TAZO 4.5 GM in SODIUM CHLORIDE 0.9% 100 ML IV (15:01)
[2025-10-19] MEDS: MORPHINE 2 MG/ML INJ IV (15:56)
[2025-10-19 16:06] LABS: Lactate 2HR (Lactic Acid Rflx) 2.4 mmol/L (0.7-2.1)
--- NOTE | 2025-10-19 16:16 | DI.US.S_ITS ---
PROCEDURE: US ABDOMEN LIMITED INDICATIONS: elevated LFTs/bili, stones on CT, r/o cholangitis TECHNIQUE: Real-time focused scanning was performed of the abdomen, with image documentation. COMPARISON: [facility], US, US ABDOMEN LIMITED, 10/20/2018, 10:09. [facility], CT, CT CHEST ABD PEL W CON, 10/19/2025, 14:20. FINDINGS: The liver is normal in size and demonstrates no suspicious lesions. Layering gallstones are seen. The gallbladder wall is not thickened, measuring 3 mm or less. No specific pericholecystic fluid is seen. The sonographic Fitzpatrick sign is negative. There is no biliary dilatation, the common bile duct measures 1 mm. Pancreatic ductal dilatation is again seen a 6 mm. IMPRESSION: Gallstones are seen, yet without additional sonographic signs of cholecystitis. Negative for biliary dilatation. Please correlate with physical examination findings, patient presentation, and laboratory values. No significant liver abnormality is seen on this ultrasound study. Pancreatic ductal dilatation is again seen. Dictated by: David Mccollum M.D. on 10/19/2025 at 16:26 Approved by: David Mccollum M.D. on 10/19/2025 at 16:27
--- NOTE | 2025-10-19 16:35 | PC.NURSE ---
pt oxygen dropped while sleeping to 87% She was placed on 2L NC. Patient 97% on 2L
--- NOTE | 2025-10-19 17:18 | PC.NURSE ---
Patient stated she was tired and wanted to sleep. The lights were turned off and the patient stated don't turn the lights off and give me the dark treatment. Lights were turned back on for comfort. Patient has pure wic and and is on the cableman. Will continue to monitor.
--- NOTE | 2025-10-19 18:14 | PC.NURSE ---
patient's o2 saturation is 96% on 2l NC.
--- NOTE | 2025-10-19 18:49 | P.HP_ITS ---
History of Present Illness History of Present Illness Date Patient Seen: 10/19/25 Time Patient Seen: 18:20 Chief complaint: Weakness Narrative: 75-year-old woman recently discharged from this hospital 10/13/2025 for an episode of congestive heart failure was at home recovering well when she suddenly this morning felt so weak she could not get out of bed. She was brought by paramedics to the emergency department. On route she experienced some back discomfort that she attributes to being transferred to the ambulance [facility]. She also has peripheral artery disease and a large chronic left ankle ulcer with recent stenting two weeks ago in [place], managed with aspirin and Xarelto and the wound care clinic locally. She denies chest pain, shortness breast, nausea, vomiting, diarrhea, abdominal pain, dysuria, frequency, hesitancy or urinary symptoms. She has not had a recent indwelling catheter. She was noted to have an abnormal urinalysis on presentation. She was started on IV Zosyn in the emergency department. [facility] Medical History Breast cancer Hypertension Pancreatitis Peripheral vascular disease of extremity with claudication Pressure ulcer of ankle Stomach ulcer Family History Mother Cancer Social History household members: spouse alcohol intake: former Meds Home Medications and Allergies Home Medications ?Medication ?Instructions ?Recorded ?Confirmed ?Type atenolol 25 mg tablet 75 mg PO BID 10/19/18 History fenofibrate nanocrystallized 48 mg 144 mg PO DAILY 10/10/25 History tablet aspirin 81 mg tablet,delayed 81 mg PO DAILY 10/10/25 1 12/11/24 History release (Adult Aspirin Regimen) doxycycline hyclate 50 mg capsule 100 mg PO DAILY infe ctious disease 10/10/25 10/10/25 History pantoprazole 40 mg tablet,delayed 40 mg PO BID 5 10/10/25 History release rivaroxaban 2.5 mg tablet (Xarelto) 2.5 mg PO BID 09/3010/10/25 History Allergies Allergy/AdvReac Type Severity Reaction Status Date / Time codeine Allergy Verified 10/10/25 12:09 sulfamethoxazole (From Allergy Verified 10/10/25 12:09 Bactrim) trimethoprim (From Bactrim) Allergy Verified 10/10/25 12:09 Review of Systems Review of Systems ROS: Yes All systems reviewed with the patient and are negative except as otherwise documented Exam Vital Signs (past 8 hours): - 10/19/25 12:19 10/19/25 12:30 10/19/25 13:00 Pulse Rate 60 63 Respiratory Rate 16 Blood Pressure 88/52 L 88/52 L 73/49 L Pulse Oximetry 97 Oxygen Delivery Method Room Air 10/19/25 13:30 10/19/25 13:46 10/19/25 13:46 Pulse Rate 67 Respiratory Rate 25 H Blood Pressure 83/51 L 81/55 L Pulse Oximetry 93 Oxygen Delivery Method 10/19/25 13:50 10/19/25 13:50 10/19/25 13:56 Pulse Rate 63 59 L Respiratory Rate 22 18 Blood Pressure 82/51 L Pulse Oximetry 97 Oxygen Delivery Method 10/19/25 13:56 10/19/25 14:00 10/19/25 14:00 Pulse Rate 92 H Respiratory Rate Blood Pressure 63/43 L 76/49 L Pulse Oximetry 100 Oxygen Delivery Method 10/19/25 14:05 10/19/25 14:05 10/19/25 14:10 Pulse Rate 68 Respiratory Rate 27 H Blood Pressure 80/52 L 77/49 L Pulse Oximetry Oxygen Delivery Method 10/19/25 14:10 10/19/25 14:16 10/19/25 14:16 Pulse Rate 63 60 Respiratory Rate 18 14 Blood Pressure 72/38 L Pulse Oximetry 91 Oxygen Delivery Method 10/19/25 14:20 10/19/25 14:20 10/19/25 14:25 Pulse Rate 76 Respiratory Rate Blood Pressure 78/50 L 73/48 L Pulse Oximetry 91 Oxygen Delivery Method 10/19/25 14:25 10/19/25 14:30 10/19/25 14:30 Pulse Rate 59 L 55 L Respiratory Rate 26 H 26 H Blood Pressure 73/47 L Pulse Oximetry 96 93 Oxygen Delivery Method 10/19/25 14:36 10/19/25 14:36 10/19/25 14:40 Pulse Rate 60 Respiratory Rate 28 H Blood Pressure 100/64 85/47 L Pulse Oximetry Oxygen Delivery Method 10/19/25 14:40 10/19/25 14:46 10/19/25 14:46 Pulse Rate 59 L 65 Respiratory Rate 24 26 H Blood Pressure 102/51 L Pulse Oximetry Oxygen Delivery Method 10/19/25 14:51 10/19/25 14:51 10/19/25 14:55 Pulse Rate 59 L 59 L Respiratory Rate 18 21 Blood Pressure 108/69 Pulse Oximetry Oxygen Delivery Method 10/19/25 14:55 10/19/25 15:00 10/19/25 15:00 Pulse Rate 61 Respiratory Rate 24 Blood Pressure 93/50 L 87/51 L Pulse Oximetry Oxygen Delivery Method 10/19/25 15:05 10/19/25 15:05 10/19/25 15:41 Pulse Rate 80 70 Respiratory Rate 25 H Blood Pressure 93/51 L Pulse Oximetry 96 Oxygen Delivery Method 10/19/25 15:44 10/19/25 15:44 10/19/25 15:45 Pulse Rate 71 Respiratory Rate Blood Pressure 104/57 L 113/61 Pulse Oximetry Oxygen Delivery Method 10/19/25 15:45 10/19/25 15:50 10/19/25 15:50 Pulse Rate 79 194 H Respiratory Rate 17 15 Blood Pressure 106/55 L Pulse Oximetry Oxygen Delivery Method 10/19/25 15:55 10/19/25 15:55 10/19/25 16:00 Pulse Rate 127 H 72 Respiratory Rate 15 14 Blood Pressure 119/57 L Pulse Oximetry Oxygen Delivery Method 10/19/25 16:00 10/19/25 16:05 10/19/25 16:05 Pulse Rate 70 Respiratory Rate 17 Blood Pressure 93/51 L 94/50 L Pulse Oximetry 95 Oxygen Delivery Method 10/19/25 16:10 10/19/25 16:10 10/19/25 16:15 Pulse Rate 72 Respiratory Rate 16 Blood Pressure 100/51 L 105/56 L Pulse Oximetry Oxygen Delivery Method 10/19/25 16:15 10/19/25 16:20 10/19/25 16:20 Pulse Rate 71 73 Respiratory Rate 14 13 Blood Pressure 103/59 L Pulse Oximetry Oxygen Delivery Method 10/19/25 16:25 10/19/25 16:25 10/19/25 16:30 Pulse Rate 70 71 Respiratory Rate 14 14 Blood Pressure 94/51 L Pulse Oximetry 87 L Oxygen Delivery Method 10/19/25 16:30 10/19/25 16:35 10/19/25 16:35 Pulse Rate 80 Respiratory Rate 18 Blood Pressure 101/57 L 105/57 L Pulse Oximetry 96 Oxygen Delivery Method Nasal Cannula 10/19/25 16:40 10/19/25 16:40 10/19/25 16:45 Pulse Rate 64 Respiratory Rate 14 Blood Pressure 101/56 L 113/55 L Pulse Oximetry Oxygen Delivery Method 10/19/25 16:45 10/19/25 16:50 10/19/25 16:50 Pulse Rate 98 H 69 Respiratory Rate 23 26 H Blood Pressure 109/54 L Pulse Oximetry Oxygen Delivery Method 10/19/25 16:55 10/19/25 16:55 10/19/25 17:00 Pulse Rate 85 Respiratory Rate 16 Blood Pressure 120/61 117/63 Pulse Oximetry Oxygen Delivery Method 10/19/25 17:00 10/19/25 17:05 10/19/25 17:05 Pulse Rate 82 65 Respiratory Rate 16 12 Blood Pressure 98/64 Pulse Oximetry Oxygen Delivery Method 10/19/25 17:10 10/19/25 17:10 10/19/25 17:15 Pulse Rate 88 71 Respiratory Rate 18 Blood Pressure 129/60 Pulse Oximetry Oxygen Delivery Method 10/19/25 17:15 10/19/25 17:20 10/19/25 17:20 Pulse Rate 63 Respiratory Rate 17 Blood Pressure 137/67 117/59 L Pulse Oximetry Oxygen Delivery Method 10/19/25 17:25 10/19/25 17:25 10/19/25 17:30 Pulse Rate 65 Respiratory Rate 18 Blood Pressure 131/59 L 142/74 H Pulse Oximetry Oxygen Delivery Method 10/19/25 17:30 10/19/25 17:35 10/19/25 17:35 Pulse Rate 87 93 H Respiratory Rate 17 Blood Pressure 142/68 H Pulse Oximetry Oxygen Delivery Method 10/19/25 17:37 10/19/25 17:40 10/19/25 17:40 Pulse Rate 83 79 Respiratory Rate 16 19 Blood Pressure 142/68 H 107/56 L Pulse Oximetry 96 Oxygen Delivery Method 10/19/25 17:45 10/19/25 17:45 10/19/25 17:50 Pulse Rate 119 H Respiratory Rate Blood Pressure 92/61 102/56 L Pulse Oximetry Oxygen Delivery Method 10/19/25 17:50 12/20/25 17:56 10/19/25 17:56 Pulse Rate 66 91 H Respiratory Rate 18 Blood Pressure 94/69 Pulse Oximetry Oxygen Delivery Method 10/19/25 18:00 10/19/25 18:00 10/19/25 18:05 Pulse Rate 86 Respiratory Rate 19 Blood Pressure 107/59 L 118/61 Pulse Oximetry Oxygen Delivery Method 10/19/25 18:05 10/19/25 18:10 10/19/25 18:10 Pulse Rate 96 H 102 H Respiratory Rate Blood Pressure 124/59 L Pulse Oximetry Oxygen Delivery Method Oxygen Delivery Method Nasal Cannula Narrative Exam Narrative: GENERAL: This is a pleasant female patient, in no apparent distress. EYES: Pupils equal round and reactive. Extraocular motions intact. No scleral icterus. No injection or drainage. ENT: Mucous membranes pink and moist. NECK: Trachea midline. No JVD, bruits or lymphadenopathy. Supple, nontender, no meningeal signs. CARDIOVASCULAR: Regular rate and rhythm without murmurs, gallops, or rubs. RESPIRATORY: Clear to auscultation. GASTROINTESTINAL: Abdomen soft, non-tender, nondistended. EXTREMITIES: No clubbing, cyanosis, or edema. NEUROLOGIC: Alert, oriented, speech fluent, full upper and lower motor strength, no focal deficits evident. DERMATOLOGIC: Large left medial ankle stage IV ulceration occupying most of the visible ankle Objective ECG Impression: Sinus bradycardia at 59 beats per minute, low-voltage QRS, T-wave inversions leads V2 through V6. No significant change from 10/10/2025 EKG. Imaging *: Radiologist's impression: 1. Chest x-ray 10/19/2025: No acute cardiopulmonary pathology. 2. Chest/abdomen/pelvis CT 10/19/2025: A source of sepsis is not identified. A small left-sided pleural effusion is seen. Right upper quadrant postoperative change is seen. Abnormal pancreas with biliary ductal dilatation and atrophy of the tail of the pancreas, as before. Additional findings: Gallstone 3. Abdominal ultrasound 10/19/2025: Gallstones are seen, yet without additional sonographic signs of cholecystitis. Negative for biliary dilatation. Please correlate with physical examination findings, patient presentation, and laboratory values. No significant liver abnormality is seen on this ultrasound study. Pancreatic ductal dilatation is again seen. Labs 10/20/25 04:05 10/20/25 04:05 Labs: Laboratory Results - last 24 hr 10/19/25 10/19/25 10/19/25 12:35 13:40 15:20 WBC 9.3 RBC 2.68 L Hgb 9.5 L Hct 28.8 L MCV 107.3 H MCH 35.3 H MCHC 32.9 RDW 19.6 H Plt Count 130 L Neut % (Auto) 77.9 H Lymph % (Auto) 12.2 L [place] % (Auto) 9.1 Eos % (Auto) 0.4 L Baso % (Auto) 0.4 Neut # (Auto) 7200 H Lymph # (Auto) 1100 [place] # (Auto) 800 Eos # (Auto) 0 Baso # (Auto) 0 PT 19.7 H D INR 1.8 H APTT 32 Sodium 132 L Potassium 4.9 Chloride 105 Carbon Dioxide 22 BUN 30 H Creatinine 1.51 H Estimated GFR 35 L BUN/Creatinine Ratio 19.9 Glucose 92 Lactate 3.7 H 2.4 H Calcium 7.6 L Total Bilirubin 2.7 H AST 108 H ALT 59 H Alkaline Phosphatase 52 Total Protein 4.7 L Albumin 2.3 L Globulin 2.4 Albumin/Globulin Ratio 1.0 Lipase 42 Procalcitonin 0.218 Urine Color [place] Urine Appearance Cloudy Urine pH 5.5 Ur Specific [place] 1.015 Urine Protein Negative Urine Glucose (UA) Negative Urine Ketones Negative Urine Occult Blood 1+ H Urine Nitrate Positive H Urine Bilirubin 1+ H Ur Bilirubin Confirm Negative Urine Urobilinogen 0.2 Ur Leukocyte Esterase 2+ H Urine RBC 0-1/hpf Urine WBC 30-100/hpf H Ur Squamous Epith Cells None seen Urine Bacteria Many (>30) H Ur Culture Indicated? Specimen cultured Vol Urine Centrifuged 10ml (spun) Assessment & Plan Assessment & Plan narrative: 1. Urinary tract infection, suspect pyelonephritis. 2. Acute kidney injury likely due to volume depletion, cannot rule out underlying CKD 3. Congestive heart failure chronic and stable. 4. Chronic nonhealing left ankle ulcer, status post recent revascularization 5. Peripheral arterial disease 6. Hypertension 7. Hyperlipidemia. 8. GERD 9. Elevated LFTs, possibly due to congestive hepatopathy Plan: -admit to observation -IV Zosyn -IV fluids -monitor renal function -possible discharge home tomorrow with outpatient follow-up if improved and ambulatory DVT prophylaxis: On Xarelto Code status: Full code. Her is her surrogate decision maker. Quality MIPS - Admit I confirm the patient?s Advance Care Plan is present, Code status is documented, Surrogate decision maker is in patient?s record [If Yes, STOP here]: Yes [facility] - Meds 'Current medications' to include all prescriptions, [id number] products, herbals, cannabis/cannabidiol products, and vitamin/mineral/dietary (nutritional) supplements. I have utilized all available resources to obtain, update, or review the patient?s current medications. [If Yes, STOP here]: Yes [employer] Document charge(s): No Charge Codes Initial inpatient/observation care: 52586
[2025-10-19] MEDS: PIPERACILLIN/TAZO 3.375 GM in SODIUM CHLORIDE 0.9% 100 ML IV (20:06)
[2025-10-19] MEDS: DEXTROSE 5%-0.45% NS 1,000 ML 100 ML IV (20:07)
[2025-10-19] MEDS: ACETAMINOPHEN 325 MG TABLET 650 MG PO (20:15)
[2025-10-19] MEDS: PANTOPRAZOLE DR 40 MG TABLET PO (22:03)
[2025-10-19] MEDS: RIVAROXABAN 10 MG TABLET 2.5 MG PO (22:03)
[2025-10-19 22:07] LABS: Lipase 27 U/L (23-300)
[2025-10-20] MEDS: SODIUM CHLORIDE 0.9% 1,000 ML 1000 ML IV (00:07)
[2025-10-20] MEDS: PIPERACILLIN/TAZO 3.375 GM in SODIUM CHLORIDE 0.9% 100 ML IV ×3 (03:41→18:32)
[2025-10-20 04:34] VITALS: BP 89/48; PULSE 66; O2SAT 98
[2025-10-20 04:36] VITALS: BP 97/46; PULSE 58; RESP 16; TEMP 37.2; O2SAT 98
[2025-10-20 04:40] LABS: Alanine Aminotransferase 51 IU/L (<35); Albumin 2.0 g/dL (3.5-5.0); Albumin Globulin Ratio 0.9 (1.0-2.8); Alkaline Phosphatase 49 U/L (38-126); Blood Urea Nitrogen 24 mg/dL (7-17); Calcium 6.8 mg/dL (8.4-10.2); Carbon Dioxide 23 mmol/L (22-32); Chloride 107 mmol/L (98-107); Estimated Glomerular Filt Rate 42 mL/min (>60); Globulin 2.2 g/dL (1.7-4.1); Glucose 124 mg/dL (70-99); HEMOLYSIS < 15 (0-50); Potassium 3.7 mmol/L (3.4-5.1); Sodium 133 mmol/L (137-145); Total Protein 4.2 g/dL (6.3-8.2)
[2025-10-20 04:48] LABS: Hematocrit 25.1 % (36-46); Hemoglobin 8.4 g/dL (12.0-16.0); Lymphocytes Absolute Auto 800 /uL (1100-4500); Mean Corpuscular HGB Conc 33.5 % (30-36); Mean Corpuscular Hemoglobin 35.6 PG (26-34); Mean Corpuscular Volume 106.2 fL (80-100); Platelet Count 110 X10^3/uL (150-400)
[2025-10-20 05:36] LABS: Add Manual Diff / Slide Review SLIDE REVIEW
[2025-10-20 05:39] LABS: Anisocytosis 1+; Macrocytosis 1+
[2025-10-20 05:40] LABS: Stomatocytes 2+
[2025-10-20 08:00] VITALS: BP 102/49; PULSE 67; RESP 16; O2SAT 96
[2025-10-20] MEDS: RIVAROXABAN 10 MG TABLET 2.5 MG PO ×2 (08:26→21:02)
[2025-10-20] MEDS: ASPIRIN EC 81 MG TABLET PO (08:26)
[2025-10-20] MEDS: FENOFIBRATE, MICRONIZED 67 MG CAPSULE PO (08:26)
[2025-10-20] MEDS: PANTOPRAZOLE DR 40 MG TABLET PO ×2 (08:26→21:01)
[2025-10-20] MEDS: DEXTROSE 5%-0.45% NS 1,000 ML 100 ML IV ×2 (08:28→18:35)
--- NOTE | 2025-10-20 12:01 | PM.PN.IH.1 ---
Subjective Subjective Date Patient Seen: 10/20/25 Time Patient Seen: 08:58 Interval history: Chief complaint: Weakness Narrative: 75-year-old woman recently discharged from this hospital 10/13/2025 for an episode of congestive heart failure was at home recovering well when she suddenly this morning felt so weak she could not get out of bed. She was brought by paramedics to the emergency department. On route she experienced some back discomfort that she attributes to being transferred to the ambulance [facility]. She also has peripheral artery disease and a large chronic left ankle ulcer with recent stenting two weeks ago in [place], managed with aspirin and Xarelto and the wound care clinic locally. She denies chest pain, shortness breast, nausea, vomiting, diarrhea, abdominal pain, dysuria, frequency, hesitancy or urinary symptoms. She has not had a recent indwelling catheter. She was noted to have an abnormal urinalysis on presentation. She was started on IV Zosyn in the emergency department. 10/20: No new events. She reports feeling persistently weak. Physical therapy planned. EXAM: GENERAL: This is a pleasant female patient, in no apparent distress. EYES: Pupils equal round and reactive. Extraocular motions intact. No scleral icterus. No injection or drainage. ENT: Mucous membranes pink and moist. NECK: Trachea midline. No JVD, bruits or lymphadenopathy. Supple, nontender, no meningeal signs. CARDIOVASCULAR: Regular rate and rhythm without murmurs, gallops, or rubs. RESPIRATORY: Clear to auscultation. GASTROINTESTINAL: Abdomen soft, non-tender, nondistended. EXTREMITIES: No clubbing, cyanosis, or edema. NEUROLOGIC: Alert, oriented, speech fluent, full upper and lower motor strength, no focal deficits evident. DERMATOLOGIC: Large left medial ankle stage IV ulceration occupying most of the visible ankle IMAGIN. Chest x-ray 10/19/2025: No acute cardiopulmonary pathology. 2. Chest/abdomen/pelvis CT 10/19/2025: A source of sepsis is not identified. A small left-sided pleural effusion is seen. Right upper quadrant postoperative change is seen. Abnormal pancreas with biliary ductal dilatation and atrophy of the tail of the pancreas, as before. Additional findings: Gallstone 3. Abdominal ultrasound 10/19/2025: Gallstones are seen, yet without additional sonographic signs of cholecystitis. Negative for biliary dilatation. Please correlate with physical examination findings, patient presentation, and laboratory values. No significant liver abnormality is seen on this ultrasound study. Pancreatic ductal dilatation is again seen. IMPRESSION: 1. Urinary tract infection, suspect pyelonephritis. 2. Acute kidney injury likely due to volume depletion, cannot rule out underlying CKD 3. Congestive heart failure chronic and stable. 4. Chronic nonhealing left ankle ulcer, status post recent revascularization 5. Peripheral arterial disease 6. Hypertension 7. Hyperlipidemia. 8. GERD 9. Elevated LFTs, possibly due to congestive or reactive hepatopathy Plan: -admit to observation -IV Zosyn -IV fluids -monitor renal function and LFTs -PT consult -possible discharge home tomorrow with outpatient follow-up if improved and ambulatory DVT prophylaxis: On Xarelto Code status: Full code. Her is her surrogate decision maker. Exam Vital Signs (past 8 hours): - 10/20/25 04:34 10/20/25 04:36 10/20/25 07:50 Temperature 98.9 F Pulse Rate 66 58 L Respiratory Rate 16 Blood Pressure 89/48 L 97/46 L Pulse Oximetry 98 98 Oxygen Delivery Method Room Air Oxygen Flow Rate 10/20/25 08:00 Temperature Pulse Rate 67 Respiratory Rate 16 Blood Pressure 102/49 L Pulse Oximetry 96 Oxygen Delivery Method Oxygen Flow Rate 0 Oxygen Delivery Method Room Air Oxygen Flow Rate 0 Objective Labs 10/20/25 04:05 10/20/25 04:05 Labs: Laboratory Results - last 24 hr 10/19/25 10/19/25 10/19/25 12:35 13:40 15:20 WBC 9.3 RBC 2.68 L Hgb 9.5 L Hct 28.8 L MCV 107.3 H MCH 35.3 H MCHC 32.9 RDW 19.6 H Plt Count 130 L Neut % (Auto) 77.9 H Lymph % (Auto) 12.2 L [place] % (Auto) 9.1 Eos % (Auto) 0.4 L Baso % (Auto) 0.4 Neut # (Auto) 7200 H Lymph # (Auto) 1100 [place] # (Auto) 800 Eos # (Auto) 0 Baso # (Auto) 0 RBC Morphology Anisocytosis Macrocytosis Stomatocytes PT 19.7 H D INR 1.8 H APTT 32 Sodium 132 L Potassium 4.9 Chloride 105 Carbon Dioxide 22 BUN 30 H Creatinine 1.51 H Estimated GFR 35 L BUN/Creatinine Ratio 19.9 Glucose 92 Lactate 3.7 H 2.4 H Calcium 7.6 L Total Bilirubin 2.7 H AST 108 H ALT 59 H Alkaline Phosphatase 52 Total Protein 4.7 L Albumin 2.3 L Globulin 2.4 Albumin/Globulin Ratio 1.0 Lipase 42 Procalcitonin 0.218 Urine Color [place] Urine Appearance Cloudy Urine pH 5.5 Ur Specific [place] 1.015 Urine Protein Negative Urine Glucose (UA) Negative Urine Ketones Negative Urine Occult Blood 1+ H Urine Nitrate Positive H Urine Bilirubin 1+ H Ur Bilirubin Confirm Negative Urine Urobilinogen 0.2 Ur Leukocyte Esterase 2+ H Urine RBC 0-1/hpf Urine WBC 30-100/hpf H Ur Squamous Epith Cells None seen Urine Bacteria Many (>30) H Ur Culture Indicated? Specimen cultured Vol Urine Centrifuged 10ml (spun) 10/19/25 10/20/25 21:28 04:05 WBC 7.1 RBC 2.36 L Hgb 8.4 L Hct 25.1 L MCV 106.2 H MCH 35.6 H MCHC 33.5 RDW 19.6 H Plt Count 110 L Neut % (Auto) 81.5 H Lymph % (Auto) 11.8 L [place] % (Auto) 5.6 Eos % (Auto) 0.3 L Baso % (Auto) 0.8 Neut # (Auto) 5800 Lymph # (Auto) 800 L [place] # (Auto) 400 Eos # (Auto) 0 Baso # (Auto) 100 RBC Morphology See below Anisocytosis 1+ H Macrocytosis 1+ H Stomatocytes 2+ H PT INR APTT Sodium 133 L Potassium 3.7 D Chloride 107 Carbon Dioxide 23 BUN 24 H Creatinine 1.30 H Estimated GFR 42 L BUN/Creatinine Ratio 18.5 Glucose 124 H Lactate Calcium 6.8 L Total Bilirubin 2.3 H AST 82 H ALT 51 H Alkaline Phosphatase 49 Total Protein 4.2 L Albumin 2.0 L Globulin 2.2 Albumin/Globulin Ratio 0.9 L Lipase 27 Procalcitonin Urine Color Urine Appearance Urine pH Ur Specific [place] Urine Protein Urine Glucose (UA) Urine Ketones Urine Occult Blood Urine Nitrate Urine Bilirubin Ur Bilirubin Confirm Urine Urobilinogen Ur Leukocyte Esterase Urine RBC Urine WBC Ur Squamous Epith Cells Urine Bacteria Ur Culture Indicated? Vol Urine Centrifuged [facility] Medical History Breast cancer Hypertension Pancreatitis Peripheral vascular disease of extremity with claudication Pressure ulcer of ankle Stomach ulcer Family History Mother Cancer Social History household members: spouse alcohol intake: former Assessment & Plan Time-Based Coding :: [TOTAL MINUTES] spent with patient and on the chart (including review of chart, obtaining history, exam, reviewing outside data, placing orders, documenting exam and treatment plan, and counseling patient) on [DATE]. Quality VTE Deep Vein Thrombosis/Pulmonary Embolism Present on Admission: No IH [employer] Document charge(s): No Charge Codes Subsequent inpatient/observation care: [id number]
[2025-10-20 12:52] VITALS: BP 90/46; PULSE 63; RESP 17; TEMP 36.2; O2SAT 98
--- NOTE | 2025-10-20 14:11 | PT.IIE ---
Medical History (Last Reviewed 10/19/25 @ 18:51 by Go Washburn MD) Breast cancer Hypertension Pancreatitis Peripheral vascular disease of extremity with claudication Pressure ulcer of ankle Stomach ulcer Physical Therapy Inpatient Evaluation/Re-Eval M1 PT IP Prior Functional Status Start: 10/20/25 14:25 Freq: Status: Active Protocol: Document 10/20/25 14:25 NW (Rec: 10/20/25 14:39 NW [id number]) Medical Review Prior Functional Status Communication Pt is almost euphoric with conversation. Mobility and Gait I with FWW Activities of Daily Spouse helps with cooking and cleaning. Living and IADL's Social History Household Members spouse Living Arrangements House Number of Stairs To 1 from the front (threshold step), 3 from garage Enter/Railing? Home Environment Standard Height Toilet,Walk in Shower Home Equipment Front Wheel Walker,Raised Toilet Seat w/Armrests,Shower Seat with Backrest,Grab Bars Near Toilet,Grab Bars In Shower M2 PT-IP Current Condition Start: 10/20/25 14:25 Freq: Status: Active Protocol: Document 10/20/25 14:25 NW (Rec: 10/20/25 14:39 NW [id number]) Physical Therapy Current Condition Current Condition Evaluation Date 10/20/25 Treatment Diagnosis Weakness, UTI Onset Date 10/19/25 M3 PT-IP Subjective Start: 10/20/25 14:25 Freq: Status: Active Protocol: Document 10/20/25 14:25 NW (Rec: 10/20/25 14:39 NW [id number]) Subjective Physical Therapy Visit Type Type Initial Evaluation Visit Start Time 13:30 Visit Stop Time 14:11 Notes Spouse present upon entering room and with home environment questions. Pt as spouse to leave with mobility. Number of THERMOMETER PRODUCTION WORKER Visits 0 Physical Therapy Visit Comments Patient Comments Pt is agreeable to PT evaluation. States was walking one day and then the next could not get out of bed. Patient Goals Return to PLOF. M4 PT-IP Mobility and Gait Start: 10/20/25 14:25 Freq: Status: Active Protocol: Document 10/20/25 14:25 NW (Rec: 10/20/25 14:39 NW [id number]) PT-Bed Mobility Assessment Supine to Sit Supine to Sit Minimal Assistance,1 Person Assistance,Head of Bed Elevated,Bedrails Sit to Supine Sit to Supine Minimal Assistance,1 Person Assistance Scooting Scooting to Edge of Contact Guard Assistance Bed Scooting Up and Down Standby Assistance in Bed PT-Transfer Assessment Sit to and From Stand Sit to and from Contact Guard Assistance,1 Person Assistance,Use of Stand Upper Extremities Equipment Transfer Assistive Gait Belt,Front Wheeled Walker Device Transfers Transfer Destination Bed,Bedside Commode Transfer Technique Stand Step Pivot Transfer Ability Level of Assist Contact Guard Assistance Comments Mobility Comments Pt requires cues for UE placement to decrease pulling FWW over with transfer. Once on feet pt is able to stand without UE support and participate in toileting tasks with intermittent support from FWW. Gait Assessment Gait Gait Assistance Contact Guard Assist Required: Distance (Feet) 5 Assistive Devices Assistive Device Gait Belt,Front Wheeled Walker Gait Deviations General Gait Pattern Flexed Trunk Comments Gait Comments Pt ambulates from bed side commode to edge of bed at CGA with retrowalking 2-3 steps after turning towards R with no instances of LOB of AD management assistance. Stair Climbing Assessment Comments Stair Climbing DNT Comments PT-Balance Assessment Sitting Balance and Reactions Static Sitting Normal Balance Ability Dynamic Sitting Good Balance Ability Standing Balance and Reactions Static Standing Good Balance Ability Dynamic Standing Fair Balance Ability Device Used FWW and none Comments Other Balance Tests/ able to stand without UE support with WBOS to assist Deviations/Treatment with toileting tasks. : M5 PT-IP Objective Assessments Start: 10/20/25 14:25 Freq: Status: Active Protocol: Document 10/20/25 14:25 NW (Rec: 10/20/25 14:39 NW [id number]) Orientation Orientation/Cognition Level of Alertness Alert Orientation Name,Age,Birthday,Month,Date,Year,Day of Week,Place, Situation Comments Pt appears to be highly euphoric with conversation. Gross Range of Motion Upper Extremity ROM Assessment Within Functional Limits Lower Extremity ROM Assessment Within Functional Limits Strength Comments Strength Comments unable to assess secondary for need to go to the restroom, deferred. Sensation Assessment Comments Sensation Comments deferred secondary to needing to use restroom. Pt notes minimal pain of chronic ulcer of L medial malleolus. M6 PT-IP Treatment Start: 10/20/25 14:25 Freq: Status: Active Protocol: Document 10/20/25 14:25 NW (Rec: 10/20/25 14:39 NW [id number]) Physical Therapy Treatment Education Education Provided Safety Other Treatments Other Treatment Education on importance of continuing to use bed side Performed commode and getting out of bed to sit in bed side chair . M7 PT-IP Assessment and Plan Start: 10/20/25 14:25 Freq: Status: Active Protocol: Document 10/20/25 14:25 NW (Rec: 10/20/25 14:39 NW [id number]) PT Summary Assessment and Plan Potential Rehabilitation Good Potential Status of Condition Evolving at Evaluation Summary Impairments Pain,Strength,Balance,Cognition,Bed Mobility,Transfers, Gait,Activity Tolerance Assessment Summary Jane is a 75 yr old female admitted for UTI and weakness after being discharged a week ago from the hospital for CHF to home with home health. At baseline pt ambulates within the home with FWW and requires assistance from spouse for some ADLs and chores around the home. The spouse also notes that she has not been eating over the past few days as she has not felt well. Today she appears to be euphoric with most interactions and inconsistent with ability to follow directions or with current functional abilities. She is Chris for bed mobility, CGA for transfers, and short distance gait of 5 ft with FWW with stable vital signs, but insists she is not strong enough to stand or walk any further. Current recommendation if for pt to discharge home with HH and spousal assistance. Goals Bed Mobility Goal Independent Transfer Goal Independent Gait Goal Standby Assistance Gait Distance 30 Other Goals Pt will be able to navigate 3 steps with unilateral hand railing. Days to Meet Goals 3 Frequency of Treatment Frequency Of Once a Day Treatment Treatment Plan Physical Therapy Bed Mobility Training,Transfer Training,Gait Training, Treatment Plan Therapeutic Exercise,Balance Retraining,Discharge Planning Other Progress gait distance and trial single step. 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 Weight Bearing Status Weight Bearing Weight Bear as Tolerated Status Recommendations To Nursing Amount of Assist 1 Person Assist Needed Discharge Recommendations PT Discharge Home with Assistance,Home Health Recommendations Transportation Needs Private Vehicle at Discharge - PT assist 1
[2025-10-20] MEDS: ACETAMINOPHEN SUSP 650 MG/20.3 ML UDC PO (16:03)
--- NOTE | 2025-10-20 16:29 | CM.DANOTE ---
B DCP Assessment note pt is a 75yo F (readmit? Last admission was CHF and now UTI?) here with UTI. COMMERCIAL TITLE EXAMINER reviewed EMR per last CM notes, dc'd home with BLS transport. see previous CM assessment for more. per chart, lives in [place] with spouse. walker at baseline. per PT, rec home with assistance/HH. per chart, goes to OP wound care appt. wound care consult placed for chronic wound on ankle. will f/u with them Tuesday. CECY pending. will f/u with pt if agreeable to HH. no hx of HH. anticipate home in a day or so with spouse support DARIN Turner Discharge Planning/Care Management CM Discharge Assessment Start: 10/19/25 19:39 Freq: Status: Active Protocol: Document 10/20/25 16:26 SL (Rec: 10/20/25 16:29 SL [id number]) Discharge Planning Assessment Assigned Discharge DARIN Garcia Incendiary Powder Mixer Provider Autumn Bonilla Insurance Medicare DPOA/Assigned yoly Gamboa Designee Name Contact Information [phone] Advance Directives? No History Provided By Patient,Medical Record Prior Living House Arrangements Household Members spouse Type of Relies on Others transporation used prior to admit Is patient alert and Yes oriented? DME Already Rented / FWW / Walker Owned Discharge Plan Home Transportation spouse Arrangement Additional Comment will f/u if agreeable to HH and make appropriate referrals if agreeable Review Status In Process Please Provide Date 10/20/25 Initial DC Assessment Was Performed Next Review Type Continued Stay Review
--- NOTE | 2025-10-20 17:49 | PC.NURSE ---
Day shift: Pt A&Ox3, unsure of date and day of week. Up to BSC with this RN and PT 1PA with FWW. Buttocks blanchable erythema. Education provided to pt on offloading, mepilex placed as preventative. Care ongoing.
[2025-10-20 20:00] VITALS: BP 91/49; PULSE 60; RESP 18; TEMP 36.2; O2SAT 99
[2025-10-21] VITALS: BP 102/52; PULSE 58; RESP 16; TEMP 36; O2SAT 97
--- NOTE | 2025-10-21 01:37 | PC.NURSE ---
Iv leaking 2300 pt very hard stick need ultrasound placement. IVM and antibiotics on pause. pt has limb restiction. waiting for pit laborer to place ultrasound iv.
[2025-10-21 04:00] VITALS: BP 121/59; PULSE 62; RESP 17; TEMP 36.2; O2SAT 97
--- NOTE | 2025-10-21 05:46 | P.PN_ITS ---
Subjective Subjective Interval history: A&P 75-year-old female with recent episode of CHF who presented to the emergency room with weakness and was found to have an abnormal urinalysis concerning for UTI. In addition she has a large chronic left ankle ulcer with recent peripheral arterial stenting 2 weeks ago in [place]. UTI Concern for pyelonephritis Urine culture positive with Citrobacter resistant only to tetracycline. Blood cultures no growth to date. * Discontinue Zosyn * Start ceftriaxone ANTHONY, resolved Likely due to volume depletion. Creatinine was 1.51 on admission, now 1.02. * Continue to monitor as needed * Avoid nephrotoxins and renally dose medications as needed CHF, chronic and stable * Continue aspirin and beta-leana Peripheral arterial disease, status post recent stenting Chronic left ankle ulcer, status post revascularization * Continue wound care * Continue rivaroxaban and aspirin Hypertension Blood pressure low normal * Continue atenolol Hyperlipidemia Continue fenofibrate Mild transaminitis Hyperbilirubinemia Etiology not clear, abdominal ultrasound shows cholelithiasis without cholecystitis or biliary dilatation. CT of the abdomen shows abnormal pancreas with biliary ductal dilatation and atrophy of the tail of the pancreas which is unchanged from prior. Exam is benign. * Recheck labs in the morning Code Status: Full code Diet: Heart healthy Lines/Tubes: Peripheral IV DVT Prophylaxis: Chronically on rivaroxaban Discharge Planning: Anticipate discharge to home tomorrow with home health service Chief Complaint: Weakness Subjective: Otherwise review of systems negative Objective Vitals reviewed A&O, WN, WD, NAD NCAT, OP moist, neck supple RRR, nl S1 and S2, no murmurs CTA bilaterally Soft, NT, ND, +BS Warm without edema Neuro grossly nonfocal Pleasant, cooperative Labs: Labs reviewed and notable for WBC 4.1, hemoglobin 9, hematocrit 26.9, platelets 112, sodium 133, chloride 108, CO2 21, AST 85, ALT 55, total bilirubin 1.7 Imaging: Imaging reviewed and notable for Time spent: [TOTAL MINUTES] spent with patient and on the chart (including review of chart, obtaining history, exam, reviewing outside data, placing orders, documenting exam and treatment plan, and counseling patient) on [DATE]. Exam Vital Signs (past 8 hours): - 10/21/25 00:00 10/21/25 04:00 Temperature 96.8 F L 97.1 F L Pulse Rate 58 L 62 Respiratory Rate 16 17 Blood Pressure 102/52 L 121/59 L Pulse Oximetry 97 97 Oxygen Flow Rate 0 Oxygen Delivery Method Room Air Oxygen Flow Rate 0 Objective Labs 10/21/25 11:05 10/21/25 11:05 [facility] Medical History Breast cancer Hypertension Pancreatitis Peripheral vascular disease of extremity with claudication Pressure ulcer of ankle Stomach ulcer Family History Mother Cancer Social History household members: spouse alcohol intake: former Assessment & Plan Time-Based Coding :: [TOTAL MINUTES] spent with patient and on the chart (including review of chart, obtaining history, exam, reviewing outside data, placing orders, documenting exam and treatment plan, and counseling patient) on [DATE]. Quality VTE Deep Vein Thrombosis/Pulmonary Embolism Present on Admission: No
[2025-10-21 08:00] VITALS: BP 106/48; PULSE 70; RESP 19; TEMP 36.1; O2SAT 94
[2025-10-21] MEDS: PANTOPRAZOLE DR 40 MG TABLET PO ×2 (10:27→20:11)
[2025-10-21] MEDS: FENOFIBRATE, MICRONIZED 67 MG CAPSULE PO (10:27)
[2025-10-21] MEDS: ASPIRIN EC 81 MG TABLET PO (10:27)
[2025-10-21] MEDS: ACETAMINOPHEN SUSP 650 MG/20.3 ML UDC PO ×2 (10:28→20:11)
[2025-10-21] MEDS: RIVAROXABAN 10 MG TABLET 2.5 MG PO ×2 (10:28→20:12)
--- NOTE | 2025-10-21 10:45 | DIET.CONS ---
Dietary Consultation Note Admission Date: 10/19/2025 18:42 Assessment: 75 y F admitted for UTI. Dietitian consulted for poor PO intakes/wt loss. Pt sleeping at attempted visit. EMR reviewed, including previous RD consult on 10/11/25. Upon last consult pt reported she used to do Ensure. Noted left ankle wound. Ht: 157.48 cm Wt: 50.1 kg BMI: 20.2 UBW: 51 kg on 10/10/25 (-2% weight loss in >1 wk, non-severe), 120 lb (54.54 kg) 6+ months ago (-6% weight loss in 6 months, non-severe) Last BM: 10/21/25 (10/21/25 06:00) MNA: 8 Dejon Score: 20 Diet: 10/20/25 Breakfast Heart Healthy Diet Diet Modifications: Nutrition Percent Meal Consumed 50% 10/20/25 18:00 Labs: RBC 2.36 X10^6/uL (4.0-5.2) L 10/20/25 04:05 Hgb 8.4 g/dL (12.0-16.0) L 10/20/25 04:05 Hct 25.1 % (36-46) L 10/20/25 04:05 Creatinine 1.30 mg/dL (0.52-1.04) H 10/20/25 04:05 Lactate 2.4 mmol/L (0.7-2.1) H 10/19/25 15:20 Nutrition Diagnosis: Inadequate oral intakes r/t weakness/nausea/SOB aeb low PO intakes for 1 month Interventions: Ensure+ BID to support PO intakes and prevent further weight loss. EER: 1500 kcals (30kcals/kg per BMI) 60-65 g protein (1.25g/kg per ANTHONY with CHF w/ wound) Monitoring/Evaluations: PO intakes Electronically Signed by: Bee Villegas 10/21/25 10:45 Clinical Dietitian [address] [address]
--- NOTE | 2025-10-21 10:59 | PC.NURSE ---
Addendum entered by Chery Benson 10/21/25 18:48: Pt seemingly more irritable and possibly confused as the day progressed. Dressing changed to L medial ankle with iotaflex, 4x4's and kerlix per wound care orders. Pt has had more complaints as day has progressed about low back pain, headache, pain to wound, etc. Had midline placed and IV abx running. PT suggested pt wear a walking shoe to L foot to protect her significant wound, had shoe delivered but pt stated I've had this wound for 2 years and have never needed a boot, I don't know why PT wants that. Tried to explain reasoning but pt not open to wearing the shoe, will keep it at the nurses station in case PT would like to try using it tomorrow as pt is on isolation. Pt quite weak getting up to BSC. L arm is red, swollen and weeping. Tried having a chux pad under to protect linens from needing constant changing but pt keeps saying Why is this paper here! and throws it on floor. Original Note: Pt pleasant and cooperative this morning, requested to rest initially this morning and delay AM meds and breakfast for a short period of time. Pt C/O a lot of reflux type discomfort and took quite awhile to take her meds as she states she struggles to swallow pills, is belching and has an emesis bag but states she has not vomited. Lungs diminished on RA and VSS. IV access lost on head mva reactor operator and awaiting PICC placement so IV axb can be resumed as attempts to place another peripheral line failed. Pt was getting up to BSC on head mva reactor operator but states this AM she is too weak and asked to have purewik replaced. Will continue to monitor.
--- NOTE | 2025-10-21 11:32 | PC.NURSE ---
Addendum entered by Mitra Gray RN 10/21/25 17:19: from wound care came over to look at patients l.medial ankle wound, we are to use iodoform on it every other day with kurlex and 4x4s. Will do first dressing change today. Patient was up in the chair for a couple of hours and has used the bsc when being up. She is resting now. Original Note: Patient given some tylenol, she states that she is feeling weak, purewick put back and patient is using this. She does not think that she can get out of bed this morning. Hoping that patient will work with physical therapy this morning.
[2025-10-21 11:36] LABS: Alanine Aminotransferase 55 IU/L (<35); Albumin 2.0 g/dL (3.5-5.0); Albumin Globulin Ratio 0.9 (1.0-2.8); Alkaline Phosphatase 53 U/L (38-126); Blood Urea Nitrogen 18 mg/dL (7-17); Calcium 7.0 mg/dL (8.4-10.2); Carbon Dioxide 21 mmol/L (22-32); Chloride 108 mmol/L (98-107); Estimated Glomerular Filt Rate 57 mL/min (>60); Globulin 2.2 g/dL (1.7-4.1); Glucose 87 mg/dL (70-99); HEMOLYSIS 31 (0-50); Potassium 3.4 mmol/L (3.4-5.1); Sodium 133 mmol/L (137-145); Total Protein 4.2 g/dL (6.3-8.2)
--- NOTE | 2025-10-21 11:46 | PT-IP ANOTE ---
Pt refused PT tx today at arrival. She is elevated in bed c/o nausea and feeling weak, unable to work with FOOD SERVICE TEAM MEMBER. FOOD SERVICE TEAM MEMBER provided education of importance of mobility with nursing, PT staff in combination of fluid and food intake to allow healing, strength and enerygy level. Pt agreed will get up to chair at dinner time for continued mobility with nursing later. Pt and verbalized understanding importance of pt continuing to be active with staff to progress strength toward functional mobility I. Will continue to assess progress.
[2025-10-21 12:00] VITALS: BP 87/46; PULSE 60; RESP 16; TEMP 36.1; O2SAT 98
[2025-10-21 12:03] LABS: Add Manual Diff / Slide Review NO; Hematocrit 26.9 % (36-46); Hemoglobin 9.0 g/dL (12.0-16.0); Lymphocytes Absolute Auto 600 /uL (1100-4500); Mean Corpuscular HGB Conc 33.4 % (30-36); Mean Corpuscular Hemoglobin 35.5 PG (26-34); Mean Corpuscular Volume 106.1 fL (80-100); Platelet Count 112 X10^3/uL (150-400)
[2025-10-21] MEDS: POTASSIUM CHLORIDE 20 MEQ TAB 40 MEQ PO (15:02)
[2025-10-21] MEDS: PIPERACILLIN/TAZO 3.375 GM in SODIUM CHLORIDE 0.9% 100 ML IV (15:04)
--- NOTE | 2025-10-21 15:12 | PT.IPTN ---
Addendum entered and electronically signed by Michelle Zimmer PTA 10/21/25 15:58: Notified Care Mgt of new order for cast shoe for safety WB on LLE and support bandaging. Original Note: Current Diagnoses Tubulo-interstitial nephritis, not specified as acute or chronic (10/21/25) Physical Therapy Treatment Note M2 PT-IP Current Condition Start: 10/20/25 14:25 Freq: Status: Active Protocol: Document 10/21/25 14:50 SP (Rec: 10/21/25 15:55 SP [id number]) Physical Therapy Current Condition Current Condition Evaluation Date 10/20/25 Treatment Diagnosis Weakness, UTI Onset Date 10/19/25 M3 PT-IP Subjective Start: 10/20/25 14:25 Freq: Status: Active Protocol: Document 10/21/25 14:50 SP (Rec: 10/21/25 15:55 SP [id number]) Subjective Physical Therapy Visit Type Type Treatment Note Visit Start Time 14:49 Visit Stop Time 15:12 Notes Nurse arrived end tx. Number of FRETTED INSTRUMENTS INSPECTOR Visits 1 Physical Therapy Visit Comments Patient Comments Pt was up using BSC at EOB when arrived. Pt agreeable to working with FRETTED INSTRUMENTS INSPECTOR and taking over care at arrival. FRETTED INSTRUMENTS INSPECTOR noted no non skid socks donned and L ankle weeping through bandaging. She states is waiting for wound care to come and change bandaging. Pt was only agreeable to nonskid sock on R foot and 1/2 of L foot, states can't pull sock up higher because is to taught and unravels bandaging. Pt c/o L medial elbow superior and inferior to arm bruising and reddness with weeping. FRETTED INSTRUMENTS INSPECTOR notified nursing, was told coming in to do IV treatment when done with PT. Therapy Pain Assessment Pain When Pain Assessed During Weight Bearing Pain Present Pain Present Pain Reported Location Left Upper Arm Scale Used uncomfortable, no scale rating given, c/o reddish/ purple weeping Description With Movement Pain Behaviors Facial Grimacing Back Intensity 4 Scale Used Numeric (0 - 10) Description Aching,Dull,With Movement Pain Behaviors Facial Grimacing Pain Management Distraction,Modification of Treatment,Re-positioning Techniques M4 PT-IP Mobility and Gait Start: 10/20/25 14:25 Freq: Status: Active Protocol: Document 10/21/25 14:50 SP (Rec: 10/21/25 15:55 SP [id number]) PT-Transfer Assessment Sit to and From Stand Sit to and from Standby Assistance,Contact Guard Assistance,1 Person Stand Assistance,Use of Upper Extremities Equipment Transfer Assistive Gait Belt,Front Wheeled Walker Device Transfers Transfer Destination Bed,Chair,Bedside Commode Transfer Technique pt ambulated Transfer Ability Level of Assist Contact Guard Assistance,Use of Upper Extremities Comments Mobility Comments Pt was up using BSC when arrived. Agreeable to working with FRETTED INSTRUMENTS INSPECTOR. FRETTED INSTRUMENTS INSPECTOR notified nursing pt's L elbow redness and weeping, continued weeping L lateral ankle through bandaging. Education of importance of nonskid socks on her feet during standing mobility. Pt ableto complete pericare in sitting and brief mgt when came to standing CG>close SBA. FRETTED INSTRUMENTS INSPECTOR donned nonskid socks pt's forrest feet ( 1/2 on L foot per pt to does't ravel bandaging) pre mobility. SSPT with FWW BSC to bed, seated rest. Gait around room with FWW to chair approx 15 ft , step to patterning due to decreased stance time on LLE moderate BUE on FWW, request sit down, to tired to go further. This has been the most movement have done in a while. FRETTED INSTRUMENTS INSPECTOR discussed importance to mobilize with nursing up for meals, hydration and wearing something nonskid on B feet. FRETTED INSTRUMENTS INSPECTOR spoke to wound care and recommended cast shoe to support L foot dressing hygiene during standing obility, was told will put in order and FRETTED INSTRUMENTS INSPECTOR notified nursing to dispense. Pt was up in chair with legs elevated on pillows, nursing took over care assisting pt with IV. Gait Assessment Gait Gait Assistance Standby Assistance,Contact Guard Assist,1 Person Assist Required: Distance (Feet) 15 Able to Maintain Yes Weight Bearing Status During Gait Assistive Devices Assistive Device Gait Belt,Front Wheeled Walker Gait Deviations General Gait Pattern Antalgic,Decreased Stride Length,Decreased Feet Clearance,Flexed Trunk,Step-to Gait,Wide Based Gait Factors Limiting Gait Function Factors Limiting Decreased Activity Tolerance,Decreased Strength,Pain, Gait Function Poor Safety Awareness Comments Gait Comments Discussed proximity to FWW, back up fully when pivoting back to chair with FWW, proper hand placement. Noted decreased stance time on LLE, moderate BUE WB on FWW. Stair Climbing Assessment Comments Stair Climbing DNT, needs to be able to complete 1 step threshold for Comments front door enterance vs 3 steps 1 HR garage assimulation with . Will assess if can trial tomorrow. PT-Balance Assessment Sitting Balance and Reactions Static Sitting Normal Balance Ability Dynamic Sitting Good Balance Ability Standing Balance and Reactions Static Standing Good Balance Ability Dynamic Standing Fair Balance Ability Device Used FWW Comments Other Balance Tests/ able to stand without UE support with WBOS to complete Deviations/Treatment toileting tasks. : M5 PT-IP Objective Assessments Start: 10/20/25 14:25 Freq: Status: Active Protocol: Document 10/20/25 14:25 NW (Rec: 10/20/25 14:39 NW [id number]) Orientation Orientation/Cognition Level of Alertness Alert Orientation Name,Age,Birthday,Month,Date,Year,Day of Week,Place, Situation Comments Pt appears to be highly euphoric with conversation. Gross Range of Motion Upper Extremity ROM Assessment Within Functional Limits Lower Extremity ROM Assessment Within Functional Limits Strength Comments Strength Comments unable to assess secondary for need to go to the restroom, deferred. Sensation Assessment Comments Sensation Comments deferred secondary to needing to use restroom. Pt notes minimal pain of chronic ulcer of L medial malleolus. M6 PT-IP Treatment Start: 10/20/25 14:25 Freq: Status: Active Protocol: Document 10/21/25 14:50 SP (Rec: 10/21/25 15:55 SP [id number]) Physical Therapy Treatment Education Education Provided Safety Other Treatments Other Treatment Education on importance of continuing to use bed side Performed commode and getting out of bed to sit in bed side chair for meals, hydration, use of sock/footware when standing mobility. M7 PT-IP Assessment and Plan Start: 10/20/25 14:25 Freq: Status: Active Protocol: Document 10/21/25 14:50 SP (Rec: 10/21/25 15:55 SP [id number]) PT Summary Assessment and Plan Potential Rehabilitation Good Potential Status of Condition Evolving at Evaluation Summary Impairments Pain,Strength,Balance,Cognition,Bed Mobility,Transfers, Gait,Activity Tolerance Progress Towards Slow Progress due to Pain,Slow Progress due to Medical Goals Issues,Slow Progress due to Activity Tolerance Assessment Summary Jane is a 75 yr old female admitted for UTI and weakness after being discharged a week ago from the hospital for CHF to home with home health. Pt has decreased activity tolerance due to pain in L elbow/ forearm and wound on L foot, decreased stance time on LLE. CGA STS and gait around room CG/close SBA. Pt c/o wound on L foot weeping through bandaging. FRETTED INSTRUMENTS INSPECTOR notified nursing and spoke with woundcare staff, suggested cast shoe so pt could keep L foot dressing off floor walking for safety. Notified nursing to look for order and dispense shoe. FRETTED INSTRUMENTS INSPECTOR suggesting CGT with next tx for gait and 1 step mgt with FWW vs 3 stairs with 1 HR for safety able to enter home for plan DC. Current recommendation if for pt to discharge home with HH and spousal assistance. Will continue to assess progress. Goals Bed Mobility Goal Independent Transfer Goal Independent Gait Goal Standby Assistance Gait Distance 30 Other Goals Pt will be able to navigate 3 steps with unilateral hand railing. Days to Meet Goals 3 Frequency of Treatment Frequency Of Once a Day Treatment Treatment Plan Physical Therapy Bed Mobility Training,Transfer Training,Gait Training, Treatment Plan Therapeutic Exercise,Balance Retraining,Discharge Planning Other Progress gait distance (see if received suggested cast Recommendations and shoe per wound care was putting in orders for LLE) and Next Treatment Focus trial single step with FWW vs 3 step 1 HR with CGT with . Precautions Other Precautions MRSA with chronic wound on L medial malleolus. Weight Bearing Status Weight Bearing Weight Bear as Tolerated Status Recommendations To Nursing Amount of Assist 1 Person Assist Needed Discharge Recommendations PT Discharge Home with Assistance,Home Health Recommendations Transportation Needs Private Vehicle at Discharge - PT assist 1
[2025-10-21 16:00] VITALS: BP 101/45; PULSE 80; RESP 20; TEMP 36.8
--- NOTE | 2025-10-21 16:34 | CM.DPNOTE ---
DCP note DATACAP DEVELOPER reviewed EMR per provider likely here a few days. per PT- likely rec HH. DATACAP DEVELOPER called wound care to see pt while on the floor. P: will f/u about HH with pt tomorrow. referrals needed if agreeable. continue to follow closely for DCP coordination DARIN Turner
--- NOTE | 2025-10-21 16:37 | PM.CN ---
History of Present Illness Consult details Date Patient Seen: 10/21/25 Time Patient Seen: 16:00 Chief complaint: Weakness Narrative: The patient is a 75-year-old female with hypertension, PAD, and CHF who was recently admitted to the hospital with sepsis. She has a chronic ulcer on the medial left ankle and is followed at the wound center. The patient was last seen on September 11, 2025 and the ulcer was noted to be rapidly enlarging. She was sent to vascular surgery in [place] for an urgent evaluation and was found to have an occluded stentt. The patient underwent angioplasty and stent placement and was discharged on Xarelto. The patient has not been seen for follow up in over a month because of illness. The patient has been receiving dressing changes with Iodoflex 3 times a week with the assistance of home health nursing. She reports decreased appetite and denies any fever or chills. She has occasional pain and tenderness associated with the ulcer. Previous cultures of the ulcer have grown MRSA and Enterococcus faecalis. 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 Meds Home Medications and Allergies Home Medications ?Medication ?Instructions ?Recorded ?Confirmed ?Type atenolol 25 mg tablet 75 mg PO BID 10/19/18 10/21/25 History fenofibrate nanocrystallized 48 mg 144 mg PO DAILY 10/19/18 10/21/25 History tablet aspirin 81 mg tablet,delayed 81 mg PO DAILY 10/10/25 10/21/25 History release (Adult Aspirin Regimen) doxycycline hyclate 50 mg capsule 100 mg PO DAILY infectious disease 10/10/25 10/21/25 History Held on 10/21/25. Instructions: Order Change pantoprazole 40 mg tablet,delayed 40 mg PO BID 10/10/25 10/21/25 History release rivaroxaban 2.5 mg tablet (Xarelto) 2.5 mg PO BID 10/10/25 10/21/25 History Allergies Allergy/AdvReac Type Severity Reaction Status Date / Time codeine Allergy Verified 10/10/25 12:09 sulfamethoxazole (From Allergy Verified 10/10/25 12:09 Bactrim) trimethoprim (From Bactrim) Allergy Verified 10/10/25 12:09 Review of Systems Review of Systems Narrative: Generalized weakness Respiratory Comments: Shortness of breath with exertion Exam Vital Signs (past 8 hours): - 10/21/25 12:00 Temperature 96.9 F L Pulse Rate 60 Respiratory Rate 16 Blood Pressure 87/46 L Pulse Oximetry 98 Oxygen Flow Rate 0 Oxygen Delivery Method Room Air Oxygen Flow Rate 0 Narrative Exam Narrative: Thin elderly female who is alert and oriented, no apparent distress Skin Other: Large full-thickness ulcer medial left ankle with slough and biofilm, no active infection. The ulcer is larger than when she was last seen at the wound center. There is no longer any mottling or delayed capillary refill of the toes. Objective Labs 10/21/25 11:05 10/21/25 11:05 Labs: Laboratory Results - last 24 hr 10/21/25 11:05 WBC 4.1 L RBC 2.53 L Hgb 9.0 L Hct 26.9 L MCV 106.1 H MCH 35.5 H MCHC 33.4 RDW 19.0 H Plt Count 112 L Neut % (Auto) 69.1 Lymph % (Auto) 16.0 L Castro % (Auto) 11.9 Eos % (Auto) 2.1 Baso % (Auto) 0.9 Neut # (Auto) 2800 Lymph # (Auto) 600 L Castro # (Auto) 500 Eos # (Auto) 100 Baso # (Auto) 0 Sodium 133 L Potassium 3.4 Chloride 108 H Carbon Dioxide 21 L BUN 18 H Creatinine 1.02 Estimated GFR 57 L BUN/Creatinine Ratio 17.6 Glucose 87 Calcium 7.0 L Total Bilirubin 1.7 H AST 85 H ALT 55 H Alkaline Phosphatase 53 Total Protein 4.2 L Albumin 2.0 L Globulin 2.2 Albumin/Globulin Ratio 0.9 L PFSH Medical History Peripheral vascular disease of extremity with claudication Breast cancer Pressure ulcer of ankle Stomach ulcer Hypertension Pancreatitis Family History Mother Cancer Social History household members: spouse Tobacco & Substance Use alcohol intake: former Assessment & Plan Assessment and plan (1) Non-pressure chronic ulcer of left ankle with fat layer exposed: Status: Acute (2) Peripheral vascular disease: Problem details: Patient to continue Plavix Status: Acute Assessment & Plan narrative: Large ulcer medial left ankle associated with severe PAD. Ulcer measures larger than when she was last seen at the wound center in August. Recommend dressing changes with Iodoflex every other day. Continue protein, zinc, and vitamin-C supplementation. Follow up at wound center after discharge. Time-Based Coding :: [45 MINUTES] spent with patient and on the chart (including review of chart, obtaining history, exam, reviewing outside data, placing orders, documenting exam and treatment plan, and counseling patient) on [10/21/25].
[2025-10-21 20:00] VITALS: BP 110/60; PULSE 59; RESP 18; TEMP 36.2; O2SAT 95
[2025-10-22] MEDS: ACETAMINOPHEN SUSP 650 MG/20.3 ML UDC PO (02:06)
[2025-10-22 04:00] VITALS: BP 96/60; PULSE 62; RESP 18; TEMP 35.8; O2SAT 97
[2025-10-22] MEDS: SODIUM CHLORIDE 0.9% 250 ML 21 ML IV (04:55)
[2025-10-22 06:11] LABS: Alanine Aminotransferase 46 IU/L (<35); Albumin 1.8 g/dL (3.5-5.0); Albumin Globulin Ratio 0.9 (1.0-2.8); Alkaline Phosphatase 54 U/L (38-126); Blood Urea Nitrogen 15 mg/dL (7-17); Calcium 7.0 mg/dL (8.4-10.2); Carbon Dioxide 25 mmol/L (22-32); Chloride 108 mmol/L (98-107); Estimated Glomerular Filt Rate 59 mL/min (>60); Globulin 2.1 g/dL (1.7-4.1); Glucose 77 mg/dL (70-99); HEMOLYSIS < 15 (0-50); Potassium 4.1 mmol/L (3.4-5.1); Sodium 135 mmol/L (137-145); Total Protein 3.9 g/dL (6.3-8.2)
[2025-10-22 06:47] LABS: Add Manual Diff / Slide Review NO; Hematocrit 22.6 % (36-46); Hemoglobin 7.6 g/dL (12.0-16.0); Lymphocytes Absolute Auto 1000 /uL (1100-4500); Mean Corpuscular HGB Conc 33.8 % (30-36); Mean Corpuscular Hemoglobin 35.4 PG (26-34); Mean Corpuscular Volume 104.8 fL (80-100); Platelet Count 127 X10^3/uL (150-400)
[2025-10-22 07:43] LABS: Hematocrit 25.5 % (36-46); Hemoglobin 8.6 g/dL (12.0-16.0); Mean Corpuscular HGB Conc 33.7 % (30-36); Mean Corpuscular Hemoglobin 35.7 PG (26-34); Mean Corpuscular Volume 105.9 fL (80-100); Platelet Count 118 X10^3/uL (150-400)
[2025-10-22] MEDS: ASPIRIN EC 81 MG TABLET PO (09:13)
[2025-10-22] MEDS: FENOFIBRATE, MICRONIZED 67 MG CAPSULE PO (09:13)
[2025-10-22] MEDS: PANTOPRAZOLE DR 40 MG TABLET PO ×2 (09:13→20:16)
[2025-10-22] MEDS: RIVAROXABAN 10 MG TABLET 2.5 MG PO ×2 (09:13→20:16)
[2025-10-22 09:16] VITALS: BP 104/55; PULSE 67; RESP 20; TEMP 35.9; O2SAT 100
--- NOTE | 2025-10-22 09:53 | PC.NURSE ---
Addendum entered by Chery Benson 10/22/25 16:27: Wound to medial ankle almost completely saturated with moist drainage, so redressed with iotaflex, 4x4's and kerlix. Pt agreeing to rehab/snf placement due to weakness. Order obtained for po abx due to pt pulling out iv. Cooper/Javier at bedside. Will continue to monitor. Original Note: Pt states she's feeling very weak this AM, says she refused PT. Is more pleasant this AM but seems more confused, said there was a republican going on in the halls all night long with balloons and republican hats and everything. Got pt up to bedside commode and found the catheter to her midline IV was pulled almost entirely out of the vein. Finished removing it and notified provider that IV access was lost. L arm is red, swollen and weeping. Pt had a small BM and voided on BSC. Pt C/O low abdominal/pelvic pain like period cramps and low back pain. Refused breakfast tray. Pt states she is very concerned about going home in this state and fears she wont be able to care for herself. Will continue to monitor.
[2025-10-22 10:00] VITALS: BP 96/57; PULSE 65; RESP 20; TEMP 35.8; O2SAT 95
--- NOTE | 2025-10-22 10:12 | PT-IP ANOTE ---
Addendum entered and electronically signed by Michelle Zimmer PTA 10/22/25 10:17: Pt was found now laying in bed, HOME VISITS NURSE and BUYER BROKER provided Max A to scoot up in bed, assisted pt to use BUEs on bed rail and R knee bent self assist, minimal demonstrated. Original Note: Pt refused working with HOME VISITS NURSE, stating I can not do anything right now, my abdominals are cramping and I don't know why, try back latera. HOME VISITS NURSE provided much encouragement of importance of hydration, meal nutrition and mobility with every opportunity provided to keep up strength and mobility. Pt verbalized understanding but just can't right now. PT will try back later this afternoon.
--- NOTE | 2025-10-22 10:28 | PC.NURSE ---
Patient is alert and oriented x2, she states that she heard people having a democrat with democrat hats, and balloons, and nose makers, she told this to my student RN Chery. She was up to the commode with one person assist and walker. She voided and had a bm. She is back to bed and resting, patients midline came out, Dr. Rowan is aware and seeing maybe if patient can do oral antibiotics.
--- NOTE | 2025-10-22 13:30 | OT.IP.EVAL ---
Current Diagnoses Peripheral vascular disease, unspecified (10/21/25) Non-pressure chronic ulcer of left ankle with fat layer exposed (10/21/25) Tubulo-interstitial nephritis, not specified as acute or chronic (10/21/25) Past Medical History (Last Reviewed 10/21/25 @ 16:41 by Guillermo Cummins MD) Breast cancer Hypertension Pancreatitis Peripheral vascular disease of extremity with claudication Pressure ulcer of ankle Stomach ulcer Occupational Therapy Inpatient Evaluation/Re-Eval M1 OT IP Prior Functional Status Start: 10/22/25 13:43 Freq: Status: Active Protocol: Document 10/22/25 13:44 [facility] (Rec: 10/22/25 13:57 [facility] Desktop) Medical Review Prior Functional Status Communication Pt is almost euphoric with conversation. Mobility and Gait I with FWW Activities of Daily Spouse helps with cooking and cleaning. Living and IADL's Social History Household Members spouse Living Arrangements House Number of Stairs To 1 from the front, 3 from the garage. Enter/Railing? Home Environment Standard Height Toilet,Walk in Shower Home Equipment Front Wheel Walker,Raised Toilet Seat w/Armrests,Shower Seat with Backrest,Grab Bars Near Toilet,Grab Bars In Shower M2 OT-IP Current Condition Start: 10/22/25 13:43 Freq: Status: Active Protocol: Document 10/22/25 13:44 [facility] (Rec: 10/22/25 13:57 [facility] Desktop) Occupational Therapy Current Condition Current Condition Evaluation Date 10/22/25 Treatment Diagnosis UTI, weakness, chronic left ankle ulcer Diagnosis Onset Date 10/21/25 M3 OT- IP Subjective and Pain Start: 10/22/25 13:43 Freq: Status: Active Protocol: Document 10/22/25 13:44 [facility] (Rec: 10/22/25 13:57 [facility] Desktop) OT- Subjective Occupational Therapy Visit Type Type Initial Evaluation Visit Start Time 13:10 Visit Stop Time 13:35 Occupational Therapy Visit Comments Patient Comments Pt agreed to try to get up. Notified nursing of need to change ankle bandage out and double check pt's left arm bandage noted redness/swelling present below. Patient/Caregiver Pt would like to go home but open to skilled rehab if Goals needed. OT Pain Assessment Pain When Pain Assessed At Rest Pain Present Pain Present Pain Reported Location Back Pain Behaviors Facial Grimacing,Holding Area M4 OT- IP ADL's Start: 10/22/25 13:43 Freq: Status: Active Protocol: Document 10/22/25 13:44 [facility] (Rec: 10/22/25 13:57 [facility] Desktop) OT [id number] Comments OT Self-Feeding Not at meal time. Comments OT ADL-Grooming Comments OT Grooming Comments Not performed. OT ADL-Oral Care Comments Oral Care Comments Not performed. OT ADL-Dressing General Eval Lower Body Dressing Maximum Assistance Ability OT ADL-Toileting Comments OT Toileting Pt not having to go at this time. Comments M5 OT- IP IADL's Start: 10/22/25 13:43 Freq: Status: Active Protocol: Document 10/22/25 13:44 [facility] (Rec: 10/22/25 13:57 [facility] Desktop) OT-Instrumental Activities of Daily Living Meal Preparation Meal Preparation Caregiver Provides Assist Skin Diving Teacher Skin Diving Teacher Caregiver Provides Assist M6 OT- IP Functional Cognition Start: 10/22/25 13:43 Freq: Status: Active Protocol: Document 10/22/25 13:44 [facility] (Rec: 10/22/25 13:57 [facility] Desktop) Cognitive Factors Limiting Selfcare Function Cognitive Ability Level of Alertness Alert Patient Orientation Name,Place,Situation Attention Span Capable of Focused Attention,Capable of Sustained Ability Attention Cognitive Comments Cognitive Assessment Pt very talkative. Pt needing concrete cues to follow. Comments M7 OT- IP Mobility and Balance Start: 10/22/25 13:43 Freq: Status: Active Protocol: Document 10/22/25 13:44 [facility] (Rec: 10/22/25 13:57 [facility] Desktop) OT- Bed Mobility Assessment Supine to Sit Supine to Sit Assist Minimal Assistance OT-Transfer Assessment Comments Mobility Comments Pt wanting her to assist to pull her up from the bed for her trunk. Educated pt that she would benefit from a bed rail. OT- Balance Assessment Sitting Balance and Reactions Static Sitting Good Balance Ability Dynamic Sitting Good Balance Ability Comments Other Balance Tests/ Pt just wanting to sit on the edge of the bed and too Deviations/Treatment tired to do anything else. Pt left in the room with : nursing who was changing out her left ankle bandage. M8 OT- IP Objective Assessments Start: 10/22/25 13:43 Freq: Status: Active Protocol: Document 10/22/25 13:44 [facility] (Rec: 10/22/25 13:57 [facility] Desktop) OT Strength Comments Strength Comments At least 3-/5 M9 OT- IP Assessment and Plan Start: 10/22/25 13:43 Freq: Status: Active Protocol: Document 10/22/25 13:44 [facility] (Rec: 10/22/25 13:57 [facility] Desktop) OT Summary Assessment and Plan Potential Rehabilitation Good Potential Analytic Complexity Moderate at Evaluation Summary OT Impairments Pain,Balance,Functional Mobility,Dressing,Toileting, Bathing,Toilet Transfers,Shower Transfers,Activity Tolerance Progress Towards Slow Progress due to Pain,Slow Progress due to Medical Goals Issues,Slow Progress due to Activity Tolerance Assessment Summary Pt MOD complexity and main barriers are steps, decreased activity tolerance and now needing more assist for ADL and mobility needs. Pt only able tolerate bed mobility on OT eval and therefore best for pt to do skilled rehab prior to going home at this time. However if pt able to progress, would benefit from home health. Goals Self-Feeding Goal Independent Grooming Goal Independent Dressing Goal Minimal Assistance Toileting Goal Standby Assistance Bathing Goal Minimal Assistance Toilet Transfer Goal Independent Shower Transfer Goal Independent Days to Meet Goals 15 Frequency of Treatment Other frequency 5x/week Treatment Plan OT Treatment Plan ADL Training,Functional Mobility,Patient/Family Education,Discharge Planning Other Treatment Standing ADL's Recommendations and Next Treatment Focus Discharge Recommendations OT Discharge SNF Rehab,Home vs SNF Recommendations Transportation Needs Private Vehicle,Wheelchair/Cabulance at Discharge
[2025-10-22 14:00] VITALS: BP 97/88; PULSE 85; RESP 20; O2SAT 92
--- NOTE | 2025-10-22 15:19 | P.PN_ITS ---
Subjective Subjective Interval history: A&P 75-year-old female with recent episode of CHF who presented to the emergency room with weakness and was found to have an abnormal urinalysis concerning for UTI. In addition she has a large chronic left ankle ulcer with recent peripheral arterial stenting 2 weeks ago in [place]. UTI, Citrobacter Koseri Concern for pyelonephritis Urine culture positive with Citrobacter resistant only to tetracycline. Blood cultures no growth to date. * Discontinued Zosyn on 10/21 and started ceftriaxone. Patient lost her IV access and have not been able to place an IV. She has received 2 days of IV antibiotics and will transition to oral antibiotics. ANTHONY, resolved Likely due to volume depletion. Creatinine was 1.51 on admission, now 0.99. * Continue to monitor as needed * Avoid nephrotoxins and renally dose medications as needed CHF, chronic and stable * Continue aspirin and atenolol Peripheral arterial disease, status post recent stenting Chronic left ankle ulcer, status post revascularization Wound swab with MRSA on 10/10, likely colonization * Continue wound care * Continue rivaroxaban and aspirin * Not currently treating MRSA, likely colonization, no evidence active infection * Appreciate evaluation by Dr. Mills -continue Iodoflex dressing changes q.o.d., protein, zinc, and vitamin-C supplementation * Follow-up at wound care center after discharge Macrocytic anemia Patient with a chronic macrocytosis. On initial labs this morning hemoglobin appeared to drop from 9 to 7.6. A repeat hemoglobin was requested and returned at 8.6 which is within her recent hemoglobin range. No evidence of active bleeding. * Recheck labs in 48 hours * Consider checking B12 and folate at that time Hypertension Blood pressure low normal * Continue atenolol Hyperlipidemia * Continue fenofibrate Mild transaminitis, slowly improved Hyperbilirubinemia, slowly improve Etiology not clear, abdominal ultrasound shows cholelithiasis without cholecystitis or biliary dilatation. CT of the abdomen shows abnormal pancreas with biliary ductal dilatation and atrophy of the tail of the pancreas which is unchanged from prior. Exam is benign. * Recheck labs 48 hour Code Status: Full code Diet: Heart healthy Lines/Tubes: Peripheral IV DVT Prophylaxis: Chronically on rivaroxaban Discharge Planning: Patient is medically stable for discharge. Initially thought she could discharge home today with home health services. However patient and her feel that she is too weak and are requesting long-term facility for short-term rehab. Care management is working on this. Chief Complaint: Weakness Subjective: Patient without other complaints. Review of systems negative. No acute events overnight. Objective Vitals reviewed A&O, WN, WD, NAD NCAT, OP moist, neck supple RRR, nl S1 and S2, no murmurs CTA bilaterally Soft, NT, ND, +BS Warm without edema, non pressure ulcer of left medial ankle with fat layer exposed, no purulence no bleeding. Left upper extremity with subcutaneous bleeding. Neuro grossly nonfocal Pleasant, cooperative Labs: Labs reviewed and notable for WBC 3.9, hemoglobin 8.6, hematocrit 25.5, MCV 105.9, MCH 35.7, platelets 118, AST 65, ALT 46, total bilirubin 1.2 Imaging: No new imaging in the last 24 hour Time spent: 45 spent with patient and on the chart (including review of chart, obtaining history, exam, reviewing outside data, placing orders, documenting exam and treatment plan, and counseling patient). Exam Vital Signs (past 8 hours): - 10/22/25 09:16 10/22/25 10:00 Temperature 96.6 F L 96.5 F L Pulse Rate 67 65 Respiratory Rate 20 20 Blood Pressure 104/55 L 96/57 L Pulse Oximetry 100 95 Oxygen Flow Rate 0 Oxygen Delivery Method Room Air Oxygen Flow Rate 0 Objective Labs 10/22/25 07:26 10/22/25 05:25 Labs: Laboratory Results - last 24 hr 10/22/25 10/22/25 05:25 07:26 WBC 3.7 L 3.9 L RBC 2.16 L 2.41 L Hgb 7.6 L 8.6 L Hct 22.6 L 25.5 L MCV 104.8 H 105.9 H MCH 35.4 H 35.7 H MCHC 33.8 33.7 RDW 19.1 H 19.6 H Plt Count 127 L 118 L Neut % (Auto) 56.6 Lymph % (Auto) 27.7 Stephens % (Auto) 12.7 Eos % (Auto) 2.0 Baso % (Auto) 1.0 Neut # (Auto) 2100 Lymph # (Auto) 1000 L Stephens # (Auto) 500 Eos # (Auto) 100 Baso # (Auto) 0 Sodium 135 L Potassium 4.1 Chloride 108 H Carbon Dioxide 25 BUN 15 Creatinine 0.99 Estimated GFR 59 L BUN/Creatinine Ratio 15.2 Glucose 77 Calcium 7.0 L Total Bilirubin 1.2 AST 65 H ALT 46 H Alkaline Phosphatase 54 Total Protein 3.9 L Albumin 1.8 L Globulin 2.1 Albumin/Globulin Ratio 0.9 L PFSH Medical History Peripheral vascular disease of extremity with claudication Breast cancer Pressure ulcer of ankle Stomach ulcer Hypertension Pancreatitis Family History Mother Cancer Social History household members: spouse alcohol intake: former Assessment & Plan Time-Based Coding :: [TOTAL MINUTES] spent with patient and on the chart (including review of chart, obtaining history, exam, reviewing outside data, placing orders, documenting exam and treatment plan, and counseling patient) on [DATE]. Quality VTE Deep Vein Thrombosis/Pulmonary Embolism Present on Admission: No
--- NOTE | 2025-10-22 15:45 | PT.IPTN ---
Current Diagnoses Peripheral vascular disease, unspecified (10/21/25) Non-pressure chronic ulcer of left ankle with fat layer exposed (10/21/25) Tubulo-interstitial nephritis, not specified as acute or chronic (10/21/25) Physical Therapy Treatment Note M2 PT-IP Current Condition Start: 10/20/25 14:25 Freq: Status: Active Protocol: Document 10/21/25 14:50 SP (Rec: 10/21/25 15:55 SP [id number]) Physical Therapy Current Condition Current Condition Evaluation Date 10/20/25 Treatment Diagnosis Weakness, UTI Onset Date 10/19/25 M3 PT-IP Subjective Start: 10/20/25 14:25 Freq: Status: Active Protocol: Document 10/22/25 15:34 SAK (Rec: 10/22/25 15:45 SAK [id number]) Subjective Physical Therapy Visit Type Type Treatment Note Visit Start Time 15:16 Visit Stop Time 15:35 Notes Nurse arrived end tx. Number of HEALTH PROMOTION SPECIALIST Visits 0 Physical Therapy Visit Comments Patient Comments Pt. supine in bed when PT arrived. Reluctant to do PT, then agreed to try. Reports L ankle was just wrapped by wound care, but was found weeping through bandage. Nursing notified and additional banding applied. Pt. states she didn't want cast shoe and that her slippers fit fine. Therapy Pain Assessment Pain When Pain Assessed At Rest Pain Present Pain Present Pain Reported Location Left Upper Arm Intensity 4 Back Intensity 2 Pain Management Distraction,Modification of Treatment,Re-positioning Techniques M4 PT-IP Mobility and Gait Start: 10/20/25 14:25 Freq: Status: Active Protocol: Document 10/22/25 15:34 SAK (Rec: 10/22/25 15:45 SAK [id number]) PT-Bed Mobility Assessment Supine to Sit Supine to Sit Minimal Assistance,1 Person Assistance,Head of Bed Elevated,Bedrails Sit to Supine Sit to Supine Minimal Assistance,1 Person Assistance Scooting Scooting to Edge of Minimal Assistance Bed Scooting Up and Down Maximum Assistance in Bed PT-Transfer Assessment Sit to and From Stand Sit to and from Contact Guard Assistance,Minimal Assistance,1 Person Stand Assistance,Use of Upper Extremities Equipment Transfer Assistive Gait Belt,Front Wheeled Walker Device Transfer Ability Level of Assist Contact Guard Assistance,Use of Upper Extremities Gait Assessment Gait Gait Assistance Contact Guard Assist,Minimum Assistance,1 Person Assist Required: Distance (Feet) 20 Able to Maintain Yes Weight Bearing Status During Gait Assistive Devices Assistive Device Gait Belt,Front Wheeled Walker Gait Deviations General Gait Pattern Antalgic,Decreased Stride Length,Decreased Feet Clearance,Flexed Trunk,Step-to Gait,Wide Based Gait Comments Gait Comments Cues for safety with gait including hand placement, stay close to walker. Mod use of UE's for unweighting left LE with gait. PT-Balance Assessment Sitting Balance and Reactions Static Sitting Good Balance Ability Dynamic Sitting Good Balance Ability Standing Balance and Reactions Static Standing Good Balance Ability Dynamic Standing Fair Balance Ability Device Used FWW Comments Other Balance Tests/ no LOB during standing or gait Deviations/Treatment : M5 PT-IP Objective Assessments Start: 10/20/25 14:25 Freq: Status: Active Protocol: Document 10/20/25 14:25 NW (Rec: 10/20/25 14:39 NW [id number]) Orientation Orientation/Cognition Level of Alertness Alert Orientation Name,Age,Birthday,Month,Date,Year,Day of Week,Place, Situation Comments Pt appears to be highly euphoric with conversation. Gross Range of Motion Upper Extremity ROM Assessment Within Functional Limits Lower Extremity ROM Assessment Within Functional Limits Strength Comments Strength Comments unable to assess secondary for need to go to the restroom, deferred. Sensation Assessment Comments Sensation Comments deferred secondary to needing to use restroom. Pt notes minimal pain of chronic ulcer of L medial malleolus. M6 PT-IP Treatment Start: 10/20/25 14:25 Freq: Status: Active Protocol: Document 10/22/25 15:34 SAK (Rec: 10/22/25 15:45 SAK [id number]) Physical Therapy Treatment Education Education Provided Safety M7 PT-IP Assessment and Plan Start: 10/20/25 14:25 Freq: Status: Active Protocol: Document 10/22/25 15:34 SAK (Rec: 10/22/25 15:45 SAK [id number]) PT Summary Assessment and Plan Potential Rehabilitation Good Potential Status of Condition Evolving at Evaluation Summary Impairments Pain,Strength,Balance,Cognition,Bed Mobility,Transfers, Gait,Activity Tolerance Progress Towards Slow Progress due to Pain,Slow Progress due to Medical Goals Issues,Slow Progress due to Activity Tolerance Assessment Summary Pt. reluctant to participate in PT, reporting earlier SOB and fatigue, but agreed with min encouragement. Required min assist supine to sit, sit to stand, and with gait. Reported some pain at 4/10 low back during standing and gait and ambulates with WBOS, mod use of UE's to unweight left LE with gait. C/o mild dizziness and was returned to bed. Max assist of 2 to move pt up in bed using slider sheet. Pt. reported she can see that she is not able to go home at this time. Pt. left in care of BILINGUAL STUDENT TUTOR, at bedside. Call light in place. At this time recommend SNF rehab for patient. Goals Bed Mobility Goal Independent Transfer Goal Independent Gait Goal Standby Assistance Gait Distance 30 Other Goals Pt will be able to navigate 3 steps with unilateral hand railing. Days to Meet Goals 3 Frequency of Treatment Frequency Of Once a Day Treatment Treatment Plan Physical Therapy Bed Mobility Training,Transfer Training,Gait Training, Treatment Plan Therapeutic Exercise,Balance Retraining,Discharge Planning Precautions Other Precautions MRSA with chronic wound on L medial malleolus. Weight Bearing Status Weight Bearing Weight Bear as Tolerated Status Recommendations To Nursing Amount of Assist 1 Person Assist Needed Discharge Recommendations PT Discharge SNF Rehab,Home vs SNF Recommendations Transportation Needs Private Vehicle at Discharge - PT assist 1
--- NOTE | 2025-10-22 16:44 | CM.DPNOTE ---
DCP note ELECTRICAL POWER ENGINEER reviewed EMR per provider, stable to dc today. ELECTRICAL POWER ENGINEER met with pt and spouse mult times throughout day. does not think strong enough to go home. OT=SNF. Pt declined PT today. after many discussions, pt open to SNF at either or [facility]. was at [facility] recently. 60 days wellness restarted. should have new MCR benefit. will need to cancel ref with [facility] (previously working with them). GUZMAN Bruno KINDLY sent ref to Erika at - acceptance pending. PASRR needed. P: dc to pending acceptance (10/24 for 3rd midnight) will continue to follow closely for DCP coordination DARIN Turner
[2025-10-22] MEDS: CEFDINIR 300 MG CAPSULE PO ×2 (17:14→20:16)
[2025-10-22 20:03] VITALS: BP 113/66; PULSE 64; RESP 16; TEMP 36.4; O2SAT 98
[2025-10-23] MEDS: ACETAMINOPHEN SUSP 650 MG/20.3 ML UDC PO ×2 (01:00→14:42)
[2025-10-23 04:00] VITALS: BP 109/50; PULSE 60; RESP 14; TEMP 35.9; O2SAT 94
[2025-10-23 07:59] VITALS: BP 148/66; PULSE 66; RESP 16; TEMP 36; O2SAT 97
--- NOTE | 2025-10-23 09:23 | DIET.PN1 ---
Dietary Progress Note Assessment: Attempted f/u with pt. Nursing staff report pt is sleeping at this time and would not like to be disturbed. Continue with Ensure BID. Prince was added BID as well on 10/22/25. F/u as able with pt. Ht: 157.48 cm Wt: 50.1 kg BMI: 20.2 Last BM: 10/22/25 (10/22/25 09:35) MNA: 8 Dejon Score: 16 Diet: 10/20/25 Breakfast Heart Healthy Diet Diet Modifications: Labs: RBC 2.41 X10^6/uL (4.0-5.2) L 10/22/25 07:26 Hgb 8.6 g/dL (12.0-16.0) L 10/22/25 07:26 Hct 25.5 % (36-46) L 10/22/25 07:26 Creatinine 0.99 mg/dL (0.52-1.04) 10/22/25 05:25 Lactate 2.4 mmol/L (0.7-2.1) H 10/19/25 15:20 Electronically Signed by: Bee Villegas 10/23/25 09:23 Clinical Diet[address] [address]
[2025-10-23] MEDS: FENOFIBRATE, MICRONIZED 67 MG CAPSULE PO (09:57)
[2025-10-23] MEDS: ASCORBIC ACID 500 MG TABLET PO (09:57)
[2025-10-23] MEDS: RIVAROXABAN 10 MG TABLET 2.5 MG PO ×2 (09:57→21:35)
[2025-10-23] MEDS: ASPIRIN EC 81 MG TABLET PO (09:57)
[2025-10-23] MEDS: CEFDINIR 300 MG CAPSULE PO ×2 (09:57→21:34)
[2025-10-23] MEDS: PANTOPRAZOLE DR 40 MG TABLET PO ×2 (09:57→21:34)
--- NOTE | 2025-10-23 14:27 | PT.IPTN ---
Current Diagnoses Peripheral vascular disease, unspecified (10/21/25) Non-pressure chronic ulcer of left ankle with fat layer exposed (10/21/25) Tubulo-interstitial nephritis, not specified as acute or chronic (10/21/25) Physical Therapy Treatment Note M2 PT-IP Current Condition Start: 10/20/25 14:25 Freq: Status: Active Protocol: Document 10/21/25 14:50 SP (Rec: 10/21/25 15:55 SP [id number]) Physical Therapy Current Condition Current Condition Evaluation Date 10/20/25 Treatment Diagnosis Weakness, UTI Onset Date 10/19/25 M3 PT-IP Subjective Start: 10/20/25 14:25 Freq: Status: Active Protocol: Document 10/23/25 14:50 NW (Rec: 10/23/25 14:56 NW [id number]) Subjective Physical Therapy Visit Type Type Treatment Note Visit Start Time 13:53 Visit Stop Time 14:27 Number of BLIND SLAT STAPLING MACHINE OPERATOR Visits 0 Physical Therapy Visit Comments Patient Comments Pt feels about the same as yesterday. She is agreeable to work with PT. Patient Goals To get stronger. Therapy Pain Assessment Location Back Description Aching,Cramping Pain Management Modification of Treatment Techniques M4 PT-IP Mobility and Gait Start: 10/20/25 14:25 Freq: Status: Active Protocol: Document 10/23/25 14:50 NW (Rec: 10/23/25 14:56 NW [id number]) PT-Bed Mobility Assessment Supine to Sit Supine to Sit Contact Guard Assistance,Head of Bed Elevated,Bedrails Scooting Scooting to Edge of Contact Guard Assistance Bed PT-Transfer Assessment Sit to and From Stand Sit to and from Contact Guard Assistance,1 Person Assistance,Use of Stand Upper Extremities Equipment Transfer Assistive Gait Belt,Front Wheeled Walker Device Transfers Transfer Destination Bed Transfer Technique Stand Step Pivot Transfer Ability Level of Assist Contact Guard Assistance,1 Person Assistance,Use of Upper Extremities Comments Mobility Comments Improved power production with good AD management. Able to maintain balance upon stance. Gait Assessment Gait Gait Assistance Contact Guard Assist Required: Distance (Feet) 12 Assistive Devices Assistive Device Gait Belt,Front Wheeled Walker Gait Deviations General Gait Pattern Antalgic,Decreased Stride Length,Decreased Feet Clearance,Step-to Gait,Wide Based Gait Comments Gait Comments Decreased Wbing on LLE with a step to gait pattern. Performed in single bout with notable exertion following. Noted feeling nauseas upon completion. Stair Climbing Assessment Comments Stair Climbing DNT secondary to [place] Comments PT-Balance Assessment Sitting Balance and Reactions Static Sitting Good Balance Ability Dynamic Sitting Good Balance Ability Standing Balance and Reactions Static Standing Good Balance Ability Dynamic Standing Fair Balance Ability Device Used FWW Comments Other Balance Tests/ no LOB during standing or gait Deviations/Treatment : M5 PT-IP Objective Assessments Start: 10/20/25 14:25 Freq: Status: Active Protocol: Document 10/20/25 14:25 NW (Rec: 10/20/25 14:39 NW [id number]) Orientation Orientation/Cognition Level of Alertness Alert Orientation Name,Age,Birthday,Month,Date,Year,Day of Week,Place, Situation Comments Pt appears to be highly euphoric with conversation. Gross Range of Motion Upper Extremity ROM Assessment Within Functional Limits Lower Extremity ROM Assessment Within Functional Limits Strength Comments Strength Comments unable to assess secondary for need to go to the restroom, deferred. Sensation Assessment Comments Sensation Comments deferred secondary to needing to use restroom. Pt notes minimal pain of chronic ulcer of L medial malleolus. M6 PT-IP Treatment Start: 10/20/25 14:25 Freq: Status: Active Protocol: Document 10/23/25 14:50 NW (Rec: 10/23/25 14:56 NW [id number]) Physical Therapy Treatment Education Education Provided Safety Other Treatments Other Treatment Importance of maintaining strength and increasing time Performed spent out of bed. M7 PT-IP Assessment and Plan Start: 10/20/25 14:25 Freq: Status: Active Protocol: Document 10/23/25 14:50 NW (Rec: 10/23/25 14:56 NW [id number]) PT Summary Assessment and Plan Potential Rehabilitation Good Potential Status of Condition Evolving at Evaluation Summary Impairments Pain,Strength,Balance,Cognition,Bed Mobility,Transfers, Gait,Activity Tolerance Progress Towards Slow Progress due to Pain,Slow Progress due to Medical Goals Issues,Slow Progress due to Activity Tolerance Assessment Summary Requires encouragement to participate, CGA for bed mobility, transfers, and gait with FWW. Reported some pain at 4/10 low back during standing and gait and ambulates with WBOS, mod use of UE's to unweight left LE with gait. Notes nausea after completion of 12 ft ambulation in single bout, vitals remain stable. Continue to recommend SNF secondary to debility. Goals Bed Mobility Goal Independent Transfer Goal Independent Gait Goal Standby Assistance Gait Distance 30 Other Goals Pt will be able to navigate 3 steps with unilateral hand railing. Days to Meet Goals 3 Frequency of Treatment Frequency Of Once a Day Treatment Treatment Plan Physical Therapy Bed Mobility Training,Transfer Training,Gait Training, Treatment Plan Therapeutic Exercise,Balance Retraining,Discharge Planning Other Increase gait distance and number of bouts Recommendations and Next Treatment Focus Precautions Other Precautions MRSA with chronic wound on L medial malleolus. Weight Bearing Status Weight Bearing Weight Bear as Tolerated Status Recommendations To Nursing Amount of Assist 1 Person Assist Needed Discharge Recommendations PT Discharge SNF Rehab Recommendations Transportation Needs Private Vehicle,Wheelchair/Cabulance at Discharge - PT assist 1
[2025-10-23 16:00] VITALS: BP 110/76; PULSE 71; RESP 18; TEMP 35.7; O2SAT 97
--- NOTE | 2025-10-23 16:09 | P.PN_ITS ---
Subjective Subjective Date Patient Seen: 10/23/25 Time Patient Seen: 16:09 Interval history: Chief complaint: Weakness encephalopathy secondary to Klebsiella UTI History of present illness: 10/19: 75-year-old woman recently discharged from this hospital 10/13/2025 for an episode of congestive heart failure was at home recovering well when she suddenly this morning felt so weak she could not get out of bed. She was brought by paramedics to the emergency department. On route she experienced some back discomfort that she attributes to being [facility]. She also has peripheral artery disease and a large chronic left ankle ulcer with recent stenting two weeks ago in [place], managed with aspirin and Xarelto and the wound care clinic locally. She denies chest pain, shortness breast, nausea, vomiting, diarrhea, abdominal pain, dysuria, frequency, hesitancy or urinary symptoms. She has not had a recent indwelling catheter. She was noted to have an abnormal urinalysis on presentation. She was started on IV Zosyn in the emergency department. Hospital course: 10/20-10/22: Patient treated with antibiotics de-escalated based on culture and sensitivity 10/23: No complaints except leaking from where an IV infiltrated on her left arm no fevers or chills Review of systems: No fever or chills rigors No chest pain shortness for breath No abdominal pain No nausea vomiting diarrhea Physical exam: No acute distress Alert cogent No labored respirations The focal extremity with ecchymosis and fluid leaking from where the IV infiltrated Abdomen nontender Extremities no edema Assessment and plan: 75-year-old female with recent episode of CHF who presented to the emergency room with weakness and was found to have an abnormal urinalysis concerning for UTI. In addition she has a large chronic left ankle ulcer with recent peripheral arterial stenting 2 weeks ago in [place]. UTI, Citrobacter Koseri Concern for pyelonephritis and sepsis with encephalopathy and weakness * Urine culture positive with Citrobacter resistant only to tetracycline. * Blood cultures no growth to date. * Discontinued Zosyn on 10/21 * transition to oral antibiotics cefdinir ANTHONY, resolved Likely due to volume depletion. Creatinine was 1.51 on admission, now 0.99. * Continue to monitor as needed * Avoid nephrotoxins and renally dose medications as needed CHF, chronic and stable * Continue aspirin and atenolol Peripheral arterial disease, status post recent stenting Chronic left ankle ulcer, status post revascularization Wound swab with MRSA on 10/10, likely colonization * Continue wound care * Continue rivaroxaban and aspirin * Not currently treating MRSA, likely colonization, no evidence active infection * Appreciate evaluation by Dr. Mills -continue Iodoflex dressing changes q.o.d., protein, zinc, and vitamin-C supplementation * Follow-up at wound care center after discharge Macrocytic anemia Patient with a chronic macrocytosis. On initial labs this morning hemoglobin appeared to drop from 9 to 7.6. A repeat hemoglobin was requested and returned at 8.6 which is within her recent hemoglobin range. No evidence of active bleeding. * Recheck labs in 48 hours * Consider checking B12 and folate at that time Hypertension Blood pressure low normal * Continue atenolol Hyperlipidemia * Continue fenofibrate Mild transaminitis, slowly improved Hyperbilirubinemia, slowly improve Etiology not clear, abdominal ultrasound shows cholelithiasis without cholecystitis or biliary dilatation. CT of the abdomen shows abnormal pancreas with biliary ductal dilatation and atrophy of the tail of the pancreas which is unchanged from prior. Exam is benign. * Recheck labs 48 hour Code Status: Full code Diet: Heart healthy Lines/Tubes: Peripheral IV DVT Prophylaxis: Chronically on rivaroxaban Disposition: * senior living versus short-term rehab Time based billing: * 35 minutes were involved in evaluation of this patient including [id number] evaluation physical examination review of chronic records objective laboratory findings and discussion with care management Exam Vital Signs (past 8 hours): Oxygen Delivery Method Room Air Oxygen Flow Rate 0 Objective Labs 10/22/25 07:26 10/22/25 05:25 [facility] Medical History Peripheral vascular disease of extremity with claudication Breast cancer Pressure ulcer of ankle Stomach ulcer Hypertension Pancreatitis Family History Mother Cancer Social History household members: spouse alcohol intake: former Assessment & Plan Time-Based Coding :: [TOTAL MINUTES] spent with patient and on the chart (including review of chart, obtaining history, exam, reviewing outside data, placing orders, documenting exam and treatment plan, and counseling patient) on [DATE]. Quality VTE Deep Vein Thrombosis/Pulmonary Embolism Present on Admission: No
[2025-10-23] MEDS: CYCLOBENZAPRINE 10 MG TABLET PO (16:11)
[2025-10-23 20:54] VITALS: BP 111/38; PULSE 63; RESP 16; TEMP 35.8; O2SAT 93
[2025-10-24 03:53] VITALS: BP 117/56; PULSE 55; RESP 17; TEMP 35.8; O2SAT 92
[2025-10-24] MEDS: FENOFIBRATE, MICRONIZED 67 MG CAPSULE PO (09:30)
[2025-10-24] MEDS: ASCORBIC ACID 500 MG TABLET PO (09:30)
[2025-10-24] MEDS: ASPIRIN EC 81 MG TABLET PO (09:30)
[2025-10-24] MEDS: PANTOPRAZOLE DR 40 MG TABLET PO (09:30)
[2025-10-24] MEDS: CEFDINIR 300 MG CAPSULE PO (09:30)
[2025-10-24] MEDS: RIVAROXABAN 10 MG TABLET 2.5 MG PO (09:31)
--- NOTE | 2025-10-24 11:09 | PM.DS.1 ---
History of Present Illness History of Present Illness Date Patient Seen: 10/24/25 Date of Onset of Symptoms: 10/24/25 Chief complaint: Weakness Narrative: Chief complaint: Weakness encephalopathy secondary to Klebsiella UTI History of present illness: 10/19: 75-year-old woman recently discharged from this hospital 10/13/2025 for an episode of congestive heart failure was at home recovering well when she suddenly this morning felt so weak she could not get out of bed. She was brought by paramedics to the emergency department. On route she experienced some back discomfort that she attributes to being transferred [facility]. She also has peripheral artery disease and a large chronic left ankle ulcer with recent stenting two weeks ago in [place], managed with aspirin and Xarelto and the wound care clinic locally. She denies chest pain, shortness breast, nausea, vomiting, diarrhea, abdominal pain, dysuria, frequency, hesitancy or urinary symptoms. She has not had a recent indwelling catheter. She was noted to have an abnormal urinalysis on presentation. She was started on IV Zosyn in the emergency department. Hospital course: 10/20-10/22: Patient treated with antibiotics de-escalated based on culture and sensitivity 10/23: No complaints except leaking from where an IV infiltrated on her left arm no fevers or chills 10/24: No new complaints ready for discharge accepted at [facility] Review of systems: No fever or chills rigors No chest pain shortness for breath No abdominal pain No nausea vomiting diarrhea Physical exam: No acute distress Alert cogent No labored respirations The focal extremity with ecchymosis and fluid leaking from where the IV infiltrated Abdomen nontender Extremities no edema Assessment and plan: 75-year-old female with recent episode of CHF who presented to the emergency room with weakness and was found to have an abnormal urinalysis concerning for UTI. In addition she has a large chronic left ankle ulcer with recent peripheral arterial stenting 2 weeks ago in [place]. UTI, Citrobacter Koseri Concern for pyelonephritis and sepsis with encephalopathy and weakness Urine culture positive with Citrobacter resistant only to tetracycline. Blood cultures no growth to date. Discontinued Zosyn on 10/21 transition to oral antibiotics cefdinir ANTHONY, resolved Likely due to volume depletion. Creatinine was 1.51 on admission, now 0.99. Continue to monitor as needed Avoid nephrotoxins and renally dose medications as needed CHF, chronic and stable Continue aspirin and atenolol Peripheral arterial disease, status post recent stenting Chronic left ankle ulcer, status post revascularization Wound swab with MRSA on 10/10, likely colonization Continue wound care Continue rivaroxaban and aspirin Not currently treating MRSA, likely colonization, no evidence active infection Appreciate evaluation by Dr. Mills -continue Iodoflex dressing changes q.o.d., protein, zinc, and vitamin-C supplementation Follow-up at wound care center after discharge Macrocytic anemia Patient with a chronic macrocytosis. On initial labs this morning hemoglobin appeared to drop from 9 to 7.6. A repeat hemoglobin was requested and returned at 8.6 which is within her recent hemoglobin range. No evidence of active bleeding. Recheck labs in 48 hours Consider checking B12 and folate at that time Hypertension Blood pressure low normal Continue atenolol Hyperlipidemia Continue fenofibrate Mild transaminitis, slowly improved Hyperbilirubinemia, slowly improve Etiology not clear, abdominal ultrasound shows cholelithiasis without cholecystitis or biliary dilatation. CT of the abdomen shows abnormal pancreas with biliary ductal dilatation and atrophy of the tail of the pancreas which is unchanged from prior. Exam is benign. Recheck labs 48 hour Code Status: Full code Diet: Heart healthy Lines/Tubes: Peripheral IV DVT Prophylaxis: Chronically on rivaroxaban Disposition: Transfer to [facility] Time based billin minutes were involved in evaluation of this patient including [id number] evaluation physical examination review of chronic records objective laboratory findings and discussion with care management Discharge Providers Provider Date of admission: 10/21/25 10:32 Discharge Date: 10/24/25 Primary care physician: Autumn Bonilla PA-C Consults: 10/20/25 02:23 Consult to Dietitian, Adult Routine Comment: Reason For Exam: pt poor diet intake wt loss Consult to Wound Care Routine Comment: Consulting Provider: [facility] 10/20/25 11:08 Consult to Physical Therapy Evaluate & Treat Comment: Physician Instructions: Evaluate and Treat 10/22/25 11:56 Consult to Occupational Therapy Evaluate & Treat Comment: Physician Instructions: Evaluate and treat Discharge provider: Jamison Corey MD Exam Vital Signs (past 8 hours): - 10/24/25 03:53 Temperature 96.4 F L Pulse Rate 55 L Respiratory Rate 17 Blood Pressure 117/56 L Pulse Oximetry 92 Oxygen Flow Rate 0 Oxygen Delivery Method Room Air Oxygen Flow Rate 0 Objective Labs 10/22/25 07:26 10/22/25 05:25 [facility] Medical History Peripheral vascular disease of extremity with claudication Breast cancer Pressure ulcer of ankle Stomach ulcer Hypertension Pancreatitis Family History Mother Cancer Social History household members: spouse alcohol intake: former Discharge Plan Discharge Plan Patient Disposition: SNF Transfer to: [facility] Discharge orders & Medications Prescriptions: New cyclobenzaprine 10 mg Tablet 10 mg PO Q6HR PRN (Reason: Muscle Spasm) Qty: 6 0RF ascorbic acid (vitamin C) [Vitamin C] 500 mg Tablet 500 mg PO DAILY Qty: 6 0RF cefdinir 300 mg Capsule 300 mg PO BID Qty: 8 0RF Continued pantoprazole 40 mg tablet,delayed release (DR/EC) 40 mg PO BID rivaroxaban [Xarelto] 2.5 mg tablet 2.5 mg PO BID aspirin [Adult Aspirin Regimen] 81 mg tablet,delayed release (DR/EC) 81 mg PO DAILY doxycycline hyclate 50 mg capsule 100 mg PO DAILY atenolol 25 mg Tablet 75 mg PO BID fenofibrate nanocrystallized 48 mg Tablet 144 mg PO DAILY Follow up/Referrals: Autumn Bonilla PA-C [Primary Care Provider, [facility]] Visit Report/Discharge Packet Stand Alone Forms: [employer], Patient Portal/API, Stroke Signs & Symptoms, Influenza Vaccine Info, Notice of Privacy Practices, Inpatient vs Outpatient, Pneumococcal Vaccine Info, Pt. Rights & Responsibilities Discharge Data Primary Care Provider: Autumn Bonilla Quality VTE Deep Vein Thrombosis/Pulmonary Embolism Present on Admission: No
--- NOTE | 2025-10-24 11:19 | CM.DPC ---
DCP Cont. Reviewed EMR and team rounds for pt's medical status and updates. Pt has been cleared for d/c today to [facility]. They will transport her at 1:00pm. DC clinicals and PASSAR will be faxed prior to her departure. RN provided with the RN report number. Updated pt and spouse. No further d/c needs identified at this time.
[2025-10-24] MEDS: ACETAMINOPHEN SUSP 650 MG/20.3 ML UDC PO (12:18)
--- NOTE | 2025-10-24 13:58 | PC.NURSE ---
1100 business excellence manager discussed pt's discharge today; pickup time 1300; updated pt and spouse; gave tylenol for leg pain; changed left lower leg dressing; gently cleansed with sterile Normal Saline; applied MD ordered dressing with only 1 package available on unit; covered this with xerofoam then 4x4 then for protection abd.pad was placed, then kerlix and stretch netting over all dressing area. pt had assistance with putting on her own pants and coat for going to snf across from the hospital; transporter came about 1255, wheel chair with transporter staff; pt stood with assistance, used walker, pivoted to wheel chair from bed; left with discharge info. packet provided by Case Management. pt alert, enjoyed Eunice dinner; is aware that wound care will continue at her facility. pt left alert, reported being weak, this has been noted before.
--- NOTE | 2025-10-24 14:05 | PC.NURSE ---
per MD orders, Iodoflx dressing placed on wound site with 1245 dressing change. pt.aware of plans for further care at new facility.
--- NOTE | 2025-10-24 14:24 | PC.NURSE ---
phoned report to nurse at [facility]; will accept a call from nurse if she has questions.
== END 2025-10-24 14:23 | DRG 871 ==
LOC: ED 12:29 → AC 18:44
PROVIDERS: Internal Medicine Infectious Disease; Admitting Provider Internal Medicine; Emergency Provider Student in an Organized Health Care Education/Training Program; Family Provider Physician Assistant Medical; PCP Physician Assistant Medical; Referring Provider Student in an Organized Health Care Education/Training Program; Visit Provider Internal Medicine
DX: A41.9 Sepsis, unspecified organism (principal); G93.41 Metabolic encephalopathy; N12 Tubulo-interstitial nephritis, not specified as acute or chronic; N17.9 Acute kidney failure, unspecified; L97.322 Non-pressure chronic ulcer of left ankle with fat layer exposed; Z16.29 Resistance to other single specified antibiotic; I73.9 Peripheral vascular disease, unspecified; E86.9 Volume depletion, unspecified; I50.9 Heart failure, unspecified; I11.0 Hypertensive heart disease with heart failure; E78.5 Hyperlipidemia, unspecified; K21.9 Gastro-esophageal reflux disease without esophagitis; Z95.820 Peripheral vascular angioplasty status with implants and grafts; R74.01 Elevation of levels of liver transaminase levels; E80.6 Other disorders of bilirubin metabolism; D53.9 Nutritional anemia, unspecified; B96.1 Klebsiella pneumoniae [K. pneumoniae] as the cause of diseases classified elsewhere; Z22.322 Carrier or suspected carrier of Methicillin resistant Staphylococcus aureus; Z79.01 Long term (current) use of anticoagulants; Z87.891 Personal history of nicotine dependence
CPT/HCPCS: 36415; 36569; 71045; 71260; 74177; 76705; 80053; 81001; 83605; 83690; 84145; 85025; 85027; 85610; 85730; 87040; 87077; 87086; 87186; 93005; 93010; 96361; 96365; 96375; 97116; 97161; 97166; 97530; 99285; 99291; G0378; J0696; J2270; J2543; J7030; J7040; J7050; Q9967